=== PATIENT | female | born 1970 | race Caucasian/White ===

== ENCOUNTER 2023-05-02 10:14 | Outpatient (AMB) | payer MEDICAID, SELFPAY ==
--- NOTE | 2023-05-02 10:15 | MHC.OFFVIS ---
Intake Intake Visit Reasons: LDCT SD Allergies morphine [MORPHINE] Allergy (Unknown, Unverified 03/09/20 15:16) UNKNOWN naproxen [From NAPROSYN] Allergy (Unknown, Unverified 03/09/20 15:16) GASTRITIS Sulfa (Sulfonamide Antibiotics) [SULFA (SULFONAMIDE ANTIBIOTICS)] Allergy (Unknown, Unverified 03/09/20 15:16) RASH,HIVES,CHEST TIGHTNESS HPI HPI Comments History of Present Illness Details Initial visit for this 53 year old female smoker with a 55+ PYH. Patient has been smoking since age 13 for 40 years at 1-2.5 ppd. . Denies marijuana use. Denies exposure to chemicals or substances like asbestos. Reports social second hand smoke exposure. . Reports father, smoker, with history of lung cancer. Denies personal history of cancers. Denies chest CT in last year. . Denies recent travel outside the [place]. Denies testing positive for COVID. Denies receiving COVID Vaccinations. . Denies fever, chills, chest pain, new cough, hemoptysis or unintentional weight loss. Lung Cancer Screening Questionnaire reviewed with patient by provider. . Shared Decision Making Completed. Discussed in detail with patient, the risk vs benefit of LDCT screening. Patient would like to proceed with scan. Discussed smoking cessation. [facility] Medical History (Updated 04/21/23 @ 11:42 by Velma Leija PA-C) Nicotine dependence, cigarettes, uncomplicated Cervical radiculopathy Insomnia Depression with anxiety Surgical History (Updated 04/28/23 @ 11:13 by Velma Leija PA-C) History of breast surgery History of cholecystectomy History of appendectomy History of tubal ligation Assessment & Plan Assessment & Plan (1) Nicotine dependence, cigarettes, uncomplicated: Comment: (onset 13yo, 1-1.5ppd x 40yrs, 50pyh) Code(s): F17.210 - Nicotine dependence, cigarettes, uncomplicated Plan - SDM visit completed via telehealth. - Patient meets criteria for LDCT for lung cancer screening purposes and is asymptomatic. - Offered smoking cessation. - Will arrange for a LDCT scan of the chest for screening purposes at [facility]. - Discussed follow up plan. Will send a letter discussing results and if needed set up phone call and office visit based on CT findings. - Risks, benefits, and alternatives were discussed in detail and patient agrees to proceed. - Risks discussed include but are not limited to: radiation exposure and possibility of additional intervention for benign disease. - Benefits are obviously detection of lung cancer at an early stage. - Discussed importance of screening program and compliance with yearly LDCT scan as scheduled. - Patient informed they will be contacted at later date to schedule upcoming LDCT scan. - All questions answered. - A copy of office note and LDCT will be sent to patient's PCP. Incidental findings on LDCT are PCP's responsibility. Telehealth Telehealth Location of provider rendering services: practice address Location of patient: address on file Patient Identification confirmed using: Name, : Yes Telehealth method: voice only Patient verbally consented to treatment: Yes Patient verbally consented to billing insurance company: Yes Patient informed of any privacy concerns related to visit: Yes Minutes spent on Phone/Video with Pt.: 8 Coding Level of Care Code Lung Cancer Screening [id number] Diagnoses Nicotine dependence, cigarettes, uncomplicated F17.210
== END 2023-05-02 10:49 | disposition home or self-care (01) ==
LOC: HO.HPS 10:14
PROVIDERS: PCP Internal Medicine; Visit Provider Nurse Practitioner Family
DX: F17.210 Nicotine dependence, cigarettes, uncomplicated (principal)
CPT/HCPCS: G0296

== ENCOUNTER 2023-05-02 16:01 | Outpatient (REF) | payer MEDICAID, SELFPAY ==
--- NOTE | ~2023-05-02 | CT_ITS ---
EXAMINATION: CT CHEST SCREENING CLINICAL INFORMATION: Current smoker. 40 pack year history. COMPARISON: Previous chest x-ray June 2019 TECHNIQUE: Multidetector volumetric CT imaging of the chest is performed without contrast using low dose technique. Additional 2D coronal and sagittal reformatted images and axial 3D maximum intensity projection (MIP) images are generated on the CT workstation. This CT examination was performed using dose optimization techniques as appropriate, variously including the following: *Automated exposure control *Adjustment of mA and/or kV according to patient size (this includes techniques or standardized protocols for targeted exams where dose is matched to indication/reason for exam; i.e. extremities or head) *Use of iterative reconstruction technique DLP: 45 mGy-cm FINDINGS: LUNGS: Mild emphysema. Bilateral calcified pulmonary nodules, largest measuring 4 mm probably representing calcified granulomas. 3 mm noncalcified right upper lobe nodule axial image 176 and 182 series 5. 6 mm peripheral or subpleural noncalcified right middle lobe nodule along the minor fissure probably representing a subpleural lymph node axial image 2:30 series 5. 4 mm noncalcified right upper lobe nodule axial image 186 series 5. Scarring or chronic subsegmental atelectasis in the lingula. No endobronchial or endotracheal lesion. MEDIASTINUM: The mediastinum is normal. CORONARY ARTERY CALCIFICATION: None visualized on this study. PLEURA: There is no pleural effusion. No pleural mass or thickening. AXILLA: No lymphadenopathy. Bilateral breast implants. UPPER ABDOMEN: Unremarkable OSSEOUS STRUCTURES: Degenerative changes of the spine. CT/CT lung screening IMPRESSION: Mild emphysema. Bilateral small calcified and noncalcified pulmonary nodules. ASSESSMENT: Lung-RADS category 2: Benign RECOMMENDATION: Annual low-dose chest CT follow-up recommended
== END 2023-05-02 16:02 | disposition home or self-care (01) ==
LOC: HO.CT 16:01
PROVIDERS: PCP Internal Medicine; Visit Provider Physician Assistant Medical
DX: Z12.2 Encounter for screening for malignant neoplasm of respiratory organs (principal); F17.210 Nicotine dependence, cigarettes, uncomplicated
CPT/HCPCS: 71271; G0296

== ENCOUNTER 2023-09-15 16:00 | Outpatient (REF) | payer MEDICAID, SELFPAY ==
--- NOTE | ~2023-09-15 | MR_ITS ---
EXAMINATION: MR LUMBAR SPINE WITHOUT CONTRAST CLINICAL INFORMATION: Low back pain with sciatica COMPARISON: MRI lumbar spine on 04/18/2015 TECHNIQUE: MRI of the lumbar spine was obtained using routine sequences without contrast. FINDINGS: The visualized lumbar vertebrae are intact with normal alignment. No focal bone lesion with abnormal signal can be seen. Evaluation of the intervertebral discs show: T12/L1: Intervertebral disc height is normal, with normal T2 signal. No focal disc herniation is seen. Bilateral T12/L1 neuroforamina are patent. Bilateral apophyseal joints are intact with normal alignment. L-1/L-2: Intervertebral disc height is normal, with normal T2 signal. No focal disc herniation is seen. Bilateral L1-L2 neuroforamina are patent. Bilateral apophyseal joints are intact with normal alignment. L2/L3: Intervertebral disc height is normal, with normal T2 signal. No focal disc herniation is seen. Bilateral L2-L3 neuroforamina are patent. Bilateral apophyseal joints are intact with normal alignment. L3/L4: Intervertebral disc height is normal, with normal T2 signal. No focal disc herniation is seen. Bilateral L3-L4 neuroforamina are patent. Bilateral apophyseal joints are intact with normal alignment. Bilateral apophyseal joints show loss of joint space, sclerosis, facet hypertrophy and osteophytosis. L4/L5: Intervertebral disc height is normal, with normal T2 signal. No focal disc herniation is seen. Bilateral L4-L5 neuroforamina are patent. Bilateral apophyseal joints are intact with normal alignment. Bilateral apophyseal joints show loss of joint space, sclerosis, facet hypertrophy and osteophytosis. L5/S1: Intervertebral disc height is mildly decreased, with moderate loss of T2 signal. Mild posterior and bilateral foraminal disc protrusion is seen. There is resulting asymmetric moderate left L5-S1 neuroforamina stenosis due to impingement by foraminal disc and apophyseal joint osteophytes. Bilateral apophyseal joints are intact with normal alignment. Bilateral apophyseal joints show loss of joint space, sclerosis, facet hypertrophy and osteophytosis. A left lateral posterior synovial cyst measuring 0.4 cm in diameter is seen. Conus medullaris is seen normally at L1 level. MR/MR lumbar spine wo con IMPRESSION: 1. Interval progression to moderate L5-S1 degenerative disc disease with persistent mild posterior and bilateral foraminal disc protrusion. There is interval progression to asymmetric moderate left L5-S1 neuroforamina stenosis due to impingement by foraminal disc and apophyseal joint osteophytes. 2. Interval development of Bilateral L5-S1 facet joint osteoarthritis with a left lateral posterior synovial cyst measuring 0.4 cm in diameter. 3. Interval development of Bilateral L3-L4 and L4-L5 facet joint osteoarthritis.
--- NOTE | ~2023-09-15 | XR_ITS ---
EXAMINATION: XR SHOULDER, LEFT CLINICAL INFORMATION: Pain. COMPARISON: Radiographs dated 06/08/2015. TECHNIQUE: AP external rotation, Grashey, scapular Y, and axillary views of the left shoulder. FINDINGS: Bony alignment and mineralization are normal. The glenohumeral joint is intact. The acromioclavicular and coracoclavicular intervals are normal. No fracture or dislocation is seen. There is mild calcific tendinitis of the left rotator cuff insertion. No foreign body is seen. There is no left pneumothorax. A small left apical benign, calcified granuloma is seen, consistent with the CT chest dated 05/02/2023 (5:94). XR/XR shoulder LT min 2V IMPRESSION: 1. No fracture or dislocation is seen. 2. There is mild calcific tendinitis of the left rotator cuff insertion.
--- NOTE | ~2023-09-15 | XR_ITS ---
EXAMINATION: XR CERVICAL SPINE CLINICAL INFORMATION: Neck pain. COMPARISON: Cervical spine 11/03/2012 radiographs, MRI cervical spine 01/24/2013. TECHNIQUE: 5 views of the cervical spine. FINDINGS: Redemonstration of postsurgical changes with interbody and anterior buttress device at C5-C6. Advanced degenerative changes with hypertrophic change and loss of disc space height at C4-C5 have significantly progressed. Minimal anterolisthesis of C2 on C3. XR/XR cervical spine 4V IMPRESSION: 1. Redemonstration of postsurgical changes at C5-C6. 2. Advanced degenerative changes at C4-C5 have significantly progressed.
== END 2023-09-15 16:01 | disposition home or self-care (01) ==
LOC: HO.MRI 16:00
PROVIDERS: PCP Internal Medicine; Visit Provider Internal Medicine
DX: M54.41 Lumbago with sciatica, right side (principal); M54.42 Lumbago with sciatica, left side; G89.29 Other chronic pain; M54.2 Cervicalgia; M25.512 Pain in left shoulder
CPT/HCPCS: 72050; 72148; 73030

== ENCOUNTER 2024-03-13 02:47 | Emergency (ER) | payer MEDICAID, SELFPAY ==
--- NOTE | ~2024-03-13 | CT_ITS ---
EXAMINATION: CT HEAD WITHOUT CONTRAST (STROKE PROTOCOL) CLINICAL INFORMATION: Stroke protocol. COMPARISON: None available. TECHNIQUE: Contiguous axial imaging was performed from the skull base to vertex without intravenous administration of contrast. This CT examination was performed using dose optimization techniques as appropriate, variously including the following: *Automated exposure control *Adjustment of mA and/or kV according to patient size (this includes techniques or standardized protocols for targeted exams where dose is matched to indication/reason for exam; i.e. extremities or head) *Use of iterative reconstruction technique DLP: 665 mGy-cm FINDINGS: The lateral, third and fourth ventricles are normally outlined. The cortical sulci and basal cisterns are normally outlined as well. There is mild periventricular and central white matter attenuation. There is no acute territorial defects, hemorrhage or midline shift. The extra-axial spaces are unremarkable. Calvarium/scalp: Intact. Maxillofacial sinuses and mastoids: Clear as visualized. CT/CT head for stroke IMPRESSION: No acute intracranial pathology. Mild periventricular and central white matter diminished attenuation likely mild microvascular disease. This critical result was discussed with Dr. Siddharth Gordillo at 3:30 AM hours on March 13, 2024. It was ascertained that the content and urgency of the report was understood at the time of direct communication. Electronically signed by: Vini Mckeon MD 03/13/2024 03:37 AM EDT
--- NOTE | ~2024-03-13 | CT_ITS ---
EXAMINATION: CT ANGIOGRAM HEAD CT ANGIOGRAM NECK CLINICAL INFORMATION: Stroke. Weakness. Altered sensation. COMPARISON: Brain MRI from 02/11/2018. CT head from 03/13/2024. TECHNIQUE: Initial noncontrast radiochemical technician imaging of the head and neck was performed. Comparison is made with noncontrast head CT from earlier today. Test bolus sequences followed by intravenous administration 75 mL of Omnipaque 350. Helical imaging was performed in the axial plane from the aortic arch to the skull vertex. Delayed postcontrast imaging of the head was also performed. The data was processed at the processing technologist's workstation for generation of MIP sequences. Angled MIPs and volume rendered reformatted images were also generated at an offline 3D workstation. Stenoses are assessed in accordance with NASCET criteria unless otherwise indicated. This CT examination was performed using dose optimization techniques as appropriate, variously including the following: *Automated exposure control. *Adjustment of mA and/or kV according to patient size (this includes techniques or standardized protocols for targeted exams where dose is matched to indication/reason for exam; i.e. extremities or head). *Use of iterative reconstruction technique. DLP: 1440 mGy-cm FINDINGS: CT Head: There is no evidence of acute intracranial hemorrhage or edematous territorial infarction. [place]-white matter differentiation is preserved. A few foci of hypoattenuation in the periventricular and deep white matter most commonly seen with mild microangiopathy. The ventricles are normal in morphology and size. No evidence for obstructive hydrocephalus. No abnormal mass effect or midline shift. No extra-axial fluid collections. No pathologic intra-axial enhancement. No acute soft tissue or osseous abnormalities. Mild mucosal thickening of the paranasal sinuses. The mastoid air cells and middle ear cavities are clear. Multifocal odontogenic enamel erosions and periapical lucencies. CT Neck: The thyroid gland and remaining cervical soft tissues are within normal limits. Instrumented interbody fusion of C5-C6. Mild reversal of normal cervical lordosis centered on C4-C5. Advanced degenerative disc disease at C4-C5. Mild to moderate degenerative disc disease at all additional levels. C3-C7. CT Upper Chest: The visualized lung apices and upper mediastinum are within normal limits. Neck CTA: Aortic Arch: Normal contour and caliber with mild calcific atherosclerotic disease. Classic 3 vessel branching pattern of the aortic arch. Great Vessel Origins: No significant stenosis of the branch origins. Right Common Carotid Artery: No focal stenosis or occlusion. Cervical Right Internal Carotid Artery: Mild fibrofatty atherosclerotic disease of the carotid bulb and proximal internal carotid artery without flow-limiting stenosis. Left Common Carotid Artery: No focal stenosis or occlusion. Cervical Left Internal Carotid Artery: Calcific atherosclerotic disease of the carotid bulb and proximal internal carotid artery causing less than 50% stenosis. Cervical Right Vertebral Artery: Co-dominant. No focal stenosis or occlusion. Cervical Left Vertebral Artery: Co-dominant. No focal stenosis or occlusion. Brain CTA: Intracranial Internal Carotid Arteries: Calcific atherosclerotic disease of the intracranial internal carotid arteries without occlusion or flow-limiting stenosis. Right Anterior Cerebral Artery: Normal A1 segment. Normal opacification of the distal KESHIA segments. Left Anterior Cerebral Artery: Normal A1 segment. Normal opacification of the distal KESHIA segments. Anterior Communicating Artery: Normal. Right Middle Cerebral Artery: Normal M1 segment of the MCA without focal stenosis or occlusion. Normal arborization of the distal segments. Left Middle Cerebral Artery: Normal M1 segment of the MCA without focal stenosis or occlusion. Normal arborization of the distal segments. Right Vertebral Artery: Normal V4 segment. Normal opacification of the proximal segments of the posterior inferior cerebellar artery. Left Vertebral Artery: Normal V4 segment. Normal opacification of the proximal segments of the posterior inferior cerebellar artery. Basilar Artery: Normal without focal stenosis or occlusion. Normal appearance of the proximal superior cerebellar arteries. Right Posterior Cerebral Artery: Normal P1 segment. Normal opacification of the distal [employer] SERV[employer]IST [employer] CHAR[employer] segments. Left Posterior Cerebral Artery: Normal P1 segment. Normal opacification of the distal EX[employer] SERVICE [employer]IST IN [employer] segments. Normal opacification of the superior sagittal, straight, transverse, and sigmoid sinuses. CT/CT angio head neck stroke IMPRESSION: 1. No evidence of acute intracranial hemorrhage or edematous territorial infarction. Mild chronic white matter changes. 2. CTA of the head and neck without proximal occlusion or flow-limiting stenosis. 3. Moderate multilevel degenerative spondyloarthropathy of the cervical spine. This critical result was discussed with Dr. Gordillo at 04:18 on 03/13/2024 and it was ascertained that the content and urgency of the report was understood at the time of direct communication. Electronically signed by: Shahzad Stoll DO 03/13/2024 04:23 AM EDT
[2024-03-13 02:58] VITALS: BP 165/99; PULSE 88; RESP 16; TEMP 37.1; O2SAT 99; BMI 30.7
--- NOTE | 2024-03-13 03:03 | ED_ITS ---
HPI - Weakness General Chief complaint: Neuro Symptoms/Deficit Stated complaint: had stroke in October/face feels numb again Time Seen by Provider: 03/13/24 03:03 Source: patient Mode of arrival: ambulatory History of Present Illness ED Provider: Dr. 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 Patient states that her entire face is numb and she may have arm weakness on the left side which is the same side that was affected by her hemorrhagic stroke. Of note MRI/MRA of brain in October was negative for vascular lesions. Patient denies drug use. MD Complaint: numbness Related Data Allergies Allergy/AdvReac Type Severity Reaction Status Date / Time morphine [MORPHINE] Allergy Unknown UNKNOWN Unverified 03/13/24 03:03 naproxen [From NAPROSYN] Allergy Unknown GASTRITIS Unverified 03/13/24 03:03 Sulfa (Sulfonamide Allergy Unknown RASH,HIVES,CHEST Unverified 03/13/24 03:03 Antibiotics) TIGHTNESS [SULFA (SULFONAMIDE ANTIBIOTICS)] Review of Systems 2 Review of Systems: Yes all other systems are reviewed and are negative Neurologic: Denies Sensory deficit (Neuro) PMFSH Past Medical History Medical History Nicotine dependence, cigarettes, uncomplicated Cervical radiculopathy Insomnia Depression with anxiety Surgical History History of breast surgery History of cholecystectomy History of appendectomy History of tubal ligation Social History Social History Smoked in Last 30 Days: Yes Use of substances other than those prescribed or required for medical reasons: No Advance Directives: No Advance Directives Information Provided: Yes Do you have a plan to hurt others: No Plan Patient : No Physical Exam 2 Vital Signs: Vital Signs: Last Vital Signs Temp 98.6 F 03/13/24 06:05 Pulse 68 03/13/24 06:05 Resp 17 03/13/24 06:05 BP 120/68 03/13/24 06:05 Pulse Ox 97 03/13/24 06:05 O2 Del Method Room Air 03/13/24 06:05 BMI result Body Mass Index 30.7 Const: Other: patient appears intoxicated but she denies drug use Nutritional Appearance: average body habitus Orientation/consciousness: oriented to person and patient oriented x3 Limitations: no limitations HEENT: Head: Yes normal to inspection Ears: external ears normal General nose exam: Normal external nose present Mouth: Normal oral and palatal mucosa present and oropharynx normal Throat: Yes posterior oropharynx normal Eyes: General: appearance normal, both eyes and all related structures Neck: Other: supple Neck: Yes normal visual inspection Chest: Chest palpation & inspection: normal inspection of the chest Resp: Auscultation: clear to auscultation bilaterally Cardio: Jugular venous distension: no JVD Rate: regular rate Rhythm: r egular rhythm Heart sounds: S1 normal heart sound present and S2 normal heart sound present GI: Inspection: Yes normal to inspection Palpation (GI): Soft to palpation, nontender and No hepatosplenomegaly present Auscultation: normal bowel sounds : General: Yes no CVA tenderness Back/Spine/Pelvis: Back: no CVA tenderness Skin: General skin exam: no rashes or lesions noted Neuro: General: oriented to person and patient oriented x3 Cranial nerves: Yes CN's II-XII intact bilaterally Motor exam (neuro): 5/5 motor strength present throughout Sensory Exam: No Sensory deficit (Neuro) Extrem: General: Yes normal to inspection Psych: Appearance: grossly normal NIH Stroke Scale Level of Consciousness: Alert Level of Consciousness Questions: Answers both questions correctly Level of Consciousness Commands: Performs both tasks correctly Best Gaze: Normal Visual: No visual loss Facial Palsy: Normal Motor Arm (Right): No drift Motor Arm (Left): No drift Motor Leg (Right): No drift Motor Leg (Left): No drift Limb Ataxia: Absent Sensory: Normal Best Language: No aphasia Dysarthia: Normal Extinction and Inattention: No abnormality Score: 0 Course Reevaluation(s) Reevaluation #1: CT/CTA negative, drug screen positive for fentanyl. Will dc home. Time: 07:36 Reevaluation #2: I spent 40 minutes of critical care, with interventions, assessments, speaking to patient, consultants, and family. Time: 07:36 Medications Administered Discontinued Medications Generic Name Dose Route Start Last Admin Trade Name Freq PRN Reason Stop Dose Admin Iohexol 65 ml 03/13/24 03:43 03/13/24 03:43 Iohexol 350 Mg/Ml 100 Ml Infus..Btl IV 03/13/24 03:44 65 ml ONCE ONE Administration Medical Decision Making Differential Diagnosis Differential Diagnoses: The differential diagnosis associated with the presentation includes (stroke, cerebral hemorrhage, TIA, drug use) Admission/Observation Consideration of admission/observation: Escalation of care including admission/observation considered (upon arrival patient considered for admission) Lab Data 03/13/24 03:06 03/13/24 03:06 Labs: Lab Results 03/13/24 03/13/24 03/13/24 Range/Units 03:06 03:08 03:10 WBC 8.7 (4.8-10.8) X10*3/uL RBC 4.63 (4.20-5.50) X10*6/uL Hgb 13.9 (12.0-16.0) g/dl Hct 41.4 (37.0-47.0) % MCV 89.4 (80.0-98.0) fL MCH 30.0 (27.0-33.0) pg MCHC 33.6 (31.0-35.0) g/dl RDW 13.4 (11.0-16.0) % Plt Count 245 (160-400) X10*3/uL MPV 10.2 (9.4-12.3) fL Immature Gran % (Auto) 0.1 (0.0-0.4) % Neut % (Auto) 53.3 (45-73) % Lymph % (Auto) 38.9 (20-40) % [place] % (Auto) 6.1 (2-11) % Eos % (Auto) 1.3 (0-4) % Baso % (Auto) 0.3 (0-2) % Lymph # (Auto) 3.4 (1.2-4.9) X10*3/uL [place] # (Auto) 0.5 (0.1-1.2) X10*3/uL Eos # (Auto) 0.1 (0.0-0.4) X10*3/uL Baso # (Auto) 0.0 (0.0-0.2) X10*3/uL Abs Immat Gran (auto) 0.01 (0.00-0.03) X10*3/uL Absolute Neuts (auto) 4.7 (2.0-8.3) x10*3/uL Absolute Nucleated RBC 0.000 (0.0-0.012) X10*3/uL Nucleated RBC % (auto) 0.0 (0.0-0.2) /100WBC PT 10.6 L (10.9-12.4) SEC Whole Blood PT 11.7 (11.1-13.5) sec INR 0.9 (0.9-1.1) Whole Blood INR 1.0 (0.9-1.1) APTT 29.9 (26.0-36.8) SEC Sodium 139 (135-145) mmol/L Potassium 3.6 (3.3-5.1) mmol/L Chloride 105 (96-108) mmol/L Carbon Dioxide 23 (22-29) mmol/L Anion Gap 15 (12-20) BUN 13 (9-16) mg/dL Creatinine 0.85 (0.5-1.4) mg/dL Estim Creat Clear Calc 78.8 Estimated GFR > 60 POC Glucose 119 H (60-115) mg/dL Random Glucose 119 H (60-115) mg/dL Calcium 10.2 (8.4-10.2) mg/dL Troponin I High Sens < 2.7 (<3.5-17.0) ng/L Triglycerides 448 H (<150) mg/dL Cholesterol 205 H (<200) mg/dL LDL Cholesterol, Calc TNP HDL Cholesterol 47 (>40) mg/dL Urine Opiates Screen (Not Detect) Ur Buprenorphine Scrn (Not Detect) ng/mL Ur Oxycodone Screen (Not Detect) ng/mL Urine Methadone Screen (Not Detect) ng/mL Urine Fentanyl Screen (Not Detect) Ur Barbiturates Screen (Not Detect) Ur Phencyclidine Scrn (Not Detect) Ur Amphetamines Screen (Not Detect) U Benzodiazepines Scrn (Not Detect) Urine Cocaine Screen (Not Detect) U Marijuana (THC) Screen (Not Detect) Ethyl Alcohol < 10 mg/dL 03/13/24 Range/Units 03:55 WBC (4.8-10.8) X10*3/uL RBC (4.20-5.50) X10*6/uL Hgb (12.0-16.0) g/dl Hct (37.0-47.0) % MCV (80.0-98.0) fL MCH (27.0-33.0) pg MCHC (31.0-35.0) g/dl RDW (11.0-16.0) % Plt Count (160-400) X10*3/uL MPV (9.4-12.3) fL Immature Gran % (Auto) (0.0-0.4) % Neut % (Auto) (45-73) % Lymph % (Auto) (20-40) % [place] % (Auto) (2-11) % Eos % (Auto) (0-4) % Baso % (Auto) (0-2) % Lymph # (Auto) (1.2-4.9) X10*3/uL [place] # (Auto) (0.1-1.2) X10*3/uL Eos # (Auto) (0.0-0.4) X10*3/uL Baso # (Auto) (0.0-0.2) X10*3/uL Abs Immat Gran (auto) (0.00-0.03) X10*3/uL Absolute Neuts (auto) (2.0-8.3) x10*3/uL Absolute Nucleated RBC (0.0-0.012) X10*3/uL Nucleated RBC % (auto) (0.0-0.2) /100WBC PT (10.9-12.4) SEC Whole Blood PT (11.1-13.5) sec INR (0.9-1.1) Whole Blood INR (0.9-1.1) APTT (26.0-36.8) SEC Sodium (135-145) mmol/L Potassium (3.3-5.1) mmol/L Chloride (96-108) mmol/L Carbon Dioxide (22-29) mmol/L Anion Gap (12-20) BUN (9-16) mg/dL Creatinine (0.5-1.4) mg/dL Estim Creat Clear Calc Estimated GFR POC Glucose (60-115) mg/dL Random Glucose (60-115) mg/dL Calcium (8.4-10.2) mg/dL Troponin I High Sens (<3.5-17.0) ng/L Triglycerides (<150) mg/dL Cholesterol (<200) mg/dL LDL Cholesterol, Calc HDL Cholesterol (>40) mg/dL Urine Opiates Screen Not Detected (Not Detect) Ur Buprenorphine Scrn Not Detected (Not Detect) ng/mL Ur Oxycodone Screen Not Detected (Not Detect) ng/mL Urine Methadone Screen Not Detected (Not Detect) ng/mL Urine Fentanyl Screen POSITIVE H (Not Detect) Ur Barbiturates Screen Not Detected (Not Detect) Ur Phencyclidine Scrn Not Detected (Not Detect) Ur Amphetamines Screen Not Detected (Not Detect) U Benzodiazepines Scrn Not Detected (Not Detect) Urine Cocaine Screen Not Detected (Not Detect) U Marijuana (THC) Screen Not Detected (Not Detect) Ethyl Alcohol mg/dL Independent Interpretation I performed an independent interpretation of an: EKG (sinus 70, minor inferior twave changes) Radiology Impression Discussion of test interpretation with radiology: I discussed test interpretation with the radiologist (both the CT and CTA were read as negative) Independent Historian Clinical information obtained from an independent historian. History obtained from or confirmed by: EMS External Record Review External record reviewed: Outpatient record ([facility] records) Tests considered The following testing was considered but not selected: MRI considered but patient is not focal Social Determinants Patient?s care significantly limited by Social Determinants of Health including: Alcoholism and drug addiction in family Discharge Plan Discharge Clinical Impression: Facial paresthesia, Polysubstance abuse Patient Disposition: Home, Self-Care Instructions: Paresthesia (ED), Polysubstance Abuse (ED) Referrals: Derek Segovia MD [Primary Care Provider] - 3 days Print Language: Czech
--- NOTE | 2024-03-13 03:03 | ECG_ITS ---
Test Reason : STROKE Blood Pressure : / mmHG Vent. Rate : 070 BPM Atrial Rate : 070 BPM P-R Int : 156 ms QRS Dur : 082 ms QT Int : 416 ms P-R-T Axes : 072 080 035 degrees QTc Int : 449 ms Normal sinus rhythm Normal ECG When compared with ECG of 04-OCT-2012 10:58, Vent. rate has decreased BY 42 BPM Referred By: Siddharth Gordillo Electronically Signed By:CHRISTIAN RAMIREZ
[2024-03-13 03:10] LABS: Stroke Lab Use COMPLETE
[2024-03-13 03:11] LABS: Basophils Percent Auto 0.3 % (0-2); Eosinophils Absolute Auto 0.1 X10*3/uL (0.0-0.4); Eosinophils Percent Auto 1.3 % (0-4); Hematocrit 41.4 % (37.0-47.0); Hemoglobin 13.9 g/dl (12.0-16.0); Imm Gran Abs Auto 0.01 X10*3/uL (0.00-0.03); Imm Gran Pct Auto 0.1 % (0.0-0.4); Lymphocytes Absolute Auto 3.4 X10*3/uL (1.2-4.9); Lymphocytes Percent Auto 38.9 % (20-40); MANUAL DIFF FLAG NO; Mean Corpuscular HGB Conc 33.6 g/dl (31.0-35.0); Mean Corpuscular Volume 89.4 fL (80.0-98.0); Mean Platelet Volume 10.2 fL (9.4-12.3); Monocytes Absolute Auto 0.5 X10*3/uL (0.1-1.2); Monocytes Percent Auto 6.1 % (2-11); Neutrophils Absolute Auto 4.7 x10*3/uL (2.0-8.3); Neutrophils Percent Auto 53.3 % (45-73); Platelet Count 245 X10*3/uL (160-400); Red Blood Count 4.63 X10*6/uL (4.20-5.50); Red Cell Distribution Width 13.4 % (11.0-16.0); White Blood Count 8.7 X10*3/uL (4.8-10.8)
[2024-03-13 03:16] LABS: INTERNATIONAL NORM RATIO 0.9 (0.9-1.1); Prothrombin Time 10.6 SEC (10.9-12.4)
[2024-03-13 03:18] LABS: Prothrombin Time Whole Bld POC 11.7 sec (11.1-13.5)
[2024-03-13 03:19] LABS: Partial Thromboplastin Time 29.9 SEC (26.0-36.8)
--- OUTSIDE RECORDS SUMMARY | 2024-03-13 03:22 | XMS_ITS | Continuity of Care Document ---
Author Organization [facility] Address [address] [place] [id number]- Care Team Providers Care Search Engine Marketing Specialist Name Role Phone Luna Greenfield MD Primary Care Physician [phone] Encounter [facility] Date(s): 10/10/22 - 11/09/22 [facility] [address] [place] [id number]- Attending Physician: Coby Burnett Admitting Physician: Coby Burnett Referring Physician: AdmtrCoby Allergies, Adverse Reactions, Alerts Substance Reaction Severity Status naproxen SEVERE GASTRITIS Active sulfADIAZINE difficulty breathing, rash A ctive Immunizations Given and Recorded Vaccine Date Status Refusal Reason tetanus/diphtheria/pertussis, acel(Tdap) 1 06/21/11 Given 1Admin Note: VIS 05/10/2008 Medications Albuterol 3 puffs, Inhalation, PRN Wheezing/Shortness of Breath, 0 Refills, Maintenance Start Date: 06/05/12 Status: Ordered amitriptyline 25 mg oral tablet 1 tablet = 25 mg, By Mouth, Daily at bedtime, 0 Refills, Maintenance, 03/22/14 9:30:44 Start Date: 03/22/14 Status: Ordered Flexeril 5 mg oral tablet 0 Refills, Maintenance Start Date: 12/17/12 Status: Ordered Flonase 50 mcg/inh nasal spray 1 sprays, Daily, 0 Refills, Maintenance Start Date: 12/17/12 Status: Ordered ibuprofen 600 mg oral tablet 1 tablet = 600 mg, By Mouth, 4 times a day, 0 Refills, Maintenance Start Date: 12/17/12 Status: Ordered lidocaine 5% topical film 1 patch, Topically, Daily, 0 Refills, Maintenance Start Date: 12/17/12 Status: Ordered loratadine 10 mg oral tablet 1 tablet = 10 mg, By Mouth, Daily, 0 Refills, Maintenance Start Date: 12/17/12 Status: Ordered meloxicam 7.5 mg oral tablet 1 tablet = 7.5 mg, By Mouth, Daily, # 30 tablet, 0 Refills, Maintenance, 03/22/14 9:31:49, Tablet Start Date: 03/22/14 Status: Ordered oxycodone 20 mg oral tablet 1 tablet = 20 mg, By Mouth, Every 4 hours, 0 Refills, Maintenance, 03/22/14 9:27:40, Tablet Start Date: 03/22/14 Status: Ordered sertraline 50 mg oral tablet 1 tablet = 50 mg, By Mouth, Daily, # 30 tablet, 0 Refills, Maintenance, 03/22/14 9:31:32, Tablet Start Date: 03/22/14 Status: Ordered Sudafed 30 mg oral tablet 1 tablet = 30 mg, By Mouth, Every 6 hours, 0 Refills, Maintenance Start Date: 12/17/12 Status: Ordered trospium chloride 20 mg oral tablet 1 tablet = 20 mg, By Mouth, Daily, # 30 tablet, 0 Refills, Maintenance, 03/22/14 9:31:13, Tablet Start Date: 03/22/14 Status: Ordered Problem List Condition Confirmation Course Effective Dates Status Health St atus Informant Cholelithiasis Confirmed Active Lumbar radiculitis Confirmed Active Patient Care team information Care Team Personnel Name: Gilda Parkinson RN Position: [facility] AMB Nurse Member Role: Primary Care Nurse Name: Jean Pierre WILKINSON, Luna Jacobo Position: [facility] Outreach Member Role: PCP Address: Address: [address] [place] [address]- Care Team Related Persons Name: LIVIA PAREKH Address: home [address] [place] [address] Name: SHELIA VASQUEZ Address: [address] [place] [address] Name: PT, STATES NONE
--- OUTSIDE RECORDS SUMMARY | 2024-03-13 03:22 | XMS_ITS | Continuity of Care Document ---
Author Organization [facility] Address [address] [facility], [address]r d Floor, [address] [place] [address]- Care Team Providers Care Doormaker Name Role Phone Jean Pierre WILKINSON, Luna Jacobo Primary Care Physician Encounter [facility] [place] Date(s): 12/16/23 - 12/23/23 [facility] [address] [facility] [address] [place] [id number] Attending Physician: Casandra Stanton MD, Ramandeep Allergies, Adverse Reactions, Alerts Substance Reaction Severity Status naproxen SEVERE GASTRITIS Active sulfADIAZINE difficulty breathing, rash A ctive Immunizations Given and Recorded Vaccine Date Status Refusal Reason tetanus/diphtheria/pertussis, acel(Tdap) 1 06/21/11 Given 1Admin Note: VIS 05/10/2008 Medications amLODIPine 10 mg oral tablet 10 mg, By Mouth, Daily, # 30 tablet, Refills 0, Tot. Refills 0, Maintenance, 11/05/23 13:32:00 EDT,Route to Pharmacy Electronically, [facility], Partial fill upon patient request if the prescription is for a schedule II opioid drug., 16... Start Date: 11/05/23 Status: Ordered Blood Pressure Test Kit-Large Cuff Blood Pressure Test Kit-Large Cuff, 0 Refills, Maintenance, 12/16/23 11:15:00 EDT Start Date: 12/16/23 Status: Ordered buPROPion 100 mg/12 hours (SR) oral tablet, extended release TAKE 1 TABLET BY MOUTH ONCE PER DAY. DO NOT CRUSH, CHEW, OR SPLIT. Start Date: 12/16/23 Status: Ordered cetirizine 10 mg oral tablet TAKE 1 TABLET BY MOUTH ONCE PER DAY. Start Date: 12/16/23 Status: Ordered lidocaine 5% topical film 1 patch, Topically, Daily, 0 Refills, Maintenance Start Date: 12/17/12 Status: Ordered meclizine 25 mg oral tablet 1 tablet = 25 mg, TAKE 1 TABLET BY MOUTH IF NEEDED IN THE MORNING AT NOON AND AT BEDTIME FOR DIZZINESS UP TO 10 DAYS Start Date: 12/16/23 Status: Ordered Problem List Condition Confirmation Course Effective Dates Status Health St atus Informant Cholelithiasis Confirmed Active Lumbar radiculitis Confirmed Active Vital Signs Most recent to oldest [Reference Range]: 1 Height 163 cm (12/16/23 11:10 AM) Weight 78.6 kg (12/16/23 11:10 AM) Oxygen Saturation [94-100 %] 96 % (12/16/23 11:10 AM) Pulse Rate [55-90 bpm] 72 bpm (12/16/23 11:10 AM) Body Mass Index [18.5-24.99 kg/m2] 29.58 kg/m2 *H* (12/16/23 11:10 AM) Blood Pressure [90-138/55-84 mm Hg] 124/ 61mm Hg (12/16/23 11:10 AM) Respiratory Rate [16-30 br/min] 16 br/mi n (12/16/23 11:10 AM) Blood pressure sites Arm, right (12/16/23 11:10 AM) Weight Obtained Via Bed scale (12/16/23 11:10 AM) Social History Social History Type Response Smoking Status 10 or more cigarette s (1/2 pack or more)/day in last 30 days; Other: 10 a day; entered on: 12/16/23 Sex Patient Care team information Care Team Personnel Name: Tesha Yan RN Position: [facility] RN Member Role: Primary Care Nurse Name: Migdalia Retana RN Position: [facility] RN Member Role: Primary Care Nurse Name: Gilda Parkinson RN Position: [facility] AMB Nurse Member Role: Primary Care Nurse Name: Melita Lopez RN Position: [facility] RN Member Role: Primary Care Nurse Name: Antionette Regalado RN Position: [facility] RN Member Role: Primary Care Nurse Name: Amira Gustafson RN Position: [facility] RN Member Role: Primary Care Nurse Name: Luna Greenfield MD Position: [facility] Outreach Member Role: PCP Address: Address: [address] [place], [place] [phone] Name: Xavier Morales RN Position: [facility] RN Member Role: Primary Care Nurse Name: Tara Collins RN Position: [facility] RN Member Role: Primary Care Nurse Care Team Related Persons Name: LIVIA PAREKH Address: home [address] [place] [address] Name: SHELIA VASQUEZ Address: home [address] [place] [address] Name: IDALIA ROY Name: PT, [facility] NONE
--- OUTSIDE RECORDS SUMMARY | 2024-03-13 03:22 | XMS_ITS | Continuity of Care Document ---
Author Organization [facility] Address [address] [address]- Care Team Providers Care Sales Service Technician Name Role Phone Luna Greenfield MD Primary Care Physician Encounter [facility] [place] Date(s): 02/09/24 - 03/10/24 [facility] [address] [id number] Allergies, Adverse Reactions, Alerts Substance Reaction Severity Status naproxen SEVERE GASTRITIS Active sulfADIAZINE difficulty breathing, rash A ctive Immunizations Given and Recorded Vaccine Date Status Refusal Reason tetanus/diphtheria/pertussis, acel(Tdap) 1 06/21/11 Given 1Admin Note: VIS 05/10/2008 Medications amLODIPine 10 mg oral tablet 10 mg, By Mouth, Daily, # 30 tablet, Refills 0, Tot. Refills 0, Maintenance, 11/05/23 13:32:00 EDT,Route to Pharmacy Electronically, [facility], Partial fill upon patient request if [...] Cholelithiasis Confirmed Active Lumbar radiculitis Confirmed Active Social History Social History Type Response Smoking Status 10 or more cigarette s (1/2 pack or more)/day in last 30 days; Other: 10 a day; entered on: 12/16/23 Sex Patient Care team information Care Team Personnel Name: Tesha Yan RN Position: S RN Member Role: Primary Care Nurse Name: Migdalia Retana RN Position: S RN Member Role: Primary Care Nurse Name: Gilda Parkinson RN Position: S RN Member Role: Primary Care Nurse Name: Melita Lopez RN Position: S RN Member Role: Primary Care Nurse Name: Antionette Regalado RN Position: S RN Member Role: Primary Care Nurse Name: Amira Gustafson RN Position: S RN Member Role: Primary Care Nurse Name: Luna Greenfield MD Position: [facility] Outreach Member Role: PCP Address: Address: [address] [place] [id number] Name: Xavier Morales RN Position: [facility] RN Member Role: Primary Care Nurse Name: Tara Collins RN Position: [facility] RN Member Role: Primary Care Nurse Care Team Related Persons Name: LIVIA PAREKH Address: [address] [place] [address] Name: SHELIA VASQUEZ Address: [address] [place] [address] Name: IDALIA ROY Name: PT, [place] NONE
--- OUTSIDE RECORDS SUMMARY | 2024-03-13 03:22 | XMS_ITS | Continuity of Care Document ---
Author Organization [facility] Address [address] [facility], [address] d Floor, [address] [place] [address]- Care Team Providers Care Meat Inspector Name Role Phone Luna Greenfield MD Primary Care Physician [place] [facility] [place]16[place]23 [place] 01/15/24 [facility] [address] [place] [id number] Attending Physician: Coby Burnett Admitting Physician: Coby [...] Maintenance, 11/05/23 13:32:00 EDT,Route to Pharmacy Electronically, [facility], Partial fill upon patient request [...] Team Personnel Name: Tesha Yan RN Position: [facility] RN Member Role: Primary Care Nurse Name: Migdalia Retana RN Position: S RN Member Role: Primary Care Nurse Name: Gilda Parkinson RN Position: [facility] AMB Nurse Member Role: Primary Care Nurse Name: Melita Lopez RN Position: S RN Member Role: Primary Care Nurse Name: Antionette Regalado RN Position: S RN Member Role: Primary Care Nurse Name: Amira Gustafson RN Position: S RN Member Role: Primary Care Nurse Name: Luna Greenfield MD Position: [facility] Outreach Member Role: PCP Address: Address: [address] [place] [id number] Name: Xavier Morales RN Position: S RN Member Role: Primary Care Nurse Name: Tara Collins RN Position: [facility] RN Member Role: Primary Care Nurse Care Team Related Persons Name: LIVIA PAREKH Address: home [address] [place] [address] Name: SHELIA VASQUEZ Address: [address] [place] [address] Name: IDALIA ROY Name: PT, [place] NONE
--- OUTSIDE RECORDS SUMMARY | 2024-03-13 03:22 | XMS_ITS | Continuity of Care Document ---
Author Organization [facility] ter Address [address] [place] [address]- Care Team Providers Care Orientation & Mobility Specialist Name Role Phone Luna Greenfield MD Primary Care Physician Encounter [facility] [place] Date(s): 01/20/23 - 03/02/[address] [address]- Attending Physician: Derek Segovia MD Admitting Physician: Derek Segovia MD Referring Physician: Derek Segovia MD Allergies, Adverse Reactions, Alerts Substance Reaction Severity [...] Team Personnel Name: Gilda Parkinson RN Position: [facility] AMB Nurse Member Role: Primary Care Nurse Name: Luna Greenfield MD Position: [facility] Outreach Member Role: PCP Address: Address: [address] [place] [address]- Care Team Related Persons Name: LIVIA PAREKH Address: home [address] [place] [address] Name: SHELIA VASQUEZ Address: [address] [place] [address] Name: , [facility] NONE
--- OUTSIDE RECORDS SUMMARY | 2024-03-13 03:22 | XMS_ITS | Continuity of Care Document ---
Author Organization [facility] ed[facility] Address [address] [place] [id number]- Care Team Providers Care Welder Machine Operator Name Role Phone Luna Greenfield MD Primary Care Physician [place] [facility] [place](s): 09/24/22 - 10/24/22 [facility] [address] [place] [id number] Attending Physician: Coby Burnett Admitting Physician: Coby Burnett Referring Physician: Coby Burnett Allergies, Adverse Reactions, Alerts Substance Reaction Severity [...] Team Personnel Name: Gilda Parkinson RN Position: [facility] AMB Nurse Member Role: Primary Care Nurse Name: Luna Greenfield MD Position: [facility] Outreach Member Role: PCP Address: Address: [address] [place] [address]- Care Team Related Persons Name: LIVIA PAREKH Address: home [address] [place] [address] Name: SHELIA VASQUEZ Address: [address] [place] [address] Name: PT, [place] NONE
--- OUTSIDE RECORDS SUMMARY | 2024-03-13 03:23 | XMS_ITS | Continuity of Care Document ---
Author Organization [facility] Address [address] [place] [address]- Care Team Providers Care Sewer Bricklayer Name Role Phone Luna Greenfield MD Primary [id number] - 11/09/22 [facility] [address] [place] [address]- Attending Physician: Abdi Kendrick MD Admitting Physician: Abdi Kendrick MD Referring Physician: Derek Segovia MD Allergies, [...] Team Personnel Name: Gilda Parkinson RN Position: [facility] AMB Nurse Member Role: Primary Care Nurse Name: Luna Greenfield MD Position: [facility] Outreach Member Role: PCP Address: Address: [address] [place] [address]- Care Team Related Persons Name: LIVIA PAREKH Address: home [address] [place] [address] Name: SHELIA VASQUEZ Address: [address] [place] [address] Name: PT, [place] NONE
--- OUTSIDE RECORDS SUMMARY | 2024-03-13 03:23 | XMS_ITS | Continuity of Care Document ---
Author Organization [facility] ter Address [address] [place] [id number] Care Team Providers Care Dental Laboratory Supervisor Name Role Phone Luna Greenfield MD Primary Care Physician [phone] Encounter [facility] Date(s): 10/31/23 - 11/05/[address] [id number] Discharge Disposition: A-D/C Home Attending Physician: Serene Stanley MD Admitting Physician: Kirby WILKINSON, Derek Ryder Referring Physician: Not on Staff, Referring MD Allergies, Adverse Reactions, Alerts Substance Reaction Severity Status naproxen SEVERE GASTRITIS Active sulfADIAZINE difficulty breathing, rash A ctive Immunizations Given and Recorded Vaccine Date Status Refusal Reason tetanus/diphtheria/pertussis, acel(Tdap) 1 06/21/11 Given 1Admin Note: VIS 05/10/2008 Medications amLODIPine 10 mg oral tablet 10 mg, By Mouth, Daily, # 30 tablet, Refills 0, Tot. Refills 0, Maintenance, 11/05/23 13:32:00 EDT,Route to Pharmacy Electronically, [facility], Partial fill upon patient request if the prescription is for a schedule II opioid drug., 16... Start Date: 11/05/23 Status: Ordered lidocaine 5% topical film 1 patch, Topically, Daily, 0 Refills, Maintenance Start Date: 12/17/12 Status: Ordered Nicoderm C-Q Clear 21 mg/24 hr transdermal film, extended release 1 patch, Topically, Daily, # 30 patch, 0 Refills, Acute 12/07/23 14:01:00 EDT, 11/05/23 14:01:00 EDT, Patch, [facility], Partial fill upon patient request if the prescription is for a schedule II opioid drug., 163, cm, 10/31/23 6:02:00 E... Start Date: 11/05/23 Stop Date: 12/07/23 Status: Ordered Problem List Condition Confirmation Course Effective Dates Status Health [facility] Informant Cholelithiasis Confirmed Active Lumbar radiculitis Confirmed Active Results Radiology Reports * Exam Date Time Procedure Performing Provider Status 11/03/23 1:21 AM MRI Brain W+W/O Contrast Mei Mccray; Auth (Verified) Notes: (MRI Brain W+W/O Contrast) Reason For Exam: pontine hemorrhage;Other: RESULT: MRI Brain W+W/O Contrast MRI Brain W+W/O Contrast INDICATION / CLINICAL QUESTION: Reason: Other:; pontine hemorrhage; Clinical Question(s): Other:; Special Instructions: rule out cavernoma or other etiology; Order Comment: Please see Reference Text for complete list of contraindications Other: TECHNIQUE: MRI of the brain was performed with and without contrast utilizing sagittal and axial T1, axial T2, axial FLAIR, axial SWAN, and axial DWI sequences, and post-contrast sagittal and axial T1 propeller images. 15 mL of Clariscan was administered intravenously. COMPARISON: CT 10/31/2023 FINDINGS: Most sequences are moderately limited by motion artifact. A rounded 8 mm focus of T2 hypointensity is present in the right posterior paramedian torrey at the level of the middle cerebellar peduncles. This demonstrates susceptibility artifact as well although those images are more limited by motion. There is surrounding edema measuring up to 5 mm in thickness. There is mild deformity of the floor of the fourth ventricle. There is only minimal effacement ofthe fourth ventricle and there is no evidence of obstructive hydrocephalus. No abnormal enhancementis noted about the hemorrhage. No abnormal vascularity is noted. No hemorrhage or abnormal enhancement is identified elsewhere. There is no restricted diffusion to suggest acute ischemia. There is a moderate amount of subcortical and periventricular white matter abnormality best seen on the FLAIR sequence. No discrete cavitary lacune or old cortical infarct is present. No extra-axial collection is noted. The ventricular system is normal. Evaluation of flow voids is limited by motion artifact but no abnormality is appreciated. The foramen magnum is normal. The orbits are normal. Minimal mucosal thickening is present in the paranasal sinuses without an air-fluid level. IMPRESSION: 1. Acute 8mm hemorrhage in the right posterior paramedian mid torrey with a small amount of surrounding edema. There are no features to suggest a vascular malformation or tumor. There are no signs of aprior hemorrhage to suggest a cavernous angioma. 2. Moderate white matter abnormality suggesting chronic ischemia and premature small vessel disease. WSN: [id number] Ordering Physician: Juin Mandujano Dictated By: Shashi Beckford MD Dictated Date/Time: 11/03/23 7:27 am Reviewed By: Shashi Beckford MD Signed By: Shashi Beckford MD Signed Date/Time: 11/03/23 7:27 am Transcribed By: DONALD Transcribed Date/Time: 11/03/23 7:21 am * Exam Date Time Procedure Performing Provider Status 10/31/23 10:[address] Head/Brain W/O Contrast Vilma Burciaga; Auth (Verified) Notes: (CT Head/Brain W/O Contrast) Reason For Exam: fu pontine IPH;Other: RESULT: CT Head/Brain W/O Contrast CT Head/Brain W/O Contrast INDICATION: Reason: Other:; fu pontine IPH; Clinical Question(s): Other:; Special Instructions: fu pontine IPH; Order Comment: TECHNIQUE: Noncontrast head CT using axial technique and reconstructed in axial and coronal planes.Iterative reconstruction techniques are used to optimize dose and image quality. COMPARISON: Head CT 10/31/2023. FINDINGS: Order Packer view findings, lines and tubes: None. BRAIN AND EXTRA-AXIAL SPACES: No significant change in the right pontine hemorrhage with mild surrounding edema. Ventricles, sulci, and basilar cisterns are normal. Mild low-density white matter changes. No subarachnoid hemorrhage. No subdural or epidural collection. CALVARIUM, SKULL BASE, AND SOFT TISSUES: No fractures or suspicious bony lesions. The paranasal sinuses and mastoid air cells are clear. Visualized orbits and globes are intact. The extracranial soft tissues are unremarkable. IMPRESSION: No significant change in right pontine hemorrhage. WSN: [id number] Ordering Physician: Mellissa Green Dictated By: Radha Allen MD Dictated Date/Time: 10/31/23 10:26 a Reviewed By: Radha Allen MD Signed By: Radha Allen MD Signed Date/Time: 10/31/23 10:26 am Transcribed By: DONALD Transcribed Date/Time: 10/31/23 10:23 am * Exam Date Time Procedure Performing Provider Status 10/31/23 4:44 AM Chest Portable Joy Craig; Auth (Verified) Notes: (Chest Portable) Reason For Exam: Stroke;Other: RESULT: Chest Portable Chest Portable Reason: Other:; Stroke; Clinical Question(s): CHF COMPARISON: None. FINDINGS: LINES AND TUBES: None. LUNGS AND PLEURA: Clear lungs. Normal pulmonary vascularity. No pleural effusion. No pneumothorax. HEART, MEDIASTINUM AND KATTY: Heart is normal in size. Normal mediastinal and hilar contour. BONES AND SOFT TISSUES: No acute abnormality. Probable small bone island left humeral head. IMPRESSION: No acute abnormality. WSN: [id number] Ordering Physician: Noemi Goff Dictated By: Gumaro Youssef MD, V Dictated Date/Time: 10/31/23 10:11 a Reviewed By: Gumaro Youssef MD, V Signed By: Gumaro Youssef MD, V Signed Date/Time: 10/31/23 10:11 am Transcribed By: DONALD Transcribed Date/Time: 10/31/23 10:06 am * Exam Date Time Procedure Performing Provider Status 10/31/23 4:[address] Angio Neck Hyperacute Stroke Stupak , Ben; Auth (Verified) Notes: (CT Angio Neck Hyperacute Stroke) Reason For Exam: Aneurysm, neck vessel(s);Other: RESULT: CT Angio Neck Hyperacute Stroke CT Angio Head Hyperacute Stroke, CT Angio Neck Hyperacute Stroke Reason: Sudden headache, double vision, left-sided numbness. TECHNIQUE: CT angiogram of the head and neck was performed after bolus administration of intravenous contrast. 100 mL of Omnipaque 300 was administered intravenously. Coronal and sagittal MIP reformatted images were obtained. Additional 3-D images were created on a separate workstation under concurrent supervision by the attending radiologist. All stenoses are measured using NASCET criteria. Weight-based protocol using automatic tube modulation was used to optimize exposure parameters. RADIATION DOSE PARAMETERS: CTDIvol Body: 14.37 mGy, DLP Body: 530 mGy*cm. CTDIvol Head: 48.30 mGy, DLP Head: 773 mGy*cm. COMPARISON: Noncontrast CT head performed concurrently. FINDINGS: CTA OF THE NECK: Arch: There is a three vessel aortic arch. The origins of the supra aortic vessels are patent. Right carotid system: Noncalcified plaque is seen along the mid common carotid resulting in minimalnarrowing. Minimal noncalcified plaque is also seen at the carotid bifurcation. There is no significant ICA stenosis by NASCET criteria. Left carotid system: Minimal noncalcified plaque is seen along the common carotid without narrowing. Calcified and noncalcified plaque is seen at the carotid bifurcation. There is no significant stenosis by NASCET criteria. There is a zjqbjx-olhw-bwlwtolh vertebral artery system. Right vertebral: Patent. Left vertebral: Patent. Other: Soft tissues and bones: No evidence of lymphadenopathy or mass. The thyroid is heterogeneous, without discrete nodularity. Calcified granulomas are seen in the lungs. Postoperative changes are seen from ACDF at C5-6. There is disc space narrowing at C4-5. No acute or suspicious osseous lesion noted. CTA OF THE HEAD: Anterior circulation: Minimal calcification is seen along the intracranial ICAs without significantnarrowing. The anterior cerebral arteries are patent with hypoplastic right A1 segment and small anterior communicating artery noted. Bilateral M1 and proximal M2 branches are patent and normal in caliber. Posterior circulation: The vertebral arteries, basilar artery, superior cerebellar arteries, and posterior cerebral arteries are patent and normal in caliber. Veins: Major dural venous sinuses are patent. Other: Soft tissues and bones: 1.1 cm right pontine hemorrhage is seen with mild surrounding edema and slight mass effect on the 4th ventricle. There is no contrast extravasation or associated vascular malformation. Orbits are unremarkable. There is a large 1.9 cm defect in the cartilaginous nasal septum. Sinuses and mastoids are clear. IMPRESSION: 1. There is no contrast extravasation or vascular malformation in the right pontine hemorrhage. 2. No large vessel occlusion or high-grade stenosis in the council of [place]. 3. Large defect in the cartilaginous nasal septum. This should be correlated clinically. A similar preliminary report was provided by [facility]. WSN: [id number] Ordering Physician: Noemi Goff Dictated By: Kelsey Corona MD Dictated Date/Time: 10/31/23 8:36 am Reviewed By: Kelsey Corona MD Signed By: Kelsey Corona MD Signed Date/Time: 10/31/23 8:36 am Transcribed By: DONALD Transcribed Date/Time: 10/31/23 8:33 am * Exam Date Time Procedure Performing Provider Status 10/31/23 4:[address] Angio Head Hyperacute Stroke Stupak , Ben; Auth (Verified) Notes: (CT Angio Head Hyperacute Stroke) Reason For Exam: Stroke;Other: RESULT: CT Angio Head Hyperacute Stroke CT Angio Head Hyperacute Stroke, CT Angio Neck Hyperacute Stroke Reason: Sudden headache, double vision, left-sided numbness. TECHNIQUE: CT angiogram of the head and neck was performed after bolus administration of intravenous contrast. 100 mL of Omnipaque 300 was administered intravenously. Coronal and sagittal MIP reformatted images were obtained. Additional 3-D images were created on a separate workstation under concurrent supervision by the attending radiologist. All stenoses are measured using NASCET criteria. Weight-based protocol using automatic tube modulation was used to optimize exposure parameters. RADIATION DOSE PARAMETERS: CTDIvol Body: 14.37 mGy, DLP Body: 530 mGy*cm. CTDIvol Head: 48.30 mGy, DLP Head: 773 mGy*cm. COMPARISON: Noncontrast CT head performed concurrently. FINDINGS: CTA OF THE NECK: Arch: There is a three vessel aortic arch. The origins of the supra aortic vessels are patent. Right carotid system: Noncalcified plaque is seen along the mid common carotid resulting in minimalnarrowing. Minimal noncalcified plaque is also seen at the carotid bifurcation. There is no significant ICA stenosis by NASCET criteria. Left carotid system: Minimal noncalcified plaque is seen along the common carotid without narrowing. Calcified and noncalcified plaque is seen at the carotid bifurcation. There is no significant stenosis by NASCET criteria. There is a nswijg-bgre-emvumgya vertebral artery system. Right vertebral: Patent. Left vertebral: Patent. Other: Soft tissues and bones: No evidence of lymphadenopathy or mass. The thyroid is heterogeneous, without discrete nodularity. Calcified granulomas are seen in the lungs. Postoperative changes are seen from ACDF at C5-6. There is disc space narrowing at C4-5. No acute or suspicious osseous lesion noted. CTA OF THE HEAD: Anterior circulation: Minimal calcification is seen along the intracranial ICAs without significantnarrowing. The anterior cerebral arteries are patent with hypoplastic right A1 segment and small anterior communicating artery noted. Bilateral M1 and proximal M2 branches are patent and normal in caliber. Posterior circulation: The vertebral arteries, basilar artery, superior cerebellar arteries, and posterior cerebral arteries are patent and normal in caliber. Veins: Major dural venous sinuses are patent. Other: Soft tissues and bones: 1.1 cm right pontine hemorrhage is seen with mild surrounding edema and slight mass effect on the 4th ventricle. There is no contrast extravasation or associated vascular malformation. Orbits are unremarkable. There is a large 1.9 cm defect in the cartilaginous nasal septum. Sinuses and mastoids are clear. IMPRESSION: 1. There is no contrast extravasation or vascular malformation in the right pontine hemorrhage. 2. No large vessel occlusion or high-grade stenosis in the council of [place]. 3. Large defect in the cartilaginous nasal septum. This should be correlated clinically. A similar preliminary report was provided by [facility]. WSN: [id number] Ordering Physician: Noemi Goff Dictated By: Kelsey Corona MD Dictated Date/Time: 10/31/23 8:36 am Reviewed By: Kelsey Corona MD Signed By: Kelsey Corona MD Signed Date/Time: 10/31/23 8:36 am Transcribed By: DONALD Transcribed Date/Time: 10/31/23 8:33 am * Exam Date Time Procedure Performing Provider Status 10/31/23 4:[address] Head-Hyper Acute Stroke Stupak , Ol eg; Auth (Verified) Notes: (CT Head-Hyper Acute Stroke) Reason For Exam: Neuro deficit, acute, stroke suspected;Other: RESULT: CT Head-Hyper Acute Stroke CT Head-Hyper Acute Stroke Reason: Other:; Neuro deficit, acute, stroke suspected; Clinical Question(s): Other:; Hematoma Infarction. TECHNIQUE: Noncontrast head CT using axial technique and reconstructed in axial, sagittal and coronal planes. Weight-based protocol using automatic tube modulation was used to optimize exposure parameters. CTDIvol Head: 48.30 mGy, DLP Head: 773 mGy*cm. COMPARISON: None. FINDINGS: BRAIN and EXTRA-AXIAL SPACES: 10 x 11 x 10 mm hemorrhage within the right torrey. Mild surrounding edema. No midline shift or mass effect. Zapata-white matter differentiation is well preserved. No acute infarct. Negative insular ribbon and hyperdense vessel signs. Ventricles, sulci and basilar cisterns are normal. Mild low-density white matter changes. No subarachnoid hemorrhage, subdural or epidural collections. CALVARIUM, SKULL BASE AND SOFT TISSUES: No fractures or suspicious bony lesions. The paranasal sinuses and mastoid air cells are clear. Possible perforation of the nasal septum. Visualized orbits and globes are intact. The extracranial soft tissues are unremarkable. IMPRESSION: 10 x 11 x 10 mm right pontine hemorrhage. No mass effect. The impression above was relayed to Noemi Goff MD by Dr. Loco Blum over the phone on 10/31/2023 at 4:46 AM. I have personally reviewed the images and I agree with this report. WSN: [id number] Ordering Physician: Noemi Goff Dictated By: Loco Blum MD Dictated Date/Time: 10/31/23 8:03 am Reviewed By: Radha Allen MD Signed By: Radha Allen MD Signed Date/Time: 10/31/23 8:08 am Transcribed By: DONALD Transcribed Date/Time: 10/31/23 4:47 am Vital Signs Most recent to oldest [Reference Range]: 1 2 3 Height 163 cm (10/31/23 6:02 AM) Weight 75.1 kg (11/03/23 5:03 AM) 75.2 kg (11/02/23 5:45 AM) 71.5 kg (11/01/23 5:33 AM) Oxygen Saturation [94-100 %] 98 % (11/05/23 12:00 PM) 97 % (11/05/23 11:00 AM) 99 % (11/05/23 10:00 AM) Pulse Rate [55-90 bpm] 74 bpm (10/31/23 6:02 AM) 89 bpm (10/31/23 5:13 AM) 83 bpm (10/31/23 4:46 AM) Body Mass Index [18.5-24.99 kg/m2] 28.04 kg/m2 *H* (10/31/23 6:02 AM) Blood Pressure [90-138/55-84 mm Hg] 112/65mm Hg (11/05/23 12:00 PM) 115/58mm Hg (11/05/23 11:00 AM) 120/72mm Hg (11/05/23 10:00 AM) Respiratory Rate [16-30 br/min] 17 br/min (11/05/23 12:00 PM) 13 br/min *L* (11/05/23 11:00 AM) 17 br/min (11/05/23 10:00 AM) Temperature [96.8-100.4 DegF] 98.5 DegF (11/05/23 11:00 AM) 98.0 DegF (11/05/23 8:00 AM) 98.3 DegF (11/05/23 4:00 AM) Liters per Minute 0 L/min (10/31/23 6:00 PM) 1 L/min (10/31/23 5:00 PM) 1 L/min (10/31/23 4:00 PM) Mode of Delivery (Oxygen) Room air (11/05/23 12:00 PM) Room air (11/05/23 11:00 AM) Room air (11/05/23 10:00 AM) Blood pressure sites Arm, left (11/04/23 6:00 PM) Arm, left (11/04/23 2:00 PM) Arm, left (11/04/23 12:00 PM) Temperature Route Oral (11/05/23 11:00 AM) Oral (11/05/23 8:00 AM) Oral (11/05/23 4:00 AM) Dry Weight 80 kg (10/31/23 6:02 AM) Weight Obtained Via Bed scale (11/03/23 5:03 AM) Bed scale (11/02/23 5:45 AM) Bed scale (11/01/23 5:33 AM) History and physical note * Norma MCCRAY, Mellissa Coleman: PERFORM Event Display: History and Physical Hospital Authored Date: Patient: ??JANINE SEGOVIA ? Age:??53 Years?Sex:??Female?:??1970?? Chief Complaint/Reason for Consult 1cc pontine IPH History of Present Illness 53 y/o F with PMH HTN (does not take medications), cervical discectomy presenting to [facility] with PRADO, nausea, diplopia, L sided weakness and numbness and CTH showing 1cc pontine hemorrhage. BP 233/122 started on nicardipine. CTA pending read. The patient tells me she has chronic PRADO and neck pain and R sided paresthesias. For the past few days she has noticed increased PRADO pain different from her normal and towards the back of her head, she has been holding pressure on it at times to make it feel better. This morning around 0430 she was awake with PRADO pain and noticed L sided numbness, weakness, diplopia, and nausea. She took 3 aspirin at home. She has never had these symptoms before. She reports a prior stroke but then describes radicular pain on the R side of her body so I question if she really had a stroke in the past. ?? ICH 1 ?? I asked the patient about hypertension, she said she has it but doesnt take medication because they dont give her any medications for it but she monitors it at home and said its usually high, 200s. Physical Exam Vitals & Measurements T:??97.3?F?? HR:??89??(Peripheral)?? RR:??12?? BP:??135/80?? SpO2:??97%?? Gen: NAD HEENT: NC/AT Cardiac: RRR Lungs: CTA bilat. normal I:E Abd: soft, NT/ND, +BS Extremeties: warm and perfused Neuro Exam Mental status: alert, oriented to person, place, month, year, situation. speech clear and fluent. follows commands. appropriately nervous Cranial Nerves: trouble moving eyes mostly cannot gaze all the way to the right, PERRL (1mm), VFF, flattening of L NLF. Strength: RUE/RLE 5/5, LUE/LLE 4/5 (can hold antigravity but not as high as the R side). normal bulk and tone. no abnormal movements. Coordination:??slowed and trouble doing FTN with LUE?? Sensation: sensation to LT intact but can barely feel on the LUE/LLE ? NIH Stroke Scale?? Level of Consciousness for Stroke Scale : ?Alert?? Response Month/Age : ?Answers both questions correctly?? Response Open/Close Eyes : ?Performs both tasks correctly?? Best Gaze : ?Partial gaze palsy?? (Comment: difficult moving eyes and cannot gaze all the way to the right [Mellissa Green NP - 10/31/2023 5:51 EDT] )?? Visual : ?No visual loss?? Facial Palsy : ?Minor paralysis?? (Comment: flattening L NLF [Mellissa Green NP - 10/31/2023 5:51 EDT] )?? Motor Function Left Arm : ?Drift?? Motor Function Right Arm : ?No drift?? Motor Function Left Leg : ?Drift?? Motor Function Right Leg : ?No drift?? Limb Ataxia : ?Absent?? Sensory : ?Severe to total sensory loss?? (Comment: can barely feel light tough [Mellissa Green NP - 10/31/2023 5:51 EDT] )?? Best Language : ?No aphasia?? Dysarthria NIH Stroke Scale : ?Normal?? Extinction and Inattention : ?No abnormality?? NIH Stroke Scale Score : ?6 ? Assessment/Plan 53 y/o F with PMH HTN (does not take medications), cervical discectomy presenting to [facility] with PRADO, nausea, diplopia, L sided weakness and numbness and CTH showing 1cc pontine hemorrhage. BP 233/122 started on nicardipine. CTA pending read. ?? Neuro 1cc pontine hemorrhage- ? hypertensive, fu CTA read, ? cavernoma -??q1hr??neuro checks, pupillometer, VS - SBP goal <150, nicardipine gtt - HOB at 30??deg - repeat CTH 10a - Repeat HCT for any change in neuro status -??no role for Nsurg - DVT prophylaxis with SCD - PM&R when appropriate ?? Cardio HTN admission EKG NSR - SBP goal <150, nicardipine gtt? Pulm-??no issues ?? Renal- no active issues, admission Cr normal 0.8 - K goal >4 and Mag>2, electrolyte protocol - NS while??npo ?? GI/FEN -??npo, pending swallow??eval - Maintain bowel regimen for goal BM??qod ?? Heme??- no coagulopathy -??goal??Hgb>7 - Goal INR<1.5 and??Plt??> 100,000 ?? Endocrine?? - Goal glucose 120-18 ?? ID- afebrile, no leukocytosis -??urinalysis,??cxr, blood/sputum cx if t>101 -??apap??prn ?? ICU Ppx?scd,??sqh (hold) FEN - ns,??npo Lines - PIV Code -??FULL code (confirmed with patient) Emergency contact:??Cynthia Segovia (daughter, HCP) [phone], , Will Gleason (partner, alternate HCP) [phone] dispo??-??icu d/w Dr. Orr CCT 65 minutes, critically ill due to pontine IPH at risk for cerebral edema and brain herniation Problem List/Past Medical History Ongoing Cholelithiasis Lumbar radiculitis Procedure/Surgical History Laparoscopy, surgical; cholecystectomy Home Medications Albuterol: 3 puffs, Inhalation, PRN (Wheezing/Shortness of Breath) amiTRIPTYLINE: 25 mg = 1 tablet, By Mouth, Daily at bedtime Cyclobenzaprine Fluticasone Nasal: 1 sprays, Daily Ibuprofen: 600 mg = 1 tablet, By Mouth, 4 times a day Lidocaine Topical: 1 patch, Topically, Daily Loratadine: 10 mg = 1 tablet, By Mouth, Daily Meloxicam: 7.5 mg = 1 tablet, By Mouth, Daily Oxycodone: 20 mg = 1 tablet, By Mouth, Every 4 hours Pseudoephedrine: 30 mg = 1 tablet, By Mouth, Every 6 hours Sertraline: 50 mg = 1 tablet, By Mouth, Daily Trospium Chloride: 20 mg = 1 tablet, By Mouth, Daily Allergies naproxen??(SEVERE GASTRITIS) sulfADIAZINE??(difficulty breathing, rash) Family History No family history recorded. Radiology personally reviewed CTH, 1cc pontine hemorrhage * Niranjan MCCRAY, Miranda Romero: PERFORM Event Display: History and Physical Hospital Authored Date: pt seen and examined at the bedside, exam remains stable/unchanged ?? General Appearance: NAD HEENT: AT/NC Cardiac: RRR Respiratory: LSC GI:abd soft, NT,ND Neurologic: awake, alert and oriented. speech is clear, no aphasia. follows simple commands. CN: EOMI- can cross midline but has difficulty sustaining R gaze - ?effort vs 2/2 ich, slight facial asymmetry, tongue protrudes midline Motor: appropriate bulk and tone, 4/5 LUE/LLE, 5/5 RUE/RLE Sensation: decreased to LT on L but no extinguishing Coordination LUE ataxic Gait: deferred ?? Updates to plan of care as outlined below ?? - can d/c pupillometer as long as pt is awake and exam remains stable - repeat CtH this am stable; will need MRI w/ and w/o leonel at some point but will hold off on ordering for tonight - tox screen + for cocaine - cocaine cessation education provided by Dr. Orr - will keep NPO and hold off on PMR for now - no SQH until PBD 2 ?? * Kirby WILKINSON, Derek Ryder: PERFORM Event Display: History and Physical Hospital Authored Date: Patient seen, examined, and discussed with the NCCU AP and nurse at bedside. Course, labs and studies were reviewed.?? I agree with the findings and assessment and plan as follows. ?? Hospital Course: 53-year-old woman with reported history of hypertension not on any medications, cervical discectomyand chronic neck pain who presented to [facility] with acute onset of headache, nausea, diplopia and left-sided weakness and paresthesias.?? On presentation blood pressure was 233/122, and CT head showed a 1 cc right pontine hemorrhage.?? Started on nicardipine for aggressive blood pressure control.?? CTAwithout acute pathology.?? 6-hour repeat imaging was stable.?? Urine toxicology positive for cocaine. ? On review of systems denied any recent fevers, chills, nausea, vomiting, diarrhea, dysuria, chest pain, shortness of breath.?? Noted neurologic symptoms with diplopia, left paresthesias and left weakness which she feels are improving otherwise denied any new or worsening of neurologic deficits. ?? Exam today shows: GEN: In bed, sleeping lightly but easily arousable, when awake she is alert and oriented to person,place, date and situation.?? Speech clear fluent and appropriate, follows all commands CN: Pupils pinpoint, tracks left and right but slightly decreased right gaze, eye movements slightly disconjugate, visual carrasco full, slight flattening of the left nasolabial fold, largely resolved with speaking, sensation with paresthesias on the left, hearing intact to voice, tongue midline MOTOR: 5/5 on the right, 4+/5 in the left arm and leg, no drift SENSATION: Intact to light touch bilaterally with paresthesias on the left face, arm and leg REFLEXES: Toes downgoing bilaterally COORDINATION/GAIT: Mild dysmetria on the left, no clear dysmetria on the right GEN: CTA, RRR, abdomen soft ?? I personally viewed her CT scan of the head as well as a repeat.?? Stable right pontine hemorrhage ?? A/P: ?? # Neuro ???53-year-old woman presenting with right pontine ICH in the setting of cocaine use, ICH score 1, PBD 0 -Hourly neurochecks and vital signs -Stat head CT for acute decompensation -Bleed likely hypertensive in the setting of cocaine use, will get MRI brain with and without contrast when stable to evaluate for possible underlying cavernoma -Cocaine cessation education -N.p.o. pending PMNR eval -No aspirin or anticoagulation in the setting of acute ICH, SCDs for DVT prophylaxis until PBD 2 -Tylenol as needed for mild pain, fentanyl as needed for severe pain ?? # CV ???reportedly history of hypertension not on medications also cocaine positive, likely hypertensive etiology -Hypertensive emergency with elevated blood pressure in the setting of acute ICH, goal SBP <150,nicardipine as needed ?? # Pulm ???no acute issues ?? # Renal ???electrolyte replacement as needed, IVF while n.p.o. ?? # GI ???n.p.o. pending PMNR eval ?? # Heme ???no known coagulopathy ?? # Endo ??? ISS for goal glucose 120-180 ?? # ID ? afebrile, no leukocytosis; CXR/UA if t>101; prn APAP ?? # ICU ??? PPX: SCDs LINES: PIVs DISPO: Full code ?? Patient is critically ill due to: Right pontine hemorrhage, hypertensive emergency with elevated blood pressure in the setting of acute ICH ? I spent 40 minutes of non-overlapping critical care time evaluating and managing the patient, as part of a shared visit with SHREYA Ureña EKG study * Event Display: EKG Authored Date: [id number] * Event Display: ECG 12-Lead Authored Date: [id number] Please click on pdf link to open report * Event Display: ECG 12-Lead Authored Date: [id number] Ventricular Rate: 83 BPM Atrial Rate: 83 BPM P-R Interval: 154 ms QRS Duration: 88 ms Q-T Interval: 414 ms QTC Calculation(Bazett): 486 ms P [place]: 61 degrees R [place]: 58 degrees T [place]: 28 degrees Normal sinus rhythm Prolonged QT Abnormal ECG Confirmed by NEAL DODGE ([id number]) on 10/31/2023 6:58:51 AM [place]: NEAL DODGE US Heart * Event Display: Echocardiogram - Complete Authored Date: [id number] Transthoracic Echocardiography Report (TTE) Patient Demographics Patient Name JANINE SEGOVIA Date of Study 11/02/2023 Corporate Gender Female Facility Race Unknown Ethnicity or Date of 1970 Height: 64.17 inches Age 53 year(s) Weight: 158.73 pounds Accession Number [id number] BSA: 1.78 m2 Room Number [id number] BMI: 27.1 kg/m2 Referring Physician Juni Mandujano Interpreting Ed Lloyd MANAGER PLANT Physician Conner WILKINSON Aboriginal Ceremonial Celebrant Salvador Deleon Heart murmur. Clinical History Hypertension. Study Data Type of Study TTE procedure:Echo Complete-Doppler, Colorflow, M-Mode. Study Date11/02/2023 Start Time: 07:27 AM Study Location: [facility] Adult Echo Study Status: ICU/CCU Patient Status: Routine Technical Quality: Adequate Blood Pressure:122/76 mmHg EKG: Normal sinus rhythm HR: 63 bpm 2D Measurements LV Diastolic Dimension: 4.5 cm LV Systolic Dimension: 2.7 cm LV Septum Diastolic: 1.1 cm LV PW Diastolic: 1.2 cm AO Root Dimension: 2.9 cm LA ESV (BP):40.9 ml LVOT Stroke Volume: 67.15 ml LA ESV Index: 23 ml/m2 Stroke Volume Index37.72 ml/m2 LVOT: 1.7 cm Cardiac Index:2.38 l/min/m2 Ascending Aorta:3 cm Doppler Measurements AV Peak Velocity: 224 cm/s MV Peak E-Wave: 105 cm/s AV Peak Gradient: 20.07 mmHg MV Peak A-Wave: 99.9 cm/s AV Mean Gradient: 12 mmHg MV E/A Ratio: 1.05 AV VTI:39.9 cm MV P1/2t: 67 msec LVOT Peak Velocity: 153 cm/s LVOT VTI29.6 cm MV Deceleration Time: 229 msec AV Area (Continuity):1.68 cm2 MV Area (PHT): 3.28 cm2 Estimated RAP:3 mmHg E' Septal Velocity: 7.83 cm/s E' Lateral Velocity: 9.14 cm/s E/Med E':13.83650 E/Lat E':11.03337 Cardiac Anatomy Left Ventricle/Interventricular Septum The left ventricular size is normal. The left ventricular wall thickness is mildly increased. Normal LV systolic function. Ejection fraction is 55-65%. There are no regional wall motion abnormalities. Normal diastolic function. Left Atrium/Interatrial Septum The left atrial size is normal. The atrial septum appears intact. Aortic Valve The aortic valve is tricuspid. There is no aortic stenosis . There is trace aortic regurgitation. Mitral Valve The mitral valve is normal in structure and function. There is trace mitral regurgitation. Aorta The ascending aorta and aortic root are normal in size. Right Ventricle The right ventricle is normal in size and function. Right Atrium The right atrium is normal in size. Pulmonic Valve Pulmonic valve is not well visualized. There is no pulmonic stenosis or insufficiency. Tricuspid Valve The tricuspid valve is normal in structure and function. There is trace regurgitation. Pumonary Artery An accurate pulmonary artery pressure could not be obtained. Venous Structures The inferior vena cava is normal in size with normal inspiratory collapse. Pericardium/Extracardiac There is no pericardial effusion. Summary The left ventricular size is normal. The left ventricular wall thickness is mildly increased. Normal LV systolic function. Ejection fraction is 55-65%. The right ventricle is normal in size and function. There is no significant valve disease. Comparison No prior study available for comparison. Signature * Event Display: Echocardiogram - Complete Authored Date: [id number] [facility] Progress note * Ruddy GARCIA, Abdifatah S: PERFORM Event Display: Progress Note Hospital Authored Date: Patient: ??JANINE SEGOVIA ? Age:??53 Years?Sex:??Female?:??1970?? Subjective interim hx no complaints resolved paresthesias Review of Systems Allergies Allergies ?(Active and Proposed Allergies Only) sulfADIAZINE? (Severity: Unknown severity, Onset: Unknown) ?Reactions: difficulty breathing, rash naproxen? (Severity: Unknown severity, Onset: Unknown) ?Reactions: SEVERE GASTRITIS ? Objective Vital Signs?? Temperature: 98 DegF (11/05/23 08:00:00) Temperature Route: Oral (11/05/23 08:00:00) Heart Rate Monitored: 66 bpm (11/05/23 10:00:00) Respiratory Rate: 17 br/min (11/05/23 10:00:00) Vented: No (11/05/23 10:00:00) Systolic Blood Pressure: 120 mm Hg (11/05/23 10:00:00) Diastolic Blood Pressure: 72 mm Hg (11/05/23 10:00:00) Blood pressure sites: Arm, left (11/04/23 18:00:00) Pulse Pressure: 48 mm Hg (11/05/23 10:00:00) Oxygen Saturation: 99 % (11/05/23 10:00:00) Mode of Delivery (Oxygen): Room air (11/05/23 10:00:00) Early Warning Score: 0 (11/05/23 10:05:33) ? Physical Exam Gen- NAD? neuro- mentation- alert and oriented x person, place, time, and disposition. ??able to name simple objectssuch as watch and eyeglasses. ??able to follow simple and complex commands. ??no aphasia.?? eyes- PERRLA, EOMI, no visual field deficits face- symmetric, sensation intact speech- clear, fluent ?? Motor- good muscle bulk and tone RUE- 5/5 ?? RLE- 5/5 LUE- 5/5 ?LLE- 5/5 ? _ Home Medications Albuterol?3?puff(s)?Inhalation?as needed?Wheezing/Shortness of Breath amiTRIPTYLINE (amitriptyline 25 mg oral tablet)?1?tab(s)?25?Milligram?By Mouth?Daily at bedtime Ferrous Sulfate (ferrous sulfate 325 mg oral enteric coated tablet)?1?tab(s)?325?Milligram?By Mouth?Daily Fluticasone Nasal (Flonase 50 mcg/inh nasal spray)?1?spray(s)?Daily Ibuprofen (ibuprofen 600 mg oral tablet)?1?tab(s)?600?Milligram?By Mouth?4 times a day Lidocaine Topical (lidocaine 5% topical film)?1?patch(es)?Topically?Daily Loratadine (loratadine 10 mg oral tablet)?1?tab(s)?10?Milligram?By Mouth?Daily Meloxicam (meloxicam 7.5 mg oral tablet)?1?tab(s)?7.5?Milligram?By Mouth?Daily Oxycodone (oxycodone 20 mg oral tablet)?1?tab(s)?20?Milligram?By Mouth?Every 4 hours Pseudoephedrine (Sudafed 30 mg oral tablet)?1?tab(s)?30?Milligram?By Mouth?Every 6 hours Sertraline (sertraline 50 mg oral tablet)?1?tab(s)?50?Milligram?By Mouth?Daily Trospium Chloride (trospium chloride 20 mg oral tablet)?1?tab(s)?20?Milligram?By Mouth?Daily ? Inpatient Medications Medications (11) Active SCHEDULED: (4) Amlodipine 10 mg Tablet (amLODIPine 10 mg oral tablet) ??10 mg, By Mouth, Daily Heparin 5000 units/mL Inj (1 mL) (Heparin Inj) ??5,000 units 1 mL, Subcutaneous Injection, Every 8 hours Nicotine 21 mg / 24 hour Patch (Nicotine Topical) ??21 mg, Topically, Daily Remove Patch (Remove ??Patch) ??1 each, Topically, Daily CONTINUOUS: (0) PRN: (7) Acetaminophen 325 mg Tablet (Acetaminophen Tablet) ??650 mg, By Mouth, Every 4 hours Al hydroxide/Mg hydroxide/simethicone 200 mg-200 mg-20 mg/5 mL Susp UD (Maalox Plus Liquid) ??15 mL, By Mouth, 4 times a day Bisacodyl 10 mg Suppository (Bisacodyl Supp) ??10 mg 1 supp, Rectally, 2 times a day Docusate Sodium 100 mg Capsule (Colace sodium 100 mg oral capsule) ??100 mg 1 capsule, By Mouth, 2 times a day Magnesium Hydroxide 8% Susp UD (Milk of Magnesia Liquid) ??30 mL, By Mouth, 2 times a day NaCl 0.9% Flush 3ml (NaCL 0.9% Flush) ??3 mL, IV Push, Every 8 hours Senna Tablet (Senna 8.6 mg oral tablet) ??17.2 mg 2 tablet, By Mouth, Daily ? Results Recent Labs BLOOD COUNT & DIFF WBC 8.5 k/mm3 ()?? 11/04/2023 05:55 RBC 4.55 m/mm3 ()?? 11/04/2023 05:55 Hgb 12.9 Gm/dL ()?? 11/04/2023 05:55 Hct 40.6 % ()?? 11/04/2023 05:55 MCV 89.2 femtoliters ()?? 11/04/2023 05:55 MCH 28.4 pg ()?? 11/04/2023 05:55 MCHC 31.8 g/dL (Low)?? 11/04/2023 05:55 Platelet Count 231 k/mm3 ()?? 11/04/2023 05:55 RDW-SD 51.8 femtoliters (High)?? 11/04/2023 05:55 MPV 10.2 femtoliters ()?? 11/04/2023 05:55 Nucleated RBC (Automated) 0.0 #/100 WBC'S ()?? 11/04/2023 05:55 Abs. NRBC 0.0 k/mm3 ()?? 11/04/2023 05:55 ?? CHEM GENERAL Sodium 139 mmol/L ()?? 11/04/2023 05:55 Potassium 3.6 mmol/L ()?? 11/04/2023 05:55 Chloride 104 mmol/L ()?? 11/04/2023 05:55 Bicarbonate Level 20 mmol/L (Low)?? 11/04/2023 05:55 Anion Gap 15 ()?? 11/04/2023 05:55 Glucose Level 97 mg/dL ()?? 11/04/2023 05:55 BUN 21 mg/dL (High)?? 11/04/2023 05:55 Creatinine-Blood 0.93 mg/dL ()?? 11/04/2023 05:55 Estimated GFR Creatinine 74 ML/MIN/1.73 M2 ()?? 11/04/2023 05:55 Calcium 9.2 mg/dL ()?? 11/04/2023 05:55 Calcium, Ionized pH Corrected 1.24 mmol/L ()?? 11/04/2023 05:55 Phosphorus 4.5 mg/dL ()?? 11/04/2023 05:55 Magnesium 1.8 mg/dL ()?? 11/04/2023 05:55 ?? URINE OTHER Est Creatinine Clearance 61.55 mL/min ()?? 11/04/2023 07:40 ? Assessment/Plan Diagnoses 1. ??Hypertensive emergency ??(I16.1) 2. 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 ??Cocaine abuse ??(F14.10) ? 53 y/o??F with PMH of HTN, cervical discectomy, and??prior stroke who presented to [facility]on 10/30 with acute onset dizziness, LLE weakness/numbness and dysarthria. Initial NIHSS 5. CTH showed acute 1ccR pontine stroke. SBP 233, started on nicardipine. Utox +cocaine.??Repeat CTH showed stable IPH volume and MRI brain shows only the acute IPH w/ no evidence of underlying vascular abnormality or cavernoma. MRI??also +premature chronic WMD. Transferred to [facility] on 11/02. Exam continues to improve with minimal L sided weakness and numbness.? Dx: acute 1cc R pontine IPH, likley HTN and relating to cocaine.?? PBD 5, ICH 1 BP labile ?? Recommendations: - if bp remains stable this PM ok for d/c - SBP < 150 - DVT ppx with SQH - provide stroke education - outpatient goals LDL between 40 &70, A1C <7%, and BP <120/80? D/w Dr. Irene * Maria Victoria WILKINSON, Janine: PERFORM Event Display: Progress Note Hospital Authored Date: [id number] ? NEUROCRITICAL CARE ATTENDING ATTESTATION: I have seen and examined this patient. I have reviewed the care provided to the patient by PA??Lee immediately after the visit.??I have reviewed the patient???s medical history, physical exam??findings, and the assessment and plan as documented in above mentioned note. I am in agreement with theplan of care as documented in the note with the following highlights and additions. ?? 53yo F with h/o HTN (not on meds), cervical discectomy, prior stroke who presented to [facility] ED??10/30 with acute onset dizziness, LLE weakness/numbness and dysarthria.??NIHSS 5, SBP 233, GCS15, utox +cocaine. CTH showed an acute 1cc R pontine IPH. She was started on nicardipine and admitted to [facility] for further management. Repeat CTH showed stable IPH volume and??MRI brain shows only the acute IPH with no evidence of underlying vascular abnormality or??cavernoma, also +premature chronic white matter disease.??Her exam has improved and she??was transferred to [facility] where her symptoms continue to improve and her BP has been well controlled. ?? Patient without complaints this??morning, wants to go home. ??Denies headache, weakness, cp, sob,??nausea/vomiting, abdominal pain. all other systems reviewed negative. ?? Exam today shows:?? GEN? AAOX3, NAD; no aphasia, no dysarthria CN - PERRL,??EOMI, no facial asymmetry, tongue midline MOTOR: no drift.??BUE - 5/5 throughout, BLE - 5/5 throughout SENSATION:??decreased to LT in L face/arm/leg compared to R CEREBELLUM: no nystagmus ?? A/P:??acute 1cc R pontine IPH, ICH score 1 on presentation (infratentorial); etiology likely hypertensive, CTA and MRI without evidence of underlying vascular abnl;??PBD5 - q4??neuro checks - will need repeat MRI brain in 3 months - PMR eval?dispo ok for home with outpatient services - SBP goal <150??? amlodipine 10qd and lisinopril 40qd given this morning?was hypotensiveyesterday??so??would monitor BPs through the morning and if no hypotension by this afternoon ok to d/c home -??patient advised to check her BPs bid after she is discharged and she states she has a BP cuff athome - [facility] ok - dispo:??ok to d/c home if no hypotension today; will request f/up in stroke clinic ?? Janine Irene MD Neuro-critical Care Attending ? * Tara Collins RN: PERFORM, SIGN, VERIFY Event Display: Progress Note Hospital Authored Date: [id number] Patient: JANINE SEGOVIA Age: 53 years Sex: Female : 1970 Associated Diagnoses: None Author: Tara Collins RN Findings Problem Related to Alteration in Neurological : Alteration in Neurological Function/new 11/05/2023 8:00 EDT Alteration in Neuro status Related to Acute Stroke (CVA), Other: s/p pontine bleed Goals & Outcomes, Neurological Lab studies/diagnostic tests within pt specific limits, Pt is safe with transfers & activities, Pt will be hemodynamically stable, Pt will be Neurologically stable, Pt will maintain intact skin integrity, Pt will remain free from injury, Pt/caregiver will receive psychosocial support as needed, Pt/caregiver will state understanding of plan/goals of care, Pt will demonstrate safe transfers, Pt/caregiver will be able to describe s/s of TIA/Stroke Interventions, Neurological Assess/monitor neurologic status, Assess/monitor VS per unit standards & prn, Call/Report variances in assessments to provider, Collaborate w/ provider to implement appropriate guidelines, Identify psychosocial issues related to diagnosis/illness, If no bowel movement in 3 days activate bowel regime, Keep patient's head & body in good alignment, Maintain HOB atleast 30 deg, Maintain strict intake & output, Monitor Fluid & Electrolytes, Serum Osmolarity, Monitor for headaches, nausea, vomiting, Monitor speech fluency, aphasia, word finding difficulty, Physical assessment per unit standards Goals/Interventions, Neurological Yes Neurological, Problem Start 10/31/2023 6:42 Reviewed plan with, Neurological Patient Patient Progression, Neurological Pt progressing according to plan . Nursing Data Neurological Data. : Neurological Data. 11/05/2023 8:49 EDT Tongue Disposition Midline Level of Consciousness Full Consciousness Orientated to person, place, time Person, Place, Time, Event Facial Symmetry Intact Characteristics of Speech Clear and normal Pupil description, left Regular Pupil description, right Regular Pupil reaction, left Brisk Pupil reaction, right Brisk Pupil Size, Left 3 mm Pupil Size, Right 3 mm Strength LUE 5-Active movement against gravity & full resistance Strength RUE 5-Active movement against gravity & full resistance Strength LLE 5-Active movement against gravity & full resistance Strength RLE 5-Active movement against gravity & full resistance Tone LUE Normal Tone RUE Normal Tone LLE Normal Tone RLE Normal Sensation LUE Diminished Sensation RUE Intact Sensation LLE Diminished Sensation RLE Intact Movement LUE Spontaneous Movement RUE Spontaneous Movement LLE Spontaneous Movement RLE Spontaneous Gait Steady Response Eye Opening Spontaneously Motor Response-Adult Obeys commands Verbal Response-Adult Oriented and converses Varsha Coma Score 15 Neuro WNL except Memory Intact Swallow - Neuro Normal . Evaluation PT A&Ox4, Pupils are 3mm and brisk BL. Pt denies blurry vision or double vision. PT denies sensation issues. Pt is 5/5 strengths in all extremities, pt is a contact guard OOB, PT to be downgradedto acute care bed. . * Amira Gustafson RN: PERFORM, SIGN, VERIFY, MODIFY, SIGN, MODIFY, SIGN Event Display: Progress Note Hospital Authored Date: Patient: JANINE SEGOVIA Age: 53 years Sex: Female : 1970 Associated Diagnoses: None Author: Amira Gustafson RN Findings Problem Related to Alteration in Neurological : Alteration in Neurological Function/new 11/05/2023 0:00 EDT Alteration in Neuro status Related to Acute Stroke (CVA), Other: s/p pontine bleed Goals & Outcomes, Neurological Lab studies/diagnostic tests within pt specific limits, Pt is safe with transfers & activities, Pt will be hemodynamically stable, Pt will be Neurologically stable, Pt will maintain intact skin integrity, Pt will remain free from injury, Pt/caregiver will receive psychosocial support as needed, Pt/caregiver will state understanding of plan/goals of care, Pt will demonstrate safe transfers, Pt/caregiver will be able to describe s/s of TIA/Stroke Interventions, Neurological Assess/monitor for abnormal posturing, Assess/monitor for gaze pattern/extraocular movements, Assess/monitor neurologic status, Assess/monitor VS per unit standards & prn, Call/Report variances in assessments to provider, Maintain patient safety if unsteady gait, Monitor for headaches, nausea, vomiting, Monitor speech fluency, aphasia, word finding difficulty, Physical assessment per unit standards, Provide emotional support to Pt/caregiver, Teach pt/caregiver onplan of care, treatment, s/s & meds, Assess/monitor facial symmetry and tongue deviation, DVT prophylaxis as ordered, Teach Pt/caregiver signs indicative of stroke BH Goals/Interventions, Neurological Yes Neurological, Problem Start 10/31/2023 6:42 Reviewed plan with, Neurological Patient Patient Progression, Neurological Pt progressing according to plan . Nursing Data Neurological Data. : Neurological Data. 11/04/2023 20:20 EDT Tongue Disposition Midline Neurological Symptoms Altered sensation or tingling, Other: pontine CVA Level of Consciousness Full Consciousness Orientated to person, place, time Person, Place, Time, Event Facial Symmetry Intact Characteristics of Speech Clear and normal Swallowing Difficulty None Strength LUE 5-Active movement against gravity & full resistance Strength RUE 5-Active movement against gravity & full resistance Strength LLE 5-Active movement against gravity & full resistance Strength RLE 5-Active movement against gravity & full resistance Tone LUE Normal Tone RUE Normal Tone LLE Normal Tone RLE Normal Sensation LUE Intact Sensation RUE Intact Sensation LLE Intact Sensation RLE Intact Movement LUE Spontaneous, To command Movement RUE Spontaneous, To command Movement LLE Spontaneous, To command Movement RLE Spontaneous, To command Gait Steady Response Eye Opening Spontaneously Motor Response-Adult Obeys commands Verbal Response-Adult Oriented and converses Varsha Coma Score 15 Neuro WNL except Corneal/Blink Reflex Intact right, Intact left Eyes and Movements Conjugate gaze: Move in same direction at same speed Headache None Swallow - Neuro Normal . Narrative/Incidental Patient is alert and oriented, pleasant. s.p. (R) pontine hemorrhage. Denies headache/dizziness/vision changes. PERRL. Face is symmetrical. Speech is clear. Tongue is midline with intact swallow. Moving all extremities equal and strong, 5/5. Reports numbness/tingling to face (L) fingers and toes. +CMS/pulses distally. OOB to BR with steady gait. Patient is maintaining sats 98 on room air without shortness of breath or difficulty breathing noted. BS+. Last BM 11/04/2023. Voiding appropriately in BR. Oral fluids encouraged. SR on telemetry, HR 60s. SBP goal less than 150, currently 104/60. Skin is warm, dry, and intact. Seroquel given for sleep as requested. Please refer to [facility] flowsheet for further assessment details. Will continue to monitor for and document any changes in patient's status. Addendum 11/05/2023 0624: Patient asleep in between care. SBP well under goal overnight. No changes in neuro assessment. Did safia down into the 50s on telemetry when asleep.. Consult note * Raul WILKINSON, Caleb Warren: MODIFY, MODIFY, MODIFY, MODIFY, MODIFY, MODIFY, MODIFY, MODIFY, MODIFY, PERFORM Event Display: Consultation Note Authored Date: Patient: ??JANINE SEGOVIA ? Age:??53 Years?Sex:??Female?:??1970?? Chief Complaint/Reason for Consult Stroke rehabilitation History of Present Illness 53-year-old right-handed??woman with history of hypertension, cervical discectomy and chronic neck pain presented to [facility] on 10/31/23 with acute onset of headache, nausea, diplopia and left-sided weakness and paresthesias. 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 ??Started on nicardipine for aggressive blood pressure control. ??CTA without acute pathology. ??6-hour repeat imaging was stable. ??Urine toxicology positive for cocaine. ?? She continues to have weakness on her left side with decreased dexterity in the left hand, headacheand diplopia.?? She has 1 eye patched.?? Tolerating diet without difficulty. ?? Baseline uses a cane. ??Lives in a multistory dwelling. Review of Systems 14 point review of systems negative except as above. Physical Exam Vitals & Measurements T:??98.6?F?? HR:??68??(Monitored)?? RR:??32?? BP:??100/58?? SpO2:??96%?? HT:??163??cm?? WT:??75.2??kg?? BMI:??28.04?? General: Alert. No apparent distress. Psychiatric: Mood: Normal. Pleasant & Cooperative Oriented: X 3 ?? HEENT: Cranial Nerves: No central facial droop.?Tongue midline EOMI.??no obvious disconjugate gaze Blinks to threat bilaterally Visual carrasco: Full. Visual neglect: None.?? + Diplopia. ??Mild??right nystagmus. Tracks: Bilaterally ?? Cardiovascular: RRR. Lungs:??No respiratory distress. Abdomen/GI: NABS. NT. Soft. ?? Extremities:?? Edema: None.?? Passive ROM: Normal all limbs.? Skin: No open areas or rash.? Neurologic: ?? Follows Commands: 1 step well Memory: Grossly normal.?? Language: Fluent. Naming: Normal. Dysarthria:??None.?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 your choosing. [employer] is a website that allows you to securely view your medical information including your hospital discharge summary, office visit summaries, medications and follow-up visits. You can also request appointments, renew medications, and request access to your medical information using a health care graham of your choosing, or just ask a question. You can enroll at [email or web address] or register during your next office visit. You have been discharged from [facility], Patient Care Unit: [facility]??. If you have any questions regarding these instructions, including results of studies pending, afteryou leave, please call us and we will be happy to assist you 13/01. [facility] Your Care Team Attending Physician Serene Stanley MD?? Consulting Providers eSrene Stanley MD?? 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 You may have had other tests and procedures not included in this list. Please discuss all test results with your provider. Amphetamine Urine Screen AST Barbiturate Urine Screen Basic Metabolic Panel Benzodiazepine Urine Screen BUN Calcium Level Cannabinoid Urine Screen CBC CBC w/ Differential Cocaine Urine Screen COVID-19 (2019 Novel Coronavirus) PCR Creatinine Electrolytes Glucose Level GLUCOSE POC Hgb A1C (Monitoring) High??Sensitivity??Troponin T INR Ionized Calcium Lipid Panel Magnesium Level Opiate Screen Urine Phosphorus Level PT (INR) PTT T3 Free T4 Free TSH Type and Screen Urinalysis w/hold for Urine Culture CT Angio Head Hyperacute Stroke CT Angio Neck Hyperacute Stroke CT Head-Hyper Acute Stroke CT Head/Brain W/O IV Contrast MRI Brain W+W/O Contrast XR Chest Portable No tests performed during this visit.?? Primary Care Provider Luna Greenfield MD? Advance Directive Health Care Proxy on File Yes - Health Care Proxy Discharge Vitals Temperature: 98.5 DegF Height: 163 cm Pulse Rate: 74 bpm Weight: 75.1 kg Respiratory Rate: 17 br/min Body Mass Index:??28.04 kg/m2??High Systolic Blood Pressure: 112 mm Hg Body surface area: 1.84 Diastolic Blood Pressure: 65 mm Hg ?? Oxygen Saturation: 98 % ?? Studies Pending All studies ordered during this hospital stay have been completed unless listed below. Please discuss all pending results with your provider listed above in these instructions. ?? No incomplete studies found?? What to do next Instructions From Your Doctor as discussed??please avoid taking NSAIDS/ Ibuporfen naproxen etc for pain . use Tylenol or lidocaine patches. ?? please follow up with PCP. ?? please check blood pressure at home?? if dropping to? < 100/60?? take only 1/2 tablet of amlodipine.?If Bp persisting? > 150/90 please seek medical attention immediately? Orders? 11/05/23 13:46:00 EDT?? Scheduled Follow-Up Appointments Friday 11:00 AM EDT ?? With: Ramandeep Urbano MD Where: [address] [id number]- Status: Pending You Need to Schedule the Following Appointments Follow Up with??Ramandeep Urbano MD When:??12/16/2023 11:00 AM EDT Where: [address] [place] [address], [facility] [address] [place], [place] [id number]- Follow Up with??Luna Greenfield MD When:??Within 1-2 day: call to discuss follow up visit Where: [address] [place] [address]- Discharge Medications JANINE SEGOVIA :1970 Visit Date:10/31/2023 Medications: Please continue your medications until treatment is completed or stopped by your provider. Medications not listed below should be discontinued. Discuss any questions related to medications with your provider. What How Much When Instructions Next Dose New Amlodipine (amLODIPine 10 mg oral tablet) 10 Milligram Oral Daily Pickup at [place] [address] 11/05 @ 0900 New Nicotine (Nicoderm C-Q Clear 21 mg/ 24 hr transdermal film, extended release) 1 patch(es) Topically Daily Pickup at [place] [address] 11/05 @ 0900 Unchanged Lidocaine Topical (lidocaine 5% topical film) 1 patch(es) Topically Daily Pharmacy Information [facility] 3: [address] [place] [address] [phone] ?? What How Much When Comments Stop Taking Albuterol 3 puff(s) Inhalation As needed for Wheezing/Shortness of Breath Stop Taking amiTRIPTYLINE (amitriptyline 25 mg oral tablet) 1 tab(s) Oral Daily at Bedtime Stop Taking Cyclobenzaprine (Flexeril 5 mg oral tablet) Stop Taking Ferrous Sulfate (ferrous sulfate 325 mg oral enteric coated tablet) 1 tab(s) Oral Daily Stop Taking Fluticasone Nasal (Flonase 50 mcg/ inh nasal spray) 1 spray(s) Daily Stop Taking Ibuprofen (ibuprofen 600 mg oral tablet) 1 tab(s) Oral 4 times a day Stop Taking Loratadine (loratadine 10 mg oral tablet) 1 tab(s) Oral Daily Stop Taking Meloxicam (meloxicam 7.5 mg oral tablet) 1 tab(s) Oral Daily Stop Taking Oxycodone (oxycodone 20 mg oral tablet) 1 tab(s) Oral Every 4 hours Stop Taking Pseudoephedrine (Sudafed 30 mg oral tablet) 1 tab(s) Oral Every 6 hours Stop Taking Sertraline (sertraline 50 mg oral tablet) 1 tab(s) Oral Daily Stop Taking Trospium Chloride (trospium chloride 20 mg oral tablet) 1 tab(s) Oral Daily Prescription Given During Visit Amlodipine (amLODIPine 10 mg oral tablet) - 10 mg, By Mouth, Daily, # 30 tablet, 0 Refills, [facility] 3, [address] [place] [address] [phone]?? Nicotine (Nicoderm C-Q Clear 21 mg/24 hr transdermal film, extended release) - 1 patch, Topically, Daily, # 30 patch, 0 Refills, [facility] 3, [address] [place] [address] [phone]?? Laboratory Results Below is a partial list of the most recent Laboratory test results done prior to this discharge. You may have had other tests and procedures not included in this list. Please discuss all test resultswith your provider. Est Creatinine Clearance - 61.55 mL/min (11/04/2023) Amphetamine Urine Screen (10/31/2023) ???Amphetamine Screen, Urine - NONE DETECTED AST (10/31/2023) ???AST (SGOT) - 23 units/L Barbiturate Urine Screen (10/31/2023) ???Barbiturate Screen, Urine - NONE DETECTED Basic Metabolic Panel (10/31/2023) ???Sodium - 141 mmol/L???Potassium - 3.3 mmol/L???Chloride - 99 mmol/L???Bicarbonate Level - 24 mmol/L???Anion Gap - 18???Glucose Level - 152 mg/dL???BUN - 12 mg/dL???Creatinine-Blood - 0.80 mg/dL???Estimated GFR Creatinine - 89 ML/MIN/1.73 M2???Calcium - 9.7 mg/dL Benzodiazepine Urine Screen (10/31/2023) ???Benzodiazepine Screen, Urine - NONE DETECTED BUN (11/04/2023) ???BUN - 21 mg/dL Calcium Level (11/04/2023) ???Calcium - 9.2 mg/dL Cannabinoid Urine Screen (10/31/2023) ???Cannabinoid Screen, Urine - NONE DETECTED CBC (11/04/2023) ???WBC - 8.5 k/mm3???RBC - 4.55 m/mm3???Hgb - 12.9 Gm/dL???Hct - 40.6 %???MCV - 89.2 femtoliters???MCH - 28.4 pg???MCHC - 31.8 g/dL???Platelet Count - 231 k/mm3???RDW-SD - 51.8 femtoliters???MPV - 10.2 femtoliters???Nucleated RBC (Automated) - 0.0 #/100 WBC'S???Abs. NRBC - 0.0 k/mm3 CBC w/ Differential (10/31/2023) ???WBC - 12.9 k/mm3???RBC - 4.92 m/mm3???Hgb - 14.4 Gm/dL???Hct - 44.1 %???MCV - 89.6 femtoliters???MCH - 29.3 pg???MCHC - 32.7 g/dL???Platelet Count - 324 k/mm3???RDW-SD - 49.0 femtoliters???MPV - 10.3 femtoliters???Nucleated RBC (Automated) - 0.0 #/100 WBC'S???Abs. NRBC - 0.0 k/mm3???Abs. Neut - 7.6 k/mm3???Abs. Lymph - 4.4 k/mm3???Abs. Trego - 0.7 k/mm3???Abs. Eo - 0.2 k/mm3???Abs. Baso - 0.0 k/mm3???Neut % - 58.9 %???Lymph % - 33.7 %???Trego % - 5.3 %???Eos % - 1.5 %???Baso % - 0.3 %???Imm Gran - 0.3 %???Abs. Imm Gran - 0.0 k/mm3 Cocaine Urine Screen (10/31/2023) ???Cocaine Metabolite Screen, Urine - POSITIVE COVID-19 (2019 Novel Coronavirus) PCR (10/31/2023) ???COVID-19 PCR Specimen Source - NASAL???COVID-19 PCR Result - NEGATIVE Creatinine (11/04/2023) ???Creatinine-Blood - 0.93 mg/dL???Estimated GFR Creatinine - 74 ML/MIN/1.73 M2 Electrolytes (11/04/2023) ???Sodium - 139 mmol/L???Potassium - 3.6 mmol/L???Chloride - 104 mmol/L???Bicarbonate Level - 20 mmol/L???Anion Gap - 15 Glucose Level (11/04/2023) ???Glucose Level - 97 mg/dL GLUCOSE POC (11/01/2023) ???Glucose, POC - 101 mg/dL Hgb A1C (Monitoring) (11/03/2023) ???Hemoglobin A1C (Monitoring) - 5.7 % High??Sensitivity??Troponin T (10/31/2023) ???High Sensitivity Troponin (HSTnT) - 6 ng/L INR (11/02/2023) ???INR - 1.0???Protime (PT) - 11.0 seconds Ionized Calcium (11/04/2023) ???Calcium, Ionized pH Corrected - 1.24 mmol/L Lipid Panel (11/03/2023) ???Cholesterol - 206 mg/dL???Triglycerides - 132 mg/dL???HDL Cholesterol - 68 mg/dL???LDL Cholesterol - 112 mg/dL???Non HDL Cholesterol - 138 mg/dL Magnesium Level (11/04/2023) ???Magnesium - 1.8 mg/dL Opiate Screen Urine (10/31/2023) ???Opiate Screen, Urine - NONE DETECTED Phosphorus Level (11/04/2023) ???Phosphorus - 4.5 mg/dL PT (INR) (10/31/2023) ???INR - 1.0???Protime (PT) - 10.4 seconds PTT (11/02/2023) ???APTT - 25.4 seconds T3 Free (11/03/2023) ???T3, Free - 1.4 pg/mL T4 Free (11/03/2023) ???Free T4 - 0.75 ng/dL TSH (11/03/2023) ???TSH - 1.36 uIU/mL Type and Screen (10/31/2023) ???Blood Type - O Positive???Antibody Screen - Negative Urinalysis w/hold for Urine Culture (10/31/2023) ???Appear/Color, Urine - COLORLESS???Specific [place], Urine - 1.030???pH, Urine - 8.0???Albumin, Urine - 1+???Glucose, Urine - NEGATIVE???Ketones, Urine - NEGATIVE???Bilirubin, Urine - NEGATIVE???Hemoglobin, Urine - NEGATIVE???Nitrite, Urine - NEGATIVE???Leukocyte, Urine - NEGATIVE???Urobilinogen - NORMAL? ?WBC's, Urine - <1 /HPF? ?RBC's, Urine - <1 /HPF? ?Squamous Epith - <1 /HPF? ?Hold Urine Culture - Testing available 48 hours from time of collection. Allergies (NKA means No Known Allergies) naproxen??(SEVERE GASTRITIS) sulfADIAZINE??(difficulty breathing, rash) Problems Active Problems??(3) Cholelithiasis?? Lumbar radiculitis?? s/p tubal reversal?? Education Materials Below is the list of Educational Leaflet Providered with your Discharge Instructions. Valuables and Belongings I fully understand and agree that [facility] accepts no responsibility for all my personal property including clothing, toilet articles, radios, jewelry, dentures, hearing aids, rings, money, or any other property that is in my possession or is brought to me after admission. I understand certain valuables may be placed in a hospital safe for a short period of time. I understand that the hospital is not liable for loss or damage due to accident, fire, or other natural occurrence while said property is in the safe. I accept full responsibility for any personal property that I keep with me, and will not hold the hospital responsible in case of loss or disappearance. I acknowledge that i have been encouraged to send valuables and belongings home. ?? No Valuables/Belongings: No valuables/belongings present Review of Valuable and Belonging List: With patient, With family Date for Pt to Sign Valuables/Belongings: 10/31/23 04:59:00 ?? Other Discharge Information ? Pulmonary Rehab Status?? Pulmonary Rehab Discharge Status?? Respiratory Rate: 17 br/min ? Common Emergency Awareness Tips IS IT A STROKE? Act FAST and Check for these signs: FACE Does the face look uneven? ARM Does one arm drift down? SPEECH Does their speech sound strange? TIME Call at any sign of stroke ?? Heart Attack Signs Chest discomfort: Most heart attacks involve discomfort in the center of the chest and lasts more than a few minutes, or goes away and comes back. It can feel like uncomfortable pressure, squeezing, fullness or pain. Discomfort in upper body: Symptoms can include pain or discomfort in one or both arms, back, neck, jaw or stomach. Shortness of breath: With or without discomfort. Other signs: Breaking out in a cold sweat, nausea, or lightheaded. Remember, MINUTES DO MATTER. If you experience any of these heart attack warning signs, call to get immediate medical attention! ?? Smoking can increase your chances of developing chronic health problems and can cause harmful effects to other family members in your house. If you smoke, you are strongly encouraged to quit. Please call [facility] at [phone] or [phone] ([phone]) or log in to [email or web address] for referrals to smoking cessation programs. ?? 063 Suicide & Crisis Lifeline is available 13/01 if you or someone you know needs to find a reason to keep living. By calling 381 you'll be connected to a skilled, trained counselor at a crisis center in your area. INPATIENT DISCHARGE INSTRUCTIONS SIGNATURE PAGE JULIETTEJANINE Location:[facility] Registration Date and Time:10/31/2023 05:04 EDT Primary Care Physician: Jean Pierre WILKINSON, Luna Jacobo, Attending Physician: Jaden WILKINSON, Serene, I JANINE SEGOVIA, have received the above patient education materials/instructions and have verbalized understanding. If ambulance or transport services are being used I further acknowledge being given a choice of service. ?? If you need to contact me, please call me at this number: . Patient/Rouge Sifter Name: Patient/Rouge Sifter Signature: Relationship to Patient: Witness Name/Signature: Date: * Tara Collins RN: PERFORM Event Display: Patient Education/Instruction Authored Date: [id number] Inpatient Adult Discharge Instructions. [address] [address] Name: JANINE SEGOVIA : 1970?? Visit: 10/31/2023 05:04?? Current Date: 11/05/2023 13:56 ?? Account: [id number]?? Inpatient Adult Discharge Instructions We would like to thank you for allowing us to assist you with your healthcare needs. The following includes patient education materials and information regarding your injury/illness. Our entire staffstrives to provide an excellent experience for our patients and their families. PLEASE ENSURE YOU FOLLOW-UP PER THE INSTRUCTIONS BELOW! ?? YOUR OPINION IS IMPORTANT TO US! Please complete the survey you may receive by mail or email. Your feedback will be used to make improvements to the healthcare experiences of our patients and their families. Surveys are administered by [employer] ?? If further treatment with your primary care physician or another doctor is recommended, it is important for you to keep the appointment. Call your primary care physician or return to the Emergency Department immediately if your condition worsens, fails to improve, or new symptoms develop. If you need to find a doctor, you can call [facility] for a referral at [phone] or toll free at [phone] ([phone]) or log in to [email or web address].. ?? [facility], in keeping with [facility] guidance, no longer requires face masks for staff, patientsor visitors in most situations. Similiar to time spent indoors at other locations, there is the chance that you were exposed to repiratory viruses during your time with us (such as flu or COVID-19). If you develop symptoms concerning for a viral respiratory infection, please seek testing (and treatment if indicated) from your medical provider or home test kit. ?? You can view and manage your care through the patient portal or by using a health care graham of your choosing. [employer] is a website that allows you to securely view your medical information including your hospital discharge summary, office visit summaries, medications and follow-up visits. You can also request appointments, renew medications, and request access to your medical information using a health care graham of your choosing, or just ask a question. You can enroll at [email or web address] or register during your next office visit. You have been discharged from [facility], Patient Care Unit: [facility]??. If you have any questions regarding these instructions, including results of studies pending, afteryou leave, please call us and we will be happy to assist you 13/01. [facility] Your Care Team Attending Physician Serene Satnley MD?? Consulting Providers Serene Stanley MD?? 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 You may have had other tests and procedures not included in this list. Please discuss all test results with your provider. Amphetamine Urine Screen AST Barbiturate Urine Screen Basic Metabolic Panel Benzodiazepine Urine Screen BUN Calcium Level Cannabinoid Urine Screen CBC CBC w/ Differential Cocaine Urine Screen COVID-19 (2019 Novel Coronavirus) PCR Creatinine Electrolytes Glucose Level GLUCOSE POC Hgb A1C (Monitoring) High??Sensitivity??Troponin T INR Ionized Calcium Lipid Panel Magnesium Level Opiate Screen Urine Phosphorus Level PT (INR) PTT T3 Free T4 Free TSH Type and Screen Urinalysis w/hold for Urine Culture CT Angio Head Hyperacute Stroke CT Angio Neck Hyperacute Stroke CT Head-Hyper Acute Stroke CT Head/Brain W/O IV Contrast MRI Brain W+W/O Contrast XR Chest Portable No tests performed during this visit.?? Primary Care Provider Luna Greenfield MD? Advance Directive Health Care Proxy on File Yes - Health Care Proxy Discharge Vitals Temperature: 98.5 DegF Height: 163 cm Pulse Rate: 74 bpm Weight: 75.1 kg Respiratory Rate: 17 br/min Body Mass Index:??28.04 kg/m2??High Systolic Blood Pressure: 112 mm Hg Body surface area: 1.84 Diastolic Blood Pressure: 65 mm Hg ?? Oxygen Saturation: 98 % ?? Studies Pending All studies ordered during this hospital stay have been completed unless listed below. Please discuss all pending results with your provider listed above in these instructions. ?? No incomplete studies found?? What to do next Instructions From Your Doctor as discussed??please avoid taking NSAIDS/ Ibuporfen naproxen etc for pain . use Tylenol or lidocaine patches. ?? please follow up with PCP. ?? please check blood pressure at home?? if dropping to? < 100/60?? take only 1/2 tablet of amlodipine.?If Bp persisting? > 150/90 please seek medical attention immediately? Orders? 11/05/23 13:46:00 EDT?? Scheduled Follow-Up Appointments Friday 11:00 AM EDT ?? With: Ramandeep Urbano MD Where: [address] [id number]- Status: Pending You Need to Schedule the Following Appointments Follow Up with??Ramandeep Urbano MD When:??12/16/2023 11:00 AM EDT Where: [address] [place] [id number]- Follow Up with??Jean Pierre WILKINSON, Luna Jacobo When:??Within 1-2 day: call to discuss follow up visit Where: [address] [place] [address]- Discharge Medications JANINE SEGOVIA :1970 Visit Date:10/31/2023 Medications: Please continue your medications until treatment is completed or stopped by your provider. Medications not listed below should be discontinued. Discuss any questions related to medications with your provider. What How Much When Instructions Next Dose New Amlodipine (amLODIPine 10 mg oral tablet) 10 Milligram Oral Daily Pickup at [facility] 3 11/05 0900 Unchanged Lidocaine Topical (lidocaine 5% topical film) 1 patch(es) Topically Daily Pharmacy Information [facility] 3: [address], [place] [phone] ?? What How Much When Comments Stop Taking Albuterol 3 puff(s) Inhalation As needed for Wheezing/Shortness of Breath Stop Taking amiTRIPTYLINE (amitriptyline 25 mg oral tablet) 1 tab(s) Oral Daily at Bedtime Stop Taking Cyclobenzaprine (Flexeril 5 mg oral tablet) Stop Taking Ferrous Sulfate (ferrous sulfate 325 mg oral enteric coated tablet) 1 tab(s) Oral Daily Stop Taking Fluticasone Nasal (Flonase 50 mcg/ inh nasal spray) 1 spray(s) Daily Stop Taking Ibuprofen (ibuprofen 600 mg oral tablet) 1 tab(s) Oral 4 times a day Stop Taking Loratadine (loratadine 10 mg oral tablet) 1 tab(s) Oral Daily Stop Taking Meloxicam (meloxicam 7.5 mg oral tablet) 1 tab(s) Oral Daily Stop Taking Oxycodone (oxycodone 20 mg oral tablet) 1 tab(s) Oral Every 4 hours Stop Taking Pseudoephedrine (Sudafed 30 mg oral tablet) 1 tab(s) Oral Every 6 hours Stop Taking Sertraline (sertraline 50 mg oral tablet) 1 tab(s) Oral Daily Stop Taking Trospium Chloride (trospium chloride 20 mg oral tablet) 1 tab(s) Oral Daily Prescription Given During Visit Amlodipine (amLODIPine 10 mg oral tablet) - 10 mg, By Mouth, Daily, # 30 tablet, 0 Refills, [facility] 3, [address] [place] [phone]?? Laboratory Results Below is a partial list of the most recent Laboratory test results done prior to this discharge. You may have had other tests and procedures not included in this list. Please discuss all test resultswith your provider. Est Creatinine Clearance - 61.55 mL/min (11/04/2023) Amphetamine Urine Screen (10/31/2023) ???Amphetamine Screen, Urine - NONE DETECTED AST (10/31/2023) ???AST (SGOT) - 23 units/L Barbiturate Urine Screen (10/31/2023) ???Barbiturate Screen, Urine - NONE DETECTED Basic Metabolic Panel (10/31/2023) ???Sodium - 141 mmol/L???Potassium - 3.3 mmol/L???Chloride - 99 mmol/L???Bicarbonate Level - 24 mmol/L???Anion Gap - 18???Glucose Level - 152 mg/dL???BUN - 12 mg/dL???Creatinine-Blood - 0.80 mg/dL???Estimated GFR Creatinine - 89 ML/MIN/1.73 M2???Calcium - 9.7 mg/dL Benzodiazepine Urine Screen (10/31/2023) ???Benzodiazepine Screen, Urine - NONE DETECTED BUN (11/04/2023) ???BUN - 21 mg/dL Calcium Level (11/04/2023) ???Calcium - 9.2 mg/dL Cannabinoid Urine Screen (10/31/2023) ???Cannabinoid Screen, Urine - NONE DETECTED CBC (11/04/2023) ???WBC - 8.5 k/mm3???RBC - 4.55 m/mm3???Hgb - 12.9 Gm/dL???Hct - 40.6 %???MCV - 89.2 femtoliters???MCH - 28.4 pg???MCHC - 31.8 g/dL???Platelet Count - 231 k/mm3???RDW-SD - 51.8 femtoliters???MPV - 10.2 femtoliters???Nucleated RBC (Automated) - 0.0 #/100 WBC'S???Abs. NRBC - 0.0 k/mm3 CBC w/ Differential (10/31/2023) ???WBC - 12.9 k/mm3???RBC - 4.92 m/mm3???Hgb - 14.4 Gm/dL???Hct - 44.1 %???MCV - 89.6 femtoliters???MCH - 29.3 pg???MCHC - 32.7 g/dL???Platelet Count - 324 k/mm3???RDW-SD - 49.0 femtoliters???MPV - 10.3 femtoliters???Nucleated RBC (Automated) - 0.0 #/100 WBC'S???Abs. NRBC - 0.0 k/mm3???Abs. Neut - 7.6 k/mm3???Abs. Lymph - 4.4 k/mm3???Abs. Trego - 0.7 k/mm3???Abs. Eo - 0.2 k/mm3???Abs. Baso - 0.0 k/mm3???Neut % - 58.9 %???Lymph % - 33.7 %???Trego % - 5.3 %???Eos % - 1.5 %???Baso % - 0.3 %???Imm Gran - 0.3 %???Abs. Imm Gran - 0.0 k/mm3 Cocaine Urine Screen (10/31/2023) ???Cocaine Metabolite Screen, Urine - POSITIVE COVID-19 (2019 Novel Coronavirus) PCR (10/31/2023) ???COVID-19 PCR Specimen Source - NASAL???COVID-19 PCR Result - NEGATIVE Creatinine (11/04/2023) ???Creatinine-Blood - 0.93 mg/dL???Estimated GFR Creatinine - 74 ML/MIN/1.73 M2 Electrolytes (11/04/2023) ???Sodium - 139 mmol/L???Potassium - 3.6 mmol/L???Chloride - 104 mmol/L???Bicarbonate Level - 20 mmol/L???Anion Gap - 15 Glucose Level (11/04/2023) ???Glucose Level - 97 mg/dL GLUCOSE POC (11/01/2023) ???Glucose, POC - 101 mg/dL Hgb A1C (Monitoring) (11/03/2023) ???Hemoglobin A1C (Monitoring) - 5.7 % High??Sensitivity??Troponin T (10/31/2023) ???High Sensitivity Troponin (HSTnT) - 6 ng/L INR (11/02/2023) ???INR - 1.0???Protime (PT) - 11.0 seconds Ionized Calcium (11/04/2023) ???Calcium, Ionized pH Corrected - 1.24 mmol/L Lipid Panel (11/03/2023) ???Cholesterol - 206 mg/dL???Triglycerides - 132 mg/dL???HDL Cholesterol - 68 mg/dL???LDL Cholesterol - 112 mg/dL???Non HDL Cholesterol - 138 mg/dL Magnesium Level (11/04/2023) ???Magnesium - 1.8 mg/dL Opiate Screen Urine (10/31/2023) ???Opiate Screen, Urine - NONE DETECTED Phosphorus Level (11/04/2023) ???Phosphorus - 4.5 mg/dL PT (INR) (10/31/2023) ???INR - 1.0???Protime (PT) - 10.4 seconds PTT (11/02/2023) ???APTT - 25.4 seconds T3 Free (11/03/2023) ???T3, Free - 1.4 pg/mL T4 Free (11/03/2023) ???Free T4 - 0.75 ng/dL TSH (11/03/2023) ???TSH - 1.36 uIU/mL Type and Screen (10/31/2023) ???Blood Type - O Positive???Antibody Screen - Negative Urinalysis w/hold for Urine Culture (10/31/2023) ???Appear/Color, Urine - COLORLESS???Specific [place], Urine - 1.030???pH, Urine - 8.0???Albumin, Urine - 1+???Glucose, Urine - NEGATIVE???Ketones, Urine - NEGATIVE???Bilirubin, Urine - NEGATIVE???Hemoglobin, Urine - NEGATIVE???Nitrite, Urine - NEGATIVE???Leukocyte, Urine - NEGATIVE???Urobilinogen - NORMAL? ?WBC's, Urine - <1 /HPF? ?RBC's, Urine - <1 /HPF? ?Squamous Epith - <1 /HPF? ?Hold Urine Culture - Testing available 48 hours from time of collection. Allergies (NKA means No Known Allergies) naproxen??(SEVERE GASTRITIS) sulfADIAZINE??(difficulty breathing, rash) Problems Active Problems??(3) Cholelithiasis?? Lumbar radiculitis?? s/p tubal reversal?? Education Materials Below is the list of Educational Leaflet Providered with your Discharge Instructions. Valuables and Belongings I fully understand and agree that [facility] accepts no responsibility for all my personal property including clothing, toilet articles, radios, jewelry, dentures, hearing aids, rings, money, or any other property that is in my possession or is brought to me after admission. I understand certain valuables may be placed in a hospital safe for a short period of time. I understand that the hospital is not liable for loss or damage due to accident, fire, or other natural occurrence while said property is in the safe. I accept full responsibility for any personal property that I keep with me, and will not hold the hospital responsible in case of loss or disappearance. I acknowledge that i have been encouraged to send valuables and belongings home. ?? No Valuables/Belongings: No valuables/belongings present Review of Valuable and Belonging List: With patient, With family Date for Pt to Sign Valuables/Belongings: 10/31/23 04:59:00 ?? Other Discharge Information ? Pulmonary Rehab Status?? Pulmonary Rehab Discharge Status?? Respiratory Rate: 17 br/min ? Common Emergency Awareness Tips IS IT A STROKE? Act FAST and Check for these signs: FACE Does the face look uneven? ARM Does one arm drift down? SPEECH Does their speech sound strange? TIME Call at any sign of stroke ?? Heart Attack Signs Chest discomfort: Most heart attacks involve discomfort in the center of the chest and lasts more than a few minutes, or goes away and comes back. It can feel like uncomfortable pressure, squeezing, fullness or pain. Discomfort in upper body: Symptoms can include pain or discomfort in one or both arms, back, neck, jaw or stomach. Shortness of breath: With or without discomfort. Other signs: Breaking out in a cold sweat, nausea, or lightheaded. Remember, MINUTES DO MATTER. If you experience any of these heart attack warning signs, call to get immediate medical attention! ?? Smoking can increase your chances of developing chronic health problems and can cause harmful effects to other family members in your house. If you smoke, you are strongly encouraged to quit. Please call [facility] at [phone] or [phone] ([phone]) or log in to [email or web address] for referrals to smoking cessation programs. ?? 585 Suicide & Crisis Lifeline is available 13/01 if you or someone you know needs to find a reason to keep living. By calling 295 you'll be connected to a skilled, trained counselor at a crisis center in your area. INPATIENT DISCHARGE INSTRUCTIONS SIGNATURE PAGE JANINE SEGOVIA Location:[facility] Registration Date and Time:10/31/2023 05:04 EDT Primary Care Physician: Luna Greenfield MD, Attending Physician: Jaden WILKINSON, Serene, I JULIETTE JANINE, have received the above patient education materials/instructions and have verbalized understanding. If ambulance or transport services are being used I further acknowledge being given a choice of service. ?? If you need to contact me, please call me at this number: . Patient/Rouge Sifter Name: Patient/Rouge Sifter Signature: Relationship to Patient: Witness Name/Signature: Date: Patient Care team information Care Team Personnel Name: Tesha Yan Position: [facility] RN Member Role: Primary Care Nurse Name: Migdalia Retana RN Position: S RN Member Role: Primary Care Nurse Name: Gilda Parkinson RN Position: [facility] AMB Nurse Member Role: Primary Care Nurse Name: Melita Lopez RN Position: [facility] RN Member Role: Primary Care Nurse Name: Antionette Regalado RN Position: [facility] RN Member Role: Primary Care Nurse Name: Amira uGstafson RN Position: [facility] RN Member Role: Primary Care Nurse Name: Luna Greenfield MD Position: [facility] Outreach Member Role: PCP Address: Address: [address] [place] [id number] Name: Xavier Morales RN Position: [facility] RN Member Role: Primary Care Nurse Name: Tara Collins RN Position: [facility] RN Member Role: Primary Care Nurse Care Team Related Persons Name: LIVIA GLEASON Address: home [address] [place] [address] Name: SHELIA VASQUEZ Address: [address] [place] [address] Name: IDALIA ROY Name: CAMERON, NONE Name: LIVIA WISE Address: [address] [place] [address]
--- OUTSIDE RECORDS SUMMARY | 2024-03-13 03:23 | XMS_ITS | Continuity of Care Document ---
Author Organization [facility] ter Address [address] [place] [id number]- Care Team Providers Care Cloth Sander Name Role Phone Luna Greenfield MD Primary Care Physician Encounter [facility] Date(s): 12/26/22 - 02/20/[address] [address]- Attending Physician: Derek Segovia MD Admitting Physician: [...] Team Personnel Name: Gilda Parkinson RN Position: [facility] AMB Nurse Member Role: Primary Care Nurse Name: Luna Greenfield MD Position: [facility] Outreach Member Role: PCP Address: Address: [address] [place] [id number]- Care Team Related Persons Name: LIVIA PAREKH Address: home [address] [place] [address] Name: SHELIA VASQUEZ Address: [address] [place] [address] Name: PT, STATES NONE
[2024-03-13 03:25] LABS: Glucose, Whole Blood 119 mg/dL (60-115)
[2024-03-13 03:27] LABS: Anion Gap 15 (12-20); Blood Urea Nitrogen 13 mg/dL (9-16); Calcium 10.2 mg/dL (8.4-10.2); Carbon Dioxide 23 mmol/L (22-29); Chloride 105 mmol/L (96-108); Cholesterol 205 mg/dL (<200); Creatinine Clr Calc Pharmacy 78.8; Estimated Glomerular Filt Rate > 60; Ethanol < 10 mg/dL; Glucose Random 119 mg/dL (60-115); HDL Cholesterol 47 mg/dL (>40); Potassium 3.6 mmol/L (3.3-5.1); Sodium 139 mmol/L (135-145); Triglycerides 448 mg/dL (<150)
[2024-03-13 03:40] LABS: Troponin-I High Sensitivity < 2.7 ng/L (<3.5-17.0)
[2024-03-13] MEDS: iohexoL 350 MG/ML 100 ML INFUS..BTL 65 ML IV (03:43)
[2024-03-13 03:58] VITALS: BP 120/78; PULSE 67; RESP 18; TEMP 37.2; O2SAT 96
[2024-03-13 04:16] VITALS: BP 110/74; PULSE 60; RESP 18; O2SAT 96
[2024-03-13 04:22] LABS: Amphetamine Screen Urine Not Detected (Not Detect); Barbiturates, Urine Not Detected (Not Detect); Benzodiazepines Screen Urine Not Detected (Not Detect); Buprenorphine Scr Not Detected (Not Detect); Cannabinoid Screen Urine Not Detected (Not Detect); Cocaine Screen Urine Not Detected (Not Detect); Fentanyl, urine POSITIVE (Not Detect); Methadone Screen, Urine Not Detected (Not Detect); Opiate Screen Urine Not Detected (Not Detect); Oxycodone Screen Urine Not Detected (Not Detect); Phencyclidine Screen Urine Not Detected (Not Detect)
[2024-03-13 05:45] VITALS: BP 120/83; PULSE 68; RESP 18; O2SAT 97
[2024-03-13 06:05] VITALS: BP 120/68; PULSE 68; RESP 17; TEMP 37; O2SAT 97
[2024-03-13 08:15] VITALS: BP 141/81; PULSE 70; RESP 18; TEMP 36.9; O2SAT 98
== END 2024-03-13 08:20 | disposition home or self-care (01) ==
PROVIDERS: Emergency Provider Emergency Medicine; PCP Internal Medicine
DX: F19.10 Other psychoactive substance abuse, uncomplicated (principal); R20.0 Anesthesia of skin; R53.1 Weakness; R20.2 Paresthesia of skin; R29.700 NIHSS score 0
CPT/HCPCS: 36415; 70450; 70496; 70498; 80048; 80061; 80307; 82947; 84484; 85025; 85610; 85730; 93005; 99285; Q9967

== ENCOUNTER → 2024-12-27 21:54 | Outpatient (BNV) | payer MEDICAID, SELFPAY | PROVIDERS: PCP Internal Medicine; Visit Provider Radiology Diagnostic Radiology | DX: M25.512 Pain in left shoulder (principal); W19.XXXA Unspecified fall, initial encounter | CPT/HCPCS: 73030 ==

== ENCOUNTER 2024-12-27 22:29 | Emergency (ER) | payer MEDICAID, SELFPAY ==
--- NOTE | ~2024-12-27 | XR_ITS ---
CLINICAL HISTORY: fall pain 3 view left shoulder Comparison: CR/SR - XR SHOULDER LT MIN 2V - 09/15/23 17:28 EDT Findings: Subtle lucency identified over the midportion of the left clavicle, only visualized on the external rotation image. The left acromioclavicular and coracoclavicular distances are within normal limits for appearance. The left humeral head is appropriately positioned with respect to the left glenoid. No radiopaque foreign body. IMPRESSION: 1. Subtle lucency identified over the midportion of the left clavicle, only visualized on the external rotation image. This was also present on the prior examination and is favored to represent a projectional finding. Recommend clinical correlation with any focal point tenderness at this site to exclude a subtle nondisplaced fracture. No other radiographic evidence for an acute fracture or dislocation injury identified at the left shoulder. This document has been electronically signed by: Juni Saldaña MD on 12/28/2024 00:11:56
[2024-12-27 22:38] VITALS: BP 149/98; PULSE 92; RESP 16; TEMP 36.4; O2SAT 97; BMI 32.7
[2024-12-28 01:22] VITALS: BP 145/76; PULSE 82; RESP 20; TEMP 36.6; O2SAT 99
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
--- NOTE | 2024-12-28 06:08 | ED.FALL ---
HPI - Fall General Chief Complaint: Fall Stated Complaint: Back pain Time Seen by Provider: 12/28/24 05:59 Source: patient and old records reviewed Mode of arrival: ambulatory Limitations: no limitations History of Present Illness ED Provider: SHERRY DOUGLAS Narrative: 54 yo female with PMH of cervical radiculopathy, depression, anxiety, CVA with left sided deficits, gait instability and vertigo with frequent falls not on blood thinners here with c/o fall due to her vertigo was going downstairs landed down on her buttocks and knees and when she realized what happened her L arm was stuck and painful on railing. She is R handed. No headstrike. She had a 'black out episode per her reports causing this it was brief. She notes she gets these all the time post stroke. MD complaint: fall Onset (ago): day(s) (2) Fall from: standing Fall witnessed: no Place fall occurred: home Loss of consciousness: yes, seconds Length of LOC: second(s) Symptoms prior to fall: lightheadedness Context: tripped/slipped and history of frequent falls Location of injury - extremities: left: shoulder Severity: severe Quality: throbbing Associated symptoms (after fall): denies Related Data Previous Rx's ?Medication ?Instructions ?Recorded oxycodone 5 mg tablet 5 mg PO Q6H PRN pain #10 tabs 12/28/24 Allergies Allergy/AdvReac Type Severity Reaction Status Date / Time morphine (MORPHINE) Allergy Unknown UNKNOWN Verified 12/27/24 22:41 naproxen (From NAPROSYN) Allergy Unknown GASTRITIS Verified 12/27/24 22:41 Sulfa (Sulfonamide Allergy Unknown RASH,HIVES,CHEST Verified 12/27/24 22:41 Antibiotics) (SULFA TIGHTNESS (SULFONAMIDE ANTIBIOTICS)) Review of Systems Review of Systems: Constitutional : No Fever, No Chills ENT/Mouth : No Ear Pain, No Hoarseness, No sore throat Eyes: No Eye Pain, No Swelling, No Redness, No Foreign Body Cardiovascular : No Chest Pain, No SOB Respiratory : No Cough, No Dyspnea Gastrointestinal : No Nausea, No Vomiting, No Diarrhea, No abdominal Pain Genitourinary : No Dysuria, No Hematuria Musculoskeletal : positive joint pain, No Myalgias, No Joint Swelling Skin : No Skin lacerations, No rash Neuro : No Weakness, No Numbness, no headache All other systems reviewed and are negative [facility] Past Medical History Attestation statement: The following information was validated with the patient. Source: old records reviewed Medical History Nicotine dependence, cigarettes, uncomplicated Cervical radiculopathy Insomnia Depression with anxiety Surgical History History of breast surgery History of cholecystectomy History of appendectomy History of tubal ligation Social History Social History (Updated 12/28/24 @ 06:10 by Tati Lucero DO) Patient Tobacco Use Status: Tobacco use Unknown Smoked in Last 30 Days: No Use of substances other than those prescribed or required for medical reasons: No Advance Directives: No Advance Directives Information Provided: Yes Do you have a plan to hurt others: No Plan Physical Exam Vital Signs: Vital Signs: Last Vital Signs Temp 97.9 F 12/28/24 06:37 Pulse 59 12/28/24 06:37 Resp 20 12/28/24 06:37 BP 127/71 12/28/24 06:37 Pulse Ox 98 12/28/24 06:37 O2 Del Method Room Air 12/28/24 06:37 BMI result Body Mass Index 32.7 Appearance: Alert. Oriented X3. No acute distress. Eyes: Pupils equal, round and reactive to light. ENT: Pharynx normal. atraumatic Neck: Normal inspection. Neck supple. CVS: Normal heart rate and rhythm. Pulses normal. Respiratory: No respiratory distress. Breath sounds normal. Abdomen: Soft and nontender. Skin: Skin warm and dry. Normal skin color. Normal skin turgor. Extremities: No lower extremity edema. L shoulder ttp along AC joint not the clavicle distal NV intact at her baseline. She cannot range the shoudler. Neuro: Oriented X 3. mild L sided deficits No sensory deficit. CN2-12 intact Medical Decision Making Medical Decision Making MDM Narrative: 54 yo female with PMH of cervical radiculopathy, depression, anxiety, CVA with left sided deficits, gait instability and vertigo with frequent falls not on blood thinners here with c/o L shoulder pain non dom side after fall. She tells me no headstrike and that these falls and black out events are normal for her. She has [employer] though her hours were recently cut down. At this time will obtain L shoulder xray and start on PO pain control and refer to her PCP. Differential Diagnosis Differential Diagnoses: The differential diagnosis associated with the presentation includes shoulder fracture, sprain, rotator cuff injury Admission/Observation Consideration of admission/observation: Escalation of care including admission/observation considered at baseline, stable for DC Independent Interpretation I performed an independent interpretation of an: Plain X-Ray (no fx) Radiology Impression Discussion of test interpretation with radiology: I have reviewed the radiologist's reading. External Record Review External record reviewed: Outpatient record Prescription Management I considered prescription management with: Pain Medication and Other Discharge Plan Discharge Clinical Impression: Left shoulder strain Patient Disposition: Home, Self-Care Instructions: Shoulder Sprain (ED), Shoulder Immobilizer (ED) Additional Instructions: sling as needed but not 24/7 or you are at risk for frozen shoulder follow up with orthopedics this could be a rotator cuff injury please make sure you follow up return for any other worsening symptoms or concerns. Prescriptions: New oxycodone 5 mg tablet 5 mg PO Q6H PRN (Reason: pain) Qty: 10 0RF Rx Instructions: Partial Fill upon patient request. Referrals: [facility] Surgeons [Provider Group] Referral Note: call and RN will schedule appointment Interventions: ED Discharge Assessment Last Done: 12/28/24 06:37 Discharge Date/Time: 12/28/24 06:38 Print Language: Australian
[2024-12-28 06:13] VITALS: BP 127/71; PULSE 59; TEMP 36.6; O2SAT 98
[2024-12-28 06:37] VITALS: BP 127/71; PULSE 59; RESP 20; TEMP 36.6; O2SAT 98
--- NOTE | 2024-12-28 06:37 | PC.NURSE ---
reviewed discharge instructions with pt. pt verbalized understanding, Sling applied with no issue, no sign of distress upon discharge. pt had a steady gait.
== END 2024-12-28 06:38 | disposition home or self-care (01) ==
PROVIDERS: Emergency Provider Emergency Medicine; PCP Internal Medicine
DX: S46.912A Strain of unspecified muscle, fascia and tendon at shoulder and upper arm level, left arm, initial encounter (principal); W10.8XXA Fall (on) (from) other stairs and steps, initial encounter; R42 Dizziness and giddiness; R29.6 Repeated falls; Z91.81 History of falling; Y93.89 Activity, other specified; Y92.018 Other place in single-family (private) house as the place of occurrence of the external cause; Y99.9 Unspecified external cause status
CPT/HCPCS: 73030; 99283; 99284

== ENCOUNTER 2025-03-01 13:59 | Outpatient (AMB) | payer MEDICAID, SELFPAY ==
--- NOTE | 2025-03-01 14:02 | A.OFFVIS_ITS ---
Vital Signs 03/01/25 14:07 Height 5 ft 4 in Weight 180 lb BMI 30.9 Intake Visit Reasons: Left shoulder pain and weakness Intake Note: Jaye is a 55 year old female right hand dominant who presents with complaints of progressively worsening left shoulder pain and weakness. The patient states that she had a stroke last year. Since that time she has had several falls. Since her most recent fall she has had weakness when lifting her left hand above shoulder height. She states that she did have cervical spine surgery approximately 10 years ago. She also reports intermittent numbness and tingling in her left upper extremity. She has failed the last 6 weeks of conservative treatment which has included Tylenol, Celebrex, a home exercise program and physical therapy exercises. Allergies morphine (MORPHINE) Allergy (Unknown, Verified 03/01/25 14:07) UNKNOWN naproxen (From NAPROSYN) Allergy (Unknown, Verified 03/01/25 14:07) GASTRITIS Sulfa (Sulfonamide Antibiotics) (SULFA (SULFONAMIDE ANTIBIOTICS)) Allergy (Unknown, Verified 03/01/25 14:07) RASH,HIVES,CHEST TIGHTNESS Medication List - Last Reviewed 03/01/25 by Vesta Hopson celecoxib 200 mg PO BID [facility] Medical History Nicotine dependence, cigarettes, uncomplicated Cervical radiculopathy Insomnia Depression with anxiety Surgical History History of breast surgery History of cholecystectomy History of appendectomy History of tubal ligation Social History (Updated 12/28/24 @ 06:10 by Tati Lucero DO) Patient Tobacco Use Status: Tobacco use Unknown Physical Exam Const Other: Well-nourished well-developed very friendly female awake alert and oriented x3 in no acute distress Extrem Other: Left shoulder examination shows decreased range of motion when compared to her right shoulder, 4/5 strength with supraspinatus testing, positive impingement signs, no instability Results Reviewed Results Reviewed: X-rays of the patient's left shoulder taken previously show severe a cromioclavicular joint narrowing, lucency within the mid clavicle possibly due to a nondisplaced fracture Assessment & Plan Assessment & Plan (1) Rotator cuff insufficiency of left shoulder: Code(s): M25.312 - Other instability, left shoulder Category: Medical Plan Ms. Marrero presents with left shoulder pain and weakness due to impingement syndrome and possible rotator cuff tearing. Thus, I will send the patient for an MRI of her left shoulder for further evaluation. I will see her back once the MRI is completed to discuss the findings and treatment options. Feel free to call me at any time should questions regarding her orthopedic management arise. Thank you very much for asking me to see this very friendly patient. I spent 20 minutes in reviewing the patient's records and imaging studies, seeing the patient and documenting in the medical record. Orders: Orders MR shoulder LT wo con 03/02/25 M25.312 - Other instability, left shoulder Coding Level of Care Code New Pt Level 3 (30148) Complex EM visit Add On G2211 Diagnoses Rotator cuff insufficiency of left shoulder M25.312
[2025-03-01 14:07] VITALS: BMI 30.9
--- OUTSIDE RECORDS SUMMARY | 2025-03-01 16:38 | XMS_ITS | Encounter Summary ---
Author Organization [facility] Address [address] [place] [address] Phone Care Team Providers Care Sail Finisher Hand Name Role Phone Charlie Lucia MD Primary Care Provide r Dany Chappell MD Unavailable [phone] Shashi Garcia MD Unavailable [phone] Mamta Sarmiento MD Unavailable [phone] Encounter Details Date Type Department Care Team (Latest Contact Info) Description 11/20/2017 Transcribe Orders [facility] [address] [place] [address] Hayden Argueta MD [address] [place] [address], [address] [place] [address] [email or web address] Numbness (Primary Dx); Intractable headache, unspecified chronicity pattern, unspecified headache type Social History Tobacco Use Types Packs/Day Years Used Date Smoking Tobacco: Unknown Smokeless Tobacco: Never Comments Unknown Sex and Gender Information Value Date Recorded Sex Assigned at Not on file Legal Sex Female 9:34 PM EDT Gender Identity Not on file Sexual Orientation Not on file documented as of this encounter Plan of Treatment Not on file documented as of this encounter Results * (ABNORMAL) Serum protein electrophoresis W/O Immunoglobulins and Immunofixation (11/20/2017 10:19 AM EDT) TOTAL PROTEIN 6.9 6.3 - 7.9 g/dL [facility] DPT OF LAB MED AND PAT+ ALBUMIN 3.5 3.4 - 4.7 g/dL [facility] DPT OF LAB MED AND PAT+ ALPHA-1 GLOBULIN 0.3 0.1 - 0.3 g/dL [facility] DPT OF LAB MED AND PAT+ ALPHA-2 GLOBULIN 0.9 0.6 - 1.0 g/dL [facility] DPT OF LAB MED AND PAT+ BETA-GLOBULIN 1.3(H) 0.7 - 1.2 g/dL [facility] DPT OF LAB MED AND PAT+ GAMMA-GLOBULIN 1.0 0.6 - 1.6 g/dL [facility] DPT OF LAB MED AND PAT+ A/G RATIO 1.02 [facility] MED AND PAT+ M SPIKE Test component not applicable or not reported. not reported [facility] DPT OF LAB MED AND PAT+ M SPIKE Test component not applicable or not reported. not reported [facility] DPT OF LAB MED AND PAT+ IMPRESSION SEE NOTE [facility]PT OF LAB MED AND PAT+ Comment: (NOTE) No apparent monoclonal protein on serum electrophoresis. Blood 11/20/2017 10:1 9 AM EDT 11/20/2017 10:22 AM EDT us Hayden Argueta MD LAB BLOOD ORDERABLES Final R esult [facility] DPT OF LAB MED AND PAT+ [address] [place] [address] documented in this encounter Visit Diagnoses Diagnosis Numbness- Primary Disturbance of skin sensation Intractable headache, unspecified chronicity pattern, unspecified headache type documented in this encounter Care Teams Sail Finisher Hand Relationship Specialty Start Date End Date Charlie Lucia MD [address] [place] [address] [address] [place] [phone] [email or web address] PCP - General 04/08/17 Dany Chappell MD [address] [place] [address] [email or web address] Historical LMR Provider 04/10/17 06/30/21 Shashi Garcia MD [address] [place] [address], [address] [place] [phone] [email or web address] Historical LMR Provider 04/10/17 06/30/21 Mamta Sarmiento MD [address] [place] [phone] Historical LMR Provider 04/10/17 2 documented as of this encounter Additional Source Comments The information contained in this document represents components of the legal health record. It is not the complete legal health record.[facility]
--- OUTSIDE RECORDS SUMMARY | 2025-03-01 16:38 | XMS_ITS | Encounter Summary ---
Author Organization [facility] Address [address] [facility] [address] [place] [address] Phone Care Team Providers Care Sea Shell Gatherer Name Role Phone Charlie Lucia MD Primary Care Provide r Dany Chappell MD Unavailable Shashi Garcia MD Unavailable [phone] Mamta Sarmiento MD Unavailable [phone] Encounter Details Date Type Department Care Team (Latest Contact Info) Description 11/20/2017 Transcribe Orders [facility] Specimen Processing [address] [place] [address] Hayden Argueta MD [address] [place] [address], [address] [place] [address] [email or web address] Diagnosis unknown (Primary Dx) Social History Tobacco Use Types Packs/Day Years [...] documented as of this encounter Results * Lyme disease PCR, CSF (11/20/2017 2:11 PM EDT) SPECIMEN SOURCE CSF [facility] DPT OF LAB MED AND PAT+ B.BURGDORFERI PCR Negative Negative [facility] DPT OF LAB MED AND PAT+ B.MAYONII PCR Negative Negative [facility] DPT OF LAB MED AND PAT+ B.GARINII/AFZELI Negative Negative [facility] DPT OF LAB MED AND PAT+ Comment SEE NOTE [facility] DPT OF LAB MED AND PAT+ Comment: (NOTE) If clinical features of illness are highly indicative of Lyme neuroborreliosis, additional serological testing would be recommended. ADDITIONAL INFORMATION This test was developed and its performance characteristics determined by [facility] in a manner consistent with CLIA requirements. This test has not been cleared or approved by the U.S. Food and Drug Administration. Other (Spinal Fluid) 11/20/2017 2:11 PM EDT 11/20/2017 2:13 PM EDT Hayden Argueta MD BODY FLUIDS AND STOOLS ORDER CECELIA Final Result [facility] DPT OF LAB MED AND PAT+ [address] [place] [address] * Angiotensin converting enzyme, CSF (11/20/2017 2:11 PM EDT) ANGIOTENSIN CONVERT ENZYME, CS 1.2 0.0 - 2.5 U/L [facility] Comment: (NOTE) This test was developed and its performance characteristics determined by [facility]. The U.S. Food and Drug Administration has not approved or cleared this test; however, FDA clearance or approval is not currently required for clinical use. The results are not intended to be used as the sole means for clinical diagnosis or patient management decisions. Performed by [facility], [address] [place] [id number] [email or web address], Julian Sanon MD - Lab. Director Test Performed by: [facility] [address] [place] [id number] Cerebrospinal Fluid (Cerebrospinal Fluid) 11/20/2017 2:11 PM EDT 11/20/2017 2:13 PM EDT Hayden Argueta MD BODY FLUIDS AND STOOLS ORDER CECELIA Final Result Performing Organization Address [facility] de Phone Number [facility] * IgG index/synthesis rate, CSF (11/20/2017 2:11 PM EDT) IgG Index (CSF/Ser) 0.50 <=0.85 [facility] DPT OF LAB MED AND PAT+ IGG,CSF 1.6 <=8.1 mg/dL [facility] DPT OF LAB MED AND PAT+ Comment: (NOTE) ADDITIONAL INFORMATION This test has been modified from the senior systems architect's instructions. Its performance characteristics were determined by [facility] in a manner consistent with CLIA requirements. This test has not been cleared or approved by the U.S. Food and Drug Administration. ALBUMIN,CSF 17.5 <=27.0 mg/dL [facility] DPT OF LAB MED AND PAT+ Comment: (NOTE) ADDITIONAL INFORMATION This test has been modified from the senior systems architect's instructions. Its performance characteristics were determined by [facility] in a manner consistent with CLIA requirements. This test has not been cleared or approved by the U.S. Food and Drug Administration. IGG/ALBUMIN,CSF 0.09 <=0.21 [facility] DPT OF LAB MED AND PAT+ IgG Synthesis Rate 0.00 <=12 mg/24 h [facility] DPT OF LAB MED AND PAT+ IgG 817 767 - 1,590 mg/dL [facility] DPT OF LAB MED AND PAT+ Albumin 4,560 3,200 - 4,800 mg/dL [facility] DPT OF LAB MED AND PAT+ IgG/Albumin ratio 0.18 <=0.40 [facility] DPT OF LAB MED AND PAT+ Cerebrospinal Fluid (Cerebrospinal Fluid) 11/20/2017 2:11 PM EDT 11/20/2017 2:13 PM EDT us Hayden Argueta MD BODY FLUIDS AND STOOLS ORDER CECELIA Final Result Performing Organization Address City/[facility]/ZIP Co de Phone Number [facility] DPT OF LAB MED AND PAT+ [address] [place] [address] * Oligoclonal bands, Serum and CSF (11/20/2017 2:11 PM EDT) Oligoclonal bands 6 bands [facility] DPT OF LAB MED AND PAT+ CSF BANDS 6 bands [facility] DPT OF LAB MED AND PAT+ CSF OLIG BANDS INTERPRETATION 0 <4 bands [facility] DPT OF LAB MED AND PAT+ Comment: (NOTE) The oligoclonal band assay detected 3 or fewer unique IgG bands in the CSF. This is a negative result. Cerebrospinal Fluid (Cerebrospinal Fluid) 11/20/2017 2:11 PM EDT 11/20/2017 2:13 PM EDT us Hayden Argueta MD BODY FLUIDS AND STOOLS ORDER CECELIA Final Result Performing Organization Address [facility] de Phone Number [facility] DPT OF LAB MED AND PAT+ [address] [place] [address] * Syphilis antibody, CSF (VDRL) (11/20/2017 2:11 PM EDT) VDRL Negative Negative [facility] Cerebrospinal Fluid (Cerebrospinal Fluid) 11/20/2017 2:11 PM EDT 11/20/2017 2:13 PM EDT us Hayden Argueta MD BODY FLUIDS AND STOOLS ORDER CECELIA Final Result Performing Organization Address [facility] Co de Phone Number [facility] LAB MED/[address] [place] [address] * Cryptococcal antigen, CSF (11/20/2017 2:11 PM EDT) CSF CRYPTOCOCCAL AG Negative Negative [facility] Comment: All cryptococal antigen will have a backup culture performed, please see separate lab report. Cerebrospinal Fluid (Cerebrospinal Fluid) 11/20/2017 2:11 PM EDT 11/20/2017 2:13 PM EDT us Hayden Argueta MD BODY FLUIDS AND STOOLS ORDER CECELIA Final Result Performing Organization Address City/[facility]/ZIP Co de Phone Number [address] [address] * (ABNORMAL) Mycobacterial culture/smear (11/20/2017 2:11 PM EDT) Specimen Source/ Description CSF [facility] Special Requests None [facility] SMEAR NO ACID FAST BACILLI OBSERVED(A) [facility] Culture/Test NO AFB ISOLATED AFTER 8 WEEKS [facility] Report Status 01/08/2018 FINAL [facility] Other (Cerebrospinal Fluid) 11/20/2017 2:11 PM EDT 11/20/2017 2:14 PM EDT us Hayden Argueta MD MICROBIOLOGY - GENERAL ORDER CECELIA Final Result Performing Organization Address [facility]/ZIP Co de Phone Number [address] [address] * Fungal culture (11/20/2017 2:11 PM EDT) Specimen Source/ Description CSF [facility] Special Requests None [facility] GRAM STAIN NO YEAST OR FUNGAL ELEMENTS SEEN [facility] Culture/Test NO FUNGUS OR YEAST ISOLATED AFTER 25 DAYS [facility] Report Status 12/15/2017 FINAL [facility] Other (Cerebrospinal Fluid) 11/20/2017 2:11 PM EDT 11/20/2017 2:14 PM EDT us Hayden Argueta MD MICROBIOLOGY - GENERAL ORDER CECELIA Final Result [address] [address] * Total protein, CSF (11/20/2017 2:11 PM EDT) CSF PROTEIN 25.5 15.0 - 45.0 mg/dL [facility] Cerebrospinal Fluid (Cerebrospinal Fluid) 11/20/2017 2:11 PM EDT 11/20/2017 2:13 PM EDT us Hayden Argueta MD BODY FLUIDS AND STOOLS ORDER CECELIA Final Result Performing Organization Address [facility]/ZIP Co de Phone Number [address] [address] * Glucose, CSF (11/20/2017 2:11 PM EDT) CSF GLUCOSE 59 45 - 70 mg/dL [facility] Cerebrospinal Fluid (Cerebrospinal Fluid) 11/20/2017 2:11 PM EDT 11/20/2017 2:13 PM EDT us Hayden Argueta MD BODY FLUIDS AND STOOLS ORDER CECELIA Final Result Performing Organization Address [facility] [place]/[facility] Co de Phone Number [address] [address] * Culture/smear, CSF (11/20/2017 2:11 PM EDT) Specimen Source/ Description CSF CSF CSF [facility] Special Requests None [facility] GRAM STAIN NO ORGANISMS SEEN Few WBC'S [facility] Culture/Test NO GROWTH 48HRS [facility] Report Status 11/22/2017 FINAL [facility] Cerebrospinal Fluid (Cerebrospinal Fluid) 11/20/2017 2:11 PM EDT 11/20/2017 2:13 PM EDT us Hayden Argueta MD MICROBIOLOGY - GENERAL ORDER CECELIA Final Result Performing Organization Address [facility] Co de Phone Number [address] [address] * Cell count & differential, tube 4 (11/20/2017 2:11 PM EDT) CSF COLOR Colorless Colorless [facility] CSF TURBIDITY Clear Clear [facility] Nucleated cells, CSF 3 0 - 5 /uL [facility] Comment:Cell count less than 5, differential not done. RBC, CSF 0 0 - 10 /uL [facility] Tube #, CSF 4 [facility] PATH REVIEW NOT REQUIRED [facility] Cerebrospinal Fluid (Cerebrospinal Fluid) 11/20/2017 2:11 PM EDT 11/20/2017 2:13 PM EDT us Hayden Argueta MD BODY FLUIDS AND STOOLS ORDER CECELIA Final Result [facility] [address] [place] [address] documented in this encounter Visit Diagnoses Diagnosis Diagnosis unknown- Primary documented in this encounter Care Teams Sea Shell Gatherer Relationship Specialty Start Date End Date Charlie Lucia MD [address] [phone] [email or web address] PCP - General 04/08/17 Dany Chappell MD [address] [place] [phone] [email or web address] Historical LMR Provider 04/10/17 06/30/21 Shashi Garcia MD [address] [address] Historical LMR Provider 04/10/17 06/30/21 Mamta Sarmiento MD [address] [place] [address] Historical LMR Provider 04/10/17 2 documented as of this encounter Additional Source Comments The information contained in this document represents components of the legal health record. It is not the complete legal health record.[facility]
--- OUTSIDE RECORDS SUMMARY | 2025-03-01 16:38 | XMS_ITS | Encounter Summary ---
Author Organization [employer] Address [address] [facility] 7t [place] [address] Care Team Providers Care Propeller Tester Name Role Phone Derek Segovia MD Primary Care Prov ider Heather Navarrete RN Unavailable [phone] Judith Pack Unavailable Reason for Visit * Reason Onset Date Comments Medication Question 12/31/2024 Encounter Details Date Type Department Care Team (Late st Contact Info) Description 12/31/2024 Telephone [facility] [address] [place] [address] Derek Segovia MD [address] [place] [address] Medication Question Social History Tobacco Use Types Packs/Day Years Used Date Smoking Tobacco: Every Day Cigarettes 1.5 30 Smokeless Tobacco: Never Alcohol Use Standard Drinks/Week Comments Never 0 [...] not to disclose 2021 10:14 AM EDT documented as of this encounter Miscellaneous Notes * Telephone Encounter - Marzena Flores - 12/31/2024 8:11 AM EDT TC from pt stating that the pharmacy requires an authorization from PCP for the pt to filler picker her medication below. Pt mentioned she was advised of a second option, which is to send an alternative pain medication. - oxyCODONE (Oxaydo) 5 MG immediate release tablet Contact pt at [phone] documented in this encounter Plan of Treatment Upcoming Encounters Date Type Department Care Team (Late st Contact Info) Description 03/07/2025 11:20 AM EDT Procedure Visit [facility] & P[facility]S [address] [place] [address] Pamela Dennis MD [address] [place] [address] documented as of this encounter Visit Diagnoses Not on filedocumented in this encounter Additional Health Concerns Assessment Noted Time PHQ-9 Depression Total Score: 7 11/11/19 24 12:57 PM EDT documented as of this encounter Care Teams Propeller Tester Relationship Specialty Start Date End Date Derek Segovia MD [address] [place] [address] PCP - General Internal Medicine 11/21/19 Heather Navarrete RN [address] [place] [address] Registered Nurse Family Medicine 12/29/24 Judith Pack 12/29/24 documented as of this encounter
--- OUTSIDE RECORDS SUMMARY | 2025-03-01 16:38 | XMS_ITS | Encounter Summary ---
Author Organization [employer] Address [address] [facility] 7t [place] [address] Care Team Providers Care Medical Technologist Hematology Name Role Phone Derek Segovia MD Primary Care Prov ider Heather Navarrete RN Unavailable [phone] Judith Pack Unavailable Reason for Visit * Reason Onset Date Comments Nurse Triage 11/18/2023 Encounter Details Date Type Department Care Team ([facility] st Contact Info) Description 11/18/2023 Telephone [facility] & PEDS [address] [place], [place] [phone] Derek Segovia MD [address] [place] [address] Nurse Triage Social History Tobacco Use Types Packs/Day Years [...] encounter Miscellaneous Notes * Telephone Encounter - Caity Matias RN - 11/18/2023 4:35 PM EDT 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 Pt. States that she has dizziness and nausea and forgot to ask provider for some anti dizzy medication. Pt thinks the dizziness is what is causing her nausea. Pt. BP readings today were 102/83 right side 104/75 left side. She was worried of that being too low. I advised pt. To increase water intake. Will send request to provider that saw pt. Today. Protocol Used: Dizziness (Adult) Protocol-Based Disposition: See in Office or Video Visit within 3 Days Positive Triage Questions: * Mild dizziness (e.g., walking normally) and has NOT been evaluated by physician for this (Exception: Dizziness caused by heat exposure, sudden standing, or poor fluid intake.) * Dizziness not present now, but is a chronic symptom (recurrent or ongoing AND lasting > 4 weeks) * All higher-acuity triage questions were negative Care Advice Discussed: * Drink Fluids * Lie Down and Rest * Cool Off * Telephone Encounter - Ángela Parry - 11/18/2023 4:09 PM EDT Symptoms: Low Blood Pressure - Caller Reports, Nausea But No Vomiting Outcome: Schedule an urgent appointment (within 1 hour) or talk to a nurse or provider soon Reason: Getting worse, right arm 102/60 and left arm 104/60 The caller accepted this outcome Please contact pt at [phone] documented in this encounter Plan of Treatment Upcoming Encounters Date Type Department Care Team ([facility] st Contact Info) Description 03/07/2025 11:20 AM EDT Procedure Visit [facility] MED & PEDS [address] [place] [address] Pamela Dennis MD [address] [place] [address] documented as of this encounter Visit Diagnoses Not on filedocumented in this encounter Additional Health Concerns Assessment Noted Time PHQ-9 Depression Total Score: 7 11/11/19 24 12:57 PM EDT documented as of this encounter Care Teams Medical Technologist Hematology Relationship Specialty Start Date End Date Derek Segovia MD [address] [place] [address] PCP - General Internal Medicine 11/21/19 Heather Navarrete, DAIVD [address] [place] [address] Registered Nurse Family Medicine 12/29/24 Judith Pack 12/29/24 documented as of this encounter
--- OUTSIDE RECORDS SUMMARY | 2025-03-01 16:39 | XMS_ITS | Clinical Summary ---
Author Organization [facility] Address [address] [facility] [address] [place] [address] Phone Care Team Providers Care Casting Director Name Role Phone hCarlie Lucia MD Primary Care Provide r Medications AMITRIPTYLINE HCL (AMITRIPTYLINE ORAL) Active aspirin 81 MG EC tablet 1-8 caps Active DULoxetine (CYMBALTA) 30 MG capsuleIndicati ons:Chronic pain following surgery or procedure 1 capsule bid 60 capsule 04/23/2017 Active gabapentin (NEURONTIN) 300 MG capsuleIndicati ons:Chronic pain following surgery or procedure Take 1 capsule (300 mg total) by mouth daily as needed. 240 capsule 04/23/2017 Active lidocaine (LIDODERM) 5 %Indications:Ch ronic pain following surgery or procedure APPLY 1 PATCH TO INTACT SKIN EVERY DAY REMOVE AFTER 12 HOURS 30 patch 09/16/2017 Active Active Problems Problem Noted Date Diagnosed Date Chronic pain following surgery or procedure 03/25 Social History Tobacco Use Types Packs/Day Years Used Date Smoking Tobacco: Unknown Smokeless Tobacco: Never Education Answer Date Recorded Are you interested in more education? Not on mirella e 10/18/2022 Are you concerned about learning? Not on file 10/18/2022 No 10/18/2022 No 10/18/2022 Digital Access Answer Date Recorded No 11/16/2022 No 11/16/2022 Reliable internet access at home? Not on file 11/16/2022 Device with a working camera? Not on file Comments Unknown Sex and Gender Information Value Date Recorded Sex Assigned at Not on file Legal Sex Female 9:34 PM EDT Gender Identity Not on file Sexual Orientation Not on file Last Filed Vital Signs Vital Sign Reading Time Taken Comments Blood Pressure - - Pulse - - Temperature - - Respiratory Rate - - Oxygen Saturation - - Inhaled Oxygen Concentration - - Weight 68.1 kg (150 lb 3.2 oz) 04/21/2017 11:07 AM EDT Height 162.6 cm (5' 4 ) 04/21/2017 11:07 AM EDT Body Mass Index 25.78 04/21/2017 11:07 AM EDT Plan of Treatment Health Maintenance Due Date Last Done Comments LIPID PANEL 1971 DEPRESSION SCREENING 1983 SMOKING Hx and SMOKELESS TOBACCO SCREENING 01/23/1984 HEPATITIS C SCREENING 1989 HIV ONE-TIME SCREENING (18-65 YEARS) 1989 PAP SMEAR 01/23/1992 MAMMOGRAM 2011 COLOGUARD 01/23/2016 COLONOSCOPY 01/23/2016 COLORECTAL CANCER SCREENING 01/23/2016 FIT TEST 01/23/2016 FOBT 01/23/2016 SIGMOIDOSCOPY 01/23/2016 VIRTUAL COLONOSCOPY 01/23/2016 Adult Td,Tdap Booster 01/15/2021 01/15/2011 , 03/04/2001, 01/26/1993 PNEUMOCOCCAL VACCINES (50+ years) (1 of 1 - PCV) 2021 ZOSTER VACCINES (1 of 2) 2021 INFLUENZA VACCINE (#1) 2025 8, 05/26/2017, 03/17/2014, Additional history exists COVID-19 VACCINE ( season) 2025 HEPATITIS A VACCINES Aged Out 03/04/2001, 04/11/19 99 No longer eligible based on patient's age to complete this topic HIB VACCINES Aged Out No longer eligi ble based on patient's age to complete this topic MENINGOCOCCAL VACCINES (ACWY) Aged Out No longer eligible based on patient's age to complete this topic MENINGOCOCCAL VACCINES (B) Aged Out N o longer eligible based on patient's age to complete this topic Medical [place] [id number] [place] [address] [employer] Care Teams Casting Director Relationship Specialty Start Date End Date Charlie Lucia MD [address] [place] [address] [address] [place] [address] PCP - General 04/08/17 Additional Source Comments The information contained in this document represents components of the legal health record. It is not the complete legal health record.[facility]
--- OUTSIDE RECORDS SUMMARY | 2025-03-01 16:39 | XMS_ITS | Clinical Summary ---
Author Organization [employer] Address [address] [facility] 7t [place] [address] Care Team Providers Care Lodge Attendant Name Role Phone Derek Segovia MD Primary Care Prov ider Heather Navarrete RN Unavailable [phone] Judith Pack Unavailable Allergies Active Allergy Reactions Criticality Noted Date [...] BID 60 tablet 3 11/19/19 24 Active celecoxib (CeleBREX) 200 MG capsule TAKE 1 CAPSULE BY MOUTH 2 TIMES DAILY. 60 capsule 01/27/20 25 Active amLODIPine (Norvasc) 10 MG tablet Take 1 tablet (10 mg) by mouth Once per day. 90 tablet 1 02/23/20 25 Active amLODIPine (Norvasc) 10 MG tablet TAKE 1 TABLET BY MOUTH EVERY DAY 90 tablet 1 12/14/19 025 Discontinued(Re order (will not trigger notification to Pharmacy)) Active Problems Problem Noted Date Diagnosed Date [...] reccomendations. Primary hypertension 11/12/2023 Assessment & Plan (02/22/2025 3:29 PM EDT): Patient refers her blood pressure is under control, has remained below 140/90, today she did not took it, will order blood test for follow up Assessment & Plan (11/19/2023 10:03 AM EDT): [...] in services. PLAN: 1. Follow up with [facility]: Not recommended for follow-up 2. Patient goal [...] Encounters Date Type Department Care Team Description 02/18/2025 9:45 AM EDT Telemedicine [facility]ED[facility] [address] [place] [address] Derek Segovia MD Screening for colon cancer (Primary Dx); Encounter for screening mammogram for malignant neoplasm of breast; Primary hypertension 02/18/2025 Travel 02/17/2025 Telephone [facility] [address] [place] [address] Derek Segovia MD chart prep 02/15/2025 Patient Outreach [facility] [address] [place] [address] Derek Segovia MD 02/10/2025 Patient Outreach [facility] [address] [place] [address] Derek Segovia MD Care Coordination (C3/CM Outreach) 01/26/2025 Refill [facility] [address] [place] [address] Hui Wright MD 01/12/2025 Patient Outreach [facility] [address] [place] [address] Derek Segovia MD 01/10/2025 Patient Outreach [facility] [address] [place] [address] Derek Segovia MD Care Coordinatrion (C3/CM Outreach) 12/31/2024 Refill [facility] P[facility] [address] [place] [address] Mary Guzman RN Sprain of left shoulder, unspecified shoulder sprain type, subsequent encounter (Primary Dx) 12/31/2024 Telephone [facility] [address] [place] [address] Derek Segovia MD Medication Question 12/30/2024 3:45 PM EDT Office Visit [facility] [address] [place] [address] Hui Wright MD Sprain of left shoulder, unspecified shoulder sprain type, subsequent encounter (Primary Dx) 12/30/2024 Travel 12/30/2024 Telephone [facility] [address] [place] [address] Derek Segovia MD Nurse Triage 12/29/2024 Patient Outreach [facility] [address] [place] [address] Derek Segovia MD Care Coordination (C3/CM Outreach) 12/29/2024 Patient Outreach [facility] [address] [place] [address] Derek Segovia MD Care Coordination (C3/CM Chart Review) 12/29/2024 Patient Outreach [facility] [address] [place] [address] Derek Segovia MD Care Coordination (C3CM chart review) 12/29/2024 Patient Outreach [facility] [address] [place] [address] Derek Segovia MD 12/27/2024 Orders Only [facility] External Provider, [facility] 12/09/2024 Refill [facility] [address] [place] [address] Derek Segovia MD from Last 3 Months Immunizations Immunization Administration [...] is your housing situation today? I have mariselachau lamar 04/07/[address] you [...] Sign Reading Time Taken Comments Blood Pressure 157/90 12/30/2024 3:57 PM EDT Pulse 80 12/30/2024 3:57 PM EDT Temperature 36.6 C (97.9 F) 12/30/2024 3:57 PM EDT Respiratory Rate 16 12/30/2024 3:57 PM EDT Oxygen Saturation 98% 12/30/2024 3:57 PM EDT Inhaled Oxygen Concentration - - Weight 85.3 kg (188 lb) 12/30/2024 3:57 PM EDT Height 162.6 cm (5' 4 ) 12/30/2024 3:57 PM EDT Body Mass Index 32.27 12/30/2024 3:57 PM EDT Plan of Treatment Upcoming Encounters Date Type Department Care Team (Late st Contact Info) Description 03/07/2025 11:20 AM EDT Procedure Visit [facility] PEDS [address] [place] [address] Pamela Dennis MD [address] [place] [address] Health Maintenance Due Date Last Done Comments [...] 06/21/2021 06/21/2011, 01/15/2011, 03/04/2001, Additional history exists SDOH Screening 11/05/2024 11/06/2023 Depression Screening 11/10/2024 11/11/2023, 11/11/19 Tobacco Screening 11/17/2024 11/18/2023 COVID-19 Vaccine ( season) 2025 Influenza Vaccine (#1) 2025 8, 05/26/2017, 03/17/2014, [...] AM EDT Narrative 12/28/2024 12:14 AM EDT [address] [address] XRay Report Signed Patient: Jaye Marrero MR#: [id number] 223 : 1970 Acct:[id number] Age/Sex: 54 / F ADM Date: 12/27/24 Loc: HO.ED Attending Dr: Ordering Physician: Generic ED Physician Date of Service: 12/27/24 Procedure(s): XR shoulder LT min 2V Accession Number(s): [id number] cc: Derek Segovia MD; Generic ED Physician [...] Saldaña MD in OV> 12/28/24 001 DD/ 001 TD/TT: 12/28/24 001 Cutlery Grinder: Procedure Note Donotuseinterpreter, Image - 12/28/[address] [address] XRay Report Signed Patient: Key MarreroR#: [id number] 223 : 1970Acct:[id number] Age/Sex: 54 / FADM Date: 12/27/24 Loc: HO.ED Attending Dr: Ordering Physician: Generic ED Physician Date of Service: 12/27/24 Procedure(s): XR shoulder LT min 2V Accession Number(s): [id number] cc: Derek Segovia MD; Generic ED Physician [...] by Juni Saldaña MD in OV> 12/28/24 0013 DD/ TD/TT: 12/28/24 001 Cutlery Grinder: [facility] External Provider IMG XR PROCEDURES Final Result * (ABNORMAL) Lipid Panel, Standard (03/13/2024 3:06 AM EDT) Triglycerides 448(H) <150 mg/dL [facility] Comment:Desirable Triglyceri de: less than 150 mg/dLBorderline High Triglyceride 150-199 mg/dLHigh Triglyceride: 200-499 mg/dLVery High Triglyceride: greater than or equal to 5OO mg/dL Cholesterol 205(H) <200 mg/dL [facility] Comment:Desirable Cholestero l: less than 200 mg/dLBorderline High Cholesterol: 200-239 mg/dLHigh Cholesterol: greater than 239 mg/dL LDL Cholesterol Calculated TNP <100 mg/dL [facility] Comment:Unable to calculate the LDL. The formula of Friedwald,Camacho, and Kasie is only valid if the triglycerides areless than 400 mg/dl. HDL Cholesterol 47 >40 mg/dL [facility] Comment:Desirable HDL: great er than 40 mg/dL Note: This HDL assay may give artificially low results in patients with liver disease. 03/13/2024 3:06 AM EDT 03/13/2024 3:09 AM EDT us Generic External Data Provider LAB BLOOD ORDERAB LES Final Result Performing Organization Address City/State/[facility] Co de Phone Number [facility] [address] [place] [address] [phone] * CT Lung Screening Low dose (05/02/2023 4:21 PM EST) Anatomical Region Laterality Modality Lung Computed Tomogra phy 05/02/2023 4:21 PM EST Narrative 05/09/2023 8:52 AM EST [place] [address] CT Scan Report Signed Patient: Jaye Marrero MR#: [id number] 223 : 1970 Acct:[id number] Age/Sex: 53 / F ADM Date: 05/02/23 Loc: HO.CT Attending Dr: Velma Leija PA-C Ordering Physician: Velma Leija PA-C Date of Service: 05/02/23 Procedure(s): CT lung screening Accession Number(s): [id number] cc: Derek Segovia MD; Velma Leija PA-C [...] in OV> 05/09/23 0848 DD/ 1621 TD/TT: Cutlery Grinder: WEI Procedure Note Donotuseinterpreter, Image - 05/09/[address] [address] [address] Scan Report Signed Patient: Liyah Marrero#: [id number] 223 : 1970Acct:[id number] Age/Sex: 53 / FADM Date: 05/02/23 Loc: HO.CT Attending Dr: Velma Leija PA-C Ordering Physician: Velma Leija PA-C Date of Service: 05/02/23 Procedure(s): CT lung screening Accession Number(s): [id number] cc: Derek Segovia MD; Velma Leija PA-C [...] in OV> 05/09/23 0848 DD/ 1621 TD/TT: Cutlery Grinder: WEI [facility] External Provider IMG CT PROCEDURES Final Result from Last 3 Months or Most Recently Relevant to Health Maintenance Insurance [facility] C3 Care Teams Lodge Attendant Relationship Specialty Start Date End Date Derek Segovia MD [address] [place] [address] PCP - General Internal Medicine 11/21/19 Heather Navarrete RN [address] [place] [address] Registered Nurse Family Medicine 12/29/24 Judith Pack 12/29/24
--- OUTSIDE RECORDS SUMMARY | 2025-03-01 16:39 | XMS_ITS ---
Author Organization [employer] Address [address] [facility] 7t [place] [address] Care Team Providers Care Machine Tool Mechanic Name Role Phone Derek Segovia MD Primary Care Prov ider Heather Navarrete RN Unavailable [phone] Judith Pack Unavailable CHW Complex Status:Outreach In Progress (Enrolling) Start date:12/29/2024 Enrollment reason:ADT Feed Overview ED- Pt went to [facility] on 12/28/24. Case Team Name Relationship Phone Judith Pack(Responsible Staff) [phone] Continued Care and Services Coordination
--- OUTSIDE RECORDS SUMMARY | 2025-03-01 16:39 | XMS_ITS ---
Author Organization [employer] Address [address] [facility] 7t [place] [address] Care Team Providers Care Deputy Controller Name Role Phone Derek Segovia MD Primary Care Prov ider Heather Navarrete RN Unavailable [phone] Judith Pack Unavailable CM Complex Status:Outreach In Progress (Enrolling) Start date:12/29/2024 Enrollment reason:ADT Feed Overview ED- Pt went to [facility] on 12/28/24. Case Team Name Relationship Phone Heather Navarrete RN(Responsible Staff) Registered Nurse [phone] Continued Care and Services Coordination
== END 2025-03-01 14:14 | disposition home or self-care (01) ==
LOC: HO.HOS 13:59
PROVIDERS: PCP Internal Medicine; Visit Provider Orthopaedic Surgery
DX: M25.312 Other instability, left shoulder (principal)
CPT/HCPCS: 99203

== ENCOUNTER → 2025-03-01 13:59 | Outpatient (BNVA) | payer MEDICAID, SELFPAY | PROVIDERS: PCP Internal Medicine; Visit Provider Orthopaedic Surgery | DX: M25.312 Other instability, left shoulder (principal) | CPT/HCPCS: 99202 ==

== ENCOUNTER 2025-03-13 19:20 | Outpatient (REF) | payer MEDICAID, SELFPAY ==
--- OUTSIDE RECORDS SUMMARY | 2025-03-13 19:23 | XMS_ITS | Encounter Summary ---
Author Organization [email or web address] Address [address] [facility] 7t [place] [address] Care Team Providers Care Sweeping Compound Blender Name Role Phone Derek Segovia MD Primary Care Prov ider Heather Navarrete RN Unavailable [phone] Judith Pack Unavailable Reason for Visit * Reason Onset Date Comments Nurse Triage 11/18/2023 Encounter Details Date Type Department Care Team ([facility] st Contact Info) Description 11/18/2023 Telephone [facility] MED & PEDS [address] [place], [place] [phone] Derek Segovia MD [address] [place] [address] Nurse Triage Social History Tobacco Use Types [...] accepted this outcome Please contact pt at [phone] documented in this encounter Plan of Treatment Not on file documented as of this encounter Visit Diagnoses Not on filedocumented in this encounter Additional Health Concerns Assessment Noted Time PHQ-9 Depression Total Score: 7 11/11/19 24 12:57 PM EDT documented as of this encounter Care Teams Sweeping Compound Blender Relationship Specialty Start Date End Date Derek Segovia MD [address] [place] [address] PCP - General Internal Medicine 11/21/19 Heather Navarrete RN [address] [place] [address] Registered Nurse Family Medicine 12/29/24 Judith Pack 12/29/24 documented as of this encounter
--- OUTSIDE RECORDS SUMMARY | 2025-03-13 19:23 | XMS_ITS | Encounter Summary ---
Author Organization [facility] Address [address] [facility] [address] [place] [address] Phone Care Team Providers Care Narrative Writer Name Role Phone Charlie Lucia MD Primary Care Provide r Dany Chappell MD Unavailable [phone] Shashi Garcia MD Unavailable Mamta Sarmiento MD Unavailable [phone] Encounter Details Date Type Department Care Team (Latest Contact Info) Description 11/20/2017 Transcribe Orders [facility] [address] [place] [address] Hayden Argueta MD [address] [place] [address], [address] [place] [address] [email or web address] Numbness (Primary Dx); Intractable headache, unspecified [...] TOTAL PROTEIN 6.9 6.3 - 7.9 g/dL [facility] DPT OF LAB MED AND PAT+ ALBUMIN 3.5 3.4 - 4.7 g/dL [facility] DPT OF LAB MED AND PAT+ ALPHA-1 GLOBULIN 0.3 0.1 - 0.3 g/dL [facility] DPT OF LAB MED AND PAT+ ALPHA-2 GLOBULIN 0.9 0.6 - 1.0 g/dL [facility] DPT OF LAB MED AND PAT+ BETA-GLOBULIN 1.3(H) 0.7 - 1.2 g/dL [facility] DPT OF LAB MED AND PAT+ GAMMA-GLOBULIN 1.0 0.6 - 1.6 g/dL [facility] DPT OF LAB MED AND PAT+ A/G RATIO 1.02 [facility] D[facility] OF LAB MED AND PAT+ M SPIKE Test component not applicable or not reported. not reported [facility] DPT OF LAB MED AND PAT+ M SPIKE Test component not applicable or not reported. not reported [facility]PT OF LAB MED AND PAT+ IMPRESSION SEE NOTE [facility] OF LAB MED AND PAT+ Comment: (NOTE) No apparent monoclonal protein on serum electrophoresis. Blood 11/20/2017 10:1 9 AM EDT 11/20/2017 10:22 AM EDT us Hayden Argueta MD LAB BLOOD ORDERABLES Final R esult [facility] DPT OF LAB MED AND PAT+ [address] [place] [address] documented in this encounter Visit Diagnoses Diagnosis Numbness- Primary Disturbance of skin sensation Intractable headache, unspecified chronicity pattern, unspecified headache type documented in this encounter Care Teams Narrative Writer Relationship Specialty Start Date End Date Charlie Lucia MD [address] [place] [address] [address] [place] [address] [email or web address] PCP - General 04/08/17 Dany hCappell MD [address] [place] [address] [email or web address] Historical LMR Provider 04/10/17 06/30/21 Shashi Garcia MD [address] [place] [address], [address] [place] [address] [email or web address] Historical LMR Provider 04/10/17 06/30/21 Mamta Sarmiento MD [address] [place] [address] Historical LMR Provider 04/10/17 2 documented as of this encounter Additional Source Comments The information contained in this document represents components of the legal health record. It is not the complete legal health record.[facility]
--- OUTSIDE RECORDS SUMMARY | 2025-03-13 19:24 | XMS_ITS | Clinical Summary ---
Author Organization [facility] Address [address] [facility] [address] [place] [address] Phone Care Team Providers Care Natural Resources Technician Name Role Phone Charlie Lucia MD Primary Care Provide r Medications [...] topic Medical [place] [id number] [place] [address] C3 ACO Care Teams Natural Resources Technician Relationship Specialty Start Date End Date Charlie Lucia MD [address] [place] [address] [address] [place] [address] PCP - General 04/08/17 Additional Source Comments The information contained in this document represents components of the legal health record. It is not the complete legal health record.[facility]
--- OUTSIDE RECORDS SUMMARY | 2025-03-13 19:24 | XMS_ITS ---
Author Organization [employer] Address [address] [facility] 7t [place] [address] Care Team Providers Care Licensed Nursing Assistant Name Role Phone Derek Segovia MD Primary Care Prov ider Heather Navarrete RN Unavailable [phone] Judith Pack Unavailable CHW Complex Status:Outreach In Progress (Enrolling) Start date:12/29/2024 Enrollment reason:ADT Feed Overview ED- Pt went to [facility] ED on 12/28/24. Case Team Name Relationship Phone Judith Pack(Responsible Staff) [phone] Continued Care and Services Coordination
--- OUTSIDE RECORDS SUMMARY | 2025-03-13 19:24 | XMS_ITS ---
Author Organization [employer] Address [address] [facility] 7t [place] [address] Care Team Providers Care Academic Manager Name Role Phone Derek Segovia MD Primary Care Prov ider Heather Navarrete RN Unavailable [phone] Judith Pack Unavailable CM Complex Status:Outreach In Progress (Enrolling) Start date:12/29/2024 Enrollment reason:ADT Feed Overview ED- Pt went to [facility] ED on 12/28/24. Case Team Name Relationship Phone Heather Navarrete RN(Responsible Staff) Registered Nurse [phone] Continued Care and Services Coordination
--- OUTSIDE RECORDS SUMMARY | 2025-03-13 19:24 | XMS_ITS | Clinical Summary ---
Author Organization [employer] Address [address] [facility] 7t [place] [address] Care Team Providers Care Chief Console Operator Name Role Phone Derek Segovia MD Primary Care Prov ider Heather Navarrete RN Unavailable [phone] Judith Pack Unavailable Allergies Active Allergy [...] in services. PLAN: 1. Follow up with [facility]: Not recommended for follow-up 2. Patient goal [...] Encounters Date Type Department Care Team Description 03/07/2025 Patient Outreach [facility] [address] [place] [address] Derek Segovia MD Care Coordination (C3/CM Outreach) 03/07/2025 Travel 02/18/2025 9:45 AM EDT Telemedicine [facility] [address] [place] [address] Derek Segovia MD Screening for colon cancer (Primary Dx); Encounter for screening mammogram for malignant neoplasm of breast; Primary hypertension 02/18/2025 Travel 02/17/2025 Telephone [facility] [address] [place] [address] Derek Segovia MD chart prep 02/15/2025 Patient Outreach [facility] [address] [place] [address] Derek Segovia MD 02/10/2025 Patient Outreach [facility] [address] [place] [address] Derek Segovia MD Care Coordination (C3/CM Outreach) 01/26/2025 Refill [facility] [address] [place] [address] Hui Wright MD 01/12/2025 Patient Outreach [facility] [address] [place] [address] Derek Segovia MD 01/10/2025 Patient Outreach [facility] [address] [place] [address] Derek Segovia MD Care Coordinatrion (C3/CM Outreach) 12/31/2024 Refill [facility] [address] [place] [address] Mary Guzman RN Sprain of left shoulder, unspecified shoulder sprain type, subsequent encounter (Primary Dx) 12/31/[address] [address] Derek Segovia MD Medication Question 12/30/2024 3:45 PM EDT Office Visit [facility] [address] [place] [address] Hui Wright MD Sprain of left shoulder, unspecified shoulder sprain type, subsequent encounter (Primary Dx) 12/30/2024 Travel 12/30/2024 Telephone [facility] [address] [place] [address] Derek Segovia MD Nurse Triage 12/29/2024 Patient Outreach [facility] [address] [place] [address] Derek Segovia MD Care Coordination (C3/CM Outreach) 12/29/2024 Patient Outreach [facility] [address] [place] [address] Derek Segovia MD Care Coordination (C3/CM Chart Review) 12/29/2024 Patient Outreach [facility] [address] [place] [address] Derek Segovia MD Care Coordination (C3CM chart review) 12/29/2024 Patient Outreach [facility] [address] [place] [address] Derek Segovia MD 12/27/2024 Orders Only [facility] External Provider, [facility] from Last 3 Months Immunizations Immunization Administration [...] 12/30/2024 3:57 PM EDT Plan of Treatment Health Maintenance Due [...] 11/11/2023, 11/11/19 24 Tobacco Screening 11/17/2024 11/18/2023 COVID-19 Vaccine ( [...] AM EDT Narrative 12/28/2024 12:14 AM EDT [address] [address] XRay Report Signed Patient: Jaye Marrero MR#: [id number] 223 : 1970 Acct:[id number] Age/Sex: 54 / F ADM Date: 12/27/24 Loc: HO.ED Attending Dr: Ordering Physician: Generic ED Physician Date of Service: 12/27/24 Procedure(s): XR shoulder LT min 2V Accession Number(s): [id number] cc: Derek Segovia MD; Generic ED Physician [...] Saldaña MD in OV> 12/28/24 0013 DD/ 0011 TD/TT: 12/28/24 0011 Photographic Artist: Procedure Note Donotuseinterpreter, Image - 12/28/[address] [address] XRay Report Signed Patient: Liyah Marrero#: [id number] 223 : 1970Acct:[id number] Age/Sex: 54 / FADM Date: 12/27/24 Loc: HO.ED Attending Dr: Ordering Physician: Generic ED Physician Date of Service: 12/27/24 Procedure(s): XR shoulder LT min 2V Accession Number(s): [id number] cc: Derek Segovia MD; Generic ED Physician [...] Saldaña MD in OV> 12/28/24 0013 DD/ 001 TD/TT: 12/28/24 001 Photographic Artist: [facility] External Provider IMG XR PROCEDURES Final Result * (ABNORMAL) Lipid Panel, Standard (03/13/2024 3:06 AM EDT) Triglycerides 448(H) <150 mg/dL [facility] Comment:Desirable Triglyceri de: less than 150 mg/dLBorderline High Triglyceride 150-199 mg/dLHigh Triglyceride: 200-499 mg/dLVery High Triglyceride: greater than or equal to 5OO mg/dL Cholesterol 205(H) <200 mg/dL [facility] Comment:Desirable Cholestero l: less than 200 mg/dLBorderline High Cholesterol: 200-239 mg/dLHigh Cholesterol: greater than 239 mg/dL LDL Cholesterol Calculated TNP <100 mg/dL [facility] Comment:Unable to calculate the LDL. The formula of Friedwald,Camacho, and Kasie is only valid if the triglycerides areless than 400 mg/dl. HDL Cholesterol 47 >40 mg/dL [facility] Comment:Desirable HDL: great er than 40 mg/dL Note: This HDL assay may give artificially low results in patients with liver disease. 03/13/2024 3:06 AM EDT 03/13/2024 3:09 AM EDT us Generic External Data Provider LAB BLOOD ORDERAB LES Final Result Performing Organization Address City/State/[facility] Co de Phone Number [facility] [address] [place] [phone] * CT Lung Screening Low dose (05/02/2023 4:21 PM EST) Anatomical Region Laterality Modality Lung Computed Tomogra phy 05/02/2023 4:21 PM EST Narrative 05/09/2023 8:52 AM EST [address] [address] [address] Scan Report Signed Patient: Jaye Marrero MR#: [id number] 223 : 1970 Acct:[id number] Age/Sex: 53 / F ADM Date: 05/02/23 Loc: HO.CT Attending Dr: Velma Leija PA-C Ordering Physician: Velma Leija PA-C Date of Service: 05/02/23 Procedure(s): CT lung screening Accession Number(s): [id number] cc: Derek Segovia MD; Velma Leija PA-C [...] in OV> 05/09/23 0848 DD/ 1621 TD/TT: Photographic Artist: WEI Procedure Note Donotuseinterpreter, Image - 05/09/[address] [place] [address] [address] Scan Report Signed Patient: Liyah Marrero#: [id number] 223 : 1970Acct:[id number] Age/Sex: 53 / FADM Date: 05/02/23 Loc: HO.CT Attending Dr: Velma Leija PA-C Ordering Physician: Velma Leija PA-C Date of Service: 05/02/23 Procedure(s): CT lung screening Accession Number(s): [id number] cc: Derek Segovia MD; Velma Leija PA-C [...] in OV> 05/09/23 0848 DD/ 1621 TD/TT: Photographic Artist: WEI [facility] External Provider IMG CT PROCEDURES Final Result from Last 3 Months or Most Recently Relevant to Health Maintenance Insurance [facility] C3 Care Teams Chief Console Operator Relationship Specialty Start Date End Date Derek Segovia MD [address] [place] [address] PCP - General Internal Medicine 11/21/19 Heather Navarrete RN [address] [place] [address] Registered Nurse Family Medicine 12/29/24 Judith Pack 12/29/24
--- OUTSIDE RECORDS SUMMARY | 2025-03-13 19:24 | XMS_ITS | Encounter Summary ---
Author Organization [facility] Address [address] [facility] [address] [place] [phone] Phone Care Team Providers Care Merchant Patroller Name Role Phone Charlie Lucia MD Primary Care Provide r Dany Chappell MD Unavailable Shashi Garcia MD Unavailable Mamta Sarmiento MD Unavailable [phone] Encounter Details Date Type Department Care Team (Latest Contact Info) Description 11/20/2017 Transcribe Orders [facility] Specimen Processing [address] [place] [address] Hayden Argueta MD [address] [place] [address], [address] [place] [address] [email or web address] Diagnosis unknown (Primary Dx) Social History [...] (11/20/2017 2:11 PM EDT) SPECIMEN SOURCE CSF [facility] DPT OF LAB MED AND PAT+ B.BURGDORFERI PCR Negative Negative [facility] DPT OF LAB MED AND PAT+ B.MAYONII PCR Negative Negative [facility] DPT OF LAB MED AND PAT+ B.GARINII/AFZELI Negative Negative [facility] DPT OF LAB MED AND PAT+ Comment SEE NOTE [facility] IC DPT OF LAB MED AND PAT+ Comment: (NOTE) If clinical features of illness are highly indicative of Lyme neuroborreliosis, additional serological testing would be recommended. ADDITIONAL INFORMATION This test was developed and its performance characteristics determined by [facility] in a manner consistent with CLIA requirements. This test has not been cleared or approved by the U.S. Food and Drug Administration. Other (Spinal Fluid) 11/20/2017 2:11 PM EDT 11/20/2017 2:13 PM EDT Hayden Argueta MD BODY FLUIDS AND STOOLS ORDER CECELIA Final Result [facility] DPT OF LAB MED AND PAT+ [address] [place] [address] * Angiotensin converting enzyme, CSF (11/20/2017 2:11 PM EDT) ANGIOTENSIN CONVERT ENZYME, CS 1.2 0.0 - 2.5 U/L [facility] Comment: (NOTE) This test was developed and its performance characteristics determined by [facility]. The U.S. Food and Drug Administration has not approved or cleared this test; however, FDA clearance or approval is not currently required for clinical use. The results are not intended to be used as the sole means for clinical diagnosis or patient management decisions. Performed by [facility], [address] [place] [id number] [email or web address], Julian Sanon MD - Lab. Director Test Performed by: [facility] [address] [place] [id number] Cerebrospinal Fluid (Cerebrospinal Fluid) 11/20/2017 2:11 PM EDT 11/20/2017 2:13 PM EDT Hayden Argueta MD BODY FLUIDS AND STOOLS ORDER CECELIA Final Result Performing Organization Address [facility] de Phone Number [facility] * IgG index/synthesis rate, CSF (11/20/2017 2:11 PM EDT) IgG Index (CSF/Ser) 0.50 <=0.85 [facility] DPT OF LAB MED AND PAT+ IGG,CSF 1.6 <=8.1 mg/dL [facility] DPT OF LAB MED AND PAT+ Comment: (NOTE) ADDITIONAL INFORMATION This test has been modified from the electronic pagination system operator's instructions. Its performance characteristics were determined by [facility] in a manner consistent with CLIA requirements. This test has not been cleared or approved by the U.S. Food and Drug Administration. ALBUMIN,CSF 17.5 <=27.0 mg/dL [facility] DPT OF LAB MED AND PAT+ Comment: (NOTE) ADDITIONAL INFORMATION This test has been modified from the electronic pagination system operator's instructions. Its performance characteristics were determined by [facility] in a manner consistent with CLIA requirements. This test has not been cleared or approved by the U.S. Food and Drug Administration. IGG/ALBUMIN,CSF 0.09 <=0.21 [facility] DPT OF LAB MED AND PAT+ IgG Synthesis Rate 0.00 <=12 mg/24 h [facility] DPT OF LAB MED AND PAT+ IgG 817 767 - 1,590 mg/dL [facility] DPT OF LAB MED AND PAT+ Albumin 4,560 3,200 - 4,800 mg/dL [facility] DPT OF LAB MED AND PAT+ IgG/Albumin ratio 0.18 <=0.40 [facility] DPT OF LAB MED AND PAT+ Cerebrospinal Fluid (Cerebrospinal Fluid) 11/20/2017 2:11 PM EDT 11/20/2017 2:13 PM EDT us Hayden Argueta MD BODY FLUIDS AND STOOLS ORDER CECELIA Final Result Performing Organization Address City/[facility]/ZIP Co de Phone Number [facility] DPT OF LAB MED AND PAT+ [address] [place] [address] * Oligoclonal bands, Serum and CSF (11/20/2017 2:11 PM EDT) Oligoclonal bands 6 bands [facility] DPT OF LAB MED AND PAT+ CSF BANDS 6 bands [facility] DPT OF LAB MED AND PAT+ CSF OLIG BANDS INTERPRETATION 0 <4 bands [facility] DPT OF LAB MED AND PAT+ Comment: (NOTE) The oligoclonal band assay detected 3 or fewer unique IgG bands in the CSF. This is a negative result. Cerebrospinal Fluid (Cerebrospinal Fluid) 11/20/2017 2:11 PM EDT 11/20/2017 2:13 PM EDT us Hayden Argueta MD BODY FLUIDS AND STOOLS ORDER CECELIA Final Result Performing Organization Address [facility] de Phone Number [facility] DPT OF LAB MED AND PAT+ [address] [place] [address] * Syphilis antibody, CSF (VDRL) (11/20/2017 2:11 PM EDT) VDRL Negative Negative [facility] Cerebrospinal Fluid (Cerebrospinal Fluid) 11/20/2017 2:11 PM EDT 11/20/2017 2:13 PM EDT us Hayden Argueta MD BODY FLUIDS AND STOOLS ORDER CECELIA Final Result Performing Organization Address [facility] Co de Phone Number [facility] MED/[address] [place] [address] * Cryptococcal antigen, CSF (11/20/2017 2:11 PM EDT) CSF CRYPTOCOCCAL AG Negative Negative [facility] Comment: All cryptococal antigen will have a backup culture performed, please see separate lab report. Cerebrospinal Fluid (Cerebrospinal Fluid) 11/20/2017 2:11 PM EDT 11/20/2017 2:13 PM EDT us Hayden Argueta MD BODY FLUIDS AND STOOLS ORDER CECELIA Final Result Performing Organization Address City/[facility]/ZIP Co de Phone Number [address] [address] * (ABNORMAL) Mycobacterial culture/smear (11/20/2017 2:11 PM EDT) Specimen Source/ Description CSF [facility] Special Requests None [facility] SMEAR NO ACID FAST BACILLI OBSERVED(A) [facility] Culture/Test NO AFB ISOLATED AFTER 8 WEEKS [facility] Report Status 01/08/2018 FINAL [facility] Other (Cerebrospinal Fluid) 11/20/2017 2:11 PM EDT 11/20/2017 2:14 PM EDT us Hayden Argueta MD MICROBIOLOGY - GENERAL ORDER CECELIA Final Result Performing Organization Address [facility]/ZIP Co de Phone Number [address] [address] * Fungal culture (11/20/2017 2:11 PM EDT) Specimen Source/ Description CSF [facility] Special Requests None [facility] GRAM STAIN NO YEAST OR FUNGAL ELEMENTS SEEN [facility] Culture/Test NO FUNGUS OR YEAST ISOLATED AFTER 25 DAYS [facility] Report Status 12/15/2017 FINAL [facility] Other (Cerebrospinal Fluid) 11/20/2017 2:11 PM EDT 11/20/2017 2:14 PM EDT us Hayden Argueta MD MICROBIOLOGY - GENERAL ORDER CECELIA Final Result [address] [address] * Total protein, CSF (11/20/2017 2:11 PM EDT) CSF PROTEIN 25.5 15.0 - 45.0 mg/dL [facility] Cerebrospinal Fluid (Cerebrospinal Fluid) 11/20/2017 2:11 PM EDT 11/20/2017 2:13 PM EDT us Hayden Argueta MD BODY FLUIDS AND STOOLS ORDER CECELIA Final Result Performing Organization Address [facility]/ZIP Co de Phone Number [address] [address] * Glucose, CSF (11/20/2017 2:11 PM EDT) CSF GLUCOSE 59 45 - 70 mg/dL [facility] Cerebrospinal Fluid (Cerebrospinal Fluid) 11/20/2017 2:11 PM EDT 11/20/2017 2:13 PM EDT us Hayden Argueta MD BODY FLUIDS AND STOOLS ORDER CECELIA Final Result Performing Organization Address [facility] Co de Phone Number [address] [address] * Culture/smear, CSF (11/20/2017 2:11 PM EDT) Specimen Source/ Description CSF CSF CSF [facility] Special Requests None [facility] GRAM STAIN NO ORGANISMS SEEN Few WBC'S [facility] Culture/Test NO GROWTH 48HRS [facility] Report Status 11/22/2017 FINAL [facility] Cerebrospinal Fluid (Cerebrospinal Fluid) 11/20/2017 2:11 PM EDT 11/20/2017 2:13 PM EDT us Hayden Argeuta MD MICROBIOLOGY - GENERAL ORDER CECELIA Final Result Performing Organization Address [facility] Co de Phone Number [address] [address] * Cell count & differential, tube 4 (11/20/2017 2:11 PM EDT) CSF COLOR Colorless Colorless [facility] CSF TURBIDITY Clear Clear [facility] Nucleated cells, CSF 3 0 - 5 /uL [facility] Comment:Cell count less than 5, differential not done. RBC, CSF 0 0 - 10 /uL [facility] Tube #, CSF 4 [facility] PATH REVIEW NOT REQUIRED [facility] Cerebrospinal Fluid (Cerebrospinal Fluid) 11/20/2017 2:11 PM EDT 11/20/2017 2:13 PM EDT us Hayden Argueta MD BODY FLUIDS AND STOOLS ORDER CECELIA Final Result [facility] [address] [place] [address] documented in this encounter Visit Diagnoses Diagnosis Diagnosis unknown- Primary documented in this encounter Care Teams Merchant Patroller Relationship Specialty Start Date End Date Charlie Lucia MD [address] [phone] [email or web address] PCP - General 04/08/17 Dany Chappell MD [address] [place] [phone] [email or web address] LMR Provider 04/10/17 06/30/21 Shashi Garcia MD [address] [address] Historical LMR Provider 04/10/17 06/30/21 Mamta Sarmiento MD [address] [place] [address] Historical LMR Provider 04/10/17 2 documented as of this encounter Additional Source Comments The information contained in this document represents components of the legal health record. It is not the complete legal health record.[facility]
== END 2025-03-13 19:21 | disposition home or self-care (01) ==
LOC: HO.MRI 19:20
PROVIDERS: PCP Internal Medicine; Visit Provider Orthopaedic Surgery
DX: M25.312 Other instability, left shoulder (principal)
CPT/HCPCS: 73221

== ENCOUNTER → 2025-03-13 19:20 | Outpatient (BNV) | payer MEDICAID, SELFPAY | PROVIDERS: PCP Internal Medicine; Visit Provider Radiology Diagnostic Radiology | DX: S46.012A Strain of muscle(s) and tendon(s) of the rotator cuff of left shoulder, initial encounter (principal) | CPT/HCPCS: 73221 ==

== ENCOUNTER 2025-03-22 10:51 | Outpatient (REF) | payer MEDICAID, SELFPAY ==
--- OUTSIDE RECORDS SUMMARY | 2025-03-22 09:40 | XMS_ITS | Encounter Summary ---
Author Organization [employer] Address [address] [facility] 7t [place] [address] Care Team Providers Care Insurance Claims Processor Name Role Phone Derek Segovia MD Primary Care Prov ider Heather Navarrete RN Unavailable [phone] Judith Pack Unavailable Reason for Referral * Imaging (Routine) - Pending Review Specialty Diagnoses / Procedures Referred By Contac t Referred To Contact Radiology Diagnoses Screening for lung cancer Procedures CT Lung Screening Low dose Pamela Dennis MD [address] [place] [address] Phone: tel: fax: Referral ID Status Reason Start Date Expiration Date V isits Requested Visits Authorized [id number] Pending Review 03/22/2025 03/22/2026 1 1 Reason for Visit * Reason Comments Cervical Cancer Screening Encounter Details Date Type Department Care Team (Latest Contact Info) Description 03/22/2025 9:40 AM EDT Procedure Visit [facility] [address] [place] [address] Pamela Dennis MD [address] [place] [address] Cervical cancer screening (Primary Dx); Encounter for immunization; Screening for lung cancer; Primary hypertension Social History Tobacco Use Types Packs/Day Years Used Date Smoking Tobacco: Every Day Cigarettes 1.5 30 Smokeless Tobacco: Never Alcohol Use Standard Drinks/Week Comments Never 0 (1 standard drink = 0.6 oz pur e alcohol) Depression Answer Date Recorded Patient Health Questionnaire-9 Score 16 03/22/2025 Patient Health Questionnaire-9 Score 16 03/22/2025 Last PHQ-9: Questionnaire Data Not on file 0 03/22/2025 Housing Stability Answer Date Recorded What is [...] Answer Date Recorded Patient Health Questionnaire-2 Score 5 03/22/2025 Comments No Sex and Gender Information Value Date Recorded Sex Assigned at Female 04/22/2022 10:14 AM EDT Legal Sex Female 10:14 AM EDT Gender Identity Female 04/22/2022 10:14 AM EDT Sexual Orientation Choose not to disclose 2021 10:14 AM EDT documented as of this encounter Last Filed Vital Signs Vital Sign Reading Time Taken Comments Blood Pressure 150/90 03/22/2025 10:02 AM EDT Pulse 80 03/22/2025 10:02 AM EDT Temperature 37 C (98.6 F) 03/22/2025 10:02 AM EDT Respiratory Rate 20 03/22/2025 10:02 AM EDT Oxygen Saturation 98% 03/22/2025 10:02 AM EDT Inhaled Oxygen Concentration - - Weight 88.6 kg (195 lb 6.4 oz) 03/22/2025 10:02 AM EDT Height 162.6 cm (5' 4 ) 03/22/2025 10:02 AM EDT Body Mass Index 33.54 03/22/2025 10:02 AM EDT documented in this encounter Functional Status * Over the past 2 weeks, how often have you been bothered by any of the following problems? Question Answer Date of Assessment Author Patient Health Questionnaire -2 Score 5 03/22/2025 12:02 PM EDT Delvis Donohue MA * Little interest or pleasure in doing things Answer Date of Assessment Author More than half the days 03/22/2025 12:02 PM EDT Delvis Donohue MA * Feeling down, depressed, or hopeless Answer Date of Assessment Author Nearly every day 03/22/2025 12:02 PM EDT Delvis Donohue MA * Trouble falling or staying asleep, or sleeping too much Answer Date of Assessment Author More than half the days 03/22/2025 12:02 PM EDT Delvis Donohue MA * Feeling tired or having little energy Answer Date of Assessment Author More than half the days 03/22/2025 12:02 PM EDT Delvis Donohue MA * Poor appetite or overeating Answer Date of Assessment Author Several days 03/22/2025 12:02 PM EDT Delvis Donohue MA * Feeling bad about yourself - or that you are a failure or have let yourself or your family down Answer Date of Assessment Author Nearly every day 03/22/2025 12:02 PM EDT Delvis Donohue MA * Trouble concentrating on things, such as reading the newspaper or watching television Answer Date of Assessment Author Nearly every day 03/22/2025 12:02 PM EDT Delvis Donohue MA * Moving or speaking so slowly that other people could have noticed? Or the opposite - being so fidgety or restless that you have been moving around a lot more than usual. Answer Date of Assessment Author Not at all 03/22/2025 12:02 PM Delvis Nicole MA * Thoughts that you would be better off or hurting yourself in some way Answer Date of Assessment Author Not at all 03/22/2025 12:02 PM ALEYDAT Delvis Donohue MA * Patient Health Questionnaire-9 Score Answer Date of Assessment Author 16 03/22/2025 12:02 PM EDT Delvis Donohue MA * How difficult have these problems made it for you to do your work, take care of things at home, or get along with other people? Answer Date of Assessment Author Not difficult at all 03/22/2025 12:02 PM EDT Delvis Casarez MA documented as of this encounter Progress Notes * Pamela Dennis MD - 03/22/2025 9:40 AM EDT Subjective Patient ID: Jaye Marrero is a 55 y.o. female who presents for Cervical Cancer Screening. 55 y.o. female here for annual well woman preventive exam. - Pt reports uncontrolled hypertension at home - reports she needs well controlled BP given upcoming surgery for her neck - reports compliance with meds, and denies side effects. LMP: No LMP recorded (lmp unknown). Patient is postmenopausal. Sexual activity: Social History Substance and Sexual Activity Sexual activity: Not on file intention: BC method: Smoking hx: Tobacco Use: High Risk (03/22/2025) Tobacco Smoking Tobacco Use: Every Day Smokeless Tobacco Use: Never Passive Exposure: Not on file Alcohol use hx: Social History Substance and Sexual Activity Alcohol use: Never OBHx: # 1 - Date: None, Sex: None, Weight: None, GA: None, Type: None, Apgar1: None, Apgar5: None, Living: None, Comments: None # 2 - Date: None, Sex: None, Weight: None, GA: None, Type: None, Apgar1: None, Apgar5: None, Living: None, Comments: None # 3 - Date: None, Sex: None, Weight: None, GA: None, Type: None, Apgar1: None, Apgar5: None, Living: None, Comments: None # 4 - Date: None, Sex: None, Weight: None, GA: None, Type: None, Apgar1: None, Apgar5: None, Living: None, Comments: None # 5 - Date: None, Sex: None, Weight: None, GA: None, Type: None, Apgar1: None, Apgar5: None, Living: None, Comments: None # 6 - Date: None, Sex: None, Weight: None, GA: None, Type: None, Apgar1: None, Apgar5: None, Living: None, Comments: None # 7 - Date: None, Sex: None, Weight: None, GA: None, Type: None, Apgar1: None, Apgar5: None, Living: None, Comments: None IPV: Denies IPV Reviewed family hx No family history on file. Health Maintenance: No results found for: HMPAP , HMMAMMO , HMCOLON Review of Systems Constitutional: Negative for appetite change, fatigue and fever. HENT: Negative for congestion, postnasal drip and rhinorrhea. Eyes: Negative for discharge and redness. Respiratory: Negative for apnea, cough, chest tightness and shortness of breath. Cardiovascular: Negative for chest pain. Gastrointestinal: Negative for abdominal pain. Endocrine: Negative for polyphagia. Genitourinary: Negative for difficulty urinating, dysuria and urgency. Musculoskeletal: Positive for arthralgias. Neurological: Positive for dizziness and light-headedness. Negative for numbness and headaches. Objective Visit Vitals BP (!) 150/90 Pulse 80 Temp 98.6 ??F (37 ??C) (Oral) Resp 20 Ht 5' 4 (1.626 m) Wt 195 lb 6.4 oz (88.6 kg) LMP (LMP Unknown) SpO2 98% BMI 33.54 kg/m?? OB Status Postmenopausal Smoking Status Every Day BSA 2 m?? Physical Exam Vitals reviewed. Exam conducted with a ampoule inspector present. HENT: Head: Normocephalic and atraumatic. Pulmonary: Effort: Pulmonary effort is normal. Chest: Chest wall: No deformity, tenderness or crepitus. Breasts: Breasts are symmetrical. Right: Normal. No inverted nipple, mass, nipple discharge, skin change or tenderness. Left: Normal. No inverted nipple, mass, nipple discharge, skin change or tenderness. Genitourinary: Urethra: No prolapse. Vagina: Normal. Cervix: Normal. Rectum: Normal. Lymphadenopathy: Upper Body: Right upper body: No supraclavicular, axillary or pectoral adenopathy. Left upper body: No supraclavicular, axillary or pectoral adenopathy. Assessment/Plan Problem List Items Addressed This Visit Primary hypertension Uncontrolled. Target BP < 130/80 mmHg given history of stroke. On max dose of CCB, amlodipine, will add olmesartan for known benefit of combining CCB with ARB, if well tolerated and controlled, can consider prescribing combined medication to decrease pill burden. Nursing visit scheduled If BP > 130/80 mmHg for > 25% of time, increase olmesartan; if controlled f/up with PCP in 1 month If BP > 160/90 mmHg contact covering provider or PCP Relevant Medications olmesartan (BENIcar) 5 MG tablet Cervical cancer screening - Primary 55 y.o. here for cervical cancer screening. Will continue monitoring following ASCCP guidelines. Relevant Orders Pap Smear HPV High Risk with Reflex to Subtypes Other Visit Diagnoses Encounter for immunization Relevant Orders TDAP VACCINE 7 yrs + (Completed) FLU VACCINE TRIVALENT [id number] (Fluarix) 19 yrs + (Completed) HIV-1/2 Antigen and Antibodies, Fourth Generation, with Reflexes Hepatitis C Antibody with Reflex to HCV, RNA, Quantitative, Real-Time PCR Screening for lung cancer Relevant Orders CT Lung Screening Low dose documented in this encounter Miscellaneous Notes * Assessment & Plan Note - Pamela Dennis MD - 03/22/2025 11:01 AM EDT Associated Problem(s): Cervical cancer screening 55 y.o. here for cervical cancer screening. Will continue monitoring following ASCCP guidelines. * Assessment & Plan Note - Pamela Dennis MD - 03/22/2025 11:00 AM EDT Associated Problem(s): Primary hypertension Uncontrolled. Target BP < 130/80 mmHg given history of stroke. On max dose of CCB, amlodipine, will add olmesartan for known benefit of combining CCB with ARB, if well tolerated and controlled, can consider prescribing combined medication to decrease pill burden. Nursing visit scheduled If BP > 130/80 mmHg for > 25% of time, increase olmesartan; if controlled f/up with PCP in 1 month If BP > 160/90 mmHg contact covering provider or PCP documented in this encounter Plan of Treatment Upcoming Encounters Date Type Department Care Team (Late st Contact Info) Description 04/11/2025 11:00 AM EDT Clinical Support [facility] [address] [place] [address] Scheduled Orders Name Type Priority Associated Diagnoses Orde r Schedule HIV-1/2 Antigen and Antibodies, Fourth Generation, with Reflexes Lab Routine Encounter for immunization Expected: 03/22/2025 (Approximate), Expires: 03/22/2026 Hepatitis C Antibody with Reflex to HCV, RNA, Quantitative, Real-Time PCR Lab Routine Encounter for immunization Expected: 03/22/2025, Expires: 03/22/2026 CT Lung Screening Low dose Imaging Routine Screening for lung cancer Expected: 03/22/2025, Expires: 03/22/2026 Pap Smear Pathology and Cytology Routine Cervical cancer screening Ordered: 03/22/2025 HPV High Risk with Reflex to Subtypes Lab Routine Cervical cancer screening Ordered: 03/22/2025 documented as of this encounter Visit Diagnoses Diagnosis Cervical cancer screening- Primary Screening for malignant neoplasm of the cervix Encounter for immunization Screening for lung cancer Primary hypertension Unspecified essential hypertension documented in this encounter Additional Health Concerns Assessment Noted Time PHQ-9 Depression Total Score: 16 025 12:02 PM EDT documented as of this encounter Care Teams Insurance Claims Processor Relationship Specialty Start Date End Date Derek Segovia MD [address] [place] [address] PCP - General Internal Medicine 11/21/19 Heather Navarrete RN [address] [place] [address] Registered Nurse Family Medicine 12/29/24 Judith Pack 12/29/24 documented as of this encounter
--- OUTSIDE RECORDS SUMMARY | 2025-03-22 12:14 | XMS_ITS | Encounter Summary ---
Author Organization [facility] Address [address] [facility] [address] [place] [phone] Phone Care Team Providers Care Neck Skewer Name Role Phone Charlie Lucia MD Primary Care Provide r Dany Chappell MD Unavailable [phone] Shashi Garcia MD Unavailable Mamta Sarmiento MD Unavailable [phone] Encounter Details Date Type Department Care Team (Latest Contact Info) Description 11/20/2017 Transcribe Orders [facility] Laboratory [address] [place] [address] Hayden Argueta MD [address] [place] [address], [address] [place] [address] [email or web address] Numbness (Primary Dx); Intractable [...] TOTAL PROTEIN 6.9 6.3 - 7.9 g/dL [facility] PAT+ ALBUMIN 3.5 3.4 - 4.7 g/dL [facility]+ ALPHA-1 GLOBULIN 0.3 0.1 - 0.3 g/dL [facility] PAT+ ALPHA-2 GLOBULIN 0.9 0.6 - 1.0 g/dL [facility] PAT+ BETA-GLOBULIN 1.3(H) 0.7 - 1.2 g/dL [facility] PAT+ GAMMA-GLOBULIN 1.0 0.6 - 1.6 g/dL [facility] PAT+ A/G RATIO 1.02 [facility]+ M SPIKE Test component not applicable or not reported. not reported [facility] PAT+ M SPIKE Test component not applicable or not reported. not reported [facility]+ IMPRESSION SEE NOTE [facility]+ Comment: (NOTE) No apparent monoclonal protein on serum electrophoresis. Blood 11/20/2017 10:1 9 AM EDT 11/20/2017 10:22 AM EDT us Hayden Argueta MD LAB BLOOD ORDERABLES Final R esult [facility] PAT+ [address] [place] [address] documented in this encounter Visit Diagnoses Diagnosis Numbness- Primary Disturbance of skin sensation Intractable headache, unspecified chronicity pattern, unspecified headache type documented in this encounter Care Teams Neck Skewer Relationship Specialty Start Date End Date Charlie Lucia MD [address] [place] [address] [address] [place] [address] [email or web address] PCP - General 04/08/17 Dany Chappell MD [address] [place] [address] [email or web address] Historical LMR Provider 04/10/17 06/30/21 Shashi Garcia MD [address] [place] [address], [address] [place] [address] [email or web address] Historical LMR Provider 04/10/17 06/30/21 Mamta Sarmiento MD [address] [place] [id number] Historical LMR Provider 04/10/17 2 documented as of this encounter Additional Source Comments The information contained in this document represents components of the legal health record. It is not the complete legal health record.[facility]
--- OUTSIDE RECORDS SUMMARY | 2025-03-22 12:15 | XMS_ITS | Encounter Summary ---
Author Organization [employer] Address [address] [facility] 7t [place] [address] Care Team Providers Care Food Service Substitute Name Role Phone Derek Segovia MD Primary Care Prov ider Heather Navarrete RN Unavailable [phone] Judith Pack Unavailable Reason for Visit * Reason Onset Date Comments chart prep 03/21/2025 Encounter Details Date Type Department Care Team ([facility] st Contact Info) Description 03/21/2025 Telephone [facility] [address] [place], [place] [phone] Derek Segovia MD [address] [place], [place] [phone] chart prep Social History Tobacco Use Types Packs/Day Years [...] Patient Health Questionnaire-2 Score 5 03/22/2025 Comments Unknown Sex and Gender Information Value Date Recorded Sex Assigned at Female 04/22/2022 10:14 AM EDT Legal Sex Female 10:14 AM EDT Gender Identity Female 04/22/2022 10:14 AM EDT Sexual Orientation Choose not to disclose 2021 10:14 AM EDT documented as of this encounter Miscellaneous Notes * Telephone Encounter - Elise Salas MA - 03/21/2025 10:06 AM EDT Chart Prep Labs: will get them done at pap appointment. Images: done Referrals: appointment pending Vaccines due: Covid, Flu, Tdap, Td, Zoster, and DTAP Screenings: colonoscopy, mammogram, STI screening, and LMP Overdue care gaps: SBIRT, SDOH, PHQ-9, RENE-7, Disability screen, and Tobacco documented in this encounter Plan of Treatment Upcoming Encounters Date Type Department Care Team ([facility] st Contact Info) Description 04/11/2025 11:00 AM EDT Clinical Support [facility] [address] [facility] [place] [address] documented as of this encounter Visit Diagnoses Not on filedocumented in this encounter Additional Health Concerns Assessment Noted Time PHQ-9 Depression Total Score: 7 11/11/19 24 12:57 PM EDT documented as of this encounter Care Teams Food Service Substitute Relationship Specialty Start Date End Date Derek Segovia MD [address] [facility] [place] [address] PCP - General Internal Medicine 11/21/19 Heather Navarrete RN [address] [place] [address] Registered Nurse Family Medicine 12/29/24 Judith Pack 12/29/24 documented as of this encounter
--- OUTSIDE RECORDS SUMMARY | 2025-03-22 12:15 | XMS_ITS | Encounter Summary ---
Author Organization [employer] Address [address] [facility] 7t [place] [address] Care Team Providers Care Penology Teacher Name Role Phone Derek Segovia MD Primary Care Prov ider Heather Navarrete RN Unavailable [phone] Judith Pack Unavailable Reason for Visit * Reason Onset Date Comments Nurse Triage 11/18/2023 Encounter Details Date Type Department Care Team ([facility] st Contact Info) Description 11/18/2023 Telephone [facility] MED [facility] PEDS [address] [place], [place] [phone] Derek Segovia MD [address] [place], [place] [phone] Nurse Triage Social History Tobacco Use Types [...] accepted this outcome Please contact pt at [phone] documented in this encounter Plan of Treatment Upcoming Encounters Date Type Department Care Team ([facility] st Contact Info) Description 04/11/2025 11:00 AM EDT Clinical Support [facility] MED & PEDS [address] [place] [address] documented as of this encounter Visit Diagnoses Not on filedocumented in this encounter Additional Health Concerns Assessment Noted Time PHQ-9 Depression Total Score: 7 11/11/19 24 12:57 PM EDT documented as of this encounter Care Teams Penology Teacher Relationship Specialty Start Date End Date Derek Segovia MD [address] [place] [address] PCP - General Internal Medicine 11/21/19 Heather Navarrete RN [address] [place] [address] Registered Nurse Family Medicine 12/29/24 Judith Pack 12/29/24 documented as of this encounter
--- OUTSIDE RECORDS SUMMARY | 2025-03-22 12:15 | XMS_ITS | Encounter Summary ---
Author Organization Formerly [facility] Address [address] [facility] [address] [place] [address] Phone Care Team Providers Care Take Away Man Name Role Phone Charlie Lucia MD Primary Care Provide r Dany Chappell MD Unavailable Shashi Garcia MD Unavailable [phone] Mamta Sarmiento MD Unavailable [phone] Encounter Details Date Type Department Care Team (Latest Contact Info) Description 11/20/2017 Transcribe Orders [facility] Specimen Processing [address] [place] [address] Hayden Argueta MD [address] [place] [address], [address] [place] [address] [email or web address] Diagnosis unknown (Primary Dx) Social History [...] (11/20/2017 2:11 PM EDT) SPECIMEN SOURCE CSF [facility] DPT OF LAB MED AND PAT+ B.BURGDORFERI PCR Negative Negative [facility] DPT OF LAB MED AND PAT+ B.MAYONII PCR Negative Negative [facility] DPT OF LAB MED AND PAT+ B.GARINII/AFZELI Negative Negative [facility] DPT OF LAB MED AND PAT+ Comment SEE NOTE [facility] IC DPT OF LAB MED AND PAT+ Comment: (NOTE) If clinical features of illness are highly indicative of Lyme neuroborreliosis, additional serological testing would be recommended. ADDITIONAL INFORMATION This test was developed and its performance characteristics determined by [facility] in a manner consistent with CLIA requirements. This test has not been cleared or approved by the U.S. Food and Drug Administration. Other (Spinal Fluid) 11/20/2017 2:11 PM EDT 11/20/2017 2:13 PM EDT Hayden Argueta MD BODY FLUIDS AND STOOLS ORDER CECELIA Final Result [facility] DPT OF LAB MED AND PAT+ [address] [place] [address] * Angiotensin converting enzyme, CSF (11/20/2017 2:11 PM EDT) ANGIOTENSIN CONVERT ENZYME, CS 1.2 0.0 - 2.5 U/L [facility] Comment: (NOTE) This test was developed and its performance characteristics determined by [employer] The U.S. Food and Drug Administration has not approved or cleared this test; however, FDA clearance or approval is not currently required for clinical use. The results are not intended to be used as the sole means for clinical diagnosis or patient management decisions. Performed by [employer] [address] [place] [id number] [email or web address], Julian Sanon MD - Lab. Director Test Performed by: [employer] [address] [place] [id number] Cerebrospinal Fluid (Cerebrospinal Fluid) 11/20/2017 2:11 PM EDT 11/20/2017 2:13 PM EDT Hayden Argueta MD BODY FLUIDS AND STOOLS ORDER CECELIA Final Result Performing Organization Address [facility] de Phone Number [facility] * IgG index/synthesis rate, CSF (11/20/2017 2:11 PM EDT) IgG Index (CSF/Ser) 0.50 <=0.85 [facility] DPT OF LAB MED AND PAT+ IGG,CSF 1.6 <=8.1 mg/dL [facility] DPT OF LAB MED AND PAT+ Comment: (NOTE) ADDITIONAL INFORMATION This test has been modified from the bulk station agent's instructions. Its performance characteristics were determined by [facility] in a manner consistent with CLIA requirements. This test has not been cleared or approved by the U.S. Food and Drug Administration. ALBUMIN,CSF 17.5 <=27.0 mg/dL [facility] DPT OF LAB MED AND PAT+ Comment: (NOTE) ADDITIONAL INFORMATION This test has been modified from the bulk station agent's instructions. Its performance characteristics were determined by [facility] in a manner consistent with CLIA requirements. This test has not been cleared or approved by the U.S. Food and Drug Administration. IGG/ALBUMIN,CSF 0.09 <=0.21 [facility] DPT OF LAB MED AND PAT+ IgG Synthesis Rate 0.00 <=12 mg/24 h [facility] DPT OF LAB MED AND PAT+ IgG 817 767 - 1,590 mg/dL [facility] DPT OF LAB MED AND PAT+ Albumin 4,560 3,200 - 4,800 mg/dL [facility] DPT OF LAB MED AND PAT+ IgG/Albumin ratio 0.18 <=0.40 [facility] DPT OF LAB MED AND PAT+ Cerebrospinal Fluid (Cerebrospinal Fluid) 11/20/2017 2:11 PM EDT 11/20/2017 2:13 PM EDT us Hayden Argueta MD BODY FLUIDS AND STOOLS ORDER CECELIA Final Result Performing Organization Address City/[facility]/ZIP Co de Phone Number [facility] DPT OF LAB MED AND PAT+ [address] [place] [address] * Oligoclonal bands, Serum and CSF (11/20/2017 2:11 PM EDT) Oligoclonal bands 6 bands [facility] DPT OF LAB MED AND PAT+ CSF BANDS 6 bands [facility] DPT OF LAB MED AND PAT+ CSF OLIG BANDS INTERPRETATION 0 <4 bands [facility] DPT OF LAB MED AND PAT+ Comment: (NOTE) The oligoclonal band assay detected 3 or fewer unique IgG bands in the CSF. This is a negative result. Cerebrospinal Fluid (Cerebrospinal Fluid) 11/20/2017 2:11 PM EDT 11/20/2017 2:13 PM EDT us Hayden Argueta MD BODY FLUIDS AND STOOLS ORDER CECELIA Final Result Performing Organization Address [facility] de Phone Number [facility] DPT OF LAB MED AND PAT+ [address] [place] [address] * Syphilis antibody, CSF (VDRL) (11/20/2017 2:11 PM EDT) VDRL Negative Negative [facility] Cerebrospinal Fluid (Cerebrospinal Fluid) 11/20/2017 2:11 PM EDT 11/20/2017 2:13 PM EDT us Hayden Argueta MD BODY FLUIDS AND STOOLS ORDER CECELIA Final Result Performing Organization Address [facility] Co de Phone Number [facility] LAB MED/[address] [place] [address] * Cryptococcal antigen, CSF (11/20/2017 2:11 PM EDT) CSF CRYPTOCOCCAL AG Negative Negative [facility] Comment: All cryptococal antigen will have a backup culture performed, please see separate lab report. Cerebrospinal Fluid (Cerebrospinal Fluid) 11/20/2017 2:11 PM EDT 11/20/2017 2:13 PM EDT us Hayden Argueta MD BODY FLUIDS AND STOOLS ORDER CECELIA Final Result Performing Organization Address City/[facility]/ZIP Co de Phone Number [address] [address] * (ABNORMAL) Mycobacterial culture/smear (11/20/2017 2:11 PM EDT) Specimen Source/ Description CSF [facility] Special Requests None [facility] SMEAR NO ACID FAST BACILLI OBSERVED(A) [facility] Culture/Test NO AFB ISOLATED AFTER 8 WEEKS [facility] Report Status 01/08/2018 FINAL [facility] Other (Cerebrospinal Fluid) 11/20/2017 2:11 PM EDT 11/20/2017 2:14 PM EDT us Hayden Argueta MD MICROBIOLOGY - GENERAL ORDER CECELIA Final Result Performing Organization Address [facility]/ZIP Co de Phone Number [address] [address] * Fungal culture (11/20/2017 2:11 PM EDT) Specimen Source/ Description CSF [facility] Special Requests None [facility] GRAM STAIN NO YEAST OR FUNGAL ELEMENTS SEEN [facility] Culture/Test NO FUNGUS OR YEAST ISOLATED AFTER 25 DAYS [facility] Report Status 12/15/2017 FINAL [facility] Other (Cerebrospinal Fluid) 11/20/2017 2:11 PM EDT 11/20/2017 2:14 PM EDT us Hayden Argueta MD MICROBIOLOGY - GENERAL ORDER CECELIA Final Result [address] [address] * Total protein, CSF (11/20/2017 2:11 PM EDT) CSF PROTEIN 25.5 15.0 - 45.0 mg/dL [facility] Cerebrospinal Fluid (Cerebrospinal Fluid) 11/20/2017 2:11 PM EDT 11/20/2017 2:13 PM EDT us Hayden Argueta MD BODY FLUIDS AND STOOLS ORDER CECELIA Final Result Performing Organization Address [facility]/ZIP Co de Phone Number [address] [address] * Glucose, CSF (11/20/2017 2:11 PM EDT) CSF GLUCOSE 59 45 - 70 mg/dL [facility] Cerebrospinal Fluid (Cerebrospinal Fluid) 11/20/2017 2:11 PM EDT 11/20/2017 2:13 PM EDT us Hayden Argueta MD BODY FLUIDS AND STOOLS ORDER CECELIA Final Result Performing Organization Address [facility] Co de Phone Number [address] [address] * Culture/smear, CSF (11/20/2017 2:11 PM EDT) Specimen Source/ Description CSF CSF CSF [facility] Special Requests None [facility] GRAM STAIN NO ORGANISMS SEEN Few WBC'S [facility] Culture/Test NO GROWTH 48HRS [facility] Report Status 11/22/2017 FINAL [facility] Cerebrospinal Fluid (Cerebrospinal Fluid) 11/20/2017 2:11 PM EDT 11/20/2017 2:13 PM EDT us Hayden Argueta MD MICROBIOLOGY - GENERAL ORDER CECELIA Final Result Performing Organization Address [facility] Co de Phone Number [address] [address] * Cell count & differential, tube 4 (11/20/2017 2:11 PM EDT) CSF COLOR Colorless Colorless [facility] CSF TURBIDITY Clear Clear [facility] Nucleated cells, CSF 3 0 - 5 /uL [facility] Comment:Cell count less than 5, differential not done. RBC, CSF 0 0 - 10 /uL [facility] Tube #, CSF 4 [facility] PATH REVIEW NOT REQUIRED [facility] Cerebrospinal Fluid (Cerebrospinal Fluid) 11/20/2017 2:11 PM EDT 11/20/2017 2:13 PM EDT us Hayden Argueta MD BODY FLUIDS AND STOOLS ORDER CECELIA Final Result [facility] [address] [place] [address] documented in this encounter Visit Diagnoses Diagnosis Diagnosis unknown- Primary documented in this encounter Care Teams Take Away Man Relationship Specialty Start Date End Date Charlie Lucia MD [address] [phone] [email or web address] PCP - General 04/08/17 Dany Chappell MD [address] [place] [phone] [email or web address] LMR Provider 04/10/17 06/30/21 Shashi Garcia MD [address] [address] Historical LMR Provider 04/10/17 06/30/21 Mamta Sarmiento MD [address] [place] [address] Historical LMR Provider 04/10/17 2 documented as of this encounter Additional Source Comments The information contained in this document represents components of the legal health record. It is not the complete legal health record.Formerly [facility]
--- OUTSIDE RECORDS SUMMARY | 2025-03-22 12:15 | XMS_ITS | Encounter Summary ---
Author Organization [employer] Address [address] [facility] [address] [place] [address] Care Team Providers Care Senior Corporate Strategy Manager Name Role Phone Derek Segovia MD Primary Care Prov ider Heather Navarrete RN Unavailable [phone] Judith Pack Unavailable Encounter Details Date Type Department Care Team (Latest Contact Info) Description 03/22/2025 Travel Social History Tobacco Use Types Packs/Day Years [...] AM EDT documented as of this encounter Functional Status * Over the [...] Author Not at all 03/22/2025 12:02 PM EDT Delvis Donohue MA * Thoughts that you would be better off or hurting yourself in some way Answer Date of Assessment Author Not at all 03/22/2025 12:02 PM EDT Delvis Donohue MA * Patient Health Questionnaire-9 [...] Casarez [place] documented as of this encounter Plan of Treatment Upcoming Encounters Date Type Department Care Team (Late st Contact Info) Description 04/11/2025 11:00 AM EDT Clinical Support [facility] [address] [place] [address] documented as of this encounter Visit Diagnoses Not on filedocumented in this encounter Additional Health Concerns Assessment Noted Time PHQ-9 Depression Total Score: 16 025 12:02 PM EDT documented as of this encounter Care Teams Senior Corporate Strategy Manager Relationship Specialty Start Date End Date Derek Segovia MD [address] [place] [address] PCP - General Internal Medicine 11/21/19 Heather Navarrete RN [address] [place] [address] Registered Nurse Family Medicine 12/29/24 Judith Pack 12/29/24 documented as of this encounter
--- OUTSIDE RECORDS SUMMARY | 2025-03-22 12:15 | XMS_ITS | Clinical Summary ---
Author Organization [employer] Address [address] [facility] 7t [place] [address] Care Team Providers Care Stone And Plate Preparer Apprentice Name Role Phone Derek Segovia MD Primary Care Prov ider Heather Navarrete RN Unavailable [phone] Judith Pack Unavailable Allergies Active Allergy Reactions Criticality Noted Date Comments Morphine Unknown 02/12/2013 Other reaction(s): itchiness Naproxen 03/29/2013 Other Reaction(s): GASTRITIS Sulfa Antibiotics 03/13/2024 Other Reaction(s): difficulty breathing, rash, RASH,HIVES,CHEST TIGHTNESS Medications * This document contains information received [...] day. 90 tablet 1 02/23/20 25 Active olmesartan (BENIcar) 5 MG tablet Take 1 tablet (5 mg) by mouth Once per day. 90 tablet 1 03/22/20 25 Active amLODIPine (Norvasc) 10 MG tablet TAKE 1 TABLET BY MOUTH EVERY DAY 90 tablet 1 12/14/19 25 025 Discontinued(Re order (will not trigger notification to Pharmacy)) Active Problems Problem Noted Date Diagnosed Date Cervical cancer screening 03/22/2025 Assessment & Plan (03/22/2025 11:01 AM EDT): 55 y.o. here for cervical cancer screening. Will continue monitoring following ASCCP guidelines. 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 Primary hypertension 11/12/2023 Assessment & Plan (03/22/2025 11:00 AM EDT): Uncontrolled. Target BP < 130/80 mmHg given [...] 160/90 mmHg contact covering provider or PCP Assessment & Plan (02/22/2025 3:29 PM EDT): [...] services. PLAN: 1. Follow up with [facility] [place]: Not recommended for follow-up 2. Patient goal [...] not made any improvement in her symptoms Chronic pain following surgery or procedure 03/25 Cervical radiculopathy 11/26/2012 Overview (12/19/2022): Cervical Radiculopathy [...] Encounters Date Type Department Care Team Description 03/22/2025 9:40 AM EDT Procedure Visit [facility] [address] [place] [address] Pamela Dennis MD Cervical cancer screening (Primary Dx); Encounter for immunization; Screening for lung cancer; Primary hypertension 03/22/2025 Travel 03/21/2025 Telephone [facility] [address] [place] [address] Derek Segovia MD chart prep 03/13/2025 Orders Only [facility] External Provider, [facility] 03/07/2025 Patient Outreach [facility] [address] [place] [address] Derek Segovia MD Care Coordination (C3/CM Outreach) 03/07/2025 Travel 02/18/2025 9:45 AM EDT Telemedicine [facility] [address] [place] [address] Derek Segovia MD Screening for colon cancer (Primary Dx); Encounter for screening mammogram for malignant neoplasm of breast; Primary hypertension 02/18/2025 Travel 02/17/2025 Telephone [facility] [address] [place] [address] Derek Segovia MD chart prep 02/15/2025 Patient Outreach [facility] [address] [place] [address] Derek Segovia MD 02/10/2025 Patient Outreach [facility] [address] [place] [address] Derek Segovia MD Care Coordination (C3/CM Outreach) 01/26/2025 Refill [facility] [address] [place] [address] Hui Wright MD 01/12/2025 Patient Outreach [facility] [address] [place] [address] Derek Segovia MD 01/10/2025 Patient Outreach [facility] [address] [place] [address] Derek Segovia MD Care Coordinatrion (C3/CM Outreach) 12/31/2024 Refill [facility] [address] [place] [address] Mary Guzman RN Sprain of left shoulder, unspecified shoulder sprain type, subsequent encounter (Primary Dx) 12/31/2024 Telephone [facility] [address] [place] [phone] Derek Segovia MD Medication Question 12/30/2024 3:45 PM EDT Office Visit [facility] [address] [place] [address] Hui Wright MD Sprain of left shoulder, unspecified shoulder sprain type, subsequent encounter (Primary Dx) 12/30/2024 Travel 12/30/2024 Telephone [facility] [address] [place] [address] Derek Segovia MD Nurse Triage 12/29/2024 Patient Outreach [facility] [address] [place] [address] Derek Segovia MD Care Coordination (C3/CM Outreach) 12/29/2024 Patient Outreach [facility] [address] [place] [address] Derek Segovia MD Care Coordination (C3/CM Chart Review) 12/29/2024 Patient Outreach [facility] [address] [place] [address] Derek Segovia MD Care Coordination (C3CM chart review) 12/29/2024 Patient Outreach [facility] [address] [place] [address] Derek Segovia MD 12/27/2024 Orders Only [facility] External Provider, [facility] from Last 3 Months Immunizations Immunization Administration Dates Next Due Hep A, Adult 03/04/2001,04/11/1999 Hep B, adult 05/25/1997,08/06/1995,04/23/1995 Influenza injectable quadriv alent IIV4 with preservative 04/21/2018,05/26/2017 Influenza, IIV3, injectable 03/17/2014 Influenza, Split (incl. madhavi fied surface antigen) 03/04/2013,03/31/2012 Influenza, seasonal, injecta ble, preservative free 03/22/2025 MMR 01/26/1993,08/05/1978 TD (adult), 2 Lf tetanus tox oid, preservative free, adsorbed 03/04/2001,01/26/1993 Tdap 03/22/2025,06/21/2011,01/15/2011 Social History Tobacco Use Types Packs/Day Years [...] Mass Index 33.54 03/22/2025 10:02 AM EDT Plan of Treatment Upcoming Encounters Date Type Department Care Team (Late st Contact Info) Description 04/11/2025 11:00 AM EDT Clinical Support [facility] [address] [place] [address] Health Maintenance Due Date Last Done Comments CT Colonography 1971 Colonoscopy 1971 Colorectal Cancer Screening 1971 FIT DNA/Cologuard 1971 FIT 1971 FOBT 1971 HIV Screening 1971 Sigmoidoscopy 1971 Hepatitis C Screening 1989 Pneumococcal Vaccine: 50+ Years (1 of 2 - PCV) 1990 Pap Smear 01/23/1992 Cervical Cancer Screening 2001 HPV/Cotest 2001 Mammogram 2011 Zoster Vaccines (1 of 2) 2021 Lung Cancer Screening 05/02/2024 05/02/2023 SDOH Screening 11/05/2024 11/06/2023 COVID-19 Vaccine ( season) 2025 Depression Monitoring 09/19/2025 03/22/2025, 025 Alcohol/Substance Use Screening 03/22/2026 03/22/2025 Disability Screening 03/22/2026 03/22/2025 Tobacco Screening 03/22/2026 03/22/2025 Lipid Panel 03/13/2029 03/13/2024 DTaP/Tdap/Td Vaccines (4 - Td or Tdap) 03/22/2035 03/22/2025, 06/21/2011, 01/15/2011, Additional history exists RSV Patients and Patients Aged 60 years or older (1 - 1-dose 75+ series) 2046 Hepatitis B Vaccines Completed 05/25/1997, 08/06/1995, 04/23/1995 Hepatitis A Vaccines Aged Out 03/04/2001, 04/11/19 99 No longer eligible based on patient's age to complete this topic Influenza Vaccine Completed 03/22/2025, , 05/26/2017, Additional history exists HIB Vaccines Aged Out No longer eligi [...] Procedure Name Priority Date/Time Associated Diagnosis Comments MR SHOULDER WO CONTRAST LEFT Routine 03/15/2025 11:01 PM EDT XR SHOULDER 2+ VIEWS LEFT Routine 12/28/2024 12:11 AM EDT LIPID PANEL, STANDARD Routine 03/13/2024 3:06 AM EDT LDCT LUNG SCREENING Routine 05/02/2023 4 :21 PM EST from Last 3 Months or Most Recently Relevant to Health Maintenance Results * MR Shoulder w/o Contrast Left (03/15/2025 11:01 PM EDT) Anatomical Region Laterality Modality Upper Extremities, Shoulder Left Magn etic Resonance 03/15/2025 11:0 1 PM EDT Narrative 03/15/2025 11:02 PM EDT [address] [address] Magnetic Resonance Report Signed Patient: Jaye Marrero MR#: [id number] 223 : 1970 Acct:[id number] Age/Sex: 55 / F ADM Date: 03/13/25 Loc: HO.MRI Attending Dr: Simon Jolly MD Ordering Physician: Simon Jolly MD Date of Service: 03/13/25 Procedure(s): MR shoulder LT wo con Accession Number(s): [id number] cc: Derek Segovia MD; Simon Jolly MD Reason for Exam: M25.312 - Other instability, left shoulder CLINICAL HISTORY: M25.312 - Other instability, left shoulder MR left shoulder without gadolinium Comparison: None provided Findings: No acute fractures. No pathologic bone lesions. No significant degenerative changes. Type III acromion without downsloping. Fluid in the subacromial/subdeltoid bursa. Thickening and intermediate signal of the supraspinatus proximal to its insertion with superimposed rim rent tear. Fluid surrounding the long head of the biceps tendon within the bicipital groove. Glenoid labrum is intact. IMPRESSION: 1. Supraspinatus tendinopathy with superimposed rim rent tear. 2. Subacromial/subdeltoid bursitis. 3. Fluid surrounding the long head of biceps tendon, suggestive of tenosynovitis. 4. Type III acromion. This document has been electronically signed by: Jose Gonzales MD on 03/15/2025 23:01:40 Dictated By: Jose Gonzales MD Signed By: <Electronically signed by Jose Gonzales MD in OV> 03/15/252301 DD/ 00 TD/TT: 03/15/252300 Radiographer Mammographer: Procedure Note Donotuseinterpreter, Image - 03/15/[address] [address] Magnetic Resonance Report Signed Patient: Liyah Marrero#: [id number] 223 : 1970Acct:[id number] Age/Sex: 55 / FADM Date: 03/13/25 Loc: HO.MRI Attending Dr: Simon Jolly MD Ordering Physician: Simon Jolly MD Date of Service: 03/13/25 Procedure(s): MR shoulder LT wo con Accession Number(s): [id number] cc: Derek Segovia MD; Simon Jolly MD Reason for Exam: M25.312 - Other instability, left shoulder CLINICAL HISTORY: M25.312 - Other instability, left shoulder MR left shoulder without gadolinium Comparison: None provided Findings: No acute fractures. No pathologic bone lesions. No significant degenerative changes. Type III acromion without downsloping. Fluid in the subacromial/subdeltoid bursa. Thickening and intermediate signal of the supraspinatus proximal to its insertion with superimposed rim rent tear. Fluid surrounding the long head of the biceps tendon within the bicipital groove. Glenoid labrum is intact. IMPRESSION: 1. Supraspinatus tendinopathy with superimposed rim rent tear. 2. Subacromial/subdeltoid bursitis. 3. Fluid surrounding the long head of biceps tendon, suggestive of tenosynovitis. 4. Type III acromion. This document has been electronically signed by: Jose Gonzales MD on 03/15/2025 23:01:40 Dictated By: Jose Gonzales MD Signed By: <Electronically signed by Jose Gonzales MD in OV> 03/15/252301 DD/ 00 TD/TT: 03/15/252300 Radiographer Mammographer: [facility] External Provider IMG MRI PROCEDURES Edited Result - Final * XR Shoulder 2+ Views Left (12/28/2024 12:11 AM EDT) Anatomical Region Laterality Modality Upper Extremities, Shoulder Left Radi ographic Imaging 12/28/2024 12:1 1 AM EDT Narrative 12/28/2024 12:14 AM EDT [address] XRay Report Signed Patient: Jaye Marrero MR#: [id number] 223 : 1970 Acct:[id number] Age/Sex: 54 / F ADM Date: 12/27/24 Loc: HO.ED Attending Dr: Ordering Physician: Generic ED Physician Date of Service: 12/27/24 Procedure(s): XR shoulder LT min 2V Accession Number(s): [id number] cc: Derek Segovia MD; Generic ED Physician [...] MD in OV> 12/28/24 001 DD/ TD/TT: 12/28/2410 Radiographer Mammographer: Procedure Note Donotuseinterpreter, Image - 12/28/[address] [address] XRay Report Signed Patient: Key MarreroR#: [id number] 223 : 1970Acct:[id number] Age/Sex: 54 / FADM Date: 12/27/24 Loc: HO.ED Attending Dr: Ordering Physician: Generic ED Physician Date of Service: 12/27/24 Procedure(s): XR shoulder LT min 2V Accession Number(s): [id number] cc: eDrek Segovia MD; Generic ED Physician CLINICAL HISTORY: [...] MD in OV> 12/28/2412 DD/ TD/TT: 12/28/2410 Radiographer Mammographer: [facility] External Provider IMG XR PROCEDURES Final Result * (ABNORMAL) Lipid Panel, Standard (03/13/2024 3:06 AM EDT) Triglycerides 448(H) <150 mg/dL [facility] Comment:Desirable Triglyceri de: less than 150 mg/dLBorderline High Triglyceride 150-199 mg/dLHigh Triglyceride: 200-499 mg/dLVery High Triglyceride: greater than or equal to 5OO mg/dL Cholesterol 205(H) <200 mg/dL [facility] Comment:Desirable Cholestero l: less than 200 mg/dLBorderline High Cholesterol: 200-239 mg/dLHigh Cholesterol: greater than 239 mg/dL LDL Cholesterol Calculated TNP <100 mg/dL [facility] Comment:Unable to calculate the LDL. The formula of Friedwald,Camacho, and Kasie is only valid if the triglycerides areless than 400 mg/dl. HDL Cholesterol 47 >40 mg/dL [facility] Comment:Desirable HDL: great er than 40 mg/dL Note: This HDL assay may give artificially low results in patients with liver disease. 03/13/2024 3:06 AM EDT 03/13/2024 3:09 AM EDT us Generic External Data Provider LAB BLOOD ORDERAB LES Final Result Performing Organization Address City/State/[facility] Co de Phone Number [facility] [address] [place] [address] [phone] * CT Lung Screening Low dose (05/02/2023 4:21 PM EST) Anatomical Region Laterality Modality Lung Computed Tomogra phy 05/02/2023 4:21 PM EST Narrative 05/09/2023 8:52 AM EST [place] [address] CT Scan Report Signed Patient: Jaye Marrero MR#: [id number] 223 : 1970 Acct:[id number] Age/Sex: 53 / F ADM Date: 05/02/23 Loc: HO.CT Attending Dr: Velma Leija PA-C Ordering Physician: Velma Leija PA-C Date of Service: 05/02/23 Procedure(s): CT lung screening Accession Number(s): [id number] cc: Derek Segovia MD; Velma Leija PA-C [...] in OV> 05/09/23 0848 DD/ 1621 TD/TT: Radiographer Mammographer: WEI Procedure Note Donotuseinterpreter, Image - 05/09/[address] [place] [address] [address] Scan Report Signed Patient: Liyah Marrero#: [id number] 223 : 1970Acct:[id number] Age/Sex: 53 / FADM Date: 05/02/23 Loc: HO.CT Attending Dr: Velma Leija PA-C Ordering Physician: Velma Leija PA-C Date of Service: 05/02/23 Procedure(s): CT lung screening Accession Number(s): [id number] cc: eDrek Segovia MD; Velma Leija PA-C EXAMINATION: CT [...] in OV> 05/09/23 0848 DD/ 1621 TD/TT: Radiographer Mammographer: WEI [facility] External Provider IMG CT PROCEDURES Final Result from Last 3 Months or Most Recently Relevant to Health Maintenance Insurance [facility] C3 Care Teams Stone And Plate Preparer Apprentice Relationship Specialty Start Date End Date Derek Segovia MD [address] [place] [address] PCP - General Internal Medicine 11/21/19 Heather Navarrete, DAVID [address] [place] [address] Registered Nurse Family Medicine 12/29/24 Judith Pack 12/29/24
--- OUTSIDE RECORDS SUMMARY | 2025-03-22 12:15 | XMS_ITS ---
Author Organization [employer] Address [address] [facility] [address] [place] [address] Care Team Providers Care Silk Soaker Name Role Phone Derek Segovia MD Primary Care Prov ider Heather Navarrete RN Unavailable [phone] Judith Pack Unavailable CM Complex Status:Outreach In Progress (Enrolling) Start date:12/29/2024 Enrollment reason:ADT Feed Overview ED- Pt went to [facility] ED on 12/28/24. Case Team Name Relationship Phone Heather Navarrete RN(Responsible Staff) Registered Nurse [phone] Continued Care and Services Coordination
--- OUTSIDE RECORDS SUMMARY | 2025-03-22 12:15 | XMS_ITS ---
Author Organization [employer] Address [address] [facility] [address] [place] [address] Care Team Providers Care Chemical Strength Tester Name Role Phone Derek Segovia MD Primary Care Prov ider Heather Navarrete RN Unavailable [phone] Judith Pack Unavailable CHW Complex Status:Outreach In Progress (Enrolling) Start date:12/29/2024 Enrollment reason:ADT Feed Overview ED- Pt went to [facility] ED on 12/28/24. Case Team Name Relationship Phone Judith Pack(Responsible Staff) [phone] Continued Care and Services Coordination
--- OUTSIDE RECORDS SUMMARY | 2025-03-22 12:15 | XMS_ITS | Clinical Summary ---
Author Organization [facility] Address [address] [facility] [address] [place] [address] Phone Care Team Providers Care Head Of Sales Name Role Phone Charlie Lucia MD Primary [...] topic Medical [place] [id number] [place] [address] C3 [employer] Care Teams Head Of Sales Relationship Specialty Start Date End Date Charlie Lucia MD [address] [place] [address] [address] [place] [address] PCP - General 04/08/17 Additional Source Comments The information contained in this document represents components of the legal health record. It is not the complete legal health record.[facility]
[2025-03-22 14:16] LABS: MANUAL DIFF FLAG NO
[2025-03-22 14:19] LABS: Hematocrit 40.5 % (37.0-47.0); Hemoglobin 13.6 g/dl (12.0-16.0); Imm Gran Abs Auto 0.02 X10*3/uL (0.00-0.03); Imm Gran Pct Auto 0.3 % (0.0-0.4); Lymphocytes Absolute Auto 2.6 X10*3/uL (1.2-4.9); Mean Corpuscular HGB Conc 33.6 g/dl (31.0-35.0); Mean Corpuscular Hemoglobin 30.1 pg (27.0-33.0); Mean Corpuscular Volume 89.6 fL (80.0-98.0); NRBC Abs Auto 0.000 X10*3/uL (0.0-0.012); NRBC Pct Auto 0.0 /100WBC (0.0-0.2); Platelet Count 217 X10*3/uL (160-400); Red Blood Count 4.52 X10*6/uL (4.20-5.50); White Blood Count 6.4 X10*3/uL (4.8-10.8)
[2025-03-22 16:28] LABS: Alanine Aminotransferase 34 U/L (0-31); Albumin Level 4.3 g/dL (3.5-5.0); Alkaline Phosphatase 91 U/L (39-117); Anion Gap 13 (12-20); Aspartate Amino Transferase 36 U/L (5-31); Blood Urea Nitrogen 12 mg/dL (9-16); Calcium 9.9 mg/dL (8.4-10.2); Carbon Dioxide 27 mmol/L (22-29); Chloride 106 mmol/L (96-108); Cholesterol 224 mg/dL (<200); Estimated Glomerular Filt Rate > 60; HDL Cholesterol 54 mg/dL (>40); Potassium 4.0 mmol/L (3.3-5.1); Sodium 142 mmol/L (135-145); Total Protein 7.4 g/dL (6.5-8.0); Triglycerides 186 mg/dL (<150)
[2025-03-23 05:10] LABS: HIV Num 1 0.05 S/CO (0.00-0.99); ~HepC Num1 1.26 S/CO (0.00-0.79); ~Hepatitis C Antibody Reactive (Nonreactive)
[2025-03-25 17:19] LABS: HCV Log PCR <1.18 NOT DETECTED Log IU/mL (NOT DETECTED); HepC Viral Load <15 NOT DETECTED IU/mL (NOT DETECTED)
== END 2025-03-22 10:52 | disposition home or self-care (01) ==
LOC: HO.CHCLDS 10:51
PROVIDERS: PCP Internal Medicine; Visit Provider Family Medicine
DX: Z11.4 Encounter for screening for human immunodeficiency virus [HIV] (principal); Z12.4 Encounter for screening for malignant neoplasm of cervix; Z11.59 Encounter for screening for other viral diseases; Z23 Encounter for immunization; I10 Essential (primary) hypertension
CPT/HCPCS: 36415; 80053; 80061; 84443; 85025; 86803; 87389; 87522; 88175

== ENCOUNTER 2025-04-05 12:45 | Outpatient (AMB) | payer MEDICAID, SELFPAY ==
--- NOTE | 2025-04-05 12:46 | A.OFFVIS_ITS ---
Vital Signs 04/05/25 12:50 Height 5 ft 4 in Weight 197 lb BMI 33.8 Intake Visit Reasons: Left shoulder pain and stiffness Intake Note: Jaye is a 55 year old female right hand dominant who presents with complaints of progressively worsening left shoulder pain and weakness. The patient states that she had a stroke last year. Since that time she has had several falls. Since her most recent fall she has had weakness when lifting her left hand above shoulder height. She states that she did have cervical spine surgery approximately 10 years ago. She also reports intermittent numbness and tingling in her left upper extremity. She has failed the last 6 weeks of conservative treatment which has included Tylenol, Celebrex, a home exercise program and physical therapy exercises. Allergies morphine (MORPHINE) Allergy (Unknown, Verified 04/05/25 12:50) UNKNOWN naproxen (From NAPROSYN) Allergy (Unknown, Verified 04/05/25 12:50) GASTRITIS Sulfa (Sulfonamide Antibiotics) (SULFA (SULFONAMIDE ANTIBIOTICS)) Allergy (Unknown, Verified 04/05/25 12:50) RASH,HIVES,CHEST TIGHTNESS [facility] Medical History Nicotine dependence, cigarettes, uncomplicated Cervical radiculopathy Insomnia Depression with anxiety Surgical History History of breast surgery History of cholecystectomy History of appendectomy History of tubal ligation Social History Patient Tobacco Use Status: Tobacco use Unknown Physical Exam Vital Signs: BMI result Body Mass Index 33.8 Const Other: Well-nourished well-developed very friendly female awake alert and oriented x3 in no acute distress Extrem Other: Left shoulder examination shows decreased active and passive range of motion when compared to her right shoulder, 4+ out of 5 strength with supraspinatus testing, positive impingement signs, tenderness over her acromioclavicular joint, no instability Results Reviewed Results Reviewed: MRI of the patient's left shoulder show severe acromioclavicular joint narrowing, a type 3 acromion, signal change within the supraspinatus tendon most likely due to adhesive capsulitis Assessment & Plan Assessment & Plan (1) Impingement syndrome of left shoulder: Code(s): M75.42 - Impingement syndrome of left shoulder Category: Medical Plan Ms. Marrero presents with progressively worsening left shoulder pain and stiffness due to impingement syndrome, acromioclavicular joint arthritis and adhesive capsulitis. I had a lengthy discussion with the patient regarding the treatment options. At this point she has failed continued non operative treatments. The risks and benefits of left shoulder surgery were discussed at length with the patient. The patient wishes to proceed with surgery. Surgery will involve left shoulder arthroscopic distal clavicle excision, left shoulder arthroscopic acromioplasty, left shoulder arthroscopic capsular release and left shoulder manipulation under anesthesia. The patient will be scheduled for next available date. She will follow up as instructed. Feel free to call me at any time should questions regarding her orthopedic management arise. I spent 20 minutes in reviewing the patient's records and imaging studies, seeing the patient and documenting in the medical record. Coding Level of Care Code Est Pt Level 3 (53379) Complex EM visit Add On G2211 Diagnoses Impingement syndrome of left shoulder M75.42
[2025-04-05 12:50] VITALS: BMI 33.8
--- OUTSIDE RECORDS SUMMARY | 2025-04-05 15:24 | XMS_ITS | Clinical Summary ---
Author Organization [facility] Address [address] [facility] [address] [place] [address] Phone Care Team Providers Care Contract Programmer Name Role Phone Charlie Lucia MD Primary [...] 03/17/2014, Additional history exists COVID-19 VACCINE ( - 2024- season) 2025 RSV VACCINE (1 - 1-dose 75+ series) 2046 HEPATITIS A VACCINES Aged Out 03/04/2001, 04/11/19 [...] topic Medical Devices Not on file Insurance [employer]3 [employer] [place] [address] [place] [address] C3 A[employer] Care Teams Contract Programmer Relationship Specialty Start Date End Date Charlie Lucia MD [address] [place] [address] [address] [place] [address] PCP - General 04/08/17 Additional Source Comments The information contained in this document represents components of the legal health record. It is not the complete legal health record.[facility]
--- OUTSIDE RECORDS SUMMARY | 2025-04-05 15:24 | XMS_ITS | Encounter Summary ---
Author Organization [employer] Address [address] [facility] 7[address] [place] [address] Care Team Providers Care Wastewater Analyst Lab Analyst Name Role Phone Derek Segovia MD Primary Care Prov ider Heather Navarrete RN Unavailable [phone] Judith Pack Unavailable Reason for Visit * Reason Onset Date Comments Results 03/31/2025 Encounter Details Date Type Department Care Team (Late st Contact Info) Description 03/31/2025 Results Follow-Up [facility] MED & PEDS [address] [place], [place] [phone] Pamela Dennis MD [address] [place] [address] HIV-1/2 Antigen and Antibodies, Fourth Generation, with Reflexes, Hepatitis C Antibody with Reflex to HCV, RNA, Quantitative, Real-Time PCR, Pap Smear Social History Tobacco Use Types Packs/Day Years [...] the past 12 months, has t he [employer], gas, oil or water [employer] threatened to shut off services in your [...] encounter Miscellaneous Notes * Telephone Encounter - Cris Parra RN - 04/04/2025 3:41 PM EDT TC to pt to review results and recommendations. Pt states unknown having a Hep C exposure in past. Education given on HepC antibodies vs viral load/RNA testing. Pt verbalized understanding and agreement with plan. * Telephone Encounter - Cris Parra RN - 04/04/2025 3:38 PM EDT ----- Message from Pamela Dennis MD sent at 03/31/2025 9:20 AM EDT ----- Don Navarro Team! Can you please call Jaye Marrero and inform about results? Patient with BV on sample, NILM, nHRHPV, repeat in 5 years. Also labs order, showed positive HCV but negative RNA, meaning in the past she had been exposed to Hepatitis C but her body either cleared it on its own, or she had treatment for it. Thanks! Pamela ----- Message ----- From: Interface, Lab Results In Sent: 03/23/2025 6:01 AM EDT To: Pamela Dennis MD documented in this encounter Plan of Treatment Upcoming Encounters Date Type Department Care Team ([facility] st Contact Info) Description 04/11/2025 11:00 AM EDT Clinical Support [facility] MED & PEDS [address] [place] [address] documented as of this encounter Visit Diagnoses Not on filedocumented in this encounter Additional Health Concerns Assessment Noted Time PHQ-9 Depression Total Score: 16 025 12:02 PM EDT documented as of this encounter Care Teams Wastewater Analyst Lab Analyst Relationship Specialty Start Date End Date Derek Segovia MD [address] [place] [address] PCP - General Internal Medicine 11/21/19 Heather Navarrete RN [address] [place] [address] Registered Nurse Family Medicine 12/29/24 Judith Pack 12/29/24 documented as of this encounter
--- OUTSIDE RECORDS SUMMARY | 2025-04-05 15:24 | XMS_ITS ---
Author Organization [employer] Address [address] [facility] 7t [place] [address] Care Team Providers Care Farm Equipment Maintenance Supervisor Name Role Phone Derek Segovia MD Primary Care Prov ider Heather Navarrete RN Unavailable [phone] Judith Pack Unavailable CM Complex Status:Outreach In Progress (Enrolling) Start date:12/29/2024 Enrollment reason:ADT Feed Overview ED- Pt went to [facility] ED on 12/28/24. Case Team Name Relationship Phone Heather Navarrete RN(Responsible Staff) Registered Nurse [phone] Continued Care and Services Coordination
--- OUTSIDE RECORDS SUMMARY | 2025-04-05 15:24 | XMS_ITS ---
Author Organization [employer] Address [address] [facility] 7t [place] [address] Care Team Providers Care Payroll Lead Name Role Phone Derek Segovia MD Primary Care Prov ider Heather Navarrete RN Unavailable [phone] Judith Pack Unavailable CHW Complex Status:Outreach In Progress (Enrolling) Start date:12/29/2024 Enrollment reason:ADT Feed Overview ED- Pt went to [facility] ED on 12/28/24. Case Team Name Relationship Phone Judith Pack(Responsible Staff) [phone] Continued Care and Services Coordination
--- OUTSIDE RECORDS SUMMARY | 2025-04-05 15:24 | XMS_ITS | Clinical Summary ---
Author Organization [employer] Address [address] [facility] 7t [place] [address] Care Team Providers Care Chlorine Cell Tender Name Role Phone Derek Segovia MD Primary Care Prov ider Heather Navarrete RN Unavailable [phone] Judith Pack Unavailable Allergies Active Allergy [...] 1 kit in the morning. 1 kit 4 Active Nicoderm CQ 21 MG/24HR patch Apply 1 patch topically 1 (one) time each day at the same time. 4 Active buPROPion SR (Wellbutrin SR) 100 MG 12 hr tablet Take 1 tablet (100 mg) by mouth Once per day. Do not crush, chew, or split. 30 tablet 11 4 Active cetirizine (ZyrTEC) 10 MG tablet Take 1 tablet (10 mg) by mouth Once per day. 30 tablet 5 4 Active meclizine (Antivert) 25 MG tablet 1 tab po BID 60 tablet 3 4 Active celecoxib (CeleBREX) 200 MG capsule TAKE 1 CAPSULE BY MOUTH 2 TIMES DAILY. 60 capsule 5 Active amLODIPine (Norvasc) 10 MG tablet Take 1 tablet (10 mg) by mouth Once per day. 90 tablet 1 5 Active olmesartan (BENIcar) 5 MG tablet Take 1 tablet (5 mg) by mouth Once per day. 90 tablet 1 5 Active metroNIDAZOLE (Flagyl) 500 MG tablet Take 1 tablet (500 mg) by mouth 2 times daily for 7 days. 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 PLAN: 1. Follow up with [facility]: Not recommended for follow-up 2. Patient goal [...] Encounters Date Type Department Care Team Description 03/31/2025 Results Follow-Up [facility] MED & PEDS [address] [place] [address] Pamela Dennis MD HIV-1/2 Antigen and Antibodies, Fourth Generation, with Reflexes, Hepatitis C Antibody with Reflex to HCV, RNA, Quantitative, Real-Time PCR, Pap Smear 03/22/2025 9:40 AM EDT Procedure Visit [facility] MED & PEDS [address] [place] [address] Pamela Dennis MD Cervical cancer screening (Primary Dx); Encounter for immunization; Screening for lung cancer; Primary hypertension 03/22/2025 Orders Only [facility] MED & PEDS [address] [place] [address] Pamela Dennis MD 03/22/2025 Travel 03/21/2025 Telephone [facility] MED & PEDS [address] [place] [address] Derek Segovia MD chart prep 03/13/2025 Orders Only [facility] External Provider, [facility] 03/07/2025 Patient Outreach [facility] MED & PEDS [address] [place] [address] Derek Segovia MD Care Coordination (C3/CM Outreach) 03/07/2025 Travel 02/18/2025 9:45 AM EDT Telemedicine [facility] MED & PEDS [address] [place] [address] Derek Segovia MD Screening for colon cancer (Primary Dx); Encounter for screening mammogram for malignant neoplasm of breast; Primary hypertension 02/18/2025 Travel 02/17/2025 Telephone [facility] MED & PEDS [address] [place] [address] Derek Segovia MD chart prep 02/15/2025 Patient Outreach [facility] MED [facility] PEDS [address] [place] [address] Derek Segovia MD 02/10/2025 Patient Outreach [facility] MED [facility] PEDS [address] [place] [address] Derek Segovia MD Care Coordination (C3/CM Outreach) 01/26/2025 Refill [facility] MED [facility] PEDS [address] [place] [address] Hui Wright MD 01/12/2025 Patient Outreach [facility] MED [facility] PEDS [address] [place] [address] Derek Segovia MD 01/10/2025 Patient Outreach [facility] MED [facility] PEDS [address] [place] [address] Derek Segovia MD Care Coordinatrion (C3/CM Outreach) from Last 3 Months Immunizations Immunization Administration [...] the past 12 months, has t he hike, gas, oil or water company threatened to [...] 11:00 AM EDT Clinical Support [facility] MED & PEDS [address] [place] [address] Health Maintenance Due Date Last Done Comments CT Colonography 1970 Colonoscopy 1971 Colorectal Cancer Screening 1971 FIT DNA/Cologuard 1971 FIT 1970 FOBT 1970 Sigmoidoscopy 1971 Pneumococcal Vaccine: 50+ Years (1 of 2 - PCV) 1990 Mammogram 2011 Zoster Vaccines (1 of 2) 2021 Lung Cancer Screening 05/02/2024 05/02/2023 SDOH Screening 11/05/2024 11/06/2023 COVID-19 Vaccine ( season) 2025 Depression Monitoring 09/19/2025 03/22/2025, 025 Alcohol/Substance Use Screening 03/22/2026 03/22/2025 Disability Screening 03/22/2026 03/22/2025 Tobacco Screening 03/31/2026 03/31/2025 Cervical Cancer Screening 03/22/2030 HPV/Cotest 03/22/2030 Lipid Panel 03/22/2030 03/22/2025, 03/13/2024 Pap Smear 03/22/2030 03/22/2025 DTaP/Tdap/Td Vaccines (4 - Td or Tdap) 03/22/2035 03/22/2025, 06/21/2011, 01/15/2011, Additional history exists RSV Patients and Patients Aged 60 years or older (1 - 1-dose 75+ series) 2046 Hepatitis B Vaccines Completed 05/25/1997, 08/06/1995, 04/23/1995 Hepatitis A Vaccines Aged Out 03/04/2001, 04/11/19 99 No longer eligible based on patient's age to complete this topic HIV Screening Completed 03/22/2025 Hepatitis C Screening Completed 03/22/2025, 025 Influenza Vaccine Completed 03/22/2025, , 05/26/2017, Additional [...] Procedure Name Priority Date/Time Associated Diagnosis Comments HEPATITIS C VIRAL RNA, QUANTITATIVE, REAL-TIME PCR Routine 03/22/2025 10:55 AM EDT HEPATITIS C AB W/REFL TO HCV RNA, QN, PCR Routine 03/22/2025 10:55 AM EDT Encounter for immunization HIV 1/2 ANTIGEN/ANTIBODY, FOURTH GENERATION W/RFL Routine 03/22/2025 10:55 AM EDT Encounter for immunization TSH W/REFLEX TO FT4 Routine 03/22/2025 1 0:55 AM EDT Primary hypertension LIPID PANEL, STANDARD Routine 03/22/2025 10:55 AM EDT Primary hypertension COMPREHENSIVE METABOLIC PANEL Routine 03/22/2025 10:55 AM EDT Primary hypertension CBC WITH AUTO DIFFERENTIAL Routine 03/22/2025 10:55 AM EDT Primary hypertension PAP SMEAR Routine 03/22/2025 12:00 AM EDT Cervical cancer screening MR SHOULDER WO CONTRAST LEFT Routine 03/15/2025 11:01 PM EDT LDCT LUNG SCREENING Routine 05/02/2023 4 :21 PM EST from Last 3 Months or Most Recently Relevant to Health Maintenance Results * TSH W/Reflex to FT4 (03/22/2025 10:55 AM EDT) TSH reflex Free T4 2.73 0.32 - 4.0 uIU/mL [facility] Blood Venous blood specimen / Unknown 03/22/2025 10:55 AM EDT 03/22/2025 2:09 PM EDT Derek Ruiz MD LAB BLOOD ORDERABL ES Final Result Performing Organization Address [facility]/ZIP Co de Phone Number [facility] [address] [place] [phone] * Hepatitis C Viral RNA, Quantitative, Real-Time PCR (03/22/2025 10:55 AM EDT) [facility] Hepatitis C Viral Load <15 NOT DETECTED NOT DETECTED IU/mL [facility] HCV Log PCR <1.18 NOT DETECTED NOT DETECTED Log IU/mL [facility] Comment:For additional infor mation, please refer tohttp://education.UpOut/faq/DSW52q5(This link is being provided for informational/educational purposes only.)THIS TEST WAS PERFORMED AT:[employer] [place] [phone] WOODS MD 03/22/2025 10:5 5 AM EDT 03/24/2025 1:46 PM EDT us Pamela Dennis MD LAB BLOOD ORDERABLES Final Re sult Performing Organization Address [facility] Co de Phone Number [facility] [address] [place] [address] [phone] * (ABNORMAL) CBC auto differential (03/22/2025 10:55 AM EDT) [facility] White Blood Count 6.4 4.8 - 10.8 X10*3/uL [facility] Red Blood Count 4.52 4.20 - 5.50 X10*6/uL [facility] Hemoglobin 13.6 12.0 - 16.0 g/dl [facility] Hematocrit 40.5 37.0 - 47.0 % [facility] Mean Corpuscular Volume 89.6 80.0 - 98.0 fL [facility] Mean Corpuscular Hemoglobin 30.1 27.0 - 33.0 pg [facility] Mean Corpuscular HGB Conc 33.6 31.0 - 35.0 g/dl [facility] Red Cell Distribution Width 13.2 11.0 - 16.0 % [facility] Platelet Count 217 160 - 400 X10*3/uL [facility] Mean Platelet Volume 11.2 9.4 - 12.3 fL [facility] Neutrophils Percent Auto 51.0 45 - 73 % [facility] Imm Gran Pct Auto 0.3 0.0 - 0.4 % [facility] Lymphocytes Percent Auto 40.1(H) 20 - 40 % [facility] Monocytes Percent Auto 6.7 2 - 11 % [facility] Eosinophils Percent Auto 1.4 0 - 4 % [facility] Basophils Percent Auto 0.5 0 - 2 % [facility] NRBC Pct Auto 0.0 0.0 - 0.2 /100WBC [facility] Neutrophils Absolute Auto 3.3 2.0 - 8.3 x10*3/uL [facility] Imm Gran Abs Auto 0.02 0.00 - 0.03 X10*3/uL [facility] Lymphocytes Absolute Auto 2.6 1.2 - 4.9 X10*3/uL [facility] Monocytes Absolute Auto 0.4 0.1 - 1.2 X10*3/uL [facility] Eosinophils Absolute Auto 0.1 0.0 - 0.4 X10*3/uL [facility] Basophils Absolute Auto 0.0 0.0 - 0.2 X10*3/uL [facility] NRBC Abs Auto 0.000 0.0 - 0.012 X10*3/uL [facility] Blood Venous blood specimen / Unknown 03/22/2025 10:55 AM EDT 03/22/2025 2:09 PM EDT us Derek Ruiz MD LAB BLOOD ORDERABL ES Final Result [facility] [address] [place] [phone] [phone] * (ABNORMAL) Hepatitis C Antibody with Reflex to HCV, RNA, Quantitative, Real- Time PCR (03/22/2025 10:55 AM EDT) Hepatitis C Antibody Reactive( A) Nonreactive [facility] Comment:Presumptive evidence of antibodies to HCV. Blood Venous blood specimen / Unknown 03/22/2025 10:55 AM EDT 03/22/2025 2:09 PM EDT us Pamela Dennis MD LAB BLOOD ORDERABLES Final Re sult Performing Organization Address City/[facility]/ZIP Co de Phone Number [facility] [address] [place] [address] [phone] * HIV-1/2 Antigen and Antibodies, Fourth Generation, with Reflexes (03/22/2025 10:55 AM EDT) HIV AB/AG Nonreactive Nonreactive [facility] Comment:HIV-1 p24 Ag and/or HIV-1/HIV-2 Ab not detected.A test result that is nonreactive does not exclude thepossibility of exposure to or infection with HIV-1 and/orHIV-2. Nonreactive results in this assay for individualswith prior exposure to HIV-1 and/or HIV-2 may be due toantigen and antibody levels that are below the limit ofdetection of this assay.The [employer] HIV Ag/Ab Combo assay result andsupplemental assay results should be interpreted inconjunction with the patient's clinical presentation,history and other laboratory results. If the results areinconsistent with clinical evidence, additional testing issuggested to confirm the result. Blood Venous blood specimen / Unknown 03/22/2025 10:55 AM EDT 03/22/2025 2:09 PM EDT us Pamela Dennis MD LAB BLOOD ORDERABLES Final Re sult Performing Organization Address City/[facility]/ZIP Co de Phone Number [facility] [address] [place] [phone] [phone] * (ABNORMAL) Lipid Panel, Standard (03/22/2025 10:55 AM EDT) Triglycerides 186(H) <150 mg/dL [facility] Comment:Desirable Triglyceri de: less than 150 mg/dLBorderline High Triglyceride 150-199 mg/dLHigh Triglyceride: 200-499 mg/dLVery High Triglyceride: greater than or equal to 5OO mg/dL Cholesterol 224(H) <200 mg/dL [facility] Comment:Desirable Cholestero l: less than 200 mg/dLBorderline High Cholesterol: 200-239 mg/dLHigh Cholesterol: greater than 239 mg/dL LDL Cholesterol Calculated 133(H) <100 mg/dL [facility] Comment:Desirable LDL: less than 100 mg/dLNear Optimal/Above Optimal LDL: 110- 129 mg/dLBorderline High LDL: 130-159 mg/dLHigh LDL: 160-189 mg/dLVery High LDL: greater than or equal to 190 mg/dL HDL Cholesterol 54 >40 mg/dL [facility] Comment:Desirable HDL: great er than 40 mg/dL Note: This HDL assay may give artificially low results in patients with liver disease. Blood Venous blood specimen / Unknown 03/22/2025 10:55 AM EDT 03/22/2025 2:09 PM EDT us Derek Ruiz MD LAB BLOOD ORDERABL ES Final Result [facility] [address] [place], [place] [phone] * (ABNORMAL) Comprehensive Metabolic Panel (03/22/2025 10:55 AM EDT) Sodium 142 135 - 145 mmol/L [facility] Potassium 4.0 3.3 - 5.1 mmol/L [facility] Comment:Slight Hemolysis.Int erpret result with caution. Chloride 106 96 - 108 mmol/L [facility] Carbon Dioxide 27 22 - 29 mmol/L [facility] Anion Gap 13 12 - 20 [facility] Urea Nitrogen (BUN) 12 9 - 16 mg/dL [facility] Creatinine, Serum 0.69 0.5 - 1.4 mg/dL [facility] Estimated Glomerular Filt Rate >60 [facility] Comment:Chronic Kidney Disea se: Estimated GFR < 60 mL/min/1.02a7Rggooi Kidney Disease: Estimated GFR < 15 mL/min/1.73m2 Glucose 61 60 - 115 mg/dL [facility] Calcium 9.9 8.4 - 10.2 mg/dL [facility] Bilirubin, Total 0.3 0.0 - 1.0 mg/dL [facility] Aspartate Amino Transferase 36(H) 5 - 31 U/L [facility] Comment:Slight Hemolysis.Int erpret result with caution. Alanine Aminotransferase 34(H) 0 - 31 U/L [facility] Total Protein 7.4 6.5 - 8.0 g/dL [facility] Albumin Level 4.3 3.5 - 5.0 g/dL [facility] Alkaline Phosphatase 91 39 - 117 U/L [facility] Blood Venous blood specimen / Unknown 03/22/2025 10:55 AM EDT 03/22/2025 2:09 PM EDT us Derek Ruiz MD LAB BLOOD ORDERABL ES Final Result [facility] [address] [place] [phone] * Pap Smear (03/22/2025 12:00 AM EDT) Swab Cervical swab / Unknown 03/22/2025 03/23/2025 6:10 AM EDT Narrative [facility] - 03/30/2025 6:54 PM EDT ----- ------- Name: Jaye Marrero Age/Sex: 55/F : 1970 Unit#: [id number] Attend Dr: Re03/22/25 Status: PRE REF Location: [facility] Disch: ----- ------- SPEC : [id number] RECD: 03/23/25 STATUS: ASHLEE MARTINEZ NUM: [id number] CHE: 03/22/25-[address]: Pamela Dennis MD ENTERED: 03/23/25 SP TYPE: Pap Smr OTHR DR: ORDERED: Pap Smear, PAP path review Interpretation General Category: Negative for intraepithelial lesion/malignancy. Adequacy: Endocervical component absent. Interpretation: Reactive cellular changes. Coccobacilli consistent with shift in vaginal billie. Hyperkeratosis and parakeratosis. Clinical Information LMP: Post menopausal Previous PAP test: Other surgery: Other history: Material Received ThinPrep-Cervical ----- ------- Signed (signature on file) Allyssa John 03/30/25 1854 ----- ------- END OF REPORT us Pamela Dennis MD LAB CYTOLOGY ORDERABLES Final Result Performing Organization Address City/State/[facility] Co de Phone Number [facility] [address] [place] [phone] * MR Shoulder w/o Contrast Left (03/15/2025 11:01 PM EDT) Anatomical Region Laterality Modality Upper Extremities, Shoulder Left Magn etic Resonance 03/15/2025 11:0 1 PM EDT Narrative 03/15/2025 11:02 PM EDT [address] [address] Magnetic Resonance Report Signed Patient: Jaye Marrero MR#: [id number] 223 : 1970 Acct:[id number] Age/Sex: 55 / F ADM Date: 03/13/25 Loc: HO.MRI Attending Dr: Simon Jolly MD Ordering Physician: Simon Jolly MD Date of Service: 03/13/25 Procedure(s): MR shoulder LT wo con Accession Number(s): [id number] cc: Derek Segovia MD; Simon Jolly MD [...] in OV> 03/15/252301 DD/ 00 TD/TT: 03/15/252300 System Safety Manager: Procedure Note Donotuseinterpreter, Image - 03/15/2025 [place] [address] Magnetic Resonance Report Signed Patient: Liyah Marrero#: [id number] 223 : 1970Acct:[id number] Age/Sex: 55 / FADM Date: 03/13/25 Loc: HO.MRI Attending Dr: Simon Jolly MD Ordering Physician: Simon Jolly MD Date of Service: 03/13/25 Procedure(s): MR shoulder LT wo con Accession Number(s): [id number] cc: Derek Segovia MD; Simon Jolly MD [...] in OV> 03/15/252301 DD/ 00 TD/TT: 03/15/252300 System Safety Manager: us [facility] External Provider IMG MRI PROCEDURES Edited Result - Final * CT Lung Screening Low dose (05/02/2023 4:21 PM EST) Anatomical Region Laterality Modality Lung Computed Tomogra phy 05/02/2023 4:21 PM EST Narrative 05/09/2023 8:52 AM EST [address] [address] [address] Scan Report Signed Patient: Jaye Marrero MR#: [id number] 223 : 1970 Acct:[id number] Age/Sex: 53 / F ADM Date: 05/02/23 Loc: HO.CT Attending Dr: Velma Leija PA-C Ordering Physician: Velma Leija PA-C Date of Service: 05/02/23 Procedure(s): CT lung screening Accession Number(s): [id number] cc: Derek Segovia MD; Velma Leija PA-C [...] in OV> 05/09/23 0848 DD/ 1621 TD/TT: System Safety Manager: WEI Procedure Note Donotuseinterpreter, Image - 05/09/[address] [place] [address] [address] Scan Report Signed Patient: Liyah Marrero#: [id number] 223 : 1970Acct:[id number] Age/Sex: 53 / FADM Date: 05/02/23 Loc: HO.CT Attending Dr: Velma Leija PA-C Ordering Physician: Velma Leija PA-C Date of Service: 05/02/23 Procedure(s): CT lung screening Accession Number(s): [id number] cc: Derek Segovia MD; Velma Leija PA-C [...] in OV> 05/09/23 0848 DD/ 1621 TD/TT: System Safety Manager: WEI [facility] External Provider IMG CT PROCEDURES Final Result from Last 3 Months or Most Recently Relevant to Health Maintenance Insurance Care Teams Chlorine Cell Tender Relationship Specialty Start Date End Date Derek Segovia MD [address] [place] [address] PCP - General Internal Medicine 11/21/19 Heather Navarrete RN [address] [place] [address] Registered Nurse Family Medicine 12/29/24 Judith Pack 12/29/24
--- OUTSIDE RECORDS SUMMARY | 2025-04-05 15:24 | XMS_ITS | Encounter Summary ---
Author Organization [employer] Address [address] [facility] 7t [place] [address] Care Team Providers Care Sole Trimmer Name Role Phone Derek Segovia MD Primary Care Prov ider Heather Navarrete RN Unavailable [phone] Judith Pack Unavailable Reason for Visit * Reason Onset Date Comments Nurse Triage 11/18/2023 Encounter Details Date Type Department Care Team ([facility] st Contact Info) Description 11/18/2023 Telephone [facility] [address] [place], [place] [phone] Derek Segovia MD [address] [place] [address] Nurse Triage Social History Tobacco Use Types [...] accepted this outcome Please contact pt at [phone] documented in this encounter Plan of Treatment Upcoming Encounters Date Type Department Care Team ([facility] st Contact Info) Description 04/11/2025 11:00 AM EDT Clinical Support [facility] [address] [place] [address] documented as of this encounter Visit Diagnoses Not on filedocumented in this encounter Additional Health Concerns Assessment Noted Time PHQ-9 Depression Total Score: 7 11/11/19 24 12:57 PM EDT documented as of this encounter Care Teams Sole Trimmer Relationship Specialty Start Date End Date Derek Segovia MD [address] [place] [address] PCP - General Internal Medicine 11/21/19 Heather Navarrete RN [address] [place] [address] Registered Nurse Family Medicine 12/29/24 Judith Pack 12/29/24 documented as of this encounter
--- OUTSIDE RECORDS SUMMARY | 2025-04-05 15:24 | XMS_ITS | Encounter Summary ---
Author Organization [facility] Address [address] [place] [address] Phone Care Team Providers Care Mattress Stripper Name Role Phone Charlie Lucia MD Primary Care Provide r Dany Chappell MD Unavailable Shashi Garcia MD Unavailable [phone] Mamta Sarmiento MD Unavailable [phone] Encounter Details Date Type Department Care Team (Latest Contact Info) Description 11/20/2017 Transcribe Orders [facility] Specimen Processing [address] [place] [address] Hayden Argueta MD [address] [place] [address], [address] [place] [address] [email or web address] Diagnosis unknown (Primary Dx) Social History [...] (11/20/2017 2:11 PM EDT) SPECIMEN SOURCE CSF [facility] DPT OF LAB MED AND PAT+ B.BURGDORFERI PCR Negative Negative [facility] D[facility] OF LAB MED AND PAT+ B.MAYONII PCR Negative Negative [facility] DPT OF LAB MED AND PAT+ B.GARINII/AFZELI Negative Negative [facility] DPT OF LAB MED AND PAT+ Comment SEE NOTE [facility] DPT OF LAB MED AND PAT+ Comment: (NOTE) If clinical features of illness are highly indicative of Lyme neuroborreliosis, additional serological testing would be recommended. ADDITIONAL INFORMATION This test was developed and its performance characteristics determined by [facility] in a manner consistent with CLIA requirements. This test has not been cleared or approved by the U.S. Food and Drug Administration. Other (Spinal Fluid) 11/20/2017 2:11 PM EDT 11/20/2017 2:13 PM EDT Hayden Argueta MD BODY FLUIDS AND STOOLS ORDER CECELIA Final Result [facility] DPT OF LAB MED AND PAT+ [address] [place] [address] * Angiotensin converting enzyme, CSF (11/20/2017 2:11 PM EDT) ANGIOTENSIN CONVERT ENZYME, CS 1.2 0.0 - 2.5 U/L [facility] Comment: (NOTE) This test was developed and its performance characteristics determined by [facility]. The U.S. Food and Drug Administration has not approved or cleared this test; however, FDA clearance or approval is not currently required for clinical use. The results are not intended to be used as the sole means for clinical diagnosis or patient management decisions. Performed by [facility], [address] [place] [id number] [email or web address], Julian Sanon MD - Lab. Director Test Performed by: [facility] [address] [place] [id number] Cerebrospinal Fluid (Cerebrospinal Fluid) 11/20/2017 2:11 PM EDT 11/20/2017 2:13 PM EDT Hayden Argueta MD BODY FLUIDS AND STOOLS ORDER CECELIA Final Result Performing Organization Address [facility] de Phone Number [facility] * IgG index/synthesis rate, CSF (11/20/2017 2:11 PM EDT) IgG Index (CSF/Ser) 0.[address] <=[address] [facility] DPT OF LAB MED AND PAT+ IGG,CSF 1.6 <=8.1 mg/dL [facility] DPT OF LAB MED AND PAT+ Comment: (NOTE) ADDITIONAL INFORMATION This test has been modified from the retail greeter's instructions. Its performance characteristics were determined by [facility] in a manner consistent with CLIA requirements. This test has not been cleared or approved by the U.S. Food and Drug Administration. ALBUMIN,CSF 17.5 <=27.0 mg/dL [facility] DPT OF LAB MED AND PAT+ Comment: (NOTE) ADDITIONAL INFORMATION This test has been modified from the retail greeter's instructions. Its performance characteristics were determined by [facility] in a manner consistent with CLIA requirements. This test has not been cleared or approved by the U.S. Food and Drug Administration. IGG/ALBUMIN,CSF 0.[address] [facility] DPT OF LAB MED AND PAT+ IgG Synthesis Rate 0.00 <=12 mg/[address] [facility] DPT OF LAB MED AND PAT+ IgG 817 767 - 1,590 mg/dL [facility] DPT OF LAB MED AND PAT+ Albumin 4,560 3,200 - 4,800 mg/dL [facility] DPT OF LAB MED AND PAT+ IgG/Albumin ratio 0.18 <=0.40 [facility] DPT OF LAB MED AND PAT+ Cerebrospinal Fluid (Cerebrospinal Fluid) 11/20/2017 2:11 PM EDT 11/20/2017 2:13 PM EDT us Hayden Argueta MD BODY FLUIDS AND STOOLS ORDER CECELIA Final Result Performing Organization Address City/[facility]/ZIP Co de Phone Number [facility] DPT OF LAB MED AND PAT+ [address] [place] [address] * Oligoclonal bands, Serum and CSF (11/20/2017 2:11 PM EDT) Oligoclonal bands 6 bands [facility] DPT OF LAB MED AND PAT+ CSF BANDS 6 bands [facility] DPT OF LAB MED AND PAT+ CSF OLIG BANDS INTERPRETATION [address] [facility] DPT OF LAB MED AND PAT+ Comment: (NOTE) The oligoclonal band assay detected 3 or fewer unique IgG bands in the CSF. This is a negative result. Cerebrospinal Fluid (Cerebrospinal Fluid) 11/20/2017 2:11 PM EDT 11/20/2017 2:13 PM EDT us Hayden Argueta MD BODY FLUIDS AND STOOLS ORDER CECELIA Final Result Performing Organization Address [facility] de Phone Number [facility] DPT OF LAB MED AND PAT+ [address] [place] [address] * Syphilis antibody, CSF (VDRL) (11/20/2017 2:11 PM EDT) VDRL Negative Negative [facility] Cerebrospinal Fluid (Cerebrospinal Fluid) 11/20/2017 2:11 PM EDT 11/20/2017 2:13 PM EDT us Hayden Argueta MD BODY FLUIDS AND STOOLS ORDER CECELIA Final Result Performing Organization Address [facility] Co de Phone Number [facility] LAB MED/[address] [place] [address] * Cryptococcal antigen, CSF (11/20/2017 2:11 PM EDT) CSF CRYPTOCOCCAL AG Negative Negative [facility] Comment: All cryptococal antigen will have a backup culture performed, please see separate lab report. Cerebrospinal Fluid (Cerebrospinal Fluid) 11/20/2017 2:11 PM EDT 11/20/2017 2:13 PM EDT us Hayden Argueta MD BODY FLUIDS AND STOOLS ORDER CECELIA Final Result Performing Organization Address City/[facility]/ZIP Co de Phone Number [address] [address] * (ABNORMAL) Mycobacterial culture/smear (11/20/2017 2:11 PM EDT) Specimen Source/ Description CSF [facility] Special Requests None [facility] SMEAR NO ACID FAST BACILLI OBSERVED(A) [facility] Culture/Test NO AFB ISOLATED AFTER 8 WEEKS [facility] Report Status 01/08/2018 FINAL [facility] Other (Cerebrospinal Fluid) 11/20/2017 2:11 PM EDT 11/20/2017 2:14 PM EDT us Hayden Argueta MD MICROBIOLOGY - GENERAL ORDER CECELIA Final Result Performing Organization Address [facility]/ZIP Co de Phone Number [address] [address] * Fungal culture (11/20/2017 2:11 PM EDT) Specimen Source/ Description CSF [facility] Special Requests None [facility] GRAM STAIN NO YEAST OR FUNGAL ELEMENTS SEEN [facility] Culture/Test NO FUNGUS OR YEAST ISOLATED AFTER 25 DAYS [facility] Report Status 12/15/2017 FINAL [facility] Other (Cerebrospinal Fluid) 11/20/2017 2:11 PM EDT 11/20/2017 2:14 PM EDT us Hayden Argueta MD MICROBIOLOGY - GENERAL ORDER CECELIA Final Result [address] [address] * Total protein, CSF (11/20/2017 2:11 PM EDT) CSF PROTEIN 25.5 15.0 - 45.0 mg/dL [facility] Cerebrospinal Fluid (Cerebrospinal Fluid) 11/20/2017 2:11 PM EDT 11/20/2017 2:13 PM EDT us Hayden Argueta MD BODY FLUIDS AND STOOLS ORDER CECELIA Final Result Performing Organization Address [facility]/ZIP Co de Phone Number [address] [address] * Glucose, CSF (11/20/2017 2:11 PM EDT) CSF GLUCOSE 59 45 - 70 mg/dL [facility] Cerebrospinal Fluid (Cerebrospinal Fluid) 11/20/2017 2:11 PM EDT 11/20/2017 2:13 PM EDT us Hayden Argueta MD BODY FLUIDS AND STOOLS ORDER CECELIA Final Result Performing Organization Address [facility] Co de Phone Number [address] [address] * Culture/smear, CSF (11/20/2017 2:11 PM EDT) Specimen Source/ Description CSF CSF CSF [facility] Special Requests None [facility] GRAM STAIN NO ORGANISMS SEEN Few WBC'S [facility] Culture/Test NO GROWTH 48HRS [facility] Report Status 11/22/2017 FINAL [facility] Cerebrospinal Fluid (Cerebrospinal Fluid) 11/20/2017 2:11 PM EDT 11/20/2017 2:13 PM EDT us Hayedn Argueta MD MICROBIOLOGY - GENERAL ORDER CECELIA Final Result Performing Organization Address [facility] Co de Phone Number [address] [address] * Cell count & differential, tube 4 (11/20/2017 2:11 PM EDT) CSF COLOR Colorless Colorless [facility] CSF TURBIDITY Clear Clear [facility] Nucleated cells, CSF 3 0 - 5 /uL [facility] Comment:Cell count less than 5, differential not done. RBC, CSF 0 0 - 10 /uL [facility] Tube #, CSF 4 [facility] PATH REVIEW NOT REQUIRED [facility] Cerebrospinal Fluid (Cerebrospinal Fluid) 11/20/2017 2:11 PM EDT 11/20/2017 2:13 PM EDT us Hayden Argueta MD BODY FLUIDS AND STOOLS ORDER CECELIA Final Result [facility] [address] [place] [address] documented in this encounter Visit Diagnoses Diagnosis Diagnosis unknown- Primary documented in this encounter Care Teams Mattress Stripper Relationship Specialty Start Date End Date Charlie Lucia MD [address] [phone] [email or web address] PCP - General 04/08/17 Dany Chappell MD [address] [place] [address] [email or web address] Historical LMR Provider 04/10/17 06/30/21 Shashi Garcia MD [address] [address] Historical LMR Provider 04/10/17 06/30/21 Mamta Sarmiento MD [address] [place] [address] Historical LMR Provider 04/10/17 2 documented as of this encounter Additional Source Comments The information contained in this document represents components of the legal health record. It is not the complete legal health record.[facility]
== END 2025-04-05 12:59 | disposition home or self-care (01) ==
LOC: HO.HOS 12:45
PROVIDERS: PCP Internal Medicine; Visit Provider Orthopaedic Surgery
DX: M75.42 Impingement syndrome of left shoulder (principal)
CPT/HCPCS: 99214

== ENCOUNTER → 2025-04-05 19:45 | Outpatient (BNV) | payer MEDICAID, SELFPAY | PROVIDERS: PCP Internal Medicine; Visit Provider Radiology Body Imaging | DX: M50.321 Other cervical disc degeneration at C4-C5 level (principal); M50.322 Other cervical disc degeneration at C5-C6 level | CPT/HCPCS: 72141 ==

== ENCOUNTER 2025-04-05 19:46 | Outpatient (REF) | payer MEDICAID, SELFPAY ==
--- NOTE | ~2025-04-05 | MR_ITS ---
EXAMINATION: MR CERVICAL SPINE WITHOUT CONTRAST CLINICAL INFORMATION: M54.2 - Cervicalgia COMPARISON: Radiographs of the cervical spine on September 15, 2023. MR of the cervical spine on August 30, 2015. TECHNIQUE: MRI of the cervical spine was obtained using routine sequences without contrast. FINDINGS: Alignment and vertebrae: Artifacts created by fusion hardware at C5-C6 limits local evaluation. Straightening of the cervical lordosis, with a focal subtle kyphosis at C4-C5. No subluxation. No compression fracture. Intervertebral discs: Partial fusion of C5 and C6 vertebrae. Mild loss of height of C4-C5 disc. Spinal cord: Mild flattening of the anterior contour of the spinal cord at C4-C5 level. No abnormal spinal cord signal. Soft tissues: Unremarkable prevertebral and posterior paraspinal soft tissues. Other findings: No suspicious findings in the included soft tissues. Findings by level: C2-C3: No spinal canal or neuroforaminal stenosis. C3-C4: No spinal canal or neuroforaminal stenosis. C4-C5: Disc osteophyte complex contributes to mild spinal canal stenosis and mild bilateral neuroforaminal stenosis. Findings have mildly progressed from 2016. C5-C6: Disc osteophyte complex contributes to mild bilateral neuroforaminal stenosis, mildly progressed from 2016. No spinal canal stenosis. C6-C7: No spinal canal or neuroforaminal stenosis. C7-T1: No spinal canal or neuroforaminal stenosis. MR/MR cervical spine wo con IMPRESSION: Mild degenerative changes at C4-C5 and C5-C6 as described above, mildly progressed from 2016. Electronically signed by: Hannah Bradley MD 04/06/2025 08:03 AM EDT
== END 2025-04-05 19:47 | disposition home or self-care (01) ==
LOC: HO.MRI 19:46
PROVIDERS: PCP Internal Medicine; Visit Provider Orthopaedic Surgery
DX: M54.2 Cervicalgia (principal)
CPT/HCPCS: 72141

== ENCOUNTER 2025-05-18 14:12 | Outpatient (AMB) | payer MEDICAID, SELFPAY ==
--- NOTE | 2025-05-18 14:25 | MHC.OFFVIS ---
Vital Signs 05/18/25 14:26 Height 5 ft 4 in Weight 202 lb BMI 34.7 BP 151/98 H Blood Pressure Location Rt brachial Position Sitting Pulse 83 Pulse Source Pulse Oximeter Handedness Right Intake Visit Reasons: Left shoulder pain and stiffness, Pre-Lt Shld 05/27/25 Intake Note: Jaye is a 55 year old female right hand dominant who presents with complaints of progressively worsening left shoulder pain and stiffness. The patient states that she had a stroke last year. Since that time she has had several falls. Since her most recent fall she has had weakness when lifting her left hand above shoulder height. She states that she did have cervical spine surgery approximately 10 years ago. She also reports intermittent numbness and tingling in her left upper extremity. She has failed the last 6 weeks of conservative treatment which has included Tylenol, Celebrex, a home exercise program and physical therapy exercises. Allergies morphine (MORPHINE) Allergy (Unknown, Verified 05/18/25 14:28) UNKNOWN naproxen (From NAPROSYN) Allergy (Unknown, Verified 05/18/25 14:28) GASTRITIS Sulfa (Sulfonamide Antibiotics) (SULFA (SULFONAMIDE ANTIBIOTICS)) Allergy (Unknown, Verified 05/18/25 14:28) RASH,HIVES,CHEST TIGHTNESS Medication List - Last Reconciled 05/18/25 by Simon Jolly MD albuterol sulfate 90 mcg/actuation 2 puffs inhalation Q4-6H PRN amlodipine 10 mg PO DAILY ibuprofen 400 mg PO Q6H PRN olmesartan 5 mg PO DAILY PFSH Medical History Hx of cocaine abuse Back pain Spinal stenosis Sleep apnea Asthma Murmur Elevated cholesterol Vertigo Numbness History of CVA with residual deficit CVA (cerebral vascular accident) (~10/2023) HTN (hypertension) Nicotine dependence, cigarettes, uncomplicated Cervical radiculopathy Insomnia Depression with anxiety Surgical History Hx of cervical spine surgery (~2010) Hx of surgical procedure History of breast surgery History of cholecystectomy History of appendectomy History of tubal ligation Social History Are you a primary child care associate teacher to a significant other at home: No Do you presently have visiting nurse or other home services: No Patient Tobacco Use Status: Current everyday Tobacco user Tobacco use type: Cigarette Cigarette Packs Per Day: 1.5 Cigarettes Per Day: 30.0 Physical Exam Vital Signs: Last Vital Signs Pulse 83 05/18/25 14:26 BP 151/98 H 05/18/25 14:26 BMI result Body Mass Index 34.7 Extrem Other: Left shoulder examination shows decreased active and passive range of motion when compared to her right shoulder, 4+ out of 5 strength with supraspinatus testing, positive impingement signs, tenderness over her acromioclavicular joint, no instability Results Reviewed Results Reviewed: MRI of the patient's left shoulder show severe acromioclavicular joint narrowing, a type 3 acromion, signal change within the supraspinatus tendon most likely due to adhesive capsulitis Assessment & Plan Assessment & Plan (1) Impingement syndrome of left shoulder: Code(s): M75.42 - Impingement syndrome of left shoulder Category: Medical Plan Ms. Marrero presents with progressively worsening left shoulder pain and stiffness due to impingement syndrome, acromioclavicular joint arthritis and adhesive capsulitis. I had a lengthy discussion with the patient regarding the treatment options. At this point she has failed continued non operative treatments. The risks and benefits of left shoulder surgery were discussed at length with the patient. The patient wishes to proceed with surgery. Surgery will most likely involve left shoulder arthroscopic distal clavicle excision, left shoulder arthroscopic acromioplasty, left shoulder arthroscopic capsular release and left shoulder manipulation under anesthesia. The patient will be given a prescription for pain medicine at the time of her surgery. She will follow up as instructed. Feel free to call me at any time should questions regarding her orthopedic management arise. I spent 20 minutes in reviewing the patient's records and imaging studies, seeing the patient and documenting in the medical record. Coding Level of Care Code Est Pt Level 3 (14894) Complex visit Add On G2211 Diagnoses Impingement syndrome of left shoulder M75.42
[2025-05-18 14:26] VITALS: BP 151/98; PULSE 83; BMI 34.7
--- OUTSIDE RECORDS SUMMARY | 2025-05-18 17:09 | XMS_ITS | Encounter Summary ---
Author Organization [employer] Address [address] [facility] 7t [place] [address] Care Team Providers Care Certified Real Estate Appraiser Name Role Phone Derek Segovia MD Primary Care Prov ider Heather Navarrete RN Unavailable Unavailable Judith Pack Unavailable Reason for Visit * Reason Onset Date Comments Nurse Triage 11/18/2023 Encounter Details Date Type Department Care Team ([facility] Contact Info) Description 11/18/2023 Telephone [facility] CHC MED & PEDS [address] [place], [place] [phone] Derek Segovia MD [address] [place] [address] Nurse Triage Social History Tobacco Use Types [...] accepted this outcome Please contact pt at [phone] documented in this encounter Plan of Treatment Not on file documented as of this encounter Visit Diagnoses Not on filedocumented in this encounter Additional Health Concerns Assessment Noted Time PHQ-9 Depression Total Score: 7 11/11/19 24 12:57 PM EDT documented as of this encounter Care Teams Certified Real Estate Appraiser Relationship Specialty Start Date End Date Derek Segovia MD [address] [place] [address] PCP - General Internal Medicine 11/21/19 Heather Navarrete RN [address] [place] [address] Registered Nurse Family Medicine 12/29/24 Judith Pack 12/29/24 documented as of this encounter
--- OUTSIDE RECORDS SUMMARY | 2025-05-18 17:09 | XMS_ITS ---
Author Organization [employer] Address [address] [place] [address] 7t [place] [address] Care Team Providers Care After School Coordinator Name Role Phone Derek Segovia MD Primary Care Prov ider Heather Navarrete RN Unavailable Unavailable Judith Pack Unavailable CHW Complex Status:Outreach In Progress (Enrolling) Start date:12/29/2024 Enrollment reason:ADT Feed Overview ED- Pt went to [facility] ED on 12/28/24. Case Team Name Relationship Phone Judith Pack(Responsible Staff) [phone] Continued Care and Services Coordination
--- OUTSIDE RECORDS SUMMARY | 2025-05-18 17:09 | XMS_ITS | Clinical Summary ---
Author Organization [facility] Address [address] [facility] [address] [place] [address] Phone Care Team Providers Care Doctor Assistant Name Role Phone Charlie Lucia MD Primary [...] on file Insurance [employer]3 A[employer] [place] [place] [address] [employer] Care Teams Doctor Assistant Relationship Specialty Start Date End Date Charlie Lucia MD [address] [place] [address] [address] [place] [address] PCP - General 04/08/17 Additional Source Comments The information contained in this document represents components of the legal health record. It is not the complete legal health record.[facility]
--- OUTSIDE RECORDS SUMMARY | 2025-05-18 17:09 | XMS_ITS | Encounter Summary ---
Author Organization [facility] Address [address] [facility] [address] [place] [address] Phone Care Team Providers Care Dumpcart Driver Name Role Phone Charlie Lucia MD Primary Care Provide r Dany Chappell MD Unavailable Shashi Garcia MD Unavailable Mamta Sarmiento MD Unavailable [phone] Encounter Details Date Type Department Care Team (Latest Contact Info) Description 11/20/2017 Transcribe Orders [facility] Specimen Processing [address] [place] [address] Hayden Argueta MD [address] [place] [address], [address] [place] [address] [email or web address] Diagnosis unknown (Primary Dx) [...] (11/20/2017 2:11 PM EDT) SPECIMEN SOURCE CSF [facility] DPT OF LAB MED AND PAT+ B.BURGDORFERI PCR Negative Negative [facility] DPT OF LAB MED AND PAT+ B.MAYONII PCR Negative Negative [facility] DPT OF LAB MED AND PAT+ B.GARINII/AFZELI Negative Negative [facility] DPT OF LAB MED AND PAT+ Comment SEE NOTE [facility] IC DPT OF LAB MED AND PAT+ Comment: (NOTE) If clinical features of illness are highly indicative of Lyme neuroborreliosis, additional serological testing would be recommended. ADDITIONAL INFORMATION This test was developed and its performance characteristics determined by [facility] in a manner consistent with CLIA requirements. This test has not been cleared or approved by the U.S. Food and Drug Administration. Other (Spinal Fluid) 11/20/2017 2:11 PM EDT 11/20/2017 2:13 PM EDT Hayden Argueta MD BODY FLUIDS AND STOOLS ORDER CECELIA Final Result [facility] DPT OF LAB MED AND PAT+ [address] [place] [address] * Angiotensin converting enzyme, CSF (11/20/2017 2:11 PM EDT) ANGIOTENSIN CONVERT ENZYME, CS 1.2 0.0 - 2.5 U/L [place] [facility] Comment: (NOTE) This test was developed and its performance characteristics determined by [facility]. The U.S. Food and Drug Administration has not approved or cleared this test; however, FDA clearance or approval is not currently required for clinical use. The results are not intended to be used as the sole means for clinical diagnosis or patient management decisions. Performed by [facility], [address] [place] [id number] [email or web address], Julian Sanon MD - Lab. Director Test Performed by: [facility] [address] [place] [id number] Cerebrospinal Fluid (Cerebrospinal Fluid) 11/20/2017 2:11 PM EDT 11/20/2017 2:13 PM EDT Hayden Argueta MD BODY FLUIDS AND STOOLS ORDER CECELIA Final Result Performing Organization Address [facility] de Phone Number [facility] * IgG index/synthesis rate, CSF (11/20/2017 2:11 PM EDT) IgG Index (CSF/Ser) 0.50 <=0.85 [facility] DPT OF LAB MED AND PAT+ IGG,CSF 1.6 <=8.1 mg/dL [facility] DPT OF LAB MED AND PAT+ Comment: (NOTE) ADDITIONAL INFORMATION This test has been modified from the rn research's instructions. Its performance characteristics were determined by [facility] in a manner consistent with CLIA requirements. This test has not been cleared or approved by the U.S. Food and Drug Administration. ALBUMIN,CSF 17.5 <=27.0 mg/dL [facility] DPT OF LAB MED AND PAT+ Comment: (NOTE) ADDITIONAL INFORMATION This test has been modified from the rn research's instructions. Its performance characteristics were determined by [facility] in a manner consistent with CLIA requirements. This test has not been cleared or approved by the U.S. Food and Drug Administration. IGG/ALBUMIN,CSF 0.09 <=0.21 [facility] DPT OF LAB MED AND PAT+ IgG Synthesis Rate 0.00 <=12 mg/24 h [facility] DPT OF LAB MED AND PAT+ IgG 817 767 - 1,590 mg/dL [facility] DPT OF LAB MED AND PAT+ Albumin 4,560 3,200 - 4,800 mg/dL [facility] DPT OF LAB MED AND PAT+ IgG/Albumin ratio 0.18 <=0.40 [facility] DPT OF LAB MED AND PAT+ Cerebrospinal Fluid (Cerebrospinal Fluid) 11/20/2017 2:11 PM EDT 11/20/2017 2:13 PM EDT us Hayden Argueta MD BODY FLUIDS AND STOOLS ORDER CECELIA Final Result Performing Organization Address City/[facility] de Phone Number [facility] DPT OF LAB MED AND PAT+ [address] [place] [address] * Oligoclonal bands, Serum and CSF (11/20/2017 2:11 PM EDT) Oligoclonal bands 6 bands [facility] DPT OF LAB MED AND PAT+ CSF BANDS 6 bands [facility] DPT OF LAB MED AND PAT+ CSF OLIG BANDS INTERPRETATION 0 <4 bands [facility] DPT OF LAB MED AND PAT+ Comment: (NOTE) The oligoclonal band assay detected 3 or fewer unique IgG bands in the CSF. This is a negative result. Cerebrospinal Fluid (Cerebrospinal Fluid) 11/20/2017 2:11 PM EDT 11/20/2017 2:13 PM EDT us Hayden Argueta MD LAB BODY FLUIDS AND STOOL OR DERABLES Final Result Performing Organization Address [facility] de Phone Number [facility] DPT OF LAB MED AND PAT+ [address] [place] [address] * Syphilis antibody, CSF (VDRL) (11/20/2017 2:11 PM EDT) VDRL Negative Negative [facility] Cerebrospinal Fluid (Cerebrospinal Fluid) 11/20/2017 2:11 PM EDT 11/20/2017 2:13 PM EDT us Hayden Argueta MD BODY FLUIDS AND STOOLS ORDER CECELIA Final Result Performing Organization Address [facility] Co de Phone Number [facility] LAB MED/[address] [place] [address] * Cryptococcal antigen, CSF (11/20/2017 2:11 PM EDT) CSF CRYPTOCOCCAL AG Negative Negative [facility] Comment: All cryptococal antigen will have a backup culture performed, please see separate lab report. Cerebrospinal Fluid (Cerebrospinal Fluid) 11/20/2017 2:11 PM EDT 11/20/2017 2:13 PM EDT us Hayden Argueta MD LAB BODY FLUIDS AND STOOL OR DERABLES Final Result Performing Organization Address City/[facility]/ZIP Co de Phone Number [address] [address] * (ABNORMAL) Mycobacterial culture/smear (11/20/2017 2:11 PM EDT) Specimen Source/ Description CSF [facility] Special Requests None [facility] SMEAR NO ACID FAST BACILLI OBSERVED(A) [facility] Culture/Test NO AFB ISOLATED AFTER 8 WEEKS [facility] Report Status 01/08/2018 FINAL [facility] Other (Cerebrospinal Fluid) 11/20/2017 2:11 PM EDT 11/20/2017 2:14 PM EDT us Hayden Argueta MD LAB MICROBIOLOGY CULTURE ORD ERABLES Final Result Performing Organization Address [facility]/ZIP Co de Phone Number [address] [address] * Fungal culture (11/20/2017 2:11 PM EDT) Specimen Source/ Description CSF [facility] Special Requests None [facility] GRAM STAIN NO YEAST OR FUNGAL ELEMENTS SEEN [facility] Culture/Test NO FUNGUS OR YEAST ISOLATED AFTER 25 DAYS [facility] Report Status 12/15/2017 FINAL [facility] Other (Cerebrospinal Fluid) 11/20/2017 2:11 PM EDT 11/20/2017 2:14 PM EDT us Hayden Argueta MD LAB MICROBIOLOGY CULTURE ORD ERABLES Final Result Performing Organization Address City/[facility]/ZIP Co de Phone Number [address] [address] * Total protein, CSF (11/20/2017 2:11 PM EDT) CSF PROTEIN 25.5 15.0 - 45.0 mg/dL [facility] Cerebrospinal Fluid (Cerebrospinal Fluid) 11/20/2017 2:11 PM EDT 11/20/2017 2:13 PM EDT us Hayden Argueta MD LAB BODY FLUIDS AND STOOL OR DERABLES Final Result Performing Organization Address [facility]/ZIP Co de Phone Number [address] [address] * Glucose, CSF (11/20/2017 2:11 PM EDT) CSF GLUCOSE 59 45 - 70 mg/dL [facility] Cerebrospinal Fluid (Cerebrospinal Fluid) 11/20/2017 2:11 PM EDT 11/20/2017 2:13 PM EDT us Hayden Argueta MD BODY FLUIDS AND STOOLS ORDER CECELIA Final Result Performing Organization Address [facility] Co de Phone Number [address] [address] * Culture/smear, CSF (11/20/2017 2:11 PM EDT) Specimen Source/ Description CSF CSF CSF [facility] Special Requests None [facility] GRAM STAIN NO ORGANISMS SEEN Few WBC'S [facility] Culture/Test NO GROWTH 48HRS [facility] Report Status 11/22/2017 FINAL [facility] Cerebrospinal Fluid (Cerebrospinal Fluid) 11/20/2017 2:11 PM EDT 11/20/2017 2:13 PM EDT us Hayden Argueta MD LAB MICROBIOLOGY CULTURE ORD ERABLES Final Result Performing Organization Address [facility]/ZIP Co de Phone Number [address] [address] * Cell count & differential, tube 4 (11/20/2017 2:11 PM EDT) CSF COLOR Colorless Colorless [facility] CSF TURBIDITY Clear Clear [facility] Nucleated cells, CSF 3 0 - 5 /uL [facility] Comment:Cell count less than 5, differential not done. RBC, CSF 0 0 - 10 /uL [facility] Tube #, CSF 4 [facility] PATH REVIEW NOT REQUIRED [facility] Cerebrospinal Fluid (Cerebrospinal Fluid) 11/20/2017 2:11 PM EDT 11/20/2017 2:13 PM EDT us Hayden Argueta MD LAB BODY FLUIDS AND STOOL OR DERABLES Final Result [facility] [address] [place] [address] documented in this encounter Visit Diagnoses Diagnosis Diagnosis unknown- Primary documented in this encounter Care Teams Dumpcart Driver Relationship Specialty Start Date End Date Charlie Lucia MD [address] [facility] [address] [place] [phone] [email or web address] PCP - General 04/08/17 Dany Chappell MD [address] [place] [phone] [email or web address] Historical LMR Provider 04/10/17 06/30/21 Shashi Garcia MD [address] [address] Historical LMR Provider 04/10/17 06/30/21 Mamta Sarmiento MD [address] [place] [address] Historical LMR Provider 04/10/17 2 documented as of this encounter Additional Source Comments The information contained in this document represents components of the legal health record. It is not the complete legal health record.[facility]
--- OUTSIDE RECORDS SUMMARY | 2025-05-18 17:09 | XMS_ITS | Encounter Summary ---
Author Organization [facility] Address [address] [facility] [address] [place] [address] Phone Care Team Providers Care Solar Photovoltaic Crew Lead Name Role Phone Charlie Lucia MD Primary Care Provide r Dany Chappell MD Unavailable [phone] Shashi Garcia MD Unavailable [phone] Mamta Sarmiento MD Unavailable [phone] Encounter Details Date Type Department Care Team (Latest Contact Info) Description 11/20/2017 Transcribe Orders [facility] Phleb Main [address] [place] [phone] Hayden Argueta MD [address] [place] [address], [address] [place] [address] [email or web address] Numbness (Primary Dx); Intractable headache, unspecified [...] TOTAL PROTEIN 6.9 6.3 - 7.9 g/dL [facility] DPT OF LAB MED AND PAT+ ALBUMIN 3.5 3.4 - 4.7 g/dL [facility] DPT OF LAB MED AND PAT+ ALPHA-1 GLOBULIN 0.3 0.1 - 0.3 g/dL [facility] DPT OF LAB MED AND PAT+ ALPHA-2 GLOBULIN 0.9 0.6 - 1.0 g/dL [facility] DPT OF LAB MED AND PAT+ BETA-GLOBULIN 1.3(H) 0.7 - 1.2 g/dL [facility] DPT OF LAB MED AND PAT+ GAMMA-GLOBULIN 1.0 0.6 - 1.6 g/dL [facility] DPT OF LAB MED AND PAT+ A/G RATIO 1.02 [facility] DPT OF LAB MED AND PAT+ M SPIKE Test component not applicable or not reported. not reported [facility] DPT OF LAB MED AND PAT+ M SPIKE Test component not applicable or not reported. not reported [facility] DPT OF LAB MED AND PAT+ IMPRESSION SEE NOTE [facility] DPT OF LAB MED AND PAT+ Comment: (NOTE) No apparent monoclonal protein on serum electrophoresis. Blood 11/20/2017 10:1 9 AM EDT 11/20/2017 10:22 AM EDT us Hayden Argueta MD LAB BLOOD BKR ORDERABLES Fin al Result [facility] DPT OF LAB MED AND PAT+ [address] [place] [address] documented in this encounter Visit Diagnoses Diagnosis Numbness- Primary Disturbance of skin sensation Intractable headache, unspecified chronicity pattern, unspecified headache type documented in this encounter Care Teams Solar Photovoltaic Crew Lead Relationship Specialty Start Date End Date Charlie Lucia MD [address] [place] [address] [address] [place] [phone] PCP - General 04/08/17 Dany Chappell MD [address] [place] [address] [email or web address] Historical LMR Provider 04/10/17 06/30/21 Shashi Garcia MD [address] [place] [address] [email or web address] Historical LMR Provider 04/10/17 06/30/21 Mamta Sarmiento MD [address] [place] [address] Historical LMR Provider 04/10/17 2 documented as of this encounter Additional Source Comments The information contained in this document represents components of the legal health record. It is not the complete legal health record.[facility]
--- OUTSIDE RECORDS SUMMARY | 2025-05-18 17:09 | XMS_ITS ---
Author Organization [employer] Address [address] [facility] 7t [place] [address] Care Team Providers Care Sinter Press Operator Name Role Phone Derek Segovia MD Primary Care Prov ider Heather Navarrete RN Unavailable Unavailable Judith Pack Unavailable CM Complex Status:Outreach In Progress (Enrolling) Start date:12/29/2024 Enrollment reason:ADT Feed Overview ED- Pt went to [facility] ED on 12/28/24. Case Team Name Relationship Phone Heather Navarrete RN(Responsible Staff) Registered Nurse Continued Care and Services Coordination
--- OUTSIDE RECORDS SUMMARY | 2025-05-18 17:10 | XMS_ITS | Encounter Summary ---
Author Organization [employer] Address [address] [facility] 7t [place] [address] Care Team Providers Care Hand Collator Name Role Phone Derek Segovia MD Primary Care Prov ider Heather Navarrete RN Unavailable Unavailable Judith Pack Unavailable Reason for Visit * Reason Onset Date Comments Medication Question 04/08/2025 Encounter Details Date Type Department Care Team ([facility] Contact Info) Description 04/08/2025 Telephone [facility] CHC MED & PEDS [address] [place], [place] [phone] Derek Segovia MD [address] [place] [address] Medication Question Social History Tobacco Use Types [...] having surgery in May Contact pt at [phone] documented in this encounter Plan of Treatment Not on file documented as of this encounter Visit Diagnoses Not on filedocumented in this encounter Additional Health Concerns Assessment Noted Time PHQ-9 Depression Total Score: 16 025 12:02 PM EDT documented as of this encounter Care Teams Hand Collator Relationship Specialty Start Date End Date Derek Segovia MD [address] [place] [address] PCP - General Internal Medicine 11/21/19 Heather Navarrete RN [address] [place] [address] Registered Nurse Family Medicine 12/29/24 Judith Pack 12/29/24 documented as of this encounter
--- OUTSIDE RECORDS SUMMARY | 2025-05-18 17:10 | XMS_ITS | Clinical Summary ---
Author Organization [employer] Address [address] [facility] [address] [place] [address] Care Team Providers Care Bread Packer Name Role Phone Derek Segovia MD Primary [...] per day. 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 Assessment & Plan (11/12/2023 9:46 AM [...] Encounters Date Type Department Care Team Description 05/09/2025 Patient Outreach [facility] [address] [place] [address] Derek Segovia MD Care Coordination (C3/CM Outreach) 04/11/2025 Telephone [facility] [address] [place] [address] Derek Segovia MD no show 04/08/2025 Telephone [facility] [address] [place] [address] Derek Segovia MD Medication Question 04/06/2025 Patient Outreach [facility] [address] [place] [address] Derek Segovia MD Care Coordination (C3/CM Outreach) 04/05/2025 Orders Only [facility] External Provider, [facility] 03/31/2025 Results Follow-Up [facility] [address] [place] [address] Pamela Dennis MD HIV-1/2 Antigen and Antibodies, Fourth Generation, with Reflexes, Hepatitis C Antibody with Reflex to HCV, RNA, Quantitative, Real-Time PCR, Pap Smear 03/22/2025 9:40 AM EDT Procedure Visit [facility] [address] [place] [address] Pamela Dennis MD Cervical cancer screening (Primary Dx); Encounter for immunization; Screening for lung cancer; Primary hypertension 03/22/2025 Orders Only [facility] [address] [place] [address] Pamela Dennis MD 03/22/2025 Travel 03/21/2025 Telephone [facility] [address] [place] [address] Derek Segovia MD chart prep 03/13/2025 Orders Only [facility] External Provider, [facility] 03/07/2025 Patient Outreach [facility] [address] [place] [address] Derek Segovia MD Care Coordination (C3/CM Outreach) 03/07/2025 Travel 02/18/2025 9:45 AM EDT Telemedicine [facility] [address] [place] [address] Derek Segovia MD Screening for colon cancer (Primary Dx); Encounter for screening mammogram for malignant neoplasm of breast; Primary hypertension 02/18/2025 Travel 02/17/2025 Telephone [facility] [address] [place] [address] Derek Segovia MD chart prep 02/15/2025 Patient Outreach [facility] [address] [place] [address] Derek Segovia MD from Last 3 Months [...] Years (1 of 2 - PCV) 1990 HPV/Cotest 2001 Mammogram 2011 Zoster Vaccines (1 of 2) 2021 Lung Cancer Screening 05/02/2024 05/02/2023 , 05/02/2023, 02/21/2023 SDOH Screening 11/05/2024 11/06/2023 COVID-19 Vaccine ( season) 2025 Depression Monitoring 09/19/2025 03/22/2025, 025 Alcohol/Substance Use Screening 03/22/2026 03/22/2025 Disability Screening 03/22/2026 03/22/2025 Tobacco Screening 03/31/2026 03/31/2025 Cervical Cancer Screening 03/22/2028 Pap Smear 03/22/2028 03/22/2025 Lipid Panel 03/22/2030 03/22/2025, 03/13/2024 DTaP/Tdap/Td Vaccines (4 - Td or [...] PM EDT Narrative 04/06/2025 8:05 AM EDT [address] [address] Magnetic Resonance Report Signed Patient: Jaye Marrero MR#: [id number] 223 : 1970 Acct:[id number] Age/Sex: 55 / F ADM Date: 04/05/25 Loc: HO.MRI Attending Dr: Simon Jolly MD Ordering Physician: Simon Jolly MD Date of Service: 04/05/25 Procedure(s): MR cervical spine wo con Accession Number(s): [id number] cc: Derek Segovia MD; Simon Jolly MD [...] OV> 04/06/25 0803 DD/ 54 TD/TT: 04/05/252019 Internet Programmer: Procedure Note Donotuseinterpreter, Image - 04/06/[address] [address] Magnetic Resonance Report Signed Patient: Liyah Marrero#: [id number] 223 : 1970Acct:[id number] Age/Sex: 55 / FADM Date: 04/05/25 Loc: HO.MRI Attending Dr: Simon Jolly MD Ordering Physician: Simon Jolly MD Date of Service: 04/05/25 Procedure(s): MR cervical spine wo con Accession Number(s): [id number] cc: Derek Segovia MD; Simon Jolly MD [...] Hannah Bradley MD 04/06/2025 08:03 AM EDT RP Dictated By: Hannah Bradley MD Signed By: <Electronically signed by Hannah Bradley MD in OV> 04/06/25802 DD/ 54 TD/TT: 04/05/252019 Internet Programmer: [facility] External Provider IMG MRI PROCEDURES Final Result * TSH W/Reflex to FT4 (03/22/2025 10:55 AM EDT) Pathologist [facility] TSH reflex Free T4 2.73 0.32 - 4.0 uIU/mL [facility] Blood Venous blood specimen / Unknown 03/22/2025 10:55 AM EDT 03/22/2025 2:09 PM EDT Derek Ruiz MD LAB BLOOD ORDERABL ES Final Result [facility] [address] [place] [phone] * Hepatitis C Viral RNA, Quantitative, Real-Time PCR (03/22/2025 10:55 AM EDT) Pathologist [facility] Hepatitis C Viral Load <15 NOT DETECTED NOT DETECTED IU/mL [facility] HCV Log PCR <1.18 NOT DETECTED NOT DETECTED Log IU/mL [facility] Comment:For additional infor mation, please refer [email or web address] Shadows/faq/[email or web address](This link is being provided for informational/educational purposes only.)THIS TEST WAS PERFORMED AT:[facility] [place] [phone] WOODS MD 03/22/2025 10:5 5 AM EDT 03/24/2025 1:46 PM EDT us Pamela Dennis MD LAB BLOOD ORDERABLES Final Re sult [facility] [address] [place] [address] [phone] * (ABNORMAL) CBC auto differential (03/22/2025 10:55 AM EDT) White Blood Count 6.4 4.8 - 10.8 X10*3/uL [facility] Red Blood Count 4.52 4.20 - 5.50 X10*6/uL [facility] Hemoglobin 13.6 12.0 - 16.0 g/dl [facility] Hematocrit 40.5 37.0 - 47.0 % [facility] Mean Corpuscular Volume 89.6 80.0 - 98.0 fL [facility] Mean Corpuscular Hemoglobin 30.1 27.0 - 33.0 pg [facility] Mean Corpuscular HGB Conc 33.6 31.0 - 35.0 g/dl [facility] Red Cell Distribution Width 13.2 11.0 - 16.0 % [facility] Platelet Count 217 160 - 400 X10*3/uL [facility] Mean Platelet Volume 11.2 9.4 - 12.3 fL [facility] Neutrophils Percent Auto 51.0 45 - 73 % [facility] Imm Gran Pct Auto 0.3 0.0 - 0.4 % [facility] Lymphocytes Percent Auto 40.1(H) 20 - 40 % [facility] Monocytes Percent Auto 6.7 2 - 11 % [facility] Eosinophils Percent Auto 1.4 0 - 4 % [facility] Basophils Percent Auto 0.5 0 - 2 % [facility] NRBC Pct Auto 0.0 0.0 - 0.2 /100WBC [facility] Neutrophils Absolute Auto 3.3 2.0 - 8.3 x10*3/uL [facility] Imm Gran Abs Auto 0.02 0.00 - 0.03 X10*3/uL [facility] Lymphocytes Absolute Auto 2.6 1.2 - 4.9 X10*3/uL [facility] Monocytes Absolute Auto 0.4 0.1 - 1.2 X10*3/uL [facility] Eosinophils Absolute Auto 0.1 0.0 - 0.4 X10*3/uL [facility] Basophils Absolute Auto 0.0 0.0 - 0.2 X10*3/uL [facility] NRBC Abs Auto 0.000 0.0 - 0.012 X10*3/uL [facility] Blood Venous blood specimen / Unknown 03/22/2025 10:55 AM EDT 03/22/2025 2:09 PM EDT us Derek Ruiz MD LAB BLOOD ORDERABL ES Final Result Performing Organization Address [facility]/ZIP Co de Phone Number [facility] [address] [place] [phone] * (ABNORMAL) Hepatitis C Antibody with Reflex to HCV, RNA, Quantitative, Real- Time PCR (03/22/2025 10:55 AM EDT) Pathologist [facility] Hepatitis C Antibody Reactive( A) Nonreactive [facility] Comment:Presumptive evidence of antibodies to HCV. Blood Venous blood specimen / Unknown 03/22/2025 10:55 AM EDT 03/22/2025 2:09 PM EDT us Pamela Dennis MD LAB BLOOD ORDERABLES Final Re sult Performing Organization Address [facility]/ZIP Co de Phone Number [facility] [address] [place] [address] [phone] * HIV-1/2 Antigen and Antibodies, Fourth Generation, with Reflexes (03/22/2025 10:55 AM EDT) HIV AB/AG Nonreactive Nonreactive [facility] Comment:HIV-1 p24 Ag and/or HIV-1/HIV-2 Ab not detected.A test result that is nonreactive does not exclude thepossibility of exposure to or infection with HIV-1 and/orHIV-2. Nonreactive results in this assay for individualswith prior exposure to HIV-1 and/or HIV-2 may be due toantigen and antibody levels that are below the limit ofdetection of this assay.The [employer] HIV Ag/Ab Combo assay result andsupplemental assay results should be interpreted inconjunction with the patient's clinical presentation,history and other laboratory results. If the results areinconsistent with clinical evidence, additional testing issuggested to confirm the result. Blood Venous blood specimen / Unknown 03/22/2025 10:55 AM EDT 03/22/2025 2:09 PM EDT us Pamela Dennis MD LAB BLOOD ORDERABLES Final Re sult [facility] [address] [place] [phone] * (ABNORMAL) Lipid Panel, Standard (03/22/2025 10:55 AM EDT) Triglycerides 186(H) <150 mg/dL [facility] Comment:Desirable Triglyceri de: less than 150 mg/dLBorderline High Triglyceride 150-199 mg/dLHigh Triglyceride: 200-499 mg/dLVery High Triglyceride: greater than or equal to 5OO mg/dL Cholesterol 224(H) <200 mg/dL [facility] Comment:Desirable Cholestero l: less than 200 mg/dLBorderline High Cholesterol: 200-239 mg/dLHigh Cholesterol: greater than 239 mg/dL LDL Cholesterol Calculated 133(H) <100 mg/dL [facility] Comment:Desirable LDL: less than 100 mg/dLNear Optimal/Above Optimal LDL: 110- 129 mg/dLBorderline High LDL: 130-159 mg/dLHigh LDL: 160-189 mg/dLVery High LDL: greater than or equal to 190 mg/dL HDL Cholesterol 54 >40 mg/dL [facility] Comment:Desirable HDL: great er than 40 mg/dL Note: This HDL assay may give artificially low results in patients with liver disease. Blood Venous blood specimen / Unknown 03/22/2025 10:55 AM EDT 03/22/2025 2:09 PM EDT us Derek Ruiz MD LAB BLOOD ORDERABL ES Final Result [facility] [address] [place] [phone] * (ABNORMAL) Comprehensive Metabolic Panel (03/22/2025 10:55 AM EDT) Sodium 142 135 - 145 mmol/L [facility] Potassium 4.0 3.3 - 5.1 mmol/L [facility] Comment:Slight Hemolysis.Int erpret result with caution. Chloride 106 96 - 108 mmol/L [facility] Carbon Dioxide 27 22 - 29 mmol/L [facility] Anion Gap 13 12 - 20 [facility] Urea Nitrogen (BUN) 12 9 - 16 mg/dL [facility] Creatinine, Serum 0.69 0.5 - 1.4 mg/dL [facility] Estimated Glomerular Filt Rate >60 [facility] Comment:Chronic Kidney Disea se: Estimated GFR < 60 mL/min/1.02r3Zezgke Kidney Disease: Estimated GFR < 15 mL/min/1.73m2 Glucose 61 60 - 115 mg/dL [facility] Calcium 9.9 8.4 - 10.2 mg/dL [facility] Bilirubin, Total 0.3 0.0 - 1.0 mg/dL [facility] Aspartate Amino Transferase 36(H) 5 - 31 U/L [facility] Comment:Slight Hemolysis.Int erpret result with caution. Alanine Aminotransferase 34(H) 0 - 31 U/L [facility] Total Protein 7.4 6.5 - 8.0 g/dL [facility] Albumin Level 4.3 3.5 - 5.0 g/dL [facility] Alkaline Phosphatase 91 39 - 117 U/L [facility] Blood Venous blood specimen / Unknown 03/22/2025 10:55 AM EDT 03/22/2025 2:09 PM EDT us Derek Ruiz MD LAB BLOOD ORDERABL ES Final Result [facility] [address] [place] [phone] * Pap Smear (03/22/2025 12:00 AM EDT) Swab Cervical swab / Unknown 03/22/2025 03/23/2025 6:10 AM EDT Narrative [facility] - 04/21/2025 9:19 AM EDT ----- ------- Name: Jaye Marrero Age/Sex: 55/F : 1970 Unit#: [id number] Attend Dr: Re03/22/25 Status: PRE REF Location: [facility] Disch: ----- ------- SPEC : [id number] RECD: 03/23/25 STATUS: ASHLEE MARTINEZ NUM: [id number] CHE: 03/22/25-[address]: Pmaela Dennis MD ENTERED: 03/23/25 SP TYPE: Pap Smr OTHR DR: ORDERED: Pap Smear, PAP path review Addendum Addendum 1 Entered: 04/21/25 HPV High Risk: Negative HPV Genotyping 16: Negative HPV Genotyping 18: Negative Addendum Signed (signature on file) CHARLOTTE Marquez (ASCP) 04/21/25918 ----- ------- Interpretation General Category: Negative for intraepithelial lesion/malignancy. Adequacy: Endocervical component absent. Interpretation: Reactive cellular changes. Coccobacilli consistent with shift in vaginal billie. Hyperkeratosis and parakeratosis. Clinical Information LMP: Post menopausal Previous PAP test: Other surgery: Other history: Material Received ThinPrep-Cervical ----- ------- Signed (signature on file) Allyssa John 03/30/25 1854 (signature on file) CHARLOTTE Marquez (ASCP) 04/21/25918 ----- ------- END OF REPORT us Pamela Dennis MD LAB CYTOLOGY ORDERABLES Final Result [facility] [address] [place] [phone] * MR Shoulder w/o Contrast Left (03/15/2025 11:01 PM EDT) Anatomical Region Laterality Modality Upper Extremities, Shoulder Left Magn etic Resonance 03/15/2025 11:0 1 PM EDT Narrative 03/15/2025 11:02 PM EDT [address] [address] Magnetic Resonance Report Signed Patient: Jaye Marrero MR#: [id number] 223 : 1970 Acct:[id number] Age/Sex: 55 / F ADM Date: 03/13/25 Loc: HO.MRI Attending Dr: Simon Jolly MD Ordering Physician: Simon Jolly MD Date of Service: 03/13/25 Procedure(s): MR shoulder LT wo con Accession Number(s): [id number] cc: Derek Segovia MD; Simon Jolly MD [...] in OV> 03/15/252301 DD/ 00 TD/TT: 03/15/252300 Internet Programmer: Procedure Note Anyater, Image - 03/15/2025 [place] [address] Magnetic Resonance Report Signed Patient: Liyah Marrero#: [id number] 223 : 1970Acct:[id number] Age/Sex: 55 / FADM Date: 03/13/25 Loc: HO.MRI Attending Dr: Simon Jolly MD Ordering Physician: Simon Jolly MD Date of Service: 03/13/25 Procedure(s): MR shoulder LT wo con Accession Number(s): [id number] cc: Derek Segovia MD; Simon Jolly MD [...] in OV> 03/15/252301 DD/ 00 TD/TT: 03/15/252300 Internet Programmer: us [facility] External Provider IMG MRI PROCEDURES Edited Result - Final * CT Lung Screening Low dose (05/02/2023 4:21 PM EST) Anatomical Region Laterality Modality Lung Computed Tomogra phy 05/02/2023 4:21 PM EST Narrative 05/09/2023 8:52 AM EST [address] [address] [address] Scan Report Signed Patient: Jaye Marrero MR#: [id number] 223 : 1970 Acct:[id number] Age/Sex: 53 / F ADM Date: 05/02/23 Loc: HO.CT Attending Dr: Velma Leija PA-C Ordering Physician: Velma Leija PA-C Date of Service: 05/02/23 Procedure(s): CT lung screening Accession Number(s): [id number] cc: Derek Segovia MD; Velma Leija PA-C [...] in OV> 05/09/23 0848 DD/ 1621 TD/TT: Internet Programmer: WEI Procedure Note Donotuseinterpreter, Image - 05/09/[address] [place] [address] [address] Scan Report Signed Patient: Liyah Marrero#: [id number] 223 : 1970Acct:[id number] Age/Sex: 53 / FADM Date: 05/02/23 Loc: HO.CT Attending Dr: Velma Leija PA-C Ordering Physician: Velma Leija PA-C Date of Service: 05/02/23 Procedure(s): CT lung screening Accession Number(s): [id number] cc: Derek Segovia MD; Velma Leija PA-C [...] in OV> 05/09/23 0848 DD/ 1621 TD/TT: Internet Programmer: WEI [facility] External Provider IMG CT PROCEDURES Final Result from Last 3 Months or Most Recently Relevant to Health Maintenance Insurance Care Teams Bread Packer Relationship Specialty Start Date End Date Derek Segovia MD [address] [place] [address] PCP - General Internal Medicine 11/21/19 Heather Navarrete RN [address] [place] [address] Registered Nurse Family Medicine 12/29/24 Judith Pack 12/29/24
== END 2025-05-18 14:37 | disposition home or self-care (01) ==
LOC: HO.HOS 14:12
PROVIDERS: PCP Internal Medicine; Visit Provider Orthopaedic Surgery
DX: M75.42 Impingement syndrome of left shoulder (principal)
CPT/HCPCS: 99024

== ENCOUNTER → 2025-05-18 14:12 | Outpatient (BNVA) | payer MEDICAID, SELFPAY | PROVIDERS: PCP Internal Medicine; Visit Provider Orthopaedic Surgery | DX: M75.42 Impingement syndrome of left shoulder (principal); M75.02 Adhesive capsulitis of left shoulder | CPT/HCPCS: 99212 ==

== ENCOUNTER 2025-05-27 08:32 | Day surgery (SDC) | payer MEDICAID, SELFPAY ==
--- OUTSIDE RECORDS SUMMARY | 2025-04-19 19:39 | XMS_ITS | Encounter Summary ---
Author Organization [employer] Address [address] [facility] [address] [place] [address] Care Team Providers Care Nutrition Assistant Name Role Phone Derek Segovia MD Primary Care Prov ider Heather Navarrete RN Unavailable Unavailable Judith Pack Unavailable Reason for Visit * Reason Onset Date Comments Nurse Triage 11/18/2023 Encounter Details Date Type Department Care Team ([facility] Contact Info) Description 11/18/2023 Telephone [facility] [address] [place], [place] [phone] Derek Segovia MD [address] [place] [address] Nurse Triage Social History Tobacco Use Types [...] accepted this outcome Please contact pt at [phone] documented in this encounter Plan of Treatment Not on file documented as of this encounter Visit Diagnoses Not on filedocumented in this encounter Additional Health Concerns Assessment Noted Time PHQ-9 Depression Total Score: 7 11/11/19 24 12:57 PM EDT documented as of this encounter Care Teams Nutrition Assistant Relationship Specialty Start Date End Date Derek Segovia MD [address] [place] [address] PCP - General Internal Medicine 11/21/19 Heather Navarrete RN [address] [place] [address] Registered Nurse Family Medicine 12/29/24 Judith Pack 12/29/24 documented as of this encounter
--- OUTSIDE RECORDS SUMMARY | 2025-04-19 19:39 | XMS_ITS | Encounter Summary ---
Author Organization [facility] Address [address] [facility] [address] [place] [address] Phone Care Team Providers Care Pot Liner Name Role Phone Charlie Lucia MD Primary Care Provide r Dany Chappell MD Unavailable [phone] Shashi Garcia MD Unavailable Mamta Sarmiento MD Unavailable [phone] Encounter Details Date Type Department Care Team (Latest Contact Info) Description 11/20/2017 Transcribe Orders [facility] Laboratory [address] [place] [address] Hayden Argueta MD [address] [place] [address], [address] [place] [address] [email or web address] Numbness (Primary Dx); Intractable headache, unspecified [...] TOTAL PROTEIN 6.9 6.3 - 7.9 g/dL [facility] DPT OF LAB MED AND PAT+ ALBUMIN 3.5 3.4 - 4.7 g/dL [facility] DPT OF LAB MED AND PAT+ ALPHA-1 GLOBULIN 0.3 0.1 - 0.3 g/dL [facility] DPT OF LAB MED AND PAT+ ALPHA-2 GLOBULIN 0.9 0.6 - 1.0 g/dL [facility] DPT OF LAB MED AND PAT+ BETA-GLOBULIN 1.3(H) 0.7 - 1.2 g/dL [facility] DPT OF LAB MED AND PAT+ GAMMA-GLOBULIN 1.0 0.6 - 1.6 g/dL [facility] DPT OF LAB MED AND PAT+ A/G RATIO 1.02 [facility] DPT OF LAB MED AND PAT+ M SPIKE Test component not applicable or not reported. not reported [facility] DPT OF LAB MED AND PAT+ M SPIKE Test component not applicable or not reported. not reported [facility] DPT OF LAB MED AND PAT+ IMPRESSION SEE NOTE [facility] DPT OF LAB MED AND PAT+ Comment: (NOTE) No apparent monoclonal protein on serum electrophoresis. Blood 11/20/2017 10:1 9 AM EDT 11/20/2017 10:22 AM EDT us Hayden Argueta MD LAB BLOOD ORDERABLES Final R esult [facility] DPT OF LAB MED AND PAT+ [address] [place] [address] documented in this encounter Visit Diagnoses Diagnosis Numbness- Primary Disturbance of skin sensation Intractable headache, unspecified chronicity pattern, unspecified headache type documented in this encounter Care Teams Pot Liner Relationship Specialty Start Date End Date Charlie Lucia MD [address] [place] [address] [address] [place] [phone] [email or web address] PCP - General 04/08/17 Dany Chappell MD [address] [place] [address] [email or web address] Historical LMR Provider 04/10/17 06/30/21 Shashi Garcia MD [address] [place] [address], [address] [place] [address] [email or web address] Historical LMR Provider 04/10/17 06/30/21 Mamta Sarmiento MD [address] [place] [address] Historical LMR Provider 04/10/17 2 documented as of this encounter Additional Source Comments The information contained in this document represents components of the legal health record. It is not the complete legal health record.[facility]
--- OUTSIDE RECORDS SUMMARY | 2025-04-19 19:39 | XMS_ITS ---
Author Organization [employer] Address [address] [facility] [address] [place] [address] Care Team Providers Care Panelboard Operator Name Role Phone Derek Segovia MD Primary Care Prov ider Heather Navarrete RN Unavailable Unavailable Judith Pack Unavailable CM Complex Status:Outreach In Progress (Enrolling) Start date:12/29/2024 Enrollment reason:ADT Feed Overview ED- Pt went to [facility] ED on 12/28/24. Case Team Name Relationship Phone Heather Navarrete RN(Responsible Staff) Registered Nurse Continued Care and Services Coordination
--- OUTSIDE RECORDS SUMMARY | 2025-04-19 19:39 | XMS_ITS | Clinical Summary ---
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 PLAN: 1. Follow up with [facility]: Not recommended for follow-up 2. Patient goal [...] Encounters Date Type Department Care Team Description 04/11/2025 Telephone [facility] [address] [place] [address] Derek Segovia MD no show 04/08/2025 Telephone [facility] [address] [place] [address] Derek Segovia MD Medication Question 04/06/2025 Patient Outreach [facility] [address] [place] [address] Derek Segovia MD Care Coordination (C3/CM Outreach) 04/05/2025 Orders Only [facility] External Provider, [facility] 03/31/2025 Results Follow-Up [facility] [address] [place] [phone] Pamela Dennis MD HIV-1/2 Antigen and Antibodies, Fourth Generation, with Reflexes, Hepatitis C Antibody with Reflex to HCV, RNA, Quantitative, Real-Time PCR, Pap Smear 03/22/2025 9:40 AM EDT Procedure Visit [facility] [address] [place] [address] Pamela Dennis MD Cervical cancer screening (Primary Dx); Encounter for immunization; Screening for lung cancer; Primary hypertension 03/22/2025 Orders Only [facility] [address] [place] [address] Pamela Dennis MD 03/22/2025 Travel 03/21/2025 Telephone [facility] [address] [place] [address] Derek Segovia MD chart prep 03/13/2025 Orders Only [facility] External Provider, [facility] 03/07/2025 Patient Outreach [facility] [address] [place] [address] Derek Segovia MD Care Coordination (C3/CM Outreach) 03/07/2025 Travel 02/18/2025 9:45 AM EDT Telemedicine [facility] [address] [place] [address] Derek Segovia MD Screening for colon cancer (Primary Dx); Encounter for screening mammogram for malignant neoplasm of breast; Primary hypertension 02/18/2025 Travel 02/17/2025 Telephone [facility] [address] [place] [address] Derek Segovia MD chart prep 02/15/2025 Patient Outreach [facility] [address] [place] [address] Derek Segovia MD 02/10/2025 Patient Outreach [facility] [address] [place] [address] Derek Segovia MD Care Coordination (C3/CM Outreach) 01/26/2025 Refill [facility] [address] [place] [address] Hui Wright MD from Last 3 Months Immunizations Immunization [...] 03/22/2025 10:02 AM EDT Plan of Treatment Health Maintenance Due Date Last Done Comments CT Colonography 1970 Colonoscopy 1971 Colorectal Cancer Screening 1971 FIT DNA/Cologuard 1971 FIT 1971 FOBT 1970 Sigmoidoscopy 1971 Pneumococcal Vaccine: 50+ Years (1 of 2 - PCV) 1990 Mammogram 2011 Zoster Vaccines (1 of 2) 2021 Lung Cancer Screening 05/02/2024 05/02/2023 SDOH Screening 11/05/2024 11/06/2023 COVID-19 Vaccine ( - season) 2025 Depression Monitoring 09/19/2025 03/22/2025, 025 [...] Name Priority Date/Time Associated Diagnosis Comments MR CERVICAL SPINE WO CONTRAST Routine 04/05/2025 7:55 PM EDT HEPATITIS C VIRAL RNA, QUANTITATIVE, REAL-TIME PCR [...] Relevant to Health Maintenance Results * MR Cervical Spine w/o Contrast (04/05/2025 7:55 PM EDT) Anatomical Region Laterality Modality Spine, C-spine Magnetic Resonan ce 04/05/2025 7:55 PM EDT Narrative 04/06/2025 8:05 AM EDT [place] [address] Magnetic Resonance Report Signed Patient: Jaye Marrero MR#: [id number] 223 : 1970 Acct:[id number] Age/Sex: 55 / F ADM Date: 04/05/25 Loc: HO.MRI Attending Dr: Simon Jolly MD Ordering Physician: Simon Jolly MD Date of Service: 04/05/25 Procedure(s): MR cervical spine wo con Accession Number(s): [id number] cc: Derek Segovia MD; Simon Jolly MD Reason for Exam: M54.2 - Cervicalgia EXAMINATION: MR CERVICAL SPINE WITHOUT CONTRAST CLINICAL INFORMATION: M54.2 - Cervicalgia COMPARISON: Radiographs of the cervical spine on September 15, 2023. MR of the cervical spine on August 30, 2015. TECHNIQUE: MRI of the cervical spine was obtained using routine sequences without contrast. FINDINGS: Alignment and vertebrae: Artifacts created by fusion hardware at C5-C6 limits local evaluation. Straightening of the cervical lordosis, with a focal subtle kyphosis at C4-C5. No subluxation. No compression fracture. Intervertebral discs: Partial fusion of C5 and C6 vertebrae. Mild loss of height of C4-C5 disc. Spinal cord: Mild flattening of the anterior contour of the spinal cord at C4-C5 level. No abnormal spinal cord signal. Soft tissues: Unremarkable prevertebral and posterior paraspinal soft tissues. Other findings: No suspicious findings in the included soft tissues. Findings by level: C2-C3: No spinal canal or neuroforaminal stenosis. C3-C4: No spinal canal or neuroforaminal stenosis. C4-C5: Disc osteophyte complex contributes to mild spinal canal stenosis and mild bilateral neuroforaminal stenosis. Findings have mildly progressed from 2016. C5-C6: Disc osteophyte complex contributes to mild bilateral neuroforaminal stenosis, mildly progressed from 2016. No spinal canal stenosis. C6-C7: No spinal canal or neuroforaminal stenosis. C7-T1: No spinal canal or neuroforaminal stenosis. MR/MR cervical spine wo con IMPRESSION: Mild degenerative changes at C4-C5 and C5-C6 as described above, mildly progressed from 2016. Electronically signed by: Hannah Bradley MD 04/06/2025 08:03 AM EDT Dictated By: Hannah Bradley MD Signed By: <Electronically signed by Hannah Bradley MD in OV> 04/06/25 0803 DD/ 54 TD/TT: 04/05/252019 Project Engineering Director: Procedure Note Donotuseinterpreter, Image - 04/06/2025 [place] [address] Magnetic Resonance Report Signed Patient: Liyah Marrero#: [id number] 223 : 1970Acct:[id number] Age/Sex: 55 / FADM Date: 04/05/25 Loc: HO.MRI Attending Dr: Simon Jolly MD Ordering Physician: Simon Jolly MD Date of Service: 04/05/25 Procedure(s): MR cervical spine wo con Accession Number(s): [id number] cc: Derek Segovia MD; Simon Jolly MD Reason for Exam: M54.2 - Cervicalgia EXAMINATION: MR CERVICAL SPINE WITHOUT CONTRAST CLINICAL INFORMATION: M54.2 - Cervicalgia COMPARISON: Radiographs of the cervical spine on September 15, 2023. MR of the cervical spine on August 30, 2015. TECHNIQUE: MRI of the cervical spine was obtained using routine sequences without contrast. FINDINGS: Alignment and vertebrae: Artifacts created by fusion hardware at C5-C6 limits local evaluation. Straightening of the cervical lordosis, with a focal subtle kyphosis at C4-C5. No subluxation. No compression fracture. Intervertebral discs: Partial fusion of C5 and C6 vertebrae. Mild loss of height of C4-C5 disc. Spinal cord: Mild flattening of the anterior contour of the spinal cord at C4-C5 level. No abnormal spinal cord signal. Soft tissues: Unremarkable prevertebral and posterior paraspinal soft tissues. Other findings: No suspicious findings in the included soft tissues. Findings by level: C2-C3: No spinal canal or neuroforaminal stenosis. C3-C4: No spinal canal or neuroforaminal stenosis. C4-C5: Disc osteophyte complex contributes to mild spinal canal stenosis and mild bilateral neuroforaminal stenosis. Findings have mildly progressed from 2016. C5-C6: Disc osteophyte complex contributes to mild bilateral neuroforaminal stenosis, mildly progressed from 2016. No spinal canal stenosis. C6-C7: No spinal canal or neuroforaminal stenosis. C7-T1: No spinal canal or neuroforaminal stenosis. MR/MR cervical spine wo con IMPRESSION: Mild degenerative changes at C4-C5 and C5-C6 as described above, mildly progressed from 2016. Electronically signed by: Hannah Bradley MD 04/06/2025 08:03 AM EDT Dictated By: Hannah Bradley MD Signed By: <Electronically signed by Hannah Bradley MD in OV> 04/06/25802 DD/ 54 TD/TT: 04/05/252019 Project Engineering Director: [facility] External Provider IMG MRI PROCEDURES Final Result * TSH W/Reflex to FT4 (03/22/2025 10:55 AM EDT) TSH reflex Free T4 2.73 0.32 - 4.0 uIU/mL [facility] Blood Venous blood specimen / Unknown 03/22/2025 10:55 AM EDT 03/22/2025 2:09 PM EDT Derek Ruiz MD LAB BLOOD ORDERABL ES Final Result [facility] [address] [place] [phone] * Hepatitis C Viral RNA, Quantitative, Real-Time PCR (03/22/2025 10:55 AM EDT) Hepatitis C Viral Load <15 NOT DETECTED NOT DETECTED IU/mL [facility] HCV Log PCR <1.18 NOT DETECTED NOT DETECTED Log IU/mL [facility] Comment:For additional infor gem, please refer [email or web address]/faq/LRP09x3(This link is being provided for informational/educational purposes only.)THIS TEST WAS PERFORMED AT:[facility] [place] [id number] WOODS MD 03/22/2025 10:5 5 AM EDT 03/24/2025 1:46 PM EDT us Pamela Dennis MD LAB BLOOD ORDERABLES Final Re sult [facility] [address] [place] [phone] * (ABNORMAL) CBC auto differential (03/22/2025 10:55 AM EDT) White Blood Count 6.4 4.8 - 10.8 X10*3/uL [facility] Red Blood Count 4.52 4.20 - 5.50 X10*6/uL [facility] Hemoglobin 13.6 12.0 - 16.0 g/dl [facility] Hematocrit 40.5 37.0 - 47.0 % [facility] Mean Corpuscular Volume 89.6 80.0 - 98.0 fL [facility] Mean Corpuscular Hemoglobin 30.1 27.0 - 33.0 pg [facility] Mean Corpuscular HGB Conc 33.6 31.0 - 35.0 g/dl [facility] Red Cell Distribution Width 13.2 11.0 - 16.0 % [facility] Platelet Count 217 160 - 400 X10*3/uL [facility] Mean Platelet Volume 11.2 9.4 - 12.3 fL [facility] Neutrophils Percent Auto 51.0 45 - 73 % [facility] Imm Gran Pct Auto 0.3 0.0 - 0.4 % [facility] Lymphocytes Percent Auto 40.1(H) 20 - 40 % [facility] Monocytes Percent Auto 6.7 2 - 11 % [facility] Eosinophils Percent Auto 1.4 0 - 4 % [facility] Basophils Percent Auto 0.5 0 - 2 % [facility] NRBC Pct Auto 0.0 0.0 - 0.2 /100WBC [facility] Neutrophils Absolute Auto 3.3 2.0 - 8.3 x10*3/uL [facility] Imm Gran Abs Auto 0.02 0.00 - 0.03 X10*3/uL [facility] Lymphocytes Absolute Auto 2.6 1.2 - 4.9 X10*3/uL [facility] Monocytes Absolute Auto 0.4 0.1 - 1.2 X10*3/uL [facility] Eosinophils Absolute Auto 0.1 0.0 - 0.4 X10*3/uL [facility] Basophils Absolute Auto 0.0 0.0 - 0.2 X10*3/uL [facility] NRBC Abs Auto 0.000 0.0 - 0.012 X10*3/uL [facility] Blood Venous blood specimen / Unknown 03/22/2025 10:55 AM EDT 03/22/2025 2:09 PM EDT us Derek Ruiz MD LAB BLOOD ORDERABL ES Final Result Performing Organization Address [facility]/ZIP Co de Phone Number [facility] [address] [place] [phone] * (ABNORMAL) Hepatitis C Antibody with Reflex to HCV, RNA, Quantitative, Real- Time PCR (03/22/2025 10:55 AM EDT) Hepatitis C Antibody Reactive( A) Nonreactive [facility] Comment:Presumptive evidence of antibodies to HCV. Blood Venous blood specimen / Unknown 03/22/2025 10:55 AM EDT 03/22/2025 2:09 PM EDT us Pamela Dennis MD LAB BLOOD ORDERABLES Final Re sult Performing Organization Address City/[facility]/ZIP Co de Phone Number [facility] [address] [place] [phone] * HIV-1/2 Antigen and Antibodies, Fourth Generation, with Reflexes (03/22/2025 10:55 AM EDT) HIV AB/AG Nonreactive Nonreactive [facility] Comment:HIV-1 p24 Ag and/or HIV-1/HIV-2 Ab not detected.A test result that is nonreactive does not exclude thepossibility of exposure to or infection with HIV-1 and/orHIV-2. Nonreactive results in this assay for individualswith prior exposure to HIV-1 and/or HIV-2 may be due toantigen and antibody levels that are below the limit ofdetection of this assay.The [employer] HIV Ag/Ab Combo assay result andsupplemental assay results should be interpreted inconjunction with the patient's clinical presentation,history and other laboratory results. If the results areinconsistent with clinical evidence, additional testing issuggested to confirm the result. Blood Venous blood specimen / Unknown 03/22/2025 10:55 AM EDT 03/22/2025 2:09 PM EDT us Pamela Dennis MD LAB BLOOD ORDERABLES Final Re sult [facility] [address] [place] [phone] * (ABNORMAL) Lipid Panel, Standard (03/22/2025 10:55 AM EDT) Triglycerides 186(H) <150 mg/dL [facility] Comment:Desirable Triglyceri de: less than 150 mg/dLBorderline High Triglyceride 150-199 mg/dLHigh Triglyceride: 200-499 mg/dLVery High Triglyceride: greater than or equal to 5OO mg/dL Cholesterol 224(H) <200 mg/dL [facility] Comment:Desirable Cholestero l: less than 200 mg/dLBorderline High Cholesterol: 200-239 mg/dLHigh Cholesterol: greater than 239 mg/dL LDL Cholesterol Calculated 133(H) <100 mg/dL [facility] Comment:Desirable LDL: less than 100 mg/dLNear Optimal/Above Optimal LDL: 110- 129 mg/dLBorderline High LDL: 130-159 mg/dLHigh LDL: 160-189 mg/dLVery High LDL: greater than or equal to 190 mg/dL HDL Cholesterol 54 >40 mg/dL [facility] Comment:Desirable HDL: great er than 40 mg/dL Note: This HDL assay may give artificially low results in patients with liver disease. Blood Venous blood specimen / Unknown 03/22/2025 10:55 AM EDT 03/22/2025 2:09 PM EDT us Derek Ruiz MD LAB BLOOD ORDERABL ES Final Result [facility] [address] [place] [phone] * (ABNORMAL) Comprehensive Metabolic Panel (03/22/2025 10:55 AM EDT) Sodium 142 135 - 145 mmol/L [facility] Potassium 4.0 3.3 - 5.1 mmol/L [facility] Comment:Slight Hemolysis.Int erpret result with caution. Chloride 106 96 - 108 mmol/L [facility] Carbon Dioxide 27 22 - 29 mmol/L [facility] Anion Gap 13 12 - 20 [facility] Urea Nitrogen (BUN) 12 9 - 16 mg/dL [facility] Creatinine, Serum 0.69 0.5 - 1.4 mg/dL [facility] Estimated Glomerular Filt Rate >60 [facility] Comment:Chronic Kidney Disea se: Estimated GFR < 60 mL/min/1.16w7Vfdpyd Kidney Disease: Estimated GFR < 15 mL/min/1.73m2 Glucose 61 60 - 115 mg/dL [facility] Calcium 9.9 8.4 - 10.2 mg/dL [facility] Bilirubin, Total 0.3 0.0 - 1.0 mg/dL [facility] Aspartate Amino Transferase 36(H) 5 - 31 U/L [facility] Comment:Slight Hemolysis.Int erpret result with caution. Alanine Aminotransferase 34(H) 0 - 31 U/L [facility] Total Protein 7.4 6.5 - 8.0 g/dL [facility] Albumin Level 4.3 3.5 - 5.0 g/dL [facility] Alkaline Phosphatase 91 39 - 117 U/L [facility] Blood Venous blood specimen / Unknown 03/22/2025 10:55 AM EDT 03/22/2025 2:09 PM EDT us Derek Ruiz MD LAB BLOOD ORDERABL ES Final Result [facility] [address] [place] [phone] * Pap Smear (03/22/2025 12:00 AM EDT) Swab Cervical swab / Unknown 03/22/2025 03/23/2025 6:10 AM EDT Narrative [facility] - 03/30/2025 6:54 PM EDT ----- ------- Name: Jaye Marrero Age/Sex: 55/F : 1970 Unit#: [id number] Attend Dr: Re03/22/25 Status: PRE REF Location: [facility] Disch: ----- ------- SPEC : [id number] RECD: 03/23/25 STATUS: ASHLEE MARTINEZ NUM: [id number] CHE: 03/22/250000 SUBM DR: Pamela Dennis MD ENTERED: 03/23/25 [...] ----- ------- Signed (signature on file) Allyssa Alvaro 03/30/25 1854 ----- ------- END OF REPORT us Pamela Dennis MD LAB CYTOLOGY ORDERABLES Final Result [facility] [address] [place] [phone] * MR Shoulder w/o Contrast Left (03/15/2025 11:01 PM EDT) Anatomical Region Laterality Modality Upper Extremities, Shoulder Left Magn etic Resonance 03/15/2025 11:0 1 PM EDT Narrative 03/15/2025 11:02 PM EDT [address] [address] Magnetic Resonance Report Signed Patient: Jaye Marrero MR#: [id number] 223 : 1970 Acct:[id number] Age/Sex: 55 / F ADM Date: 03/13/25 Loc: HO.MRI Attending Dr: Simon Jolly MD Ordering Physician: Simon Jolly MD Date of Service: 03/13/25 Procedure(s): MR shoulder LT wo con Accession Number(s): [id number] cc: Derek Segovia MD; Simon Jolly MD [...] in OV> 03/15/252301 DD/ 00 TD/TT: 03/15/252300 Project Engineering Director: Procedure Note Donotuseinterpreter, Image - 03/15/[address] [address] Magnetic Resonance Report Signed Patient: Key MarreroR#: [id number] 223 : 1970Acct:[id number] Age/Sex: 55 / FADM Date: 03/13/25 Loc: HO.MRI Attending Dr: Simon Jolly MD Ordering Physician: Simon Jolly MD Date of Service: 03/13/25 Procedure(s): MR shoulder LT wo con Accession Number(s): [id number] cc: Derek Segovia MD; Simon Jolly MD [...] in OV> 03/15/252301 DD/ 00 TD/TT: 03/15/252300 Project Engineering Director: [facility] External Provider IMG MRI PROCEDURES Edited Result - Final * CT Lung Screening Low dose (05/02/2023 4:21 PM EST) Anatomical Region Laterality Modality Lung Computed Tomogra phy 05/02/2023 4:21 PM EST Narrative 05/09/2023 8:52 AM EST [address] [address] [address] Scan Report Signed Patient: Jaye Marrero MR#: [id number] 223 : 1970 Acct:[id number] Age/Sex: 53 / F ADM Date: 05/02/23 Loc: HO.CT Attending Dr: Velma Leija PA-C Ordering Physician: Velma Leija PA-C Date of Service: 05/02/23 Procedure(s): CT lung screening Accession Number(s): [id number] cc: Derek Segovia MD; Velma Leija PA-C [...] in OV> 05/09/23 0848 DD/ 1621 TD/TT: Project Engineering Director: WEI Procedure Note Donotuseinterpreter, Image - 05/09/[address] [address] [address] Scan Report Signed Patient: Liyah Marrero#: [id number] 223 : 1970Acct:[id number] Age/Sex: 53 / FADM Date: 05/02/23 Loc: HO.CT Attending Dr: Velma Leija PA-C Ordering Physician: Velma Leija PA-C Date of Service: 05/02/23 Procedure(s): CT lung screening Accession Number(s): [id number] cc: Derek Segovia MD; Velma Leija PA-C [...] in OV> 05/09/23 0848 DD/ 1621 TD/TT: Project Engineering Director: WEI [facility] External Provider IMG CT PROCEDURES Final Result from Last 3 Months or Most Recently Relevant to Health Maintenance Insurance [employer] Care Teams Mixing Plant Operator Relationship Specialty Start Date End Date Derek Segovia MD [address] [place] [address] PCP - General Internal Medicine 11/21/19 Heather Navarrete RN [address] [place], [place] [address] [id number] Registered Nurse Family Medicine 12/29/24 Judith Pack 12/29/24
--- OUTSIDE RECORDS SUMMARY | 2025-04-19 19:39 | XMS_ITS | Encounter Summary ---
Author Organization [facility] Address [address] [facility] [address] [place] [address] Phone Care Team Providers Care Parts Puller Name Role Phone Charlie Lucia MD Primary Care Provide r Dany Chappell MD Unavailable Shashi Garcia MD Unavailable Mamta Sarmiento MD Unavailable [phone] Encounter Details Date Type Department Care Team (Latest Contact Info) Description 11/20/2017 Transcribe Orders [facility] Specimen Processing [address] [place] [address] Hayden Argueta MD [address] [place] [address], [address] [place] [address] [email or web address] Diagnosis unknown (Primary Dx) Social History [...] (11/20/2017 2:11 PM EDT) SPECIMEN SOURCE CSF [facility] DPT OF LAB MED AND PAT+ B.BURGDORFERI PCR Negative Negative [facility] DPT OF LAB MED AND PAT+ B.MAYONII PCR Negative Negative [facility] DPT OF LAB MED AND PAT+ B.GARINII/AFZELI Negative Negative [facility] DPT OF LAB MED AND PAT+ Comment SEE NOTE [facility] DPT OF LAB MED AND PAT+ Comment: (NOTE) If clinical features of illness are highly indicative of Lyme neuroborreliosis, additional serological testing would be recommended. ADDITIONAL INFORMATION This test was developed and its performance characteristics determined by [facility] in a manner consistent with CLIA requirements. This test has not been cleared or approved by the U.S. Food and Drug Administration. Other (Spinal Fluid) 11/20/2017 2:11 PM EDT 11/20/2017 2:13 PM EDT Hayden Argueta MD BODY FLUIDS AND STOOLS ORDER CECELIA Final Result [facility] DPT OF LAB MED AND PAT+ [address] [place] [address] * Angiotensin converting enzyme, CSF (11/20/2017 2:11 PM EDT) ANGIOTENSIN CONVERT ENZYME, CS 1.2 0.0 - 2.5 U/L [place] [facility] Comment: (NOTE) This test was developed and its performance characteristics determined by [employer]. The U.S. Food and Drug Administration has not approved or cleared this test; however, FDA clearance or approval is not currently required for clinical use. The results are not intended to be used as the sole means for clinical diagnosis or patient management decisions. Performed by [employer], [address] [place] [id number] [email or web address], Julian Sanon MD - Lab. Director Test Performed by: [employer] [address] [place] [id number] Cerebrospinal Fluid (Cerebrospinal Fluid) 11/20/2017 2:11 PM EDT 11/20/2017 2:13 PM EDT Hayden Argueta MD BODY FLUIDS AND STOOLS ORDER CECELIA Final Result Performing Organization Address [facility] de Phone Number [place] [facility] * IgG index/synthesis rate, CSF (11/20/2017 2:11 PM EDT) IgG Index (CSF/Ser) 0.50 <=0.85 [facility] DPT OF LAB MED AND PAT+ IGG,CSF 1.6 <=8.1 mg/dL [facility] DPT OF LAB MED AND PAT+ Comment: (NOTE) ADDITIONAL INFORMATION This test has been modified from the manager hvac's instructions. Its performance characteristics were determined by [facility] in a manner consistent with CLIA requirements. This test has not been cleared or approved by the U.S. Food and Drug Administration. ALBUMIN,CSF 17.5 <=27.0 mg/dL [facility] DPT OF LAB MED AND PAT+ Comment: (NOTE) ADDITIONAL INFORMATION This test has been modified from the manager hvac's instructions. Its performance characteristics were determined by [facility] in a manner consistent with CLIA requirements. This test has not been cleared or approved by the U.S. Food and Drug Administration. IGG/ALBUMIN,CSF 0.09 <=0.21 [facility] DPT OF LAB MED AND PAT+ IgG Synthesis Rate 0.00 <=12 mg/24 h [facility] DPT OF LAB MED AND PAT+ IgG 817 767 - 1,590 mg/dL [facility] DPT OF LAB MED AND PAT+ Albumin 4,560 3,200 - 4,800 mg/dL [facility] DPT OF LAB MED AND PAT+ IgG/Albumin ratio 0.18 <=0.40 [facility] DPT OF LAB MED AND PAT+ Cerebrospinal Fluid (Cerebrospinal Fluid) 11/20/2017 2:11 PM EDT 11/20/2017 2:13 PM EDT us Hayden Argueta MD BODY FLUIDS AND STOOLS ORDER CECELIA Final Result Performing Organization Address City/[facility]/ZIP Co de Phone Number [facility] DPT OF LAB MED AND PAT+ [address] [place] [address] * Oligoclonal bands, Serum and CSF (11/20/2017 2:11 PM EDT) Oligoclonal bands 6 bands [facility] DPT OF LAB MED AND PAT+ CSF BANDS 6 bands [facility] DPT OF LAB MED AND PAT+ CSF OLIG BANDS INTERPRETATION 0 <4 bands [facility] DPT OF LAB MED AND PAT+ Comment: (NOTE) The oligoclonal band assay detected 3 or fewer unique IgG bands in the CSF. This is a negative result. Cerebrospinal Fluid (Cerebrospinal Fluid) 11/20/2017 2:11 PM EDT 11/20/2017 2:13 PM EDT us Hayden Argueta MD BODY FLUIDS AND STOOLS ORDER CECELIA Final Result Performing Organization Address [facility] de Phone Number [facility] DPT OF LAB MED AND PAT+ [address] [place] [address] * Syphilis antibody, CSF (VDRL) (11/20/2017 2:11 PM EDT) VDRL Negative Negative [facility] Cerebrospinal Fluid (Cerebrospinal Fluid) 11/20/2017 2:11 PM EDT 11/20/2017 2:13 PM EDT us Hayden Argueta MD BODY FLUIDS AND STOOLS ORDER CECELIA Final Result Performing Organization Address [facility] Co de Phone Number [facility] LAB MED/[address] [place] [address] * Cryptococcal antigen, CSF (11/20/2017 2:11 PM EDT) CSF CRYPTOCOCCAL AG Negative Negative [facility] Comment: All cryptococal antigen will have a backup culture performed, please see separate lab report. Cerebrospinal Fluid (Cerebrospinal Fluid) 11/20/2017 2:11 PM EDT 11/20/2017 2:13 PM EDT us Hayden Argueta MD BODY FLUIDS AND STOOLS ORDER CECELIA Final Result Performing Organization Address City/[facility]/ZIP Co de Phone Number [address] [address] * (ABNORMAL) Mycobacterial culture/smear (11/20/2017 2:11 PM EDT) Specimen Source/ Description CSF [facility] Special Requests None [facility] SMEAR NO ACID FAST BACILLI OBSERVED(A) [facility] Culture/Test NO AFB ISOLATED AFTER 8 WEEKS [facility] Report Status 01/08/2018 FINAL [facility] Other (Cerebrospinal Fluid) 11/20/2017 2:11 PM EDT 11/20/2017 2:14 PM EDT us Hayden Argueta MD MICROBIOLOGY - GENERAL ORDER CECELIA Final Result Performing Organization Address [facility]/ZIP Co de Phone Number [address] [address] * Fungal culture (11/20/2017 2:11 PM EDT) Specimen Source/ Description CSF [facility] Special Requests None [facility] GRAM STAIN NO YEAST OR FUNGAL ELEMENTS SEEN [facility] Culture/Test NO FUNGUS OR YEAST ISOLATED AFTER 25 DAYS [facility] Report Status 12/15/2017 FINAL [facility] Other (Cerebrospinal Fluid) 11/20/2017 2:11 PM EDT 11/20/2017 2:14 PM EDT us Hayden Argueta MD MICROBIOLOGY - GENERAL ORDER CECELIA Final Result [address] [address] * Total protein, CSF (11/20/2017 2:11 PM EDT) CSF PROTEIN 25.5 15.0 - 45.0 mg/dL [facility] Cerebrospinal Fluid (Cerebrospinal Fluid) 11/20/2017 2:11 PM EDT 11/20/2017 2:13 PM EDT us Hayden Argueta MD BODY FLUIDS AND STOOLS ORDER CECELIA Final Result Performing Organization Address [facility]/ZIP Co de Phone Number [address] [address] * Glucose, CSF (11/20/2017 2:11 PM EDT) CSF GLUCOSE 59 45 - 70 mg/dL [facility] Cerebrospinal Fluid (Cerebrospinal Fluid) 11/20/2017 2:11 PM EDT 11/20/2017 2:13 PM EDT us Hayden Argueta MD BODY FLUIDS AND STOOLS ORDER CECELIA Final Result Performing Organization Address [facility] Co de Phone Number [address] [address] * Culture/smear, CSF (11/20/2017 2:11 PM EDT) Specimen Source/ Description CSF CSF CSF [facility] Special Requests None [facility] GRAM STAIN NO ORGANISMS SEEN Few WBC'S [facility] Culture/Test NO GROWTH 48HRS [facility] Report Status 11/22/2017 FINAL [facility] Cerebrospinal Fluid (Cerebrospinal Fluid) 11/20/2017 2:11 PM EDT 11/20/2017 2:13 PM EDT us Hayden Argueta MD MICROBIOLOGY - GENERAL ORDER CECELIA Final Result Performing Organization Address [facility] Co de Phone Number [address] [address] * Cell count & differential, tube 4 (11/20/2017 2:11 PM EDT) CSF COLOR Colorless Colorless [facility] CSF TURBIDITY Clear Clear [facility] Nucleated cells, CSF 3 0 - 5 /uL [facility] Comment:Cell count less than 5, differential not done. RBC, CSF 0 0 - 10 /uL [facility] Tube #, CSF 4 [facility] PATH REVIEW NOT REQUIRED [facility] Cerebrospinal Fluid (Cerebrospinal Fluid) 11/20/2017 2:11 PM EDT 11/20/2017 2:13 PM EDT us Hayden Argueta MD BODY FLUIDS AND STOOLS ORDER CECELIA Final Result [facility] [address] [place] [address] documented in this encounter Visit Diagnoses Diagnosis Diagnosis unknown- Primary documented in this encounter Care Teams Parts Puller Relationship Specialty Start Date End Date Charile Lucia MD [address] [phone] [email or web address] PCP - General 04/08/17 Dany Chappell MD [address] [place] [id number] [email or web address] Historical LMR Provider 04/10/17 06/30/21 Shashi Garcia MD [address] [address] Historical LMR Provider 04/10/17 06/30/21 Mamta Sarmiento MD [address] [place] [address] Historical LMR Provider 04/10/17 2 documented as of this encounter Additional Source Comments The information contained in this document represents components of the legal health record. It is not the complete legal health record.[facility]
--- OUTSIDE RECORDS SUMMARY | 2025-04-19 19:39 | XMS_ITS ---
Author Organization [employer] Address [address] [place] [address] [address] [place] [address] Care Team Providers Care Pesticide Chemist Name Role Phone Derek Segovia MD Primary Care Prov ider Heather Navarrete RN Unavailable Unavailable Judith Pack Unavailable CHW Complex Status:Outreach In Progress (Enrolling) Start date:12/29/2024 Enrollment reason:ADT Feed Overview ED- Pt went to [facility] on 12/28/24. Case Team Name Relationship Phone Judith Pack(Responsible Staff) [phone] Continued Care and Services Coordination
--- OUTSIDE RECORDS SUMMARY | 2025-04-19 19:39 | XMS_ITS | Encounter Summary ---
Author Organization [employer] Address [address] [facility] [address]t [place] [address] Care Team Providers Care Tow Bar Driver Name Role Phone Derek Segovia MD Primary Care Prov ider Heather Navarrete RN Unavailable Unavailable Judith Pack Unavailable Reason for Visit * Reason Onset Date Comments Medication Question 04/08/2025 Encounter Details Date Type Department Care Team ([facility] Contact Info) Description 04/08/2025 Telephone [facility] MED & PEDS [address] [place], [place] [phone] Derek Segovia MD [address] [place] [address] Medication Question Social History Tobacco Use Types [...] encounter Miscellaneous Notes * Telephone Encounter - Maggie Barrett - 04/08/2025 11:20 AM EDT Tc from pt requesting a new script of Oxycodone , she is requesting due to pain and she is having surgery in May Contact pt at [phone] documented in this encounter Plan of Treatment Not on file documented as of this encounter Visit Diagnoses Not on filedocumented in this encounter Additional Health Concerns Assessment Noted Time PHQ-9 Depression Total Score: 16 025 12:02 PM EDT documented as of this encounter Care Teams Tow Bar Driver Relationship Specialty Start Date End Date Derek Segovia MD [address] [place] [address] PCP - General Internal Medicine 11/21/19 Heather Navarrete RN [address] [place] [address] Registered Nurse Family Medicine 12/29/24 Judith Pack 12/29/24 documented as of this encounter
--- OUTSIDE RECORDS SUMMARY | 2025-04-19 19:39 | XMS_ITS | Clinical Summary ---
Author Organization [facility] Address [address] [facility] [address] [place] [address] Phone Care Team Providers Care Protective Services Social Worker Name Role Phone Charlie Lucia MD Primary [...] on file Insurance [employer] [place] [address] [place] [address] [employer] Care Teams Protective Services Social Worker Relationship Specialty Start Date End Date Charlie Lucia MD [address] [place] [address] [address] [place] [phone] PCP - General 04/08/17 Additional Source Comments The information contained in this document represents components of the legal health record. It is not the complete legal health record.[facility]
[2025-05-13 12:33] VITALS: BMI 34.7
--- NOTE | 2025-05-17 10:32 | HO.ANESPROP2 ---
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 Last saw [facility] 11/2023. [facility] ED 12/2024 after fall, black out , per ED notes pt reports happens all the time since CVA. Saw PCP for BP follow up 03/22/25, pt reported uncontrolled BP at home, BP 150/90 in office, KYLIE: not using CPAP PMFSH Active Problems Active Problems: All Active Problems Impingement syndrome of left shoulder (Acute) Neck pain on left side (Acute) Rotator cuff insufficiency of left shoulder (Acute) Nicotine dependence, cigarettes, uncomplicated (Acute) Past Medical History Medical History Hx of cocaine abuse Back pain Spinal stenosis Sleep apnea Asthma Murmur Elevated cholesterol Vertigo Numbness History of CVA with residual deficit CVA (cerebral vascular accident) (~10/2023) HTN (hypertension) Nicotine dependence, cigarettes, uncomplicated Cervical radiculopathy Insomnia Depression with anxiety Surgical History Surgical History Hx of cervical spine surgery (~2010) Hx of surgical procedure History of breast surgery History of cholecystectomy History of appendectomy History of tubal ligation Social History Social History Are you a primary critical care educator to a significant other at home: No Do you presently have visiting nurse or other home services: No Patient Tobacco Use Status: Current everyday Tobacco user Tobacco use type: Cigarette Cigarette Packs Per Day: 1.5 Cigarettes Per Day: 30.0 Meds Allergies Allergy/AdvReac Type Severity Reaction Status Date / Time morphine (MORPHINE) Allergy Unknown UNKNOWN Verified 05/18/25 14:28 naproxen (From NAPROSYN) Allergy Unknown GASTRITIS Verified 05/18/25 14:28 Sulfa (Sulfonamide Allergy Unknown RASH,HIVES,CHEST Verified 05/18/25 14:28 Antibiotics) (SULFA TIGHTNESS (SULFONAMIDE ANTIBIOTICS)) Home Medications ?Medication ?Instructions ?Recorded ?Confirmed ?Last Taken ?Type albuterol sulfate 90 mcg/actuation 2 puff inhalation Q4-6H PRN 05/13/25 05/18/25 Unknown History aerosol inhaler Shortness Of Breath Or Wheezing amlodipine 10 mg tablet 10 mg PO DAILY 05/13/25 05/18/25 Unknown History ibuprofen 200 mg tablet 400 mg PO Q6H PRN Pain 05/13/25 05/18/25 02/25/25 History olmesartan 5 mg tablet 5 mg PO DAILY 05/13/25 05/18/25 Unknown History Exam Height,Weight and Vital Signs: Height 5 ft 4 in Weight 91.626 kg Pertinent Lab Results Pertinent Lab Results: Laboratory Tests 03/22/25 10:55 WBC 6.4 RBC 4.52 Hgb 13.6 Hct 40.5 Plt Count 217 Sodium 142 Potassium 4.0 BUN 12 Creatinine 0.69 Narrative Narrative: EKG 02/2024 Vent. Rate : 070 BPM Atrial Rate : 070 BPM P-R Int : 156 ms QRS Dur : 082 ms QT Int : 416 ms P-R-T Axes : 072 080 035 degrees QTc Int : 449 ms Normal sinus rhythm Normal ECG When compared with ECG of 04-OCT-2012 10:58, Vent. rate has decreased BY 42 BPM ECHO 10/2023 The left ventricular size is normal. The left ventricular wall thickness is mildly increased. Normal LV systolic function. EF 55-65%. The right ventricle is normal in size and function. There is no significant valvular disease. Documented by User: Susanne Cornejo MD 05/27/25 07:46 PMFSH Past Medical History Medical History Hx of cocaine abuse Back pain Spinal stenosis Sleep apnea Asthma Murmur Elevated cholesterol Vertigo Numbness History of CVA with residual deficit CVA (cerebral vascular accident) (~10/2023) HTN (hypertension) Nicotine dependence, cigarettes, uncomplicated Cervical radiculopathy Insomnia Depression with anxiety Surgical History Surgical History Hx of cervical spine surgery (~2010) Hx of surgical procedure History of breast surgery History of cholecystectomy History of appendectomy History of tubal ligation Social History Social History Are you a primary critical care educator to a significant other at home: No Do you presently have visiting nurse or other home services: No Patient Tobacco Use Status: Current everyday Tobacco user Tobacco use type: Cigarette Cigarette Packs Per Day: 1.5 Cigarettes Per Day: 30.0 Meds Allergies Allergy/AdvReac Type Severity Reaction Status Date / Time morphine (MORPHINE) Allergy Unknown UNKNOWN Verified 05/18/25 14:28 naproxen (From NAPROSYN) Allergy Unknown GASTRITIS Verified 05/18/25 14:28 Sulfa (Sulfonamide Allergy Unknown RASH,HIVES,CHEST Verified 05/18/25 14:28 Antibiotics) (SULFA TIGHTNESS (SULFONAMIDE ANTIBIOTICS)) Home Medications ?Medication ?Instructions ?Recorded ?Confirmed ?Last Taken ?Type albuterol sulfate 90 mcg/actuation 2 puff inhalation Q4-6H PRN 05/13/25 05/18/25 Unknown History aerosol inhaler Shortness Of Breath Or Wheezing amlodipine 10 mg tablet 10 mg PO DAILY 05/13/25 05/18/25 Unknown History ibuprofen 200 mg tablet 400 mg PO Q6H PRN Pain 05/13/25 05/18/25 02/25/25 History olmesartan 5 mg tablet 5 mg PO DAILY 05/13/25 05/18/25 Unknown History Exam Airway Mallampati Class: II TM Dist: >3cm Neck ROM: Full Heart: rrr Lungs: cta Assessment and Plan Assessment Anesthesia Assessment: Anesthesia Plan Discussed and Chart Reviewed Final Anesthetic Review NPO: Yes ASA Class: III (await urine tox) Final Preanesthetic Review: No Changes in Pt Med Stat, Meds/Allgs Chart Reviewed, Consent Obtained/Reviewed and Anes Risks/Benef Reviewed Patient Risk: Intermediate Procedure Risk: Low Anesthetic Plan Anesthetic Plan: GA and Agree w/ Assess. and Plan Disposition: Standard PACU
[2025-05-27] VITALS (8 sets, daily range): BP systolic 102–146; BP diastolic 68–85; PULSE 67–83; RESP 16–18; TEMP 36.1–36.2; O2SAT 93–99; BMI 34.7
--- NOTE | 2025-05-27 08:58 | PC.NURSE ---
pt sts clean since her stroke
[2025-05-27 09:00] LABS: Cannabinoid Screen Urine Not Detected (Not Detect)
[2025-05-27] MEDS: Lactated Ringers 1,000 ML 100 ML IVCONT (09:20)
--- NOTE | 2025-05-27 12:25 | P.BOP_ITS ---
Brief Operative Note Date of Service: 05/27/25 Pre-op diagnosis: Left shoulder impingement syndrome, left shoulder acromioclavicular joint arthritis, left shoulder adhesive capsulitis Post-op diagnosis: same Procedure: Left shoulder arthroscopic distal clavicle excision, left shoulder arthroscopic acromioplasty, left shoulder arthroscopic anterior capsular release, left shoulder manipulation under anesthesia Implants: none Surgeon: Simon Jolly MD Anesthesia: GETA and regional Was an [employer] Porter used for this Procedure?: No Estimated blood loss (mL): 10 Pathology: none sent Condition: stable Disposition: PACU
--- NOTE | 2025-05-27 12:27 | P.OP_ITS ---
Operative Note Operative Note Date of Service: 05/27/25 Narrative: After the patient was identified as Jaye Marrero and her left shoulder was initialed by myself the patient was brought to the holding area where a left shoulder interscalene regional block was performed by the anesthesiologist in routine fashion. The patient was then brought to the operating room where general anesthesia was induced by the anesthesiologist in routine fashion. The patient was given 2 g of IV Ancef preoperatively for infection prophylaxis. Examination under anesthesia of the patient's left shoulder showed decreased range of motion when compared to the right shoulder. The patient's left shoulde r had forward flexion to 90 degrees compared to 170 degrees, external rotation to 20 degrees compared to 70 degrees, and internal rotation to 40 degrees compared to 50 degrees. The patient was gently positioned in the beach chair position with all bony prominences well padded. The patient's left shoulder region and upper extremity were prepped and draped in sterile fashion. A formal time-out was completed. A #11 scalpel blade was used to make a posterior portal 2 cm inferior and 1 cm medial to the posterolateral corner of the acromion. Blunt trocar technique was used to enter the glenohumeral joint in routine fashion. An anterior portal was made just lateral to the coracoid process after proper positioning was confirmed using a spinal needle. Diagnostic arthroscopy showed minimal degenerative changes of the glenoid and humeral head articular surfaces. There was no evidence of rotator cuff tearing. There was no evidence of injury to the biceps tendon or its insertion onto the glenoid. There was inflammation of the anterior joint capsule consistent with adhesive capsulitis. The ArthroCare Wand was then used to perform an anterior capsular release between the inferior border of the biceps tendon and the superior border of the subscapularis tendon. The arthroscope was then placed from the posterior portal into the subacromial space. A lateral portal was made 2 fingerbreadths lateral to the anterior lateral corner of the acromion. The ArthroCare Wand was used to ablate soft tissues along the undersurface of the acromion as well as to excise the coracoacromial ligament. There was a sharp spur along the undersurface of the acromion which was removed using the hooded bur. The arthroscope was then placed into the lateral portal and the acromioplasty was completed with the bur in the posterior portal using the posterior aspect of the acromion as a cutting block. The ArthroCare Wand was then brought in through the anterior portal and was used to ablate soft tissues along the acromioclavicular joint and distal clavicle. The posterior and superior ligamentous structures were left intact. A distal clavicle excision of 8 mm was performed using the hooded bur. Any remaining bursal tissue was removed using the arthroscopic shaver. The subacromial space was irrigated and then drained. All arthroscopic instruments were removed. A gentle manipulation under anesthesia was then performed. Full passive range of motion was easily attained. The 3 portals were closed with 3-0 nylon interrupted suture. The subacromial space was injected with Marcaine. Dr ruvalcaba sterile dressing was placed over all incisions. The patient's left upper extremity was placed into a sling. The patient was awoken and extubated in the operating room. The patient was transferred to the recovery room in stable condition.
== END 2025-05-27 13:48 | disposition home or self-care (01) ==
PROVIDERS: Nurse Practitioner; PCP Internal Medicine; Visit Provider Orthopaedic Surgery
PROC: (CPT 29805; principal; 2025-05-27 10:30)
DX: M75.42 Impingement syndrome of left shoulder (principal); M75.02 Adhesive capsulitis of left shoulder; M25.512 Pain in left shoulder; M19.012 Primary osteoarthritis, left shoulder; M25.612 Stiffness of left shoulder, not elsewhere classified; M54.12 Radiculopathy, cervical region; I10 Essential (primary) hypertension; E78.00 Pure hypercholesterolemia, unspecified; J45.909 Unspecified asthma, uncomplicated; F41.8 Other specified anxiety disorders; Z79.1 Long term (current) use of non-steroidal anti-inflammatories (NSAID); Z79.899 Other long term (current) drug therapy; Z88.2 Allergy status to sulfonamides; Z88.5 Allergy status to narcotic agent; Z88.6 Allergy status to analgesic agent; F17.210 Nicotine dependence, cigarettes, uncomplicated; Z98.890 Other specified postprocedural states
CPT/HCPCS: 29824; 29825; 29826; 80307; J0131; J0165; J0665; J0690; J0696; J1100; J2003; J2250; J2371; J2405; J2704; J2795

== ENCOUNTER → 2025-05-27 08:32 | Outpatient (BNV) | payer MEDICAID, SELFPAY | PROVIDERS: PCP Internal Medicine; Visit Provider Orthopaedic Surgery | DX: M75.42 Impingement syndrome of left shoulder (principal); M19.012 Primary osteoarthritis, left shoulder; M75.02 Adhesive capsulitis of left shoulder | CPT/HCPCS: 29824; 29826 ==

== ENCOUNTER 2025-06-09 13:50 | Outpatient (AMB) | payer MEDICAID, SELFPAY ==
--- NOTE | 2025-06-09 13:52 | A.OFFVIS_ITS ---
Intake Visit Reasons: Left hand numbness, PO-Lt Shld 05/27/25 Intake Note: Jaye is a 55 year old female who presents with complaints of progressively worsening numbness and tingling in her left hand. The patient states that her symptoms have gotten worse over the last year in spite of continued non operativ e treatments. The numbness and tingling are now interfering with her ability to sleep well through the night. The patient did undergo left shoulder arthroscopic surgery on 05/27/2025. She reports mild to moderate discomfort in her left shoulder. She denies any fevers or chills. She continues with her home stretching program. Allergies morphine (MORPHINE) Allergy (Severe, Verified 06/09/25 13:55) sob naproxen (From NAPROSYN) Allergy (Unknown, Verified 06/09/25 13:55) GASTRITIS Sulfa (Sulfonamide Antibiotics) (SULFA (SULFONAMIDE ANTIBIOTICS)) Allergy (Unknown, Verified 06/09/25 13:55) RASH,HIVES,CHEST TIGHTNESS PFSH Medical History (Updated 06/09/25 @ 14:12 by Simon Jolly MD) Hx of cocaine abuse Back pain Spinal stenosis Sleep apnea Asthma Murmur Elevated cholesterol Vertigo Numbness History of CVA with residual deficit CVA (cerebral vascular accident) (~10/2023) HTN (hypertension) Nicotine dependence, cigarettes, uncomplicated Cervical radiculopathy Insomnia Depression with anxiety Surgical History (Updated 06/09/25 @ 13:55 by KATHRIN Bass) S/P arthroscopy of right shoulder Hx of cervical spine surgery (~2010) Hx of surgical procedure History of breast surgery History of cholecystectomy History of appendectomy History of tubal ligation Social History Are you a primary home visit field care manager to a significant other at home: No Do you presently have visiting nurse or other home services: No Patient Tobacco Use Status: Current everyday Tobacco user Tobacco use type: Cigarette Cigarette Packs Per Day: 1.5 Cigarettes Per Day: 30.0 Physical Exam Extrem Other: Left shoulder examination shows that the surgical incisions are healing well, no erythema, mild to moderate discomfort with range of motion, no instability Left hand examination shows decreased sensation to light touch along her median nerve distribution, mild thenar muscle wasting, positive Tinel's test over her carpal tunnel Assessment & Plan Assessment & Plan (1) Numbness of left hand: Code(s): R20.0 - Anesthesia of skin Category: Medical Plan Ms. Marrero is doing well after undergoing left shoulder arthroscopic surgery on 05/27/2025. Her sutures were removed and Steri-Strips placed over her incisions. I did refill her prescription for oxycodone. She will continue with her home stretching program. She does not wish to go to formal physical therapy at this time. The patient does have progressively worsening numbness and tingling in her left hand possibly due to carpal tunnel syndrome. Thus, I will send the patient for nerve conduction studies of her left upper extremity. I will contact her by phone once the results are available. Feel free to call me at any time should questions regarding her orthopedic management arise. I spent 20 minutes in reviewing the patient's records and imaging studies, seeing the patient and documenting in the medical record. Orders: Orders NE electromyogram (EMG) Today R20.0 - Anesthesia of skin NE nerve conduction velocity 06/09/25 R20.0 - Anesthesia of skin Medications: Changed From oxycodone Partial Fill upon patient request. Take 1-2 tabs every 4 hours as needed for pain after your shoulder surgery. 10 mg (2 x 5 mg) PO Q4H PRN 40 tabs 0RF pain To oxycodone Partial Fill upon patient request. 5 mg PO Q4H PRN 40 tabs 0RF pain Coding Level of Care Code Est Pt Level 3 (13893) Add On Problem Visit Only Diagnoses Numbness of left hand R20.0
--- OUTSIDE RECORDS SUMMARY | 2025-06-09 18:05 | XMS_ITS | Encounter Summary ---
Author Organization [facility] Address [address] [facility] [address] [place] [address] Phone Care Team Providers Care Command And Control Specialist Name Role Phone Charlie Lucia MD Primary Care Provide r Dany Chappell MD Unavailable Shashi Garcia MD Unavailable Mamta Sarmiento MD Unavailable [phone] Encounter Details Date Type Department Care Team (Latest Contact Info) Description 11/20/2017 Transcribe Orders [facility] Specimen Processing [address] [place] [address] Hayden Argueta MD [address] [place] [address], [address] [place] [address] [email or web address] Diagnosis unknown (Primary Dx) Social History [...] (11/20/2017 2:11 PM EDT) SPECIMEN SOURCE CSF [facility] DPT OF LAB MED AND PAT+ B.BURGDORFERI PCR Negative Negative [facility] DPT OF LAB MED AND PAT+ B.MAYONII PCR Negative Negative [facility] DPT OF LAB MED AND PAT+ B.GARINII/AFZELI Negative Negative [facility] DPT OF LAB MED AND PAT+ Comment SEE NOTE [facility] DPT OF LAB MED AND PAT+ Comment: (NOTE) If clinical features of illness are highly indicative of Lyme neuroborreliosis, additional serological testing would be recommended. ADDITIONAL INFORMATION This test was developed and its performance characteristics determined by [facility] in a manner consistent with CLIA requirements. This test has not been cleared or approved by the U.S. Food and Drug Administration. Other (Spinal Fluid) 11/20/2017 2:11 PM EDT 11/20/2017 2:13 PM EDT Hayden Argueta MD BODY FLUIDS AND STOOLS ORDER CECELIA Final Result [facility] DPT OF LAB MED AND PAT+ [address] [place] [address] * Angiotensin converting enzyme, CSF (11/20/2017 2:11 PM EDT) ANGIOTENSIN CONVERT ENZYME, CS 1.2 0.0 - 2.5 U/[facility] Comment: (NOTE) This test was developed and its performance characteristics determined by [facility]. The U.S. Food and Drug Administration has not approved or cleared this test; however, FDA clearance or approval is not currently required for clinical use. The results are not intended to be used as the sole means for clinical diagnosis or patient management decisions. Performed by [facility], [address] [place] [id number] [email or web address], Julian Sanon MD - Lab. Director Test Performed by: [facility] [address] [place] [id number] Cerebrospinal Fluid (Cerebrospinal Fluid) 11/20/2017 2:11 PM EDT 11/20/2017 2:13 PM EDT Hayden Argueta MD BODY FLUIDS AND STOOLS ORDER CECELIA Final Result Performing Organization Address [facility] de Phone Number [facility] * IgG index/synthesis rate, CSF (11/20/2017 2:11 PM EDT) IgG Index (CSF/Ser) 0.50 <=0.85 [facility] DPT OF LAB MED AND PAT+ IGG,CSF 1.6 <=8.1 mg/dL [facility] DPT OF LAB MED AND PAT+ Comment: (NOTE) ADDITIONAL INFORMATION This test has been modified from the clinical training specialist's instructions. Its performance characteristics were determined by [facility] in a manner consistent with CLIA requirements. This test has not been cleared or approved by the U.S. Food and Drug Administration. ALBUMIN,CSF 17.5 <=27.0 mg/dL [facility] DPT OF LAB MED AND PAT+ Comment: (NOTE) ADDITIONAL INFORMATION This test has been modified from the clinical training specialist's instructions. Its performance characteristics were determined by [facility] in a manner consistent with CLIA requirements. This test has not been cleared or approved by the U.S. Food and Drug Administration. IGG/ALBUMIN,CSF 0.09 <=0.21 [facility] DPT OF LAB MED AND PAT+ IgG Synthesis Rate 0.00 <=12 mg/24 h [facility] DPT OF LAB MED AND PAT+ IgG 817 767 - 1,590 mg/dL [facility] DPT OF LAB MED AND PAT+ Albumin 4,560 3,200 - 4,800 mg/dL [facility] DPT OF LAB MED AND PAT+ IgG/Albumin ratio 0.18 <=0.40 [facility] DPT OF LAB MED AND PAT+ Cerebrospinal Fluid (Cerebrospinal Fluid) 11/20/2017 2:11 PM EDT 11/20/2017 2:13 PM EDT us Hayden Argueta MD BODY FLUIDS AND STOOLS ORDER CECELIA Final Result Performing Organization Address City/[facility] Co de Phone Number [facility] DPT OF LAB MED AND PAT+ [address] [place] [address] * Oligoclonal bands, Serum and CSF (11/20/2017 2:11 PM EDT) Oligoclonal bands 6 bands [facility] DPT OF LAB MED AND PAT+ CSF BANDS 6 bands [facility] DPT OF LAB MED AND PAT+ CSF OLIG BANDS INTERPRETATION 0 <4 bands [facility] DPT OF LAB MED AND PAT+ Comment: (NOTE) The oligoclonal band assay detected 3 or fewer unique IgG bands in the CSF. This is a negative result. Cerebrospinal Fluid (Cerebrospinal Fluid) 11/20/2017 2:11 PM EDT 11/20/2017 2:13 PM EDT us Hayden Argueta MD LAB BODY FLUIDS AND STOOL OR DERABLES Final Result Performing Organization Address [facility] de Phone Number [facility] DPT OF LAB MED AND PAT+ [address] [place] [address] * Syphilis antibody, CSF (VDRL) (11/20/2017 2:11 PM EDT) VDRL Negative Negative [facility] Cerebrospinal Fluid (Cerebrospinal Fluid) 11/20/2017 2:11 PM EDT 11/20/2017 2:13 PM EDT us Hayden Argueta MD BODY FLUIDS AND STOOLS ORDER CECELIA Final Result Performing Organization Address [facility] Co de Phone Number [facility] LAB MED/[address] [place] [address] * Cryptococcal antigen, CSF (11/20/2017 2:11 PM EDT) CSF CRYPTOCOCCAL AG Negative Negative [facility] Comment: All cryptococal antigen will have a backup culture performed, please see separate lab report. Cerebrospinal Fluid (Cerebrospinal Fluid) 11/20/2017 2:11 PM EDT 11/20/2017 2:13 PM EDT us Hayden Argueta MD LAB BODY FLUIDS AND STOOL OR DERABLES Final Result Performing Organization Address City/[facility]/ZIP Co de Phone Number [address] [address] * (ABNORMAL) Mycobacterial culture/smear (11/20/2017 2:11 PM EDT) Specimen Source/ Description CSF [facility] Special Requests None [facility] SMEAR NO ACID FAST BACILLI OBSERVED(A) [facility] Culture/Test NO AFB ISOLATED AFTER 8 WEEKS [facility] Report Status 01/08/2018 FINAL [facility] Other (Cerebrospinal Fluid) 11/20/2017 2:11 PM EDT 11/20/2017 2:14 PM EDT us Hayden Argueta MD LAB MICROBIOLOGY CULTURE ORD ERABLES Final Result Performing Organization Address [facility]/ZIP Co de Phone Number [address] [address] * Fungal culture (11/20/2017 2:11 PM EDT) Specimen Source/ Description CSF [facility] Special Requests None [facility] GRAM STAIN NO YEAST OR FUNGAL ELEMENTS SEEN [facility] Culture/Test NO FUNGUS OR YEAST ISOLATED AFTER 25 DAYS [facility] Report Status 12/15/2017 FINAL [facility] Other (Cerebrospinal Fluid) 11/20/2017 2:11 PM EDT 11/20/2017 2:14 PM EDT us Hayden Argueta MD LAB MICROBIOLOGY CULTURE ORD ERABLES Final Result Performing Organization Address City/[facility]/ZIP Co de Phone Number [address] [address] * Total protein, CSF (11/20/2017 2:11 PM EDT) CSF PROTEIN 25.5 15.0 - 45.0 mg/dL [facility] Cerebrospinal Fluid (Cerebrospinal Fluid) 11/20/2017 2:11 PM EDT 11/20/2017 2:13 PM EDT us Hayden Argueta MD LAB BODY FLUIDS AND STOOL OR DERABLES Final Result Performing Organization Address [facility]/ZIP Co de Phone Number [address] [address] * Glucose, CSF (11/20/2017 2:11 PM EDT) CSF GLUCOSE 59 45 - 70 mg/dL [facility] Cerebrospinal Fluid (Cerebrospinal Fluid) 11/20/2017 2:11 PM EDT 11/20/2017 2:13 PM EDT us Hayden Argueta MD BODY FLUIDS AND STOOLS ORDER CECELIA Final Result Performing Organization Address [facility] Co de Phone Number [address] [address] * Culture/smear, CSF (11/20/2017 2:11 PM EDT) Specimen Source/ Description CSF CSF CSF [facility] Special Requests None [facility] GRAM STAIN NO ORGANISMS SEEN Few WBC'S [facility] Culture/Test NO GROWTH 48HRS [facility] Report Status 11/22/2017 FINAL [facility] Cerebrospinal Fluid (Cerebrospinal Fluid) 11/20/2017 2:11 PM EDT 11/20/2017 2:13 PM EDT us Hayden Argueta MD LAB MICROBIOLOGY CULTURE ORD ERABLES Final Result Performing Organization Address [facility]/ZIP Co de Phone Number [address] [address] * Cell count & differential, tube 4 (11/20/2017 2:11 PM EDT) CSF COLOR Colorless Colorless [facility] CSF TURBIDITY Clear Clear [facility] Nucleated cells, CSF 3 0 - 5 /uL [facility] Comment:Cell count less than 5, differential not done. RBC, CSF 0 0 - 10 /uL [facility] Tube #, CSF 4 [facility] PATH REVIEW NOT REQUIRED [facility] Cerebrospinal Fluid (Cerebrospinal Fluid) 11/20/2017 2:11 PM EDT 11/20/2017 2:13 PM EDT us Hayden Argueta MD LAB BODY FLUIDS AND STOOL OR DERABLES Final Result [facility] [address] [place] [address] documented in this encounter Visit Diagnoses Diagnosis Diagnosis unknown- Primary documented in this encounter Care Teams Command And Control Specialist Relationship Specialty Start Date End Date Charlie Lucia MD [address] [facility] [address] [place] [phone] [email or web address] PCP - General 04/08/17 Dany Chappell MD [address] [place] [address] [email or web address] Historical LMR Provider 04/10/17 06/30/21 Shashi Garcia MD [address] [address] Historical LMR Provider 04/10/17 06/30/21 Mamta Sarmiento MD [address] [place] [address] Historical LMR Provider 04/10/17 2 documented as of this encounter Additional Source Comments The information contained in this document represents components of the legal health record. It is not the complete legal health record.[facility]
--- OUTSIDE RECORDS SUMMARY | 2025-06-09 18:05 | XMS_ITS | Encounter Summary ---
Author Organization [employer] Address [address] [facility] 7[address] [place] [address] Care Team Providers Care Tumbler Plater Name Role Phone Derek Segovia MD Primary Care Prov ider Heather Navarrete RN Unavailable Unavailable Judith Pack Unavailable Reason for Visit * Reason Onset Date Comments Nurse Triage 11/18/2023 Encounter Details Date Type Department Care Team ([facility] Contact Info) Description 11/18/2023 Telephone [facility] MED & PEDS [address] [place], [place] [phone] Derek Segovia MD [address] [place] [address] Nurse Triage Social History Tobacco Use Types [...] accepted this outcome Please contact pt at [phone] documented in this encounter Plan of Treatment Not on file documented as of this encounter Visit Diagnoses Not on filedocumented in this encounter Additional Health Concerns Assessment Noted Time PHQ-9 Depression Total Score: 7 11/11/19 24 12:57 PM EDT documented as of this encounter Care Teams Tumbler Plater Relationship Specialty Start Date End Date Derek Segovia MD [address] [place] [address] PCP - General Internal Medicine 11/21/19 Heather Navarrete RN [address] [place] [address] Registered Nurse Family Medicine 12/29/24 06/01/25 Judith Pack 12/29/24 06/01/25 documented as of this encounter
--- OUTSIDE RECORDS SUMMARY | 2025-06-09 18:05 | XMS_ITS | Encounter Summary ---
Author Organization [facility] Address [address] [facility] [address] [place] [address] Phone Care Team Providers Care Criminal Justice Department Chair Name Role Phone Charlie Lucia MD Primary Care Provide r Dany Chappell MD Unavailable [phone] Shashi Garcia MD Unavailable Mamta Sarmiento MD Unavailable [phone] Encounter Details Date Type Department Care Team (Latest Contact Info) Description 11/20/2017 Transcribe Orders [facility] Phleb Main [address] [place] [phone] Hayden Argueta MD [address] [place] [address], [address] [place] [address] [email or web address] Numbness (Primary Dx); Intractable headache, unspecified [...] TOTAL PROTEIN 6.9 6.3 - 7.9 g/dL [facility] DPT OF LAB MED AND PAT+ ALBUMIN 3.5 3.4 - 4.7 g/dL [facility] DPT OF LAB MED AND PAT+ ALPHA-1 GLOBULIN 0.3 0.1 - 0.3 g/dL [facility] DPT OF LAB MED AND PAT+ ALPHA-2 GLOBULIN 0.9 0.6 - 1.0 g/dL [facility] DPT OF LAB MED AND PAT+ BETA-GLOBULIN 1.3(H) 0.7 - 1.2 g/dL [facility] DPT OF LAB MED AND PAT+ GAMMA-GLOBULIN 1.0 0.6 - 1.6 g/dL [facility] DPT OF LAB MED AND PAT+ A/G RATIO 1.02 [facility] D[facility] MED AND PAT+ M SPIKE Test component not applicable or not reported. not reported [facility] DPT OF LAB MED AND PAT+ M SPIKE Test component not applicable or not reported. not reported [facility] DPT OF LAB MED AND PAT+ IMPRESSION SEE NOTE [facility] DPT OF LAB MED AND PAT+ Comment: (NOTE) No apparent monoclonal protein on serum electrophoresis. Blood 11/20/2017 10:1 9 AM EDT 11/20/2017 10:22 AM EDT us Hayden Argueta MD LAB BLOOD BKR ORDERABLES Fin al Result [facility] DPT OF LAB MED AND PAT+ [address] [place] [address] documented in this encounter Visit Diagnoses Diagnosis Numbness- Primary Disturbance of skin sensation Intractable headache, unspecified chronicity pattern, unspecified headache type documented in this encounter Care Teams Criminal Justice Department Chair Relationship Specialty Start Date End Date Charlie Lucia MD [address] [place] [address] [address] [place] [phone] PCP - General 04/08/17 Dany Chappell MD [address] [place] [address] [email or web address] Historical LMR Provider 04/10/17 06/30/21 Shashi Garcia MD [address] [place] [phone] [email or web address] Historical LMR Provider 04/10/17 06/30/21 Mamta Sarmiento MD [address] [place] [address] Historical LMR Provider 04/10/17 2 documented as of this encounter Additional Source Comments The information contained in this document represents components of the legal health record. It is not the complete legal health record.[facility]
--- OUTSIDE RECORDS SUMMARY | 2025-06-09 18:05 | XMS_ITS | Clinical Summary ---
Author Organization [employer] Address [address] [facility] [address] [place] [address] Care Team Providers Care Materials Manager Name Role Phone Derek Segovia MD [...] mouth Once per day. 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 PLAN: 1. Follow up with [facility]: Not recommended for follow-up 2. Patient goal [...] Encounters Date Type Department Care Team Description 06/01/2025 Patient Outreach [facility] [address] [place] [address] Derek Segovia MD Care Coordination (C3/CM Outreach) 05/27/2025 Orders Only GENERIC EXTERNAL DATA DEPARTMENT Provider, Generic External Data 05/09/2025 Patient Outreach [facility] [address] [place] [address] Derek Segovia MD Care Coordination (C3/CM Outreach) 04/11/2025 Telephone [facility] [address] [place] [address] Derek Segovia MD no show 04/08/2025 Telephone [facility] [address] [place] [address] Derek Segovia MD Medication Question 04/06/2025 Patient Outreach [facility] [address] [place] [address] Derek Segovia MD Care Coordination (C3/CM Outreach) 04/05/2025 Orders Only [facility] External Provider, [facility] 03/31/2025 Results Follow-Up [facility] [address] [place] [address] Pamela Dennis MD HIV-1/2 Antigen and Antibodies, Fourth Generation, with Reflexes, Hepatitis C Antibody with Reflex to HCV, RNA, Quantitative, Real-Time PCR, Pap Smear 03/22/2025 9:40 AM EDT Procedure Visit [facility] [address] [place] [address] Pamela Dennis MD Cervical cancer screening (Primary Dx); Encounter for immunization; Screening for lung cancer; Primary hypertension 03/22/2025 Orders Only [facility] [address] [place] [address] Pamela Dennis MD 03/22/2025 Travel 03/21/2025 Telephone [facility] [address] [place] [address] Derek Segovia MD chart prep 03/13/2025 Orders Only [facility] External Provider, [facility] from Last 3 Months Immunizations Immunization [...] your housing situation today? I have marisela brianda 04/07/[address] you li [...] Procedure Name Priority Date/Time Associated Diagnosis Comments DRUG MONITOR, PANEL 1, SCREEN, URINE Routine 05/27/2025 8:40 AM EST MR CERVICAL SPINE WO CONTRAST Routine 04/05/2025 [...] Recently Relevant to Health Maintenance Results * Drug Monitoring, Panel 1, Screen, Urine (05/27/2025 8:40 AM EST) Opiate Screen Urine Not Detected Not Detect [facility] Comment:Opiate cut-off is 30 0 ng/mL.Positive results are unconfirmed and should not be used fornon-medical purposes. Barbiturates, Urine Not Detected Not Detect [facility] Comment:Barbiturate cut-off is 200 ng/mL.Positive results are unconfirmed and should not be used fornon-medical purposes. Phencyclidine Screen Urine Not Detected Not Detect [facility] Comment:Phencyclidine cut-of f is 25 ng/mL.Positive results are unconfirmed and should not be used fornon-medical purposes. Amphetamine Screen Urine Not Detected Not Detect [facility] Comment:Amphetamine cut-off is 1000 ng/mL.Positive results are unconfirmed and should not be used fornon-medical purposes. Benzodiazepines Screen Urine Not Detected Not Detect [facility] Comment:Benzodiazepine cut-o ff is 200 ng/mL.Positive results are unconfirmed and should not be used fornon-medical purposes. Cocaine Screen Urine Not Detected Not Detect [facility] Comment:Cocaine cut-off is 3 00 ng/mL.Positive results are unconfirmed and should not be used fornon-medical purposes. Cannabinoid Screen Urine Not Detected Not Detect [facility] Comment:Cannabinoid cut-off is 50 ng/mL.Positive results are unconfirmed and should not be used fornon-medical purposes. Methadone Screen, Urine Not Detected Not Detect ng/mL [facility] Comment:Methadone cut-off is 300 ng/mL.Positive results are unconfirmed and should not be used fornon-medical purposes. FENTANYL URINE Not Detected Not Detect [facility] Comment:Fentanyl cut-off is 1 ng/mL.Positive results are unconfirmed and should not be used fornon-medical purposes. Oxycodone Urine Screen Not Detected Not Detect ng/mL [facility] Comment:Oxycodone cut-off is 100 ng/mL.Positive results are unconfirmed and should not be used fornon-medical purposes. Buprenorphine Screen Not Detected Not Detect ng/mL [facility] Comment:Buprenorphine cut-of f is 5 ng/mL.Positive results are unconfirmed and should not be used fornon-medical purposes. 05/27/2025 8:40 AM EST 05/27/2025 8:44 AM EST us Generic External Data Provider LAB URINE ORDERAB LES Final Result Performing Organization Address City/State/[facility] Co de Phone Number [facility] [address] [place] [phone] * MR Cervical Spine w/o Contrast (04/05/2025 7:55 PM EDT) Anatomical Region Laterality Modality Spine, C-spine Magnetic Resonan ce 04/05/2025 7:55 PM EDT Narrative 04/06/2025 8:05 AM EDT [address] [address] Magnetic Resonance Report Signed Patient: Jaye Marrero MR#: [id number] 223 : 1970 Acct:[id number] Age/Sex: 55 / F ADM Date: 04/05/25 Loc: HO.MRI Attending Dr: Simon Jolly MD Ordering Physician: Simon Jolly MD Date of Service: 04/05/25 Procedure(s): MR cervical spine wo con Accession Number(s): [id number] cc: Derek Segovia MD; Simon Jolly MD [...] OV> 04/06/25 0803 DD/ 54 TD/TT: 04/05/252019 Sales Floor Manager: Procedure Note Donotuseinterpreter, Image - 04/06/2025 [place] [address] Magnetic Resonance Report Signed Patient: Liyah Marrero#: [id number] 223 : 1970Acct:[id number] Age/Sex: 55 / FADM Date: 04/05/25 Loc: HO.MRI Attending Dr: Simon Jolly MD Ordering Physician: Simon Jolly MD Date of Service: 04/05/25 Procedure(s): MR cervical spine wo con Accession Number(s): [id number] cc: Derek Segovia MD; Smion Jolly MD Reason for Exam: M54.2 - [...] OV> 04/06/25 0803 DD/ 54 TD/TT: 04/05/252019 Sales Floor Manager: [facility] External Provider IMG MRI PROCEDURES Final Result * TSH W/Reflex to FT4 (03/22/2025 10:55 AM EDT) Pathologist [facility] TSH reflex Free T4 2.73 0.32 - 4.0 uIU/mL [facility] Blood Venous blood specimen / Unknown 03/22/2025 10:55 AM EDT 03/22/2025 2:09 PM EDT Derek Ruiz MD LAB BLOOD ORDERABL ES Final Result [facility] [address] [place] [phone] * Hepatitis C Viral RNA, Quantitative, Real-Time PCR (03/22/2025 10:55 AM EDT) Hepatitis C Viral Load <15 NOT DETECTED NOT DETECTED IU/mL [facility] HCV Log PCR <1.18 NOT DETECTED NOT DETECTED Log IU/mL [facility] Comment:For additional infor mation, please refer tohttp://education.CeloNova/faq/HZW57u4(This link is being provided for informational/educational purposes only.)THIS TEST WAS PERFORMED AT:[facility] [place] [phone] WOODS MD 03/22/2025 10:5 5 AM EDT 03/24/2025 1:46 PM EDT us Pamela Dennis MD LAB BLOOD ORDERABLES Final Re sult [facility] [address] [place] [phone] * (ABNORMAL) CBC auto differential (03/22/2025 10:55 AM EDT) White Blood Count 6.4 4.8 - 10.8 X10*3/uL [facility] Red Blood Count 4.52 4.20 - 5.50 X10*6/uL [facility] Hemoglobin 13.6 12.0 - 16.0 g/dl [facility] Hematocrit 40.5 37.0 - 47.0 % [facility] Mean Corpuscular Volume 89.6 80.0 - 98.0 fL [facility] Mean Corpuscular Hemoglobin 30.1 27.0 - 33.0 pg [facility] Mean Corpuscular HGB Conc 33.6 31.0 - 35.0 g/dl [facility] Red Cell Distribution Width 13.2 11.0 - 16.0 % [facility] Platelet Count 217 160 - 400 X10*3/uL [facility] Mean Platelet Volume 11.2 9.4 - 12.3 fL [facility] Neutrophils Percent Auto 51.0 45 - 73 % [facility] Imm Gran Pct Auto 0.3 0.0 - 0.4 % [facility] Lymphocytes Percent Auto 40.1(H) 20 - 40 % [facility] Monocytes Percent Auto 6.7 2 - 11 % [facility] Eosinophils Percent Auto 1.4 0 - 4 % [facility] Basophils Percent Auto 0.5 0 - 2 % [facility] NRBC Pct Auto 0.0 0.0 - 0.2 /100WBC [facility] Neutrophils Absolute Auto 3.3 2.0 - 8.3 x10*3/uL [facility] Imm Gran Abs Auto 0.02 0.00 - 0.03 X10*3/uL [facility] Lymphocytes Absolute Auto 2.6 1.2 - 4.9 X10*3/uL [facility] Monocytes Absolute Auto 0.4 0.1 - 1.2 X10*3/uL [facility] Eosinophils Absolute Auto 0.1 0.0 - 0.4 X10*3/uL [facility] Basophils Absolute Auto 0.0 0.0 - 0.2 X10*3/uL [facility] NRBC Abs Auto 0.000 0.0 - 0.012 X10*3/uL [facility] Blood Venous blood specimen / Unknown 03/22/2025 10:55 AM EDT 03/22/2025 2:09 PM EDT us Derek Ruiz MD LAB BLOOD ORDERABL ES Final Result Performing Organization Address [facility] Co de Phone Number [facility] [address] [place] [phone] * (ABNORMAL) Hepatitis C Antibody with Reflex to HCV, RNA, Quantitative, Real- Time PCR (03/22/2025 10:55 AM EDT) Hepatitis C Antibody Reactive( A) Nonreactive [facility] Comment:Presumptive evidence of antibodies to HCV. Blood Venous blood specimen / Unknown 03/22/2025 10:55 AM EDT 03/22/2025 2:09 PM EDT us Pamela Dennis MD LAB BLOOD ORDERABLES Final Re sult Performing Organization Address [facility]/ZIP Co de Phone Number [facility] [address] [place] [phone] * HIV-1/2 Antigen and Antibodies, Fourth Generation, with Reflexes (03/22/2025 10:55 AM EDT) HIV AB/AG Nonreactive Nonreactive [facility] Comment:HIV-1 p24 Ag and/or HIV-1/HIV-2 Ab not detected.A test result that is nonreactive does not exclude thepossibility of exposure to or infection with HIV-1 and/orHIV-2. Nonreactive results in this assay for individualswith prior exposure to HIV-1 and/or HIV-2 may be due toantigen and antibody levels that are below the limit ofdetection of this assay.The [employer] HIV Ag/Ab Combo assay result andsupplemental assay results should be interpreted inconjunction with the patient's clinical presentation,history and other laboratory results. If the results areinconsistent with clinical evidence, additional testing issuggested to confirm the result. Blood Venous blood specimen / Unknown 03/22/2025 10:55 AM EDT 03/22/2025 2:09 PM EDT us Pamela Dennis MD LAB BLOOD ORDERABLES Final Re sult [facility] [address] [place] [address] [phone] * (ABNORMAL) Lipid Panel, Standard (03/22/2025 10:55 AM EDT) Triglycerides 186(H) <150 mg/dL [facility] Comment:Desirable Triglyceri de: less than 150 mg/dLBorderline High Triglyceride 150-199 mg/dLHigh Triglyceride: 200-499 mg/dLVery High Triglyceride: greater than or equal to 5OO mg/dL Cholesterol 224(H) <200 mg/dL [facility] Comment:Desirable Cholestero l: less than 200 mg/dLBorderline High Cholesterol: 200-239 mg/dLHigh Cholesterol: greater than 239 mg/dL LDL Cholesterol Calculated 133(H) <100 mg/dL [facility] Comment:Desirable LDL: less than 100 mg/dLNear Optimal/Above Optimal LDL: 110- 129 mg/dLBorderline High LDL: 130-159 mg/dLHigh LDL: 160-189 mg/dLVery High LDL: greater than or equal to 190 mg/dL HDL Cholesterol 54 >40 mg/dL [facility] Comment:Desirable HDL: great er than 40 mg/dL Note: This HDL assay may give artificially low results in patients with liver disease. Blood Venous blood specimen / Unknown 03/22/2025 10:55 AM EDT 03/22/2025 2:09 PM EDT us Derek Ruiz MD LAB BLOOD ORDERABL ES Final Result [facility] [address] [place] [phone] * (ABNORMAL) Comprehensive Metabolic Panel (03/22/2025 10:55 AM EDT) Sodium 142 135 - 145 mmol/L [facility] Potassium 4.0 3.3 - 5.1 mmol/L [facility] Comment:Slight Hemolysis.Int erpret result with caution. Chloride 106 96 - 108 mmol/L [facility] Carbon Dioxide 27 22 - 29 mmol/L [facility] Anion Gap 13 12 - 20 [facility] Urea Nitrogen (BUN) 12 9 - 16 mg/dL [facility] Creatinine, Serum 0.69 0.5 - 1.4 mg/dL [facility] Estimated Glomerular Filt Rate >60 [facility] Comment:Chronic Kidney Disea se: Estimated GFR < 60 mL/min/1.76c8Ixhdtp Kidney Disease: Estimated GFR < 15 mL/min/1.73m2 Glucose 61 60 - 115 mg/dL [facility] Calcium 9.9 8.4 - 10.2 mg/dL [facility] Bilirubin, Total 0.3 0.0 - 1.0 mg/dL [facility] Aspartate Amino Transferase 36(H) 5 - 31 U/L [facility] Comment:Slight Hemolysis.Int erpret result with caution. Alanine Aminotransferase 34(H) 0 - 31 U/L [facility] Total Protein 7.4 6.5 - 8.0 g/dL [facility] Albumin Level 4.3 3.5 - 5.0 g/dL [facility] Alkaline Phosphatase 91 39 - 117 U/L [facility] Blood Venous blood specimen / Unknown 03/22/2025 10:55 AM EDT 03/22/2025 2:09 PM EDT us Derek Ruiz MD LAB BLOOD ORDERABL ES Final Result [facility] [address] [place] [phone] * Pap Smear (03/22/2025 12:00 AM EDT) Swab Cervical swab / Unknown 03/22/2025 03/23/2025 6:10 AM EDT Narrative [facility] - 04/21/2025 9:19 AM EDT ----- ------- Name: Jaye Marrero Age/Sex: 55/F : 1970 Unit#: [id number] Attend Dr: Re03/22/25 Status: PRE REF Location: [facility] Disch: ----- ------- SPEC : [id number] RECD: 03/23/25 STATUS: ASHLEE MARTINEZ NUM: [id number] CHE: 03/22/25-[address]: Pamela Dennis MD ENTERED: 03/23/25 SP TYPE: Pap Smr OTHR DR: ORDERED: Pap Smear, PAP path review Addendum Addendum 1 Entered: 04/21/25 HPV High Risk: Negative HPV Genotyping 16: Negative HPV Genotyping 18: Negative Addendum Signed (signature on file) CHARLOTTE Maqruez ([facility]) 04/21/259[address] ----- ------- Interpretation General Category: Negative for intraepithelial lesion/malignancy. Adequacy: Endocervical component absent. Interpretation: Reactive cellular changes. Coccobacilli consistent with shift in vaginal billie. Hyperkeratosis and parakeratosis. Clinical Information LMP: Post menopausal Previous PAP test: Other surgery: Other history: Material Received ThinPrep-Cervical ----- ------- Signed (signature on file) Allyssa Alvaro 03/30/25 1854 (signature on file) CHARLOTTE Marquez ([facility]) 04/21/25918 ----- ------- END OF REPORT us Pamela Dennis MD LAB CYTOLOGY ORDERABLES Final Result [facility] [address] [place] [phone] * MR Shoulder w/o Contrast Left (03/15/2025 11:01 PM EDT) Anatomical Region Laterality Modality Upper Extremities, Shoulder Left Magn etic Resonance 03/15/2025 11:0 1 PM EDT Narrative 03/15/2025 11:02 PM EDT [address] [address] Magnetic Resonance Report Signed Patient: Jaye Marrero MR#: [id number] 223 : 1970 Acct:[id number] Age/Sex: 55 / F ADM Date: 03/13/25 Loc: HO.MRI Attending Dr: Simon Jolly MD Ordering Physician: Simon Jolly MD Date of Service: 03/13/25 Procedure(s): MR shoulder LT wo con Accession Number(s): [id number] cc: Deerk Segovia MD; Simon Jolly MD Reason for [...] in OV> 03/15/252301 DD/ 00 TD/TT: 03/15/252300 Sales Floor Manager: Procedure Note Donotuseinterpreter, Image - 03/15/2025 [place] [address] Magnetic Resonance Report Signed Patient: Liyah Marrero#: [id number] 223 : 1970Acct:[id number] Age/Sex: 55 / FADM Date: 03/13/25 Loc: HO.MRI Attending Dr: Simon Jolly MD Ordering Physician: Simon Jolly MD Date of Service: 03/13/25 Procedure(s): MR shoulder LT wo con Accession Number(s): [id number] cc: Derek Segovia MD; Simon Jolly MD [...] in OV> 03/15/252301 DD/ 00 TD/TT: 03/15/252300 Sales Floor Manager: [facility] External Provider IMG MRI PROCEDURES Edited Result - Final * CT Lung Screening Low dose (05/02/2023 4:21 PM EST) Anatomical Region Laterality Modality Lung Computed Tomogra phy 05/02/2023 4:21 PM EST Narrative 05/09/2023 8:52 AM EST [address] [address] [address] Scan Report Signed Patient: Jaye Marrero MR#: [id number] 223 : 1970 Acct:[id number] Age/Sex: 53 / F ADM Date: 05/02/23 Loc: HO.CT Attending Dr: Velma Leija PA-C Ordering Physician: Velma Leija PA-C Date of Service: 05/02/23 Procedure(s): CT lung screening Accession Number(s): [id number] cc: Derek Segovia MD; Velma Leija PA-C [...] in OV> 05/09/23 0848 DD/ 1621 TD/TT: Sales Floor Manager: WEI Procedure Note Donotuseinterpreter, Image - 05/09/[address] [place] [address] [address] Scan Report Signed Patient: Liyah Marrero#: [id number] 223 : 1970Acct:[id number] Age/Sex: 53 / FADM Date: 05/02/23 Loc: HO.CT Attending Dr: Velma Leija PA-C Ordering Physician: Velma Leija PA-C Date of Service: 05/02/23 Procedure(s): CT lung screening Accession Number(s): [id number] cc: Derek Segovia MD; Velma eLija PA-C EXAMINATION: CT CHEST SCREENING CLINICAL INFORMATION: [...] in OV> 05/09/23 0848 DD/ 1621 TD/TT: Sales Floor Manager: WEI [facility] External Provider IMG CT PROCEDURES Final Result from Last 3 Months or Most Recently Relevant to Health Maintenance [place] [address] [place] [address] C3 Care Teams Materials Manager Relationship Specialty Start Date End Date Derek Segovia MD [address] [place] [phone] PCP - General Internal Medicine 11/21/19
--- OUTSIDE RECORDS SUMMARY | 2025-06-09 18:05 | XMS_ITS | Clinical Summary ---
Author Organization [facility] Address [address] [facility] [address] [place] [phone] Phone Care Team Providers Care Floor And Wall Applier Liquid Name Role Phone Charlie Lucia MD Primary [...] on file Insurance [employer] [address] [address] [place] [address] C[employer] Care Teams Floor And Wall Applier Liquid Relationship Specialty Start Date End Date Charlie Lucia MD [address] [place] [address] [address] [place] [phone] PCP - General 04/08/17 Additional Source Comments The information contained in this document represents components of the legal health record. It is not the complete legal health record.[facility]
== END 2025-06-09 14:06 | disposition home or self-care (01) ==
LOC: HO.HOS 13:51
PROVIDERS: PCP Internal Medicine; Visit Provider Orthopaedic Surgery
DX: R20.0 Anesthesia of skin (principal)
CPT/HCPCS: 99213

== ENCOUNTER → 2025-06-09 13:50 | Outpatient (BNVA) | payer MEDICAID, SELFPAY | PROVIDERS: PCP Internal Medicine; Visit Provider Orthopaedic Surgery | DX: R20.0 Anesthesia of skin (principal) | CPT/HCPCS: 99212 ==